=== PATIENT | female | born 1940 | race Two or more races ===

== ENCOUNTER 2017-03-26 14:13 | Observation (INO) | payer MEDICARE, OTHER ==
[2017-03-26] MEDS ORDERED: NITROGLYCERIN OINT 1 INCH/GM PACKET TOPICAL STA (14:25)
--- NOTE | 2017-03-26 14:28 | ED ---
General Adult HPI - General Chief complaint: Allergic Reaction Stated complaint: Allergic Reaction Time Seen by Provider: 03/26/17 14:21 Source: patient, EMS, RN notes reviewed Mode of arrival: EMS Limitations: no limitations - History of Present Illness Initial comments: Patient is a pleasant 76-year-old female presenting to the emergency department complaining of palpitations. Patient did have computed tomography scan with contrast done today. Patient was premedicated for this. This was secondary to some left lower abdominal discomfort patient has been experiencing. Patient states after she got home she experienced palpitations. Patient felt short of breath. Patient did have some mild tightness in her chest. Patient states symptoms have improved with oxygen on are now only mild. No rash. No swelling of the face or throat or neck. Previous contrast ALLERGY patient also had palpitations and shortness of breath however did develop a rash at that time. No rashes today. - Related Data Home Medications Medication Instructions Recorded Confirmed metFORMIN HCL [Glucophage] 1,000 mg PO BID 08/20/14 09/09/16 Clopidogrel [Plavix] 75 mg PO DAILY 02/13/16 09/09/16 Isosorbide Mononitrate ER [Imdur] 60 mg PO DAILY 02/13/16 09/09/16 Losartan [Cozaar] 50 mg PO DAILY 02/13/16 09/09/16 Atorvastatin [Lipitor] 40 mg PO HS 07/25/16 09/09/16 Insulin Glargine,Hum.rec.anlog 26 units SQ BID 07/25/16 09/09/16 [Toujeo Solostar] amLODIPine BESYLATE [Norvasc] 2.5 mg PO DAILY 07/25/16 09/09/16 Allergies Allergy/AdvReac Type Severity Reaction Status Date / Time aspirin Allergy Rash/Hives Verified 09/09/16 11:42 codeine Allergy Rash/Hives Verified 09/09/16 11:42 Influenza Virus Vaccines Allergy Rash/Hives Verified 09/09/16 11:42 Iodinated Contrast Media - Allergy Rash/Hives/Increased Verified 09/09/16 11:42 Oral and HR [Iodinated Contrast Media - IV Dye] iodine Allergy Rash/Hives Verified 09/09/16 11:42 NSAIDS (Non-Steroidal Allergy Anaphylaxis Verified 09/09/16 11:42 Anti-Inflamma Review of Systems ROS Statement: Those systems with pertinent positive or pertinent negative responses have been documented in the HPI. ROS Other: All systems not noted in ROS Statement are negative. Constitutional: Denies: fever Eyes: Denies: eye pain ENT: Denies: ear pain Respiratory: Reports: dyspnea. Denies: cough Cardiovascular: Reports: chest pain Endocrine: Denies: fatigue Gastrointestinal: Denies: abdominal pain Genitourinary: Denies: dysuria Musculoskeletal: Denies: back pain Skin: Denies: rash Neurological: Denies: weakness Past Medical History Past Medical History: Chest Pain / Angina, Diabetes Mellitus, Hyperlipidemia, Hypertension History of Any Multi-Drug Resistant Organisms: None Reported Past Surgical History: Cholecystectomy, Hernia Repair, Hysterectomy, Orthopedic Surgery Additional Past Surgical History / Comment(s): R shoulder surgery. R broken wrist. Past Anesthesia/Blood Transfusion Reactions: No Reported Reaction Past Psychological History: Depression Smoking Status: Never smoker Past Alcohol Use History: None Reported Past Drug Use History: None Reported - Past Family History Father Family Medical History: Congestive Heart Failure (CHF) General Exam Limitations: no limitations General appearance: alert, in no apparent distress Head exam: Present: atraumatic Eye exam: Present: normal appearance, PERRL ENT exam: Present: normal oropharynx, other (No angioedema) Neck exam: Present: normal inspection Respiratory exam: Present: normal lung sounds bilaterally. Absent: chest wall tenderness Cardiovascular Exam: Present: regular rate, normal rhythm Expanded Peripheral pulses: 2+: Radial (R), Radial (L), Dorsalis Pedis (R), Dorsalis Pedis (L) GI/Abdominal exam: Present: soft. Absent: distended, tenderness Extremities exam: Present: normal inspection. Absent: pedal edema, calf tenderness Neurological exam: Present: alert Psychiatric exam: Present: normal affect, normal mood Skin exam: Present: normal color Course Vital Signs 03/26/17 03/26/17 14:14 15:43 Temperature 97.9 F Pulse Rate 96 92 Respiratory 18 18 Rate Blood Pressure 175/73 142/64 O2 Sat by Pulse 100 98 Oximetry EKG Findings - EKG Comments: EKG Findings:: Normal sinus rhythm 92. W[place] 190. QRS 80. QT 368. QTC 455. Normal axis. Septal Q waves. No acute ST change. Medical Decision Making - Medical Decision Making Patient reevaluated and resting comfortably in bed. No discomfort at this time. Patient and family updated on results and plan. Dr. Johnson has been paged for admission for Dr. Wang. Admission orders written. Cardiology has been placed on consult. Patient has been started on insulin drip secondary to hyperglycemia. Acetone is negative. - Lab Data Result diagrams: 03/26/17 14:32 03/26/17 14:32 Lab Results 03/26/17 03/26/17 03/26/17 Range/Units 14:32 14:32 14:32 WBC 6.2 (3.8-10.6) k/uL RBC 4.20 (3.80-5.40) m/uL Hgb 12.3 (11.4-16.0) gm/dL Hct 38.5 (34.0-46.0) % MCV 91.8 (80.0-100.0) fL MCH 29.4 (25.0-35.0) pg MCHC 32.0 (31.0-37.0) g/dL RDW 12.5 (11.5-15.5) % Plt Count 157 (150-450) k/uL Neutrophils % 89 % Lymphocytes % 9 % Monocytes % 2 % Eosinophils % 0 % Basophils % 0 % Neutrophils # 5.5 (1.3-7.7) k/uL Lymphocytes # 0.5 L (1.0-4.8) k/uL Monocytes # 0.1 (0-1.0) k/uL Eosinophils # 0.0 (0-0.7) k/uL Basophils # 0.0 (0-0.2) k/uL PT (9.0-12.0) sec INR (<1.1) APTT (22.0-30.0) sec Sodium 136 L (137-145) mmol/L Potassium 4.4 (3.5-5.1) mmol/L Chloride 102 (98-107) mmol/L Carbon Dioxide 25 (22-30) mmol/L Anion Gap 9 mmol/L BUN 20 H (7-17) mg/dL Creatinine 1.02 (0.52-1.04) mg/dL Est GFR (MDRD) Af Amer >60 (>60 ml/min/1.73 sqM) Est GFR (MDRD) Non-Af 53 (>60 ml/min/1.73 sqM) Glucose 522 H* (74-99) mg/dL POC Glucose (mg/dL) (75-99) mg/dL POC Glu Physician Credentialing Specialist ID Calcium 9.3 (8.4-10.2) mg/dL Magnesium 1.9 (1.6-2.3) mg/dL Total Bilirubin 0.7 (0.2-1.3) mg/dL AST 38 H (14-36) U/L ALT 35 (9-52) U/L Alkaline Phosphatase 111 (38-126) U/L Total Creatine Kinase 207 H (30-135) U/L CK-MB (CK-2) 3.5 H* (0.0-2.4) ng/mL CK-MB (CK-2) Rel Index 1.7 Troponin I <0.012 (0.000-0.034) ng/mL Total Protein 7.9 (6.3-8.2) g/dL Albumin 4.2 (3.5-5.0) g/dL Acetone, Qual (Negative) 03/26/17 03/26/17 03/26/17 Range/Units 14:32 14:32 15:37 WBC (3.8-10.6) k/uL RBC (3.80-5.40) m/uL Hgb (11.4-16.0) gm/dL Hct (34.0-46.0) % MCV (80.0-100.0) fL MCH (25.0-35.0) pg MCHC (31.0-37.0) g/dL RDW (11.5-15.5) % Plt Count (150-450) k/uL Neutrophils % % Lymphocytes % % Monocytes % % Eosinophils % % Basophils % % Neutrophils # (1.3-7.7) k/uL Lymphocytes # (1.0-4.8) k/uL Monocytes # (0-1.0) k/uL Eosinophils # (0-0.7) k/uL Basophils # (0-0.2) k/uL PT 10.4 (9.0-12.0) sec INR 1.0 (<1.1) APTT 23.4 (22.0-30.0) sec Sodium (137-145) mmol/L Potassium (3.5-5.1) mmol/L Chloride (98-107) mmol/L Carbon Dioxide (22-30) mmol/L Anion Gap mmol/L BUN (7-17) mg/dL Creatinine (0.52-1.04) mg/dL Est GFR (MDRD) Af Amer (>60 ml/min/1.73 sqM) Est GFR (MDRD) Non-Af (>60 ml/min/1.73 sqM) Glucose (74-99) mg/dL POC Glucose (mg/dL) 437 H (75-99) mg/dL POC Glu Physician Credentialing Specialist ID Calcium (8.4-10.2) mg/dL Magnesium (1.6-2.3) mg/dL Total Bilirubin (0.2-1.3) mg/dL AST (14-36) U/L ALT (9-52) U/L Alkaline Phosphatase (38-126) U/L Total Creatine Kinase (30-135) U/L CK-MB (CK-2) (0.0-2.4) ng/mL CK-MB (CK-2) Rel Index Troponin I (0.000-0.034) ng/mL Total Protein (6.3-8.2) g/dL Albumin (3.5-5.0) g/dL Acetone, Qual Negative (Negative) - Radiology Data Radiology results: image reviewed (Chest x-ray shows no acute process.) Critical Care Time Critical Care Time: Yes Total Critical Care Time: 35 Disposition Clinical Impression: Unstable angina, Hyperglycemia Disposition: ADMITTED IP TO THIS [facility] Condition: Serious Time of Disposition: 15:50
[2017-03-26 14:53] LABS: Basophils % (A) 0 %; CH 29.9; CHCM 32.7; Eosinophils % (A) 0 %; HCT 38.5 % (34.0-46.0); HGB 12.3 gm/dL (11.4-16.0); Luc # (Auto) 0.01; Luc % (Auto) 0; Lymphocytes # (A) 0.5 k/uL (1.0-4.8); Lymphocytes % (A) 9 %; MCH 29.4 pg (25.0-35.0); MCV 91.8 fL (80.0-100.0); Mean Platelet Volume 7.3; Monocytes # (A) 0.1 k/uL (0-1.0); Monocytes % (A) 2 %; Neutrophils # (A) 5.5 k/uL (1.3-7.7); Neutrophils % (A) 89 %; RDW 12.5 % (11.5-15.5); WBC 6.2 k/uL (3.8-10.6)
--- NOTE | 2017-03-26 14:56 | XR ---
EXAMINATION TYPE: XR chest 2V DATE OF EXAM: 03/26/2017 2:48 PM COMPARISON: Prior chest x-ray 26 July 2016 HISTORY: Chest pain TECHNIQUE: Frontal and lateral views of the chest are obtained. FINDINGS: There is no focal air space opacity, pleural effusion, or pneumothorax seen. The cardiac silhouette size is within normal limits. There are overlying cardiac leads. Contrast material prese nt within the colon. Surgical clips present in the right upper quadrant. The osseous structures are i ntact. IMPRESSION: No acute cardiopulmonary process.
[2017-03-26 15:02] LABS: ALT 35 U/L (9-52); AST 38 U/L (14-36); Alkaline Phosphatase 111 U/L (38-126); Anion Gap 9 mmol/L; Blood Urea Nitrogen 20 mg/dL (7-17); Calcium 9.3 mg/dL (8.4-10.2); Carbon Dioxide 25 mmol/L (22-30); Chloride 102 mmol/L (98-107); Magnesium 1.9 mg/dL (1.6-2.3); Non-African American GFR(MDRD) 53 (>60 ml/min/1.73 sqM); Potassium 4.4 mmol/L (3.5-5.1); Sodium 136 mmol/L (137-145); Total Bilirubin 0.7 mg/dL (0.2-1.3); Total Protein 7.9 g/dL (6.3-8.2)
[2017-03-26 15:08] LABS: Glucose 522 mg/dL (74-99)
[2017-03-26 15:12] LABS: Creatine Kinase 207 U/L (30-135)
[2017-03-26] MEDS ORDERED: INSULIN REGULAR BOLUS (FROM DRIP BAG) IV ONE (15:18)
[2017-03-26 15:25] LABS: Troponin I <0.012 ng/mL (0.000-0.034)
[2017-03-26 15:26] LABS: Creatine Kinase MB 3.5 ng/mL (0.0-2.4)
[2017-03-26 15:29] LABS: Partial Thromboplastin Time 23.4 sec (22.0-30.0); Prothrombin Time 10.4 sec (9.0-12.0)
[2017-03-26] MEDS: SODIUM CHLORIDE 0.9% 1,000 ML IV SCH ×2 (15:37→20:31)
[2017-03-26 15:41] LABS: Glucose,Whole Blood 437 mg/dL (75-99)
[2017-03-26] MEDS ORDERED: HEPARIN SODIUM,PORCINE 5,000 UNIT/ML 1 ML VIAL IV ONE (15:50)
[2017-03-26] MEDS ORDERED: NITROGLYCERIN SL TABS 0.4 MG TAB SUBLINGUAL PRN (15:50)
[2017-03-26] MEDS ORDERED: HEPARIN SODIUM,PORCINE 5,000 UNIT/ML 1 ML VIAL IV PRN (15:50)
[2017-03-26] MEDS ORDERED: HEPARIN SODIUM,PORCINE/D5W PMX 25,000 UNIT in DEXTROSE/WATER 1 500ML.BAG IV SCH (16:00)
[2017-03-26] MEDS ORDERED: INSULIN REGULAR 100 UNIT in SODIUM CHLORIDE 0.9% 100 ML IV SCH (16:00)
[2017-03-26 16:58] LABS: Glucose,Whole Blood 372 mg/dL (75-99)
[2017-03-26 17:53] LABS: Glucose,Whole Blood 386 mg/dL (75-99)
[2017-03-26] MEDS: NITROGLYCERIN OINT 1 INCH/GM PACKET TOPICAL SCH (18:55)
[2017-03-26 19:07] LABS: Glucose,Whole Blood 310 mg/dL (75-99)
[2017-03-26 19:31] LABS: Anion Gap 11 mmol/L; Blood Urea Nitrogen 19 mg/dL (7-17); Carbon Dioxide 21 mmol/L (22-30); Chloride 108 mmol/L (98-107); Glucose 307 mg/dL (74-99); Non-African American GFR(MDRD) >60 (>60 ml/min/1.73 sqM); Phosphorous 2.4 mg/dL (2.5-4.5); Sodium 140 mmol/L (137-145)
[2017-03-26 19:47] LABS: Creatine Kinase 165 U/L (30-135)
[2017-03-26 19:59] LABS: Troponin I <0.012 ng/mL (0.000-0.034)
[2017-03-26 20:02] LABS: Glucose,Whole Blood 261 mg/dL (75-99)
[2017-03-26 20:08] LABS: Creatine Kinase MB 2.6 ng/mL (0.0-2.4)
[2017-03-26] MEDS ORDERED: ATORVASTATIN 40 MG TAB PO SCH (21:00)
[2017-03-26] MEDS ORDERED: TEMAZEPAM 15 MG CAP PO PRN (21:14)
[2017-03-26] MEDS ORDERED: ALPRAZolam 0.25 MG TAB PO PRN (21:14)
[2017-03-26 21:17] LABS: Glucose,Whole Blood 209 mg/dL (75-99)
[2017-03-26 21:57] LABS: Glucose,Whole Blood 165 mg/dL (75-99)
[2017-03-26 22:57] LABS: Glucose,Whole Blood 95 mg/dL (75-99)
[2017-03-26 23:08] LABS: Anion Gap 9 mmol/L; Blood Urea Nitrogen 18 mg/dL (7-17); Carbon Dioxide 19 mmol/L (22-30); Chloride 115 mmol/L (98-107); Glucose 123 mg/dL (74-99); Non-African American GFR(MDRD) >60 (>60 ml/min/1.73 sqM); Phosphorous 2.4 mg/dL (2.5-4.5); Potassium 3.9 mmol/L (3.5-5.1); Sodium 143 mmol/L (137-145)
[2017-03-26] MEDS: metFORMIN 500 MG TAB PO SCH (23:15)
--- NOTE | 2017-03-26 23:47 | HP ---
DATE OF ADMISSION: 03/26/2017 CHIEF COMPLAINT: Uncontrolled blood sugar as well as chest pain. HISTORY OF PRESENT ILLNESS: This 76-year-old woman with a past medical history of multiple medical problems, including chest pain, history of diabetes mellitus, hypertension, hyperlipidemia, history of cardiac catheterization, history of depression, being followed by Dr. Wang in the outpatient setting, apparently was having left-sided abdominal pain. The patient was evaluated by Dr. Wang and subsequently recommended a consultation with Dr. Luque, who ordered a CT scan of the abdomen. Apparently the patient is ALLERGIC TO DYE. Patient was prepared with IV Solu-Medrol and Benadryl. The CT scan showed mild sigmoid diverticulosis; no evidence of diverticulitis; and hysterectomy as well as non-obstructive left-sided nephrolithiasis and a small hiatal hernia. The patient went home. The patient was feeling better, but subsequently patient checked her blood sugars which were found to be 556, and the patient also had some palpitations. The patient was feeling some shortness of breath and chest pain. Patient called Dr. Wang's office and was directed to [facility] emergency room and was admitted for further evaluation and treatment. In the ER her blood sugars were definitely elevated to 437. Initial level was 522 and subsequently insulin drip was initiated. There was no evidence of any diabetic ketoacidosis. The patient was monitored closely. There is no history of any fever, rigor, or chills. No history of any headache, loss of consciousness, seizures. PAST MEDICAL HISTORY: 1. History of diabetes mellitus. 2. History of hyperlipidemia. 3. Hypertension. 4. History of cardiac catheterization. 5. History of depression. HOME MEDICATIONS: 1. Glucophage 1000 mg p.o. b.i.d. 2. Glipizide 2.5 mg p.o. daily. 3. Toujeo 54 mg subcutaneously each morning. 4. Lipitor 40 mg at bedtime. 5. Prednisone 50 mg p.r.n. 6. Norvasc 2.5 mg daily. 7. Cozaar 50 mg p.o. daily. 8. Imdur 60 mg p.o. daily. 9. Plavix 75 mg p.o. daily. ALLERGIES: 1. ASPIRIN. 2. CODEINE. 3. INFLUENZA VACCINE. 4. IODINATED CONTRAST DYE. 5. NSAIDS. FAMILY HISTORY: History of CHF in the family and pneumonia. SOCIAL HISTORY: No history of smoking. No history of alcohol intake. REVIEW OF SYSTEMS: ENT: Diminishing hearing. Diminished vision. CARDIOVASCULAR: As mentioned earlier. RESPIRATORY SYSTEM: As mentioned earlier. GI: No nausea, vomiting. : No dysuria. NERVOUS SYSTEM: No numbness or weakness. ALLERGY/IMMUNOLOGY: No asthma, hayfever. MUSCULOSKELETAL: As mentioned earlier. HEMATOLOGY/ONCOLOGY: As mentioned earlier. ENDOCRINE: As mentioned earlier. CONSTITUTIONAL: As mentioned earlier. DERMATOLOGY: Negative. RHEUMATOLOGY: Negative. PSYCHIATRY: As mentioned earlier. PHYSICAL EXAMINATION: Patient alert and oriented x3. Pulse 60, blood pressure 114/50, respiratory rate 16, temperature 98 degrees, pulse ox 98% on room air. HEENT: Conjunctivae normal. Oral mucosa moist. NECK: No jugular venous distention. No carotid bruit. No lymph node enlargement. CARDIOVASCULAR SYSTEM: S1, S2 normal. Ejection systolic murmur present. No S3. No S4. RESPIRATORY: Breath sounds diminished at the bases. No rhonchi. No crackles. No bronchial breath sounds. ABDOMEN: Soft, nontender. No mass palpable. No hepatosplenomegaly. LEGS: No edema. No swelling. NERVOUS SYSTEM: Higher functions as mentioned earlier. Cranial nerves II through XII grossly intact. Moves all 4 limbs. No focal motor or sensory deficit. LYMPHATICS: No lymph node palpable in neck, axillae or groin. SKIN: No ulcer, rash, bleeding. JOINTS: No active deforming arthropathy. LABS: CBC within normal limits. Sodium 136. Glucose noted. CK is 207. Troponins are negative. EKG noted. Acetone is negative. ASSESSMENT: 1. Chest pain for evaluation. Rule out coronary artery disease. 2. Diabetes mellitus, type 2, uncontrolled, without any evidence of ketoacidosis. 3. Hyponatremia. 4. Increased creatine kinase with normal troponins. 5. History of hypertension, essential. 6. History of hyperlipidemia. 7. History of cardiac catheterization. 8. History of depression not otherwise specified. 9. History of recent stress test. 10. FULL CODE. RECOMMENDATIONS AND DISCUSSION: In this 76-year-old woman who presented with multiple complex medical issues, we will monitor the patient closely, continue the current medications. Patient was started on insulin drip. The patient did not have any evidence of diabetic ketoacidosis. Sugars are decreasing; currently 247. Recommend continuing insulin drip until tomorrow morning, and the home dose of insulin may be restarted. As far as the cardiac issues are concerned, we will continue with checking the troponins and cardiology consultation. Old charts from the office may be obtained for further analysis. Otherwise, resume the rest of the medications. Symptomatic treatment will be provided. A copy of this dictation is being forwarded to Dr. Wang, who is the primary physician.
[2017-03-27] MEDS: NITROGLYCERIN OINT 1 INCH/GM PACKET TOPICAL SCH ×2 (00:17→06:52)
[2017-03-27 00:40] LABS: Glucose,Whole Blood 100 mg/dL (75-99)
[2017-03-27 02:19] LABS: Creatine Kinase 132 U/L (30-135)
[2017-03-27 02:31] LABS: Troponin I <0.012 ng/mL (0.000-0.034)
[2017-03-27 02:33] LABS: Creatine Kinase MB 2.5 ng/mL (0.0-2.4)
[2017-03-27 04:29] LABS: Glucose,Whole Blood 135 mg/dL (75-99)
[2017-03-27 07:13] LABS: Basophils % (A) 0 %; CH 29.7; CHCM 32.9; Eosinophils # (A) 0.1 k/uL (0-0.7); Eosinophils % (A) 1 %; HCT 30.5 % (34.0-46.0); HDW 2.52; HGB 10.1 gm/dL (11.4-16.0); Luc # (Auto) 0.14; Luc % (Auto) 2; Lymphocytes # (A) 2.2 k/uL (1.0-4.8); Lymphocytes % (A) 28 %; MCH 30.2 pg (25.0-35.0); MCHC 33.3 g/dL (31.0-37.0); MCV 90.7 fL (80.0-100.0); Mean Platelet Volume 6.9; Monocytes # (A) 0.4 k/uL (0-1.0); Monocytes % (A) 5 %; Neutrophils # (A) 5.1 k/uL (1.3-7.7); Neutrophils % (A) 64 %; RBC 3.36 m/uL (3.80-5.40); RDW 12.7 % (11.5-15.5); WBC 7.9 k/uL (3.8-10.6)
[2017-03-27] MEDS ORDERED: PANTOPRAZOLE 40 MG TABLET PO SCH (07:30)
[2017-03-27 07:34] LABS: Anion Gap 7 mmol/L; Blood Urea Nitrogen 17 mg/dL (7-17); Calcium 8.8 mg/dL (8.4-10.2); Carbon Dioxide 23 mmol/L (22-30); Chloride 114 mmol/L (98-107); Cholesterol 168 mg/dL (<200); Glucose 134 mg/dL (74-99); HDL Cholesterol 60 mg/dL (40-60); Non-African American GFR(MDRD) >60 (>60 ml/min/1.73 sqM); Potassium 4.2 mmol/L (3.5-5.1); Sodium 144 mmol/L (137-145); Triglycerides 77 mg/dL (<150)
[2017-03-27 07:35] LABS: Glucose,Whole Blood 124 mg/dL (75-99)
[2017-03-27 07:59] LABS: Hemoglobin A1C 9.7 % (4.2-6.1)
[2017-03-27] MEDS ORDERED: INSULIN GLARGINE 100 UNIT/ML 10 ML VIAL SQ SCH (09:00)
[2017-03-27] MEDS ORDERED: CLOPIDOGREL 75 MG TAB PO SCH (09:00)
[2017-03-27] MEDS ORDERED: amLODIPine 2.5 MG TAB PO SCH (09:00)
[2017-03-27] MEDS ORDERED: LOSARTAN 50 MG TAB PO SCH (09:00)
[2017-03-27] MEDS ORDERED: ISOSORBIDE MONONITRATE ER 60 MG TAB.ER.24H PO SCH (09:00)
--- NOTE | 2017-03-27 09:08 | P.CRDCN ---
History of Present Illness Consult date: 03/27/17 Chief complaint: Chest discomfort History of present illness: This is a pleasant 76-year-old female patient who sees Dr. Reyes as an outpatient with known history of intermediate coronary artery disease involving the proximal LAD based on heart catheterization was performed a year ago, in January 2016, presented to the hospital because she was not feeling well. The patient just was seen by a general surgeon for abdominal discomfort. He recommended obtaining computed tomography scan of the abdomen with contrast. The patient has some ALLERGY to contrast and after the computed tomography scan was performed she started experiencing heart racing and fluttering associated was mild chest discomfort and shortness of breath. Now she is feeling better and the symptoms are completely resolved. The patient EKG showed sinus rhythm without any significant changes. The cardiac enzymes came in to be unremarkable. The patient has a today because her [id number]-isa just and she would like to leave. From the cardiovascular standpoint of view, the patient can be discharged home. Past Medical History Past Medical History: Chest Pain / Angina, Diabetes Mellitus, Hyperlipidemia, Hypertension Additional Past Medical History / Comment(s): UTI-ECOLI History of Any Multi-Drug Resistant Organisms: None Reported Past Surgical History: Cholecystectomy, Heart Catheterization, Hernia Repair, Hysterectomy, Orthopedic Surgery Additional Past Surgical History / Comment(s): R shoulder surgery. R broken wrist.trigger release rt middle finger. pt not sure if they took appendix when they did hysterectomy Past Anesthesia/Blood Transfusion Reactions: No Reported Reaction Additional Past Anesthesia/Blood Transfusion Reaction / Comment(s): blood transfusion-no reaction Past Psychological History: Depression Additional Psychological History / Comment(s): pt is independant, lives with spouse, pt's sister and a grand daughter- has 1 step to house, has 3 pet dogs. recieves meals on wheels, has shower chair and bsc. Smoking Status: Never smoker Past Alcohol Use History: None Reported Past Drug Use History: None Reported - Past Family History Father Family Medical History: Congestive Heart Failure (CHF) Mother Family Medical History: Pneumonia Additional Family Medical History / Comment(s): fom pne Medications and Allergies Home Medications Medication Instructions Recorded Confirmed Type metFORMIN HCL [Glucophage] 1,000 mg PO BID 08/20/14 03/26/17 History Clopidogrel [Plavix] 75 mg PO DAILY 02/13/16 03/26/17 History Isosorbide Mononitrate ER [Imdur] 60 mg PO DAILY 02/13/16 03/26/17 History Losartan [Cozaar] 50 mg PO DAILY 02/13/16 03/26/17 History Atorvastatin [Lipitor] 40 mg PO HS 07/25/16 03/26/17 History Insulin Glargine,Hum.rec.anlog 54 units SQ QAM 07/25/16 03/26/17 History [Toujeo Solostar] amLODIPine BESYLATE [Norvasc] 2.5 mg PO DAILY 07/25/16 03/26/17 History glipiZIDE [Glipizide] 2.5 mg PO DAILY 03/26/17 03/26/17 History predniSONE [predniSONE] 50 mg PO DIRECTED 03/26/17 03/26/17 History Allergies Allergy/AdvReac Type Severity Reaction Status Date / Time aspirin Allergy Rash/Hives Verified 09/09/16 11:42 codeine Allergy Rash/Hives Verified 09/09/16 11:42 Influenza Virus Vaccines Allergy Rash/Hives Verified 09/09/16 11:42 Iodinated Contrast Media - Allergy Rash/Hives/Increased Verified 09/09/16 11:42 Oral and HR [Iodinated Contrast Media - IV Dye] iodine Allergy Rash/Hives Verified 09/09/16 11:42 NSAIDS (Non-Steroidal Allergy Anaphylaxis Verified 09/09/16 11:42 Anti-Inflamma Physical Exam Vitals: Vital Signs Temp Pulse Pulse Resp BP BP Pulse Ox 03/27/17 04:00 60 16 03/27/17 00:00 60 16 03/26/17 20:00 16 03/26/17 19:48 98.0 F 60 16 114/50 98 03/26/17 17:59 98.2 F 86 18 129/59 100 Intake and Output 03/26/17 03/27/17 03/27/17 22:59 06:59 14:59 Intake Total 272.283 31.667 Balance 272.283 31.667 Intake: Intake, IV Titration 32.283 31.667 Amount Insulin Regular 100 unit 32.283 31.667 In Sodium Chloride 0.9% 100 ml @ 0.1 UNITS/KG/HR 6 mls/hr IV .[id number] [facility] Rx#:[id number] Oral 240 Other: Weight 59.421 kg - Constitutional General appearance: no acute distress - Respiratory Respiratory: bilateral: CTA - Cardiovascular Rhythm: regular Heart sounds: normal: S1, S2 Results 03/27/17 06:37 03/27/17 06:37 Cardiac Enzymes 03/26/17 03/27/17 Range/Units 19:09 01:37 CK-MB (CK-2) 2.6 H* 2.5 H* (0.0-2.4) ng/mL Troponin I <0.012 <0.012 (0.000-0.034) ng/mL Coagulation 03/27/17 Range/Units 01:37 APTT 41.3 H (22.0-30.0) sec Lipids 03/27/17 Range/Units 06:37 Triglycerides 77 (<150) mg/dL Cholesterol 168 (<200) mg/dL HDL Cholesterol 60 (40-60) mg/dL CBC 03/27/17 Range/Units 06:37 WBC 7.9 (3.8-10.6) k/uL RBC 3.36 L (3.80-5.40) m/uL Hgb 10.1 L (11.4-16.0) gm/dL Hct 30.5 L (34.0-46.0) % Plt Count 140 L (150-450) k/uL Comprehensive Metabolic Panel 03/26/17 03/26/17 03/27/17 Range/Units 19:09 22:15 06:37 Sodium 140 143 144 (137-145) mmol/L Potassium 4.0 3.9 4.2 (3.5-5.1) mmol/L Chloride 108 H 115 H 114 H (98-107) mmol/L Carbon Dioxide 21 L 19 L 23 (22-30) mmol/L BUN 19 H 18 H 17 (7-17) mg/dL Creatinine 0.90 0.80 0.89 (0.52-1.04) mg/dL Glucose 307 H 123 H 134 H (74-99) mg/dL Calcium 8.8 (8.4-10.2) mg/dL Current Medications Generic Name Dose Route Start Last Admin Trade Name Freq PRN Reason Stop Dose Admin Alprazolam 0.25 mg 03/26/17 21:14 Xanax PO TID PRN Anxiety Amlodipine Besylate 2.5 mg 03/27/17 09:00 Norvasc PO DAILY [facility] Atorvastatin Calcium 40 mg 03/26/17 21:00 03/26/17 23:19 Lipitor PO 40 mg HS YESI Administration Clopidogrel Bisulfate 75 mg 03/27/17 09:00 Plavix PO DAILY [facility] Glipizide 2.5 mg 03/27/17 09:00 Glucotrol PO DAILY [facility] Heparin Sodium (Porcine) 0 unit 03/26/17 15:50 Heparin IV Q6HR PRN Low PTT Protocol Insulin Human Regular 100 unit 101 mls @ 6 mls/hr 03/26/17 16:00 03/26/17 23: 13 / Sodium Chloride IV 0 units/kg/hr .[id number] YESI 0 mls/hr Protocol Titration 0.1 UNITS/KG/HR Sodium Chloride 1,000 mls @ 200 mls/hr 03/26/17 15:30 03/26/17 20:31 Saline 0.9% IV 200 mls/hr .Q5H YESI Administration Heparin Sodium/Dextrose 25,000 500 mls @ 14.26 mls/hr 03/26/17 16:00 16:51 unit/ IV Solution IV 12 units/kg/hr .Q24H YESI 14.26 mls/hr Protocol Administration 12 UNITS/KG/HR Insulin Glargine 54 unit 03/27/17 09:00 Lantus SQ QAM [facility] Isosorbide Mononitrate 60 mg 03/27/17 09:00 Imdur PO DAILY [facility] Losartan Potassium 50 mg 03/27/17 09:00 Cozaar PO DAILY [facility] Metformin HCl 1,000 mg 03/26/17 21:00 03/26/17 23:15 Glucophage PO Not Given BID [facility] Nitroglycerin 1 inch 03/26/17 18:00 03/27/17 06:52 Nitro-Bid Oint TOPICAL Not Given Q6HR [facility] Nitroglycerin 0.4 mg 03/26/17 15:50 Nitrostat SUBLINGUAL Q5M PRN Chest Pain Pantoprazole Sodium 40 mg 03/27/17 07:30 Protonix PO AC-[id number] [facility] Temazepam 15 mg 03/26/17 21:14 Restoril PO HS PRN Insomnia Intake and Output 03/26/17 03/27/17 03/27/17 22:59 06:59 14:59 Intake Total 272.283 31.667 Balance 272.283 31.667 Intake: Intake, IV Titration 32.283 31.667 Amount Insulin Regular 100 unit 32.283 31.667 In Sodium Chloride 0.9% 100 ml @ 0.1 UNITS/KG/HR 6 mls/hr IV .[id number] [facility] Rx#:[id number] Oral 240 Other: Weight 59.421 kg 03/27/17 06:37 03/27/17 06:37 Assessment and Plan Plan: Assessment #1 atypical chest discomfort #2 known intermediate CAD Plan #1 from the cardiovascular standpoint of view, the patient can be discharged home #2 she was follow-up with Dr. Reyes as an outpatient
[2017-03-27] MEDS: metFORMIN 500 MG TAB PO SCH (09:35)
[2017-03-27 09:38] VITALS: BP 133/52; PULSE 56; RESP 18; TEMP 98.6
--- NOTE | 2017-03-28 09:45 | DS ---
DATE OF ADMISSION: 03/26/2017 DATE OF DISCHARGE: 03/27/2017 FINAL DIAGNOSES: 1. Chest pain, myocardial infarction ruled out for further evaluation. 2. Diabetes mellitus type 2, uncontrolled without any evidence of ketoacidosis possibly secondary to IV steroids. 3. Hyponatremia. 4. Increased creatine kinase with normal troponins. 5. History of hypertension essential. 6. Hyperlipidemia. 7. History of cardiac catheterization. 8. History of depression, not otherwise specified. 9. History of recent stress test. 10. FULL CODE. DISCHARGE DISPOSITION: The patient will be discharged in a stable condition with guarded prognosis. Patient is extremely keen on going home. HISTORY OF PRESENT ILLNESS: This 76-year-old woman with past medical history of multiple medical problems admitted with uncontrolled blood sugars and chest pain. Myocardial infarction ruled out. The patient had recent CAT scan as recommended by Dr. Luque for evaluation of abdominal pain and received steroids as a preparation because of allergies. The steroids probably increased the blood sugars up to 554. There was no evidence of ketosis. The patient was IV insulin drip. The patient improved significantly. On exam, vitals are stable. CARDIOVASCULAR SYSTEM: S1 and S2 muffled. ABDOMEN: Soft. NERVOUS SYSTEM: No focal deficits. The patient will be discharged. Patient is extremely keen on going home. Cardiology saw the patient and recommended outpatient followup so the patient was discharged in a stable condition with guarded prognosis with the following advice. 1. Diet is cardiac, 1800 calorie ADA. 2. Activity limited until followup. 3. Follow up with Dr. Dolores Wang in 2 to 3 days. 4. Accu-Cheks a.c. and at bedtime. 5. Follow up with Dr. Reyes as advised. Medications will be: 1. Xanax 0.25 t.i.d. p.r.n. 2. Lipitor 40 mg q.h.s. 3. Plavix 75 mg p.o. daily. 4. Insulin 54 units subcu q.a.m. 5. Imdur ER 60 mg p.o. daily. 6. Cozaar 50 mg daily. 7. Norvasc 2.5 mg daily. 8. Glipizide 2.5 mg daily. 9. Glucophage 1000 mg p.o. b.i.d. Once again, the patient will be discharged in a stable condition with guarded prognosis. MTDD
== END 2017-03-27 10:18 | disposition home or self-care (01) ==
LOC: EC 14:13 → 3OBS 15:51
PROVIDERS: ADMIT Hospitalist; ATTEND Hospitalist
DX: R07.89 Other chest pain (principal); I25.10 Atherosclerotic heart disease of native coronary artery without angina pectoris; E11.65 Type 2 diabetes mellitus with hyperglycemia; E87.1 Hypo-osmolality and hyponatremia; R74.8 Abnormal levels of other serum enzymes; I10 Essential (primary) hypertension; E78.5 Hyperlipidemia, unspecified; F32.9 Major depressive disorder, single episode, unspecified; R00.0 Tachycardia, unspecified; R00.2 Palpitations; R06.02 Shortness of breath; R10.32 Left lower quadrant pain; Z79.84 Long term (current) use of oral hypoglycemic drugs; Z79.02 Long term (current) use of antithrombotics/antiplatelets; Z79.899 Other long term (current) drug therapy; Z79.4 Long term (current) use of insulin; Z88.5 Allergy status to narcotic agent; Z88.7 Allergy status to serum and vaccine; Z88.8 Allergy status to other drugs, medicaments and biological substances; Z88.6 Allergy status to analgesic agent; Z88.3 Allergy status to other anti-infective agents; Z91.041 Radiographic dye allergy status; Z82.49 Family history of ischemic heart disease and other diseases of the circulatory system
CPT/HCPCS: 96366 ×2; 96368; 96376; 96361; 96365; 99291; 36415; 93005; 80051; 80061; 80053; 80048; 83036; 82565; 82550 ×2; 82553 ×2; 82009; 83735; 84100; 82947; 84520; 84484 ×2; 85025 ×2; 85610; 85730 ×2; 71020; G0378 ×2; J1644 ×2

== ENCOUNTER → 2017-03-26 | Outpatient (CLI) | payer MEDICARE, OTHER ==
[2017-03-26 08:07] LABS: Blood Urea Nitrogen 21 mg/dL (7-17); Non-African American GFR(MDRD) >60 (>60 ml/min/1.73 sqM)
--- NOTE | 2017-03-26 10:17 | CT ---
EXAMINATION TYPE: CT abdomen pelvis w con DATE OF EXAM: 03/26/2017 9:01 AM COMPARISON: 12/06/2011 HISTORY: 76-year-old female with left lower quadrant pain TECHNIQUE: Contiguous axial scanning of the abdomen and pelvis following administration of 100 ml Omn ipaque 300 IV contrast. Delayed images through the kidneys and coronal/sagittal reconstructions perf ormed. CT DLP: 1248 mGycm Automated exposure control for dose reduction was used. FINDINGS: Heart is normal size without pericardial effusion. Coronary vessel calcifications are present and are remarkable for coronary artery disease. Some reticular densities at the lung bases greater reflect some interstitial scarring. A 4 mm right b asilar pulmonary nodule is stable from 2011 compatible with a benign etiology. No pleural effusion. Small hiatal hernia. No focal liver lesion or biliary ductal dilatation. Portal venous system is patent. Cholecystectomy clips. Adrenal glands, right kidney, spleen, and pancreas show no gross abnormality. Symmetric uptake and ex cretion of contrast from both kidneys. There are a couple nonobstructive 5 mm calculi in the upper pole left kidney. No dilated small bowel, free fluid, or free air. Tiny fatty umbilical hernia. Normal appendix. Oral contrast has progressed to the lower descending colon. There is acxe-zg-[id number] e scattered stool and mild sigmoid diverticulosis. No pericolonic inflammatory change. Bladder is urine distended. Uterus surgically absent. Neither ovary is seen and could also be surgica lly absent. There is pelvic floor laxity and with a suggestion of a small cystocele, axial image 85 [address] nd sagittal image 35 Bones: Degenerative changes at the hips. No osseous destructive process. IMPRESSION: 1. MILD SIGMOID DIVERTICULOSIS. NO FINDINGS OF ACUTE DIVERTICULITIS. 2. STATUS POST HYSTERECTOMY. THERE IS PELVIC FLOOR RELAXATION AND POSSIBLE SMALL CYSTOCELE. 3. NONOBSTRUCTIVE LEFT-SIDED NEPHROLITHIASIS WITH A COUPLE 5 MM CALCULI. 4. SMALL HIATAL HERNIA AND A TINY FATTY UMBILICAL HERNIA.
== END | disposition home or self-care (01) ==
LOC: RADCTMAIN 07:27
PROVIDERS: ATTEND Surgery
DX: K57.30 Diverticulosis of large intestine without perforation or abscess without bleeding (principal); N20.0 Calculus of kidney; K44.9 Diaphragmatic hernia without obstruction or gangrene; K42.9 Umbilical hernia without obstruction or gangrene; Z90.710 Acquired absence of both cervix and uterus
CPT/HCPCS: 82565; 84520; 74177; 36415; Q9967

== ENCOUNTER → 2018-07-15 | Outpatient (CLI) | payer MEDICARE, OTHER ==
--- NOTE | 2018-07-15 17:16 | XR ---
Left ankle and left foot HISTORY: Pain, great toe injury 3 views of the left ankle and 3 views of the left foot submitted Correlation to left foot dated 07/26/2016 Bone mineralization is slightly reduced. There is a plantar calcaneus spur. Atherosclerotic vascular calcifications are present. Degenerative changes present at the first metata rsophalangeal joint. IMPRESSION: No fracture or dislocation. Follow-up as indicated.
== END | disposition home or self-care (01) ==
LOC: RADXRYALE 15:09
PROVIDERS: ATTEND Internal Medicine
DX: M79.672 Pain in left foot (principal)

== ENCOUNTER → 2018-11-03 | Outpatient (CLI) | payer MEDICARE, OTHER ==
--- NOTE | 2018-11-03 13:41 | XR ---
EXAMINATION TYPE: XR foot complete RT DATE OF EXAM: 11/03/2018 COMPARISON: NONE HISTORY: Pain TECHNIQUE: Three views are submitted. FINDINGS: The osseous structures are intact. There is no acute fracture or dislocation. Arthropathy of the f irst MTP. Diffuse osteopenia. Arthropathy of the PIP and DIP joints. Vascular calcifications noted. C alcaneal spurs noted. IMPRESSION: 1. No acute fracture or dislocation. If symptoms persist, follow-up exam in 7 to 10 days could be ob tained.
--- NOTE | 2018-11-03 13:42 | XR ---
EXAMINATION TYPE: XR knee complete RT DATE OF EXAM: 11/03/2018 COMPARISON: NONE HISTORY: Pain TECHNIQUE: Four views are submitted. FINDINGS: Joint spaces are preserved. Osseous structures are intact. No acute fracture seen. Vascular calcif ications noted and there is diffuse osteopenia. Arthropathy of the knee joint. Small suprapatellar anahi int effusion. IMPRESSION: 1. No acute fracture or dislocation. 2. Diffuse osteopenia and arthropathy of the knee joint.
== END | disposition home or self-care (01) ==
LOC: RADXRYALE 12:56
PROVIDERS: ATTEND Internal Medicine
DX: M85.861 Other specified disorders of bone density and structure, right lower leg (principal); M12.861 Other specific arthropathies, not elsewhere classified, right knee; M25.571 Pain in right ankle and joints of right foot

== ENCOUNTER 2019-02-13 16:27 | Inpatient (IN) | payer MEDICARE, OTHER ==
[2019-02-13] MEDS ORDERED: ACETAMINOPHEN TAB 500 MG TAB PO STA (16:39)
[2019-02-13] MEDS ORDERED: SODIUM CHLORIDE 0.9% 1,000 ML IV ONE (16:45)
--- NOTE | 2019-02-13 16:47 | ED ---
General Adult HPI - General Stated complaint: Flu like sx Time Seen by Provider: 02/13/19 16:29 Source: patient, EMS, RN notes reviewed Mode of arrival: EMS Limitations: no limitations - History of Present Illness Initial comments: This a 78-year-old female presents emergency Department from home via EMS chief complaint fever cough congestion. Patient states she's been sick last few days. Patient states that multiple people are household have been in emergency department same symptoms. Patient states her cough is productive at time. Patient states that she hurts all over and it hurts to cough. Patient denies any current chest pain at rest. Patient denies any neck pain, neck stiffness, headache or dizziness. She has no nausea vomiting diarrhea constipation. - Related Data Home Medications Medication Instructions Recorded Confirmed metFORMIN HCL [Glucophage] 1,000 mg PO BID 08/20/14 02/13/19 Clopidogrel [Plavix] 75 mg PO DAILY 02/13/16 02/13/19 Isosorbide Mononitrate ER [Imdur] 60 mg PO DAILY 02/13/16 02/13/19 Losartan [Cozaar] 50 mg PO DAILY 02/13/16 02/13/19 amLODIPine BESYLATE [Norvasc] 2.5 mg PO DAILY 07/25/16 02/13/19 ALPRAZolam [Xanax] 0.25 mg PO BID 02/13/19 02/13/19 Atorvastatin [Lipitor] 80 mg PO DAILY 02/13/19 02/13/19 Insulin Glargine,Hum.rec.anlog 10 unit SQ DAILY 02/13/19 02/13/19 [Tougenny Solostbob] Pioglitazone HCl [Actos] 15 mg PO DAILY 02/13/19 02/13/19 Allergies Allergy/AdvReac Type Severity Reaction Status Date / Time aspirin Allergy Rash/Hives Verified 02/13/19 16:44 codeine Allergy Rash/Hives Verified 02/13/19 16:44 Influenza Virus Vaccines Allergy Rash/Hives Verified 02/13/19 16:44 Iodinated Contrast- Oral and Allergy Rash/Hives/Increased Verified 02/13/19 16:44 IV Dye HR [Iodinated Contrast Media - IV Dye] iodine Allergy Rash/Hives Verified 02/13/19 16:44 NSAIDS (Non-Steroidal Allergy Anaphylaxis Verified 02/13/19 16:44 Anti-Inflamma Review of Systems ROS Statement: Those systems with pertinent positive or pertinent negative responses have been documented in the HPI. ROS Other: All systems not noted in ROS Statement are negative. Past Medical History Past Medical History: Chest Pain / Angina, Diabetes Mellitus, Hyperlipidemia, Hypertension Additional Past Medical History / Comment(s): UTI-ECOLI History of Any Multi-Drug Resistant Organisms: None Reported Past Surgical History: Cholecystectomy, Heart Catheterization, Hernia Repair, Hysterectomy, Orthopedic Surgery Additional Past Surgical History / Comment(s): R shoulder surgery. R broken wrist.trigger release rt middle finger. pt not sure if they took appendix when they did hysterectomy Past Anesthesia/Blood Transfusion Reactions: No Reported Reaction Additional Past Anesthesia/Blood Transfusion Reaction / Comment(s): blood transfusion-no reaction Past Psychological History: Depression Smoking Status: Never smoker Past Alcohol Use History: None Reported Past Drug Use History: None Reported - Past Family History Father Family Medical History: Congestive Heart Failure (CHF) Mother Family Medical History: Pneumonia Additional Family Medical History / Comment(s): fom pne General Exam General appearance: alert, in no apparent distress Head exam: Present: atraumatic, normocephalic, normal inspection Eye exam: Present: normal appearance, PERRL, EOMI. Absent: scleral icterus, conjunctival injection, periorbital swelling ENT exam: Present: normal exam, normal oropharynx, mucous membranes moist, TM's normal bilaterally, normal external ear exam Neck exam: Present: normal inspection, full ROM. Absent: tenderness, meningismus, lymphadenopathy Respiratory exam: Present: normal lung sounds bilaterally. Absent: respiratory distress, wheezes, rales, rhonchi, stridor Cardiovascular Exam: Present: normal rhythm, tachycardia, normal heart sounds. Absent: systolic murmur, diastolic murmur, rubs, gallop, clicks GI/Abdominal exam: Present: soft, normal bowel sounds. Absent: distended, tenderness, guarding, rebound, rigid Neurological exam: Present: alert, oriented X3, CN II-XII intact Skin exam: Present: warm, dry, intact, normal color. Absent: rash Course Vital Signs 02/13/19 16:44 Temperature 104.1 F H Pulse Rate 112 H Respiratory 22 Rate Blood Pressure 155/63 O2 Sat by Pulse 94 L Oximetry Medical Decision Making - Medical Decision Making 78 show female presented for fever cough congestion. Patient's influenza A positive. Patient was started on Tamiflu. Patient also has evidence of pneumonia. Patient will be admitted on IV antibiotics and antivirals. - Lab Data Lab Results 02/13/19 Range/Units 16:40 Influenza Type A RNA Detected H (Not Detectd) Influenza Type B (PCR) Not Detected (Not Detectd) Disposition Clinical Impression: Influenza, Pneumonia Disposition: ADMITTED IP TO THIS HOSP Condition: Fair Referrals: Dolores Wang MD [Primary Care Provider] - 1-2 days
--- NOTE | 2019-02-13 17:10 | XR ---
EXAMINATION TYPE: XR chest 2V DATE OF EXAM: 02/13/2019 COMPARISON: HISTORY: Cough and fever TECHNIQUE: Frontal and lateral views of the chest are obtained. FINDINGS: Increasing density in the right infrahilar airspace and middle lobe is seen in comparison to the prior although somewhat exaggerated by decreased inspiratory effort. There is also mild peribr onchial cuffing seen throughout. Remainder the lungs are clear. Osseous demineralization is present. Cardia mediastinal silhouette is within normal limits. IMPRESSION: Right middle lobe airspace disease that may represent atelectasis or pneumonia. Peribron chial cuffing is also seen suggesting a component of reactive or infectious airway disease.
[2019-02-13] MEDS ORDERED: AZITHROMYCIN 500 MG in SODIUM CHLORIDE 0.9% 250 ML IVPB STA (17:27)
[2019-02-13] MEDS ORDERED: IPRATROPIUM-ALBUTEROL 3 ML NEB INHALATION PRN (17:27)
[2019-02-13] MEDS ORDERED: PNEUMONIA PROTOCOL UTILIZED 1 EACH MISC PO PRN (17:27)
[2019-02-13] MEDS ORDERED: OSELTAMIVIR 75 MG CAP PO STA (17:31)
[2019-02-13] MEDS ORDERED: TEMAZEPAM 15 MG CAP PO PRN (18:56)
[2019-02-13 19:01] LABS: Basophils % (A) 0 %; Eosinophils # (A) 0.1 k/uL (0-0.7); Eosinophils % (A) 1 %; HCT 27.7 % (34.0-46.0); HGB 9.2 gm/dL (11.4-16.0); Lymphocytes # (A) 0.4 k/uL (1.0-4.8); Lymphocytes % (A) 5 %; MCH 29.7 pg (25.0-35.0); MCHC 33.2 g/dL (31.0-37.0); MCV 89.5 fL (80.0-100.0); Mean Platelet Volume 6.9; Monocytes # (A) 0.3 k/uL (0-1.0); Monocytes % (A) 5 %; Neutrophils # (A) 6.1 k/uL (1.3-7.7); Neutrophils % (A) 88 %; Platelet Count 126 k/uL (150-450); RBC 3.09 m/uL (3.80-5.40); RDW 13.1 % (11.5-15.5); WBC 6.9 k/uL (3.8-10.6)
[2019-02-13 19:21] LABS: Albumin 3.1 g/dL (3.5-5.0); Calcium 8.4 mg/dL (8.4-10.2); Potassium 4.8 mmol/L (3.5-5.1); Total Bilirubin 0.5 mg/dL (0.2-1.3); Total Protein 6.1 g/dL (6.3-8.2)
--- NOTE | 2019-02-13 20:12 | HP ---
HISTORY AND PHYSICAL CHIEF COMPLAINTS: Cough and sputum and shortness of breath. HISTORY OF PRESENT ILLNESS: This 78-year-old woman with a past medical history of multiple medical problems including diabetes, hypertension, hyperlipidemia, history of urinary tract infection with E coli, cholecystitis, cardiac catheterization, DJD, depression being followed by Dr. Wang in the outpatient setting not feeling well for the past several days. The patient had cough and sputum and subsequently, patient had shortness of breath. The patient came to [facility] and was admitted for further evaluation and treatment. Flu was positive. The patient apparently did not take any flu shot because patient had an allergy to flu vaccine and the patient's two granddaughters they also have the flu but they did not take the flu vaccine this time according to her. There is no history of headache, loss of consciousness, seizures. No history of chest pain, palpitations, hematochezia or melena at this time. PAST MEDICAL HISTORY: History of diabetes, hypertension, UTI, E. coli, History of depression. MEDICATIONS: Prior to admission include: 1. Metformin 1000 mg p.o. b.i.d. 2. Norvasc 2.5 mg daily. 3. Actos 15 mg daily. 4. Cozaar 50 mg p.o. daily. 5. Imdur 60 mg p.o. daily. 6. Toujeo 10 units subcu daily. 7. Plavix 75 mg p.o. daily. 8. Lipitor 80 mg p.o. daily. 9. Xanax 0.5 b.i.d. ALLERGIES: ASPIRIN AND CODEINE, INFLUENZA VACCINE, IODINATED CONTRAST, . FAMILY HISTORY: History of congestive heart failure and pneumonia. SOCIAL HISTORY: No history of smoking. No history of alcohol intake. REVIEW OF SYSTEMS: ENT: No diminished vision. No diminished hearing. Cardio system: No angina or palpations. RESPIRATORY: As mentioned earlier. GI no nausea or vomiting. : No dysuria. Central nervous system: No numbness or weakness. ALLERGY/IMMUNOLOGY: No asthma, hayfever. MUSCULOSKELETAL: As mentioned earlier. HEMATOLOGY/ONCOLOGY: No history of anemia. ENDOCRINE: Diabetes. CONSTITUTIONAL: As mentioned earlier. Dermatology: Negative. Rheumatology: Negative. Psychiatry: As mentioned earlier. PHYSICAL EXAMINATION: Alert and oriented x3. Pulse 93, blood pressure 117/53, respiration 30, temperature 103.4, pulse ox 94% on room air. HEENT: Conjunctivae normal. Oral mucosa moist. NECK is no jugular venous distention. No carotid bruit. No lymph node enlargement. CARDIOVASCULAR: S1-S2 muffled. RESPIRATORY: Breath sounds diminished in the bases. Bilateral scattered rhonchi and crackles. Otherwise, expiratory wheezing also present. Breathing efforts are markedly increased. ABDOMEN: Soft, nontender. No mass palpable. LEGS: No edema. No swelling. CENTRAL NERVOUS SYSTEM: Higher functions as mentioned earlier. Moves all 4 limbs. No focal motor or sensory deficits. Lymphatics: No lymph nodes palpable in the neck, axillae or groin. SKIN: No ulcer, rash or bleeding. JOINTS: No active deforming arthropathy. LABS: At this time shows labs are influenza A is positive. ASSESSMENT: 1. Acute influenza A with possible bibasilar pneumonia right middle lobe more than the left with sepsis present on admission. 2. Diabetes mellitus type 2. 3. Hypertension. 4. Hyperlipidemia. 5. History of urinary tract infection. 6. Cholecystectomy. 7. History of hernia repair. 8. History of degenerative joint disease. 9. History of depression. 10.History of chest pain, angina. RECOMMENDATIONS AND DISCUSSION: In this 78-year-old woman who presented with multiple complex medical conditions, we will monitor the patient closely, continue the current medications, continue symptomatic treatment. Initiate the patient on broad-spectrum IV antibiotics, bronchodilators, Tamiflu. I would also consult Dr. Persaud and otherwise repeat labs. I would also check lactic acid. Prognosis extremely guarded because of multiple complex medical issues. Further recommendations to follow. A copy of dictation being forwarded to Dr. Wang, who is the primary physician. See orders for details. We will keep flu isolation and home medications to be reviewed and reordered. MMODL / IJN: [id number] / [facility]
[2019-02-13 20:32] LABS: Albumin 2.9 g/dL (3.5-5.0); Calcium 8.2 mg/dL (8.4-10.2); Potassium 4.8 mmol/L (3.5-5.1); Total Bilirubin 0.3 mg/dL (0.2-1.3); Total Protein 5.7 g/dL (6.3-8.2)
[2019-02-13 20:38] LABS: Appearance,Urine Clear (Clear); Bacteria,Urine Rare /hpf; Bilirubin,Urine Negative (Negative); Blood,Urine Small (Negative); Color,Urine Yellow; Glucose,Urine (UA) Negative (Negative); Ketones,Urine Negative (Negative); Leukocyte Esterase,Urine Negative (Negative); Mucus,Urine Rare /hpf; Nitrite,Urine Negative (Negative); Protein,Urine 2+ (Negative); RBC,Urine 9 /hpf (0-5); Specific Gravity,Urine 1.017 (1.001-1.035); Squamous Epithelial Cell,Urine <1 /hpf (0-4); Urobilinogen,Urine <2.0 mg/dL (<2.0)
[2019-02-13] MEDS: FORMOTEROL FUMARATE 20 MCG/2 ML NEBU INHALATION SCH (21:00)
[2019-02-13] MEDS: BUDESONIDE 1 MG/2 ML NEBU INHALATION SCH (21:00)
[2019-02-13] MEDS: IPRATROPIUM-ALBUTEROL 3 ML NEB INHALATION SCH (21:01)
[2019-02-13] MEDS: ALPRAZolam 0.25 MG TAB PO SCH (21:38)
[2019-02-13] MEDS: INSULIN ASPART (NovoLOG) 100 UNIT/ML VIAL SQ SCH (21:38)
[2019-02-13] MEDS: HEPARIN SODIUM,PORCINE 5,000 UNIT/ML 1 ML VIAL SQ SCH (21:38)
[2019-02-13] MEDS: metFORMIN 500 MG TAB PO SCH (21:38)
[2019-02-13 21:43] LABS: Glucose,Whole Blood 220 mg/dL (75-99)
[2019-02-13 22:03] VITALS: BMI 26.0
[2019-02-14] MEDS: ACETAMINOPHEN TAB 500 MG TAB PO PRN (05:42)
[2019-02-14 07:09] LABS: Glucose,Whole Blood 150 mg/dL (75-99)
[2019-02-14] MEDS: INSULIN DETEMIR (LEVEMIR) 100 UNIT/ML SYR SQ SCH (08:09)
[2019-02-14] MEDS: INSULIN ASPART (NovoLOG) 100 UNIT/ML VIAL SQ SCH ×4 (08:09→20:43)
[2019-02-14] MEDS: PANTOPRAZOLE 40 MG TABLET PO SCH (08:10)
[2019-02-14] MEDS: HEPARIN SODIUM,PORCINE 5,000 UNIT/ML 1 ML VIAL SQ SCH ×2 (08:10→20:43)
[2019-02-14] MEDS: metFORMIN 500 MG TAB PO SCH ×2 (08:10→20:43)
[2019-02-14] MEDS: OSELTAMIVIR 60 MG/10 ML ORAL SYRINGE PO SCH ×2 (08:10→20:43)
[2019-02-14] MEDS: ATORVASTATIN 80 MG TAB PO SCH (08:10)
[2019-02-14] MEDS: PIOGLITAZONE 15 MG TAB PO SCH (08:10)
[2019-02-14] MEDS: ISOSORBIDE MONONITRATE ER 30 MG TAB.ER.24H PO SCH (08:10)
[2019-02-14] MEDS: ALPRAZolam 0.25 MG TAB PO SCH ×2 (08:10→20:43)
[2019-02-14] MEDS: LOSARTAN 50 MG TAB PO SCH (08:10)
[2019-02-14] MEDS: BUDESONIDE 1 MG/2 ML NEBU INHALATION SCH ×2 (08:11→18:57)
[2019-02-14] MEDS: CLOPIDOGREL 75 MG TAB PO SCH (08:11)
[2019-02-14] MEDS: amLODIPine 2.5 MG TAB PO SCH (08:11)
[2019-02-14] MEDS: FORMOTEROL FUMARATE 20 MCG/2 ML NEBU INHALATION SCH (08:11)
[2019-02-14] MEDS: IPRATROPIUM-ALBUTEROL 3 ML NEB INHALATION SCH ×4 (08:11→18:58)
[2019-02-14] MEDS: MULTIVITAMINS, THERA 1 EACH TAB PO SCH (08:18)
--- NOTE | 2019-02-14 09:01 | XR ---
EXAMINATION TYPE: XR chest 2V DATE OF EXAM: 02/14/2019 COMPARISON: 02/13/2019 INDICATION: Pneumonia TECHNIQUE: Frontal and lateral views of the chest are obtained. FINDINGS: The heart size is normal. The pulmonary vasculature is normal. There is a consolidation with air bronchograms in the periphery of the lingula. This is developing fr om comparison.. IMPRESSION: 1. Developing lingular consolidation. Correlate for pneumonia. Follow-up is recommended.
[2019-02-14 11:44] LABS: Glucose,Whole Blood 212 mg/dL (75-99)
[2019-02-14 12:24] LABS: Basophils % (A) 0 %; Eosinophils % (A) 0 %; HCT 28.4 % (34.0-46.0); HGB 8.8 gm/dL (11.4-16.0); Lymphocytes # (A) 1.3 k/uL (1.0-4.8); Lymphocytes % (A) 13 %; MCH 28.5 pg (25.0-35.0); MCV 91.9 fL (80.0-100.0); Mean Platelet Volume 6.9; Monocytes # (A) 0.4 k/uL (0-1.0); Monocytes % (A) 4 %; Neutrophils # (A) 7.9 k/uL (1.3-7.7); Neutrophils % (A) 81 %; Platelet Count 127 k/uL (150-450); RBC 3.09 m/uL (3.80-5.40); RDW 13.2 % (11.5-15.5); WBC 9.8 k/uL (3.8-10.6)
--- NOTE | 2019-02-14 13:12 | P.CNPUL ---
History of Present Illness Consult date: 02/14/19 Requesting physician: Spike Johnson Reason for consult: dyspnea, abnormal CXR/CT Chief complaint: Sore throat, shortness of breath, cough, congestion History of present illness: This is a very pleasant 78-year-old female patient who follows with Dr. Wang as her primary care physician. She has a history of coronary artery disease, diabetes mellitus, hypertension, hyperlipidemia. She is a lifelong nonsmoker. She presented to the emergency room yesterday with complaints of fever, cough congestion and feeling poorly the past several days. She states there were multiple people in the house who have been sick as well. Chest x-ray shows developing lingular consolidation. Influenza screen is positive for influenza A. She presented with a T-max of 104. She was tachycardic. Tachypneic. Able to maintain O2 saturations in the 90s on room air. She was admitted to the regular medical floor. She is seen today in consultation. She is awake and alert. She is complaining of a sore throat. She has a loose productive cough. She did have a temp of 101.1 earlier this morning. Currently afebrile. Receiving Tylenol. She's been initiated on DuoNeb inhalations, Pulmicort and Perforomist inhalations, antibiotics in the form of ceftriaxone and azithromycin. On Tamiflu. Sputum culture is pending. White count 9.8. Hemoglobin 8.8. Platelet count 127,000. Creatinine 1.04. Review of Systems REVIEW OF SYSTEMS: CONSTITUTIONAL: Denies any recent significant weight loss or weight gain. EYES: Denies change in vision. EARS, NOSE, MOUTH, THROAT: Positive for headache and sore throat. CARDIOVASCULAR: Denies chest pain, palpitations or syncopal episodes. RESPIRATORY: Positive for shortness of breath, cough, congestion no hemoptysis. GASTROINTESTINAL: Denies change in appetite, denies abdominal pain GENITOURINARY: Denies hematuria, denies infections. MUSKULOSKELETAL: Denies pain, denies swelling. INTEGUMENTARY: Denies rash, denies eczema. NEUROLOGICAL: Denies recent memory loss, no recent seizure activity. PSYCHIATRIC: Denies anxiety, denies depression. HEMATOLOGIC/LYMPHATIC: Denies anemia, denies enlarged lymph nodes. Past Medical History Past Medical History: Chest Pain / Angina, Diabetes Mellitus, Hyperlipidemia, Hypertension Additional Past Medical History / Comment(s): UTI-ECOLI History of Any Multi-Drug Resistant Organisms: None Reported Past Surgical History: Cholecystectomy, Heart Catheterization, Hernia Repair, Hysterectomy, Orthopedic Surgery Additional Past Surgical History / Comment(s): R shoulder surgery. R broken wrist.trigger release rt middle finger. pt not sure if they took appendix when they did hysterectomy Past Anesthesia/Blood Transfusion Reactions: No Reported Reaction Additional Past Anesthesia/Blood Transfusion Reaction / Comment(s): blood transfusion-no reaction Past Psychological History: Depression Additional Psychological History / Comment(s): pt is independant, lives with spouse, pt's sister and a grand daughter- has 1 step to house, has 3 pet dogs. recieves meals on wheels, has shower chair and bsc. Smoking Status: Never smoker Past Alcohol Use History: None Reported Past Drug Use History: None Reported - Past Family History Father Family Medical History: Congestive Heart Failure (CHF) Mother Family Medical History: Pneumonia Additional Family Medical History / Comment(s): fom pne Medications and Allergies Home Medications Medication Instructions Recorded Confirmed Type metFORMIN HCL [Glucophage] 1,000 mg PO BID 08/20/14 02/13/19 History Clopidogrel [Plavix] 75 mg PO DAILY 02/13/16 02/13/19 History Isosorbide Mononitrate ER [Imdur] 60 mg PO DAILY 02/13/16 02/13/19 History Losartan [Cozaar] 50 mg PO DAILY 02/13/16 02/13/19 History amLODIPine BESYLATE [Norvasc] 2.5 mg PO DAILY 07/25/16 02/13/19 History ALPRAZolam [Xanax] 0.25 mg PO BID 02/13/19 02/13/19 History Atorvastatin [Lipitor] 80 mg PO DAILY 02/13/19 02/13/19 History Insulin Glargine,Hum.rec.anlog 10 unit SQ DAILY 02/13/19 02/13/19 History [Tougenny Solostar] Pioglitazone HCl [Actos] 15 mg PO DAILY 02/13/19 02/13/19 History Allergies Allergy/AdvReac Type Severity Reaction Status Date / Time aspirin Allergy Rash/Hives Verified 02/13/19 16:44 codeine Allergy Rash/Hives Verified 02/13/19 16:44 Influenza Virus Vaccines Allergy Rash/Hives Verified 02/13/19 16:44 Iodinated Contrast- Oral and Allergy Rash/Hives/Increased Verified 02/13/19 16:44 IV Dye HR [Iodinated Contrast Media - IV Dye] iodine Allergy Rash/Hives Verified 02/13/19 16:44 NSAIDS (Non-Steroidal Allergy Anaphylaxis Verified 02/13/19 16:44 Anti-Inflamma Physical Exam Vitals: Vital Signs Temp Pulse Pulse Resp BP BP Pulse Ox 02/14/19 11:29 84 02/14/19 11:20 82 02/14/19 08:36 86 02/14/19 08:25 84 02/14/19 08:24 84 02/14/19 08:11 82 02/14/19 06:58 98.9 F 02/14/19 05:37 101.1 F H 89 18 91/50 96 02/13/19 22:00 99.8 F H 85 16 118/58 96 02/13/19 21:09 100.2 F H 02/13/19 21:00 85 16 108/44 02/13/19 20:50 86 25 H 108/44 02/13/19 20:40 93 26 H 105/46 96 02/13/19 20:30 94 23 107/44 93 L 02/13/19 20:20 91 24 107/44 94 L 02/13/19 20:10 91 24 100/54 93 L 02/13/19 20:00 93 19 102/52 82 L 02/13/19 19:50 92 28 H 102/52 94 L 02/13/19 19:40 96 20 102/50 93 L 02/13/19 19:30 96 32 H 106/57 95 02/13/19 19:20 102 H 29 H 106/57 95 02/13/19 19:10 103 H 22 115/62 94 L 02/13/19 19:00 104 H 29 H 125/62 93 L 02/13/19 18:50 109 H 31 H 125/62 02/13/19 18:40 100/61 02/13/19 18:30 105 H 30 H 116/59 02/13/19 18:20 101 H 18 116/59 02/13/19 18:17 103.4 F H 02/13/19 18:10 93 31 H 117/53 94 L 02/13/19 18:00 96 31 H 146/70 94 L 02/13/19 17:50 96 25 H 146/70 95 02/13/19 17:40 98 32 H 158/83 95 02/13/19 17:30 101 H 31 H 163/71 93 L 02/13/19 17:20 102 H 30 H 163/71 94 L 02/13/19 17:10 108 H 36 H 155/63 94 L 02/13/19 17:00 155/63 02/13/19 16:50 111 H 32 H 155/63 02/13/19 16:44 104.1 F H 112 H 22 155/63 94 L 02/13/19 16:40 112 H 26 H 96/39 02/13/19 16:34 94 L Intake and Output 02/13/19 02/14/19 02/14/19 22:59 06:59 14:59 Other: # Voids 2 Weight 68 kg GENERAL EXAM: Alert, fairly comfortable in no apparent distress. On room air. HEAD: Normocephalic. EYES: Normal reaction of pupils, equal size. NOSE: Clear with pink turbinates. THROAT: Noted erythema. NECK: No masses, no JVD. CHEST: No chest wall deformity. LUNGS: Equal air entry with bilateral scattered rhonchi more so on the left lung. CVS: S1 and S2 normal with no audible murmur, regular rhythm. ABDOMEN: No hepatosplenomegaly, normal bowel sounds, no guarding or rigidity. SPINE: No scoliosis or deformity SKIN: No rashes CENTRAL NERVOUS SYSTEM: No focal deficits, tone is normal in all 4 extremities. EXTREMITIES: There is no peripheral edema. No clubbing, no cyanosis. Peripheral pulses are intact. Results - Laboratory Findings CBC and BMP: 02/14/19 11:42 02/13/19 19:27 Abnormal lab findings: Abnormal Labs 02/13/19 02/13/19 02/13/19 16:40 18:03 18:03 RBC 3.09 L Hgb 9.2 L Hct 27.7 L Plt Count 126 L Neutrophils # Lymphocytes # 0.4 L Sodium 135 L Chloride 108 H Carbon Dioxide 21 L BUN 18 H Glucose 153 H POC Glucose (mg/dL) Calcium AST 87 H Total Protein 6.1 L Albumin 3.1 L Urine Protein Urine Blood Urine RBC Urine WBC Urine Bacteria Urine Mucus Influenza Type A RNA Detected H 02/13/19 02/13/19 02/13/19 19:08 19:27 21:31 RBC Hgb Hct Plt Count Neutrophils # Lymphocytes # Sodium 135 L Chloride Carbon Dioxide 18 L BUN Glucose 273 H POC Glucose (mg/dL) 220 H Calcium 8.2 L AST 85 H Total Protein 5.7 L Albumin 2.9 L Urine Protein 2+ H Urine Blood Small H Urine RBC 9 H Urine WBC 9 H Urine Bacteria Rare H Urine Mucus Rare H Influenza Type A RNA 02/14/19 02/14/19 02/14/19 07:06 11:31 11:42 RBC 3.09 L Hgb 8.8 L Hct 28.4 L Plt Count 127 L Neutrophils # 7.9 H Lymphocytes # Sodium Chloride Carbon Dioxide BUN Glucose POC Glucose (mg/dL) 150 H 212 H Calcium AST Total Protein Albumin Urine Protein Urine Blood Urine RBC Urine WBC Urine Bacteria Urine Mucus Influenza Type A RNA - Diagnostic Findings Chest x-ray: image reviewed (Lingular infiltrate) Assessment and Plan Assessment: Impression: #1 Acute community-acquired left lingular pneumonia complicated by influenza A. #2 Febrile illness secondary to above. #3 Coronary artery disease. #4 Diabetes mellitus. #5 Hypertension. #6 Hyperlipidemia. Plan: The patient was seen and evaluated by Dr. Persaud. Chest x-ray and labs were reviewed. We'll continue with her current treatment plan including bronchodilators, antibiotics in the form of ceftriaxone and azithromycin, Tamiflu. Tylenol for fevers. Currently on room air. We'll continue to follow and make further recommendations based on her clinical status. I, the cosigning physician, performed a history & physical examination of the patient. Lungs sounds with bilateral scattered rhonchi left greater than right. Maintaining good O2 saturations in the 90s on room air. I discussed the assessment and plan of care with my nurse practitioner, Alma Paul. I attest to the above consultation as dictated by her. Time with Patient: Greater than 30
[2019-02-14] MEDS: methylPREDNISolone SOD SUCCI 40 MG/ML 1 ML VIAL IV SCH ×2 (15:50→23:43)
[2019-02-14] MEDS: AZITHROMYCIN 500 MG TAB PO SCH (17:13)
[2019-02-14 17:15] LABS: Glucose,Whole Blood 107 mg/dL (75-99)
[2019-02-14 20:49] LABS: Glucose,Whole Blood 260 mg/dL (75-99)
--- NOTE | 2019-02-14 22:10 | PN ---
PROGRESS NOTE DATE OF SERVICE: 02/14/2019 HISTORY: This 74-year-old woman was admitted with acute influenza with possible bibasilar pneumonia, right more than the left. The patient also had significant shortness of breath. The patient is being closely monitored. The pulse ox was also found to be low 80s, 82 one time and low 90s. Otherwise patient was found to have shortness of breath and using accessory muscle respiration. Patient has features of acute hypoxic respiratory failure. Patient is also tachycardic and fever is up to 104.1. PAST MEDICAL HISTORY: Reviewed. REVIEW OF SYSTEMS: CARDIOVASCULAR SYSTEM: No chest pain. RESPIRATORY: As mentioned. GI: As mentioned. : No dysuria or hematuria. NERVOUS SYSTEM: No numbness or weakness. CURRENT MEDICATIONS: 1. Tylenol 500 every 8 hours p.r.n. 2. DuoNeb q.i.d. and p.r.n. 3. Xanax 0.5 b.i.d. 4. Norvasc 2.5 mg daily. 5. Lipitor 80 mg daily. 6. Zithromax 500 mg b.i.d. 7. Pulmicort 1 mg b.i.d. 8. Plavix 75 mg. 9. [place]. 10.Levemir 20 units subcu. 11.Imdur. 12.Cozaar 50 mg daily. 13.Glucophage. 14.Solu-Medrol 40 IV every 8 hours. 15.Multivitamins. 16.Diovan 30 mg b.i.d. 17.Protonix 40 mg. 18.Actos 15 mg daily. 19.Restoril 50 mg p.o. at bedtime. PHYSICAL EXAM: The patient is alert, oriented x3. Pulse is 94, blood pressure 108/59, respirations 18, temperature 98.2, pulse ox 98% on room air. HEENT: Conjunctivae normal. Oral mucosa moist. NECK: No jugular venous distention. No lymph node enlargement. CARDIOVASCULAR: S1 and S2 muffled. LUNGS: Breath sounds diminished in the bases. Bilateral scattered rhonchi and expiratory wheezing and crackles. A ABDOMEN: Soft, nontender. EXTREMITIES: Legs no edema. LABS: WBC 9.8, hemoglobin is 8.2, platelets are 127,000. Glucose noted. Sodium is 135. ASSESSMENT: 1. Acute influenza A with possible bibasilar pneumonia, right middle lobe more than the left, with sepsis with acute hypoxic respiratory failure present on admission. 2. Diabetes type 2. 3. Hypertension. 4. Hyperlipidemia. 5. History of urinary tract infection. 6. Cholecystectomy. 7. History of hernia repair. 8. History of DJD. 9. History of depression. 10.Chest pain angina. 11.Hyponatremia. 12.Anemia, normocytic anemia of chronic disease. 13.Hypoalbuminemia. RECOMMENDATIONS: This 78-year-old woman who presented with multiple complex medical problems, we will monitor the patient closely, continue the current management and symptomatic treatment. The patient is on broad-spectrum IV antibiotics. I would recommend to continue the antibiotics. Continue with bronchodilators. The patient is also on IV steroids, which I would recommend to taper. Otherwise follow closely with Dr. Persaud. Follow the cultures which are negative so far. Overall prognosis is guarded because of multiple complex medical issues. Further recommendations to follow. MMODL / IJN: [id number] /
[2019-02-15 07:15] LABS: Glucose,Whole Blood 256 mg/dL (75-99)
[2019-02-15] MEDS: INSULIN DETEMIR (LEVEMIR) 100 UNIT/ML SYR SQ SCH (07:48)
[2019-02-15] MEDS: HEPARIN SODIUM,PORCINE 5,000 UNIT/ML 1 ML VIAL SQ SCH ×2 (07:48→20:59)
[2019-02-15] MEDS: INSULIN ASPART (NovoLOG) 100 UNIT/ML VIAL SQ SCH ×4 (07:49→20:59)
[2019-02-15] MEDS: ALPRAZolam 0.25 MG TAB PO SCH ×2 (07:49→20:59)
[2019-02-15] MEDS: ATORVASTATIN 80 MG TAB PO SCH (07:49)
[2019-02-15] MEDS: metFORMIN 500 MG TAB PO SCH ×2 (07:49→20:59)
[2019-02-15] MEDS: ISOSORBIDE MONONITRATE ER 30 MG TAB.ER.24H PO SCH (07:49)
[2019-02-15] MEDS: PANTOPRAZOLE 40 MG TABLET PO SCH (07:49)
[2019-02-15] MEDS: CLOPIDOGREL 75 MG TAB PO SCH (07:49)
[2019-02-15] MEDS: methylPREDNISolone SOD SUCCI 40 MG/ML 1 ML VIAL IV SCH ×3 (07:49→23:30)
[2019-02-15] MEDS: MULTIVITAMINS, THERA 1 EACH TAB PO SCH (07:50)
[2019-02-15] MEDS: LOSARTAN 50 MG TAB PO SCH (07:50)
[2019-02-15] MEDS: amLODIPine 2.5 MG TAB PO SCH (07:50)
[2019-02-15] MEDS: OSELTAMIVIR 60 MG/10 ML ORAL SYRINGE PO SCH ×2 (07:50→20:59)
[2019-02-15] MEDS: IPRATROPIUM-ALBUTEROL 3 ML NEB INHALATION SCH ×4 (07:57→19:20)
[2019-02-15] MEDS: BUDESONIDE 1 MG/2 ML NEBU INHALATION SCH ×2 (07:57→19:20)
[2019-02-15] MEDS: PIOGLITAZONE 15 MG TAB PO SCH (08:13)
[2019-02-15 11:48] LABS: Glucose,Whole Blood 254 mg/dL (75-99)
[2019-02-15] MEDS: ACETAMINOPHEN TAB 500 MG TAB PO PRN (12:52)
--- NOTE | 2019-02-15 14:00 | P.PN ---
Subjective Progress Note Date: 02/15/19 Principal diagnosis: Acute community acquired left lingular pneumonia complicated by influenza A This is a very pleasant 78-year-old female patient who follows with Dr. Wang as her primary care physician. She has a history of coronary artery disease, diabetes mellitus, hypertension, hyperlipidemia. She is a lifelong nonsmoker. She presented to the emergency room yesterday with complaints of fever, cough congestion and feeling poorly the past several days. She states there were multiple people in the house who have been sick as well. Chest x-ray shows developing lingular consolidation. Influenza screen is positive for influenza A. She presented with a T-max of 104. She was tachycardic. Tachypneic. Able to maintain O2 saturations in the 90s on room air. She was admitted to the regular medical floor. She is seen today in consultation. She is awake and alert. She is complaining of a sore throat. She has a loose productive cough. She did have a temp of 101.1 earlier this morning. Currently afebrile. Receiving Tylenol. She's been initiated on DuoNeb inhalations, Pulmicort and Perforomist inhalations, antibiotics in the form of ceftriaxone and azit hromycin. On Tamiflu. Sputum culture is pending. White count 9.8. Hemoglobin 8.8. Platelet count 127,000. Creatinine 1.04. On 02/15/2019 patient seen in follow-up on medical surgical floor. She is resting in bed, she states she is feeling better today. No fever in the last 24 hours. Room air pulse ox is 95%, hemodynamically stable, lung sounds are positive for some diffuse wheezes. Blood and sputum culture results are pending. Yesterday's chest x-ray showed developing lingular consolidation, related to pneumonia, no new chest x-rays today. Antibiotic coverage is in the form of Rocephin and Zithromax and Tamiflu, patient continues on IV steroids, nebulized bronchodilators Objective - Vital Signs Vital signs: Vital Signs Temp 97.5 F L 02/15/19 05:29 Pulse 76 02/15/19 11:46 Resp 17 02/15/19 07:46 BP 91/47 02/15/19 05:29 Pulse Ox 95 02/15/19 05:29 Intake & Output 02/14/19 02/15/19 02/15/19 18:59 06:59 18:59 Intake Total 50 100 240 Balance 50 100 240 Intake: IV 50 cefTRIAXone 1 gm In 50 Sodium Chloride 0.9% 50 ml @ 100 mls/hr IVPB Q24H [facility] Rx#:[id number] Oral 100 240 Other: # Voids 1 - Exam GENERAL EXAM: Alert, pleasant, 78-year-old female, comfortable in no apparent distress. HEAD: Normocephalic/atraumatic. EYES: Normal reaction of pupils, equal size. Conjunctiva pink, sclera white. NOSE: Clear with pink turbinates. THROAT: No erythema or exudates. NECK: No masses, no JVD, no thyroid enlargement, no adenopathy. CHEST: No chest wall deformity. Symmetrical expansion. LUNGS: Equal air entry with diffuse wheezes CVS: Regular rate and rhythm, normal S1 and S2, no gallops, no murmurs, no rubs ABDOMEN: Soft, nontender. No hepatosplenomegaly, normal bowel sounds, no guarding or rigidity. EXTREMITIES: No clubbing, no edema, no cyanosis, 2+ pulses and upper and lower extremities. MUSCULOSKELETAL: Muscle strength and tone normal. SPINE: No scoliosis or deformity SKIN: No rashes CENTRAL NERVOUS SYSTEM: Alert and oriented -3. No focal deficits, tone is normal in all 4 extremities. PSYCHIATRIC: Alert and oriented -3. Appropriate affect. Intact judgment and insight. - Labs CBC & Chem 7: 02/14/19 11:42 02/13/19 19:27 Labs: Abnormal Lab Results - Last 24 Hours (Table) 02/14/19 02/14/19 02/15/19 Range/Units 17:07 20:38 07:09 POC Glucose (mg/dL) 107 H 260 H 256 H (75-99) mg/dL 02/15/19 Range/Units 11:46 POC Glucose (mg/dL) 254 H (75-99) mg/dL Microbiology - Last 24 Hours (Table) 02/13/19 18:03 Blood Culture - Preliminary Blood No Growth after 24 hours 02/13/19 18:10 Gram Stain - Preliminary Sputum Sputum Culture - Preliminary Assessment and Plan Plan: #1 Acute community-acquired left lingular pneumonia complicated by influenza A. #2 Febrile illness secondary to above. #3 Coronary artery disease. #4 Diabetes mellitus. #5 Hypertension. #6 Hyperlipidemia. Plan: We'll continue with current plan of treatment, continue current antibiotic coverage and form of ceftriaxone and azithromycin, Tamiflu. Continue same dose of IV steroids and nebulized bronchodilators. No febrile episodes in the last 24 hours, patient is feeling and breathing better, but still bronchospastic and dyspneic. We'll continue to follow I performed a history & physical examination of the patient and discussed their management with my nurse practitioner, Samara Castañeda. I reviewed the nurse practitioner's note and agree with the documented findings and plan of care. Lung sounds are positive for diffuse wheezes throughout the lung li. The findings and the impression was discussed with the patient. I attest to the documentation by the nurse practitioner. Time with Patient: Less than 30
[2019-02-15] MEDS: AZITHROMYCIN 500 MG TAB PO SCH (16:58)
[2019-02-15 17:22] LABS: Glucose,Whole Blood 250 mg/dL (75-99)
[2019-02-15 23:10] LABS: Glucose,Whole Blood 259 mg/dL (75-99)
[2019-02-16 07:07] LABS: Glucose,Whole Blood 293 mg/dL (75-99)
[2019-02-16] MEDS: IPRATROPIUM-ALBUTEROL 3 ML NEB INHALATION SCH ×4 (07:23→19:47)
[2019-02-16] MEDS: BUDESONIDE 1 MG/2 ML NEBU INHALATION SCH ×2 (07:23→19:47)
[2019-02-16] MEDS: PIOGLITAZONE 15 MG TAB PO SCH (08:06)
[2019-02-16] MEDS: ISOSORBIDE MONONITRATE ER 30 MG TAB.ER.24H PO SCH (08:06)
[2019-02-16] MEDS: OSELTAMIVIR 60 MG/10 ML ORAL SYRINGE PO SCH ×2 (08:07→20:26)
[2019-02-16] MEDS: INSULIN ASPART (NovoLOG) 100 UNIT/ML VIAL SQ SCH ×4 (08:07→21:26)
[2019-02-16] MEDS: PANTOPRAZOLE 40 MG TABLET PO SCH (08:08)
[2019-02-16] MEDS: LOSARTAN 50 MG TAB PO SCH (08:08)
[2019-02-16] MEDS: ATORVASTATIN 80 MG TAB PO SCH (08:08)
[2019-02-16] MEDS: metFORMIN 500 MG TAB PO SCH ×2 (08:08→20:27)
[2019-02-16] MEDS: amLODIPine 2.5 MG TAB PO SCH (08:08)
[2019-02-16] MEDS: HEPARIN SODIUM,PORCINE 5,000 UNIT/ML 1 ML VIAL SQ SCH ×2 (08:08→20:28)
[2019-02-16] MEDS: MULTIVITAMINS, THERA 1 EACH TAB PO SCH (08:08)
[2019-02-16] MEDS: CLOPIDOGREL 75 MG TAB PO SCH (08:08)
[2019-02-16] MEDS: ALPRAZolam 0.25 MG TAB PO SCH ×2 (08:08→20:27)
[2019-02-16] MEDS: methylPREDNISolone SOD SUCCI 40 MG/ML 1 ML VIAL IV SCH ×3 (08:09→23:33)
[2019-02-16] MEDS: INSULIN DETEMIR (LEVEMIR) 100 UNIT/ML SYR SQ SCH (08:53)
[2019-02-16 12:30] LABS: Glucose,Whole Blood 256 mg/dL (75-99)
[2019-02-16] MEDS: ACETAMINOPHEN TAB 500 MG TAB PO PRN (12:39)
--- NOTE | 2019-02-16 14:12 | P.PN ---
Subjective Progress Note Date: 02/16/19 Principal diagnosis: Acute community acquired left lingular pneumonia, K by influenza A. This is a very pleasant 78-year-old female patient who follows with Dr. Wang as her primary care physician. She has a history of coronary artery disease, diabetes mellitus, hypertension, hyperlipidemia. She is a lifelong nonsmoker. She presented to the emergency room yesterday with complaints of fever, cough congestion and feeling poorly the past several days. She states there were multiple people in the house who have been sick as well. Chest x-ray shows developing lingular consolidation. Influenza screen is positive for influenza A. She presented with a T-max of 104. She was tachycardic. Tachypneic. Able to maintain O2 saturations in the 90s on room air. She was admitted to the regular medical floor. She is seen today in consultation. She is awake and alert. She is complaining of a sore throat. She has a loose productive cough. She did have a temp of 101.1 earlier this morning. Currently afebrile. Receiving Tylenol. She's been initiated on DuoNeb inhalations, Pulmicort and Perforomist inhalations, antibiotics in the form of ceftriaxone and azithromycin . On Tamiflu. Sputum culture is pending. White count 9.8. Hemoglobin 8.8. Platelet count 127,000. Creatinine 1.04. On 02/15/2019 patient seen in follow-up on medical surgical floor. She is res ting in bed, she states she is feeling better today. No fever in the last 24 hours. Room air pulse ox is 95%, hemodynamically stable, lung sounds are positive for some diffuse wheezes. Blood and sputum culture results are pending. Yesterday's chest x-ray showed developing lingular consolidation, related to pneumonia, no new chest x-rays today. Antibiotic coverage is in the form of Rocephin and Zithromax and Tamiflu, patient continues on IV steroids, nebulized bronchodilators. The patient is seen today 02/16/2018 in follow-up on the regular medical floor. She is currently sitting up at the bedside. Awake and alert in no acute distress. Having lunch. She is breathing better today as compared to yesterday. Not quite back to her baseline. Maintaining good O2 saturations in the mid 90s on room air. She's afebrile. Hemodynamically stable. Blood culture reveals no growth. Sputum culture reveals no growth. She is continued on DuoNeb inhalations, Pulmicort inhalations, IV Solu-Medrol, Tamiflu and antibiotics in the form of ceftriaxone and a azithromycin. Objective - Vital Signs Vital signs: Vital Signs Temp 97.5 F L 02/16/19 05:15 Pulse 93 02/16/19 11:57 Resp 20 02/16/19 08:00 BP 121/53 02/16/19 05:15 Pulse Ox 96 02/16/19 05:15 Intake & Output 02/15/19 02/16/19 02/16/19 18:59 06:59 18:59 Intake Total 480 100 Balance 480 100 Intake: Oral 480 100 Other: Voiding Method Toilet # Voids 1 1 1 # Bowel Movements 0 - Exam GENERAL EXAM: Alert, active, comfortable in no apparent distress. On room air. HEAD: Normocephalic. EYES: Normal reaction of pupils, equal size. NOSE: Clear with pink turbinates. THROAT: No erythema or exudates. NECK: No masses, no JVD. CHEST: No chest wall deformity. LUNGS: Equal air entry with bilateral scattered rhonchi, more so on the left. CVS: S1 and S2 normal with no audible murmur, regular rhythm. ABDOMEN: No hepatosplenomegaly, normal bowel sounds, no guarding or rigidity. SPINE: No scoliosis or deformity SKIN: No rashes CENTRAL NERVOUS SYSTEM: No focal deficits, tone is normal in all 4 extremities. EXTREMITIES: There is no peripheral edema. No clubbing, no cyanosis. Peripheral pulses are intact. - Labs CBC & Chem 7: 02/14/19 11:42 02/13/19 19:27 Labs: Abnormal Lab Results - Last 24 Hours (Table) 02/15/19 02/15/19 02/16/19 Range/Units 17:18 20:47 06:48 POC Glucose (mg/dL) 250 H 259 H 293 H (75-99) mg/dL 02/16/19 Range/Units 12:28 POC Glucose (mg/dL) 256 H (75-99) mg/dL Microbiology - Last 24 Hours (Table) 02/13/19 18:10 Gram Stain - Final Sputum Sputum Culture - Final 02/13/19 18:03 Blood Culture - Preliminary Blood No Growth after 48 hours Assessment and Plan Assessment: Impression: #1 Acute community-acquired left lingular pneumonia complicated by influenza A. #2 Febrile illness secondary to above. #3 Coronary artery disease. #4 Diabetes mellitus. #5 Hypertension. #6 Hyperlipidemia. Plan: The patient was seen and evaluated by Dr. Pastrana. We'll continue with her current treatment plan including bronchodilators, antibiotics in the form of ceftriaxone and azithromycin, Tamiflu. Currently on room air. We'll continue to follow and make further recommendations based on her clinical status. I, the cosigning physician, performed a history & physical examination of the patient. Lungs sounds with bilateral scattered rhonchi left greater than right. Maintaining good O2 saturations in the 90s on room air. I discussed the assessment and plan of care with my nurse practitioner, Alma Paul. I attest to the above consultation as dictated by her.
[2019-02-16] MEDS: AZITHROMYCIN 500 MG TAB PO SCH (16:13)
[2019-02-16 17:08] LABS: Glucose,Whole Blood 246 mg/dL (75-99)
--- NOTE | 2019-02-16 19:33 | PN ---
PROGRESS NOTE DATE OF SERVICE: 02/16/2019 This 78-year-old woman who was admitted with acute influenza A with possible bibasilar pneumonia, right more than that left, also had acute hypoxic respiratory failure. Patient is complaining of tiredness and weakness, slightly better compared to yesterday. No chest pain. No palpitations. No fever. On exam, alert and oriented x3. Pulse 95, blood pressure 116/53, respiration 18, temperature 97.6, pulse ox 94% on room air. HEENT: Conjunctivae normal. NECK: No jugular venous distention. CARDIOVASCULAR SYSTEM: S1, S2 muffled. RESPIRATORY SYSTEM: Breath sounds diminished at the bases. Bilateral scattered rhonchi and crackles. ABDOMEN: Soft, non-tender. NERVOUS SYSTEM: No focal deficit. LABS: Accu-Cheks 256, 246. ASSESSMENT: 1. Acute influenza A with possible bibasilar pneumonia, right middle lobe more than the left, with sepsis and acute hypoxic respiratory failure, present on admission. 2. Diabetes mellitus, type 2. 3. Hypertension. 4. Hyperlipidemia. 5. History of urinary tract infection. 6. History of cholecystectomy. 7. History of hernia repair. 8. History of degenerative joint disease. 9. History of depression. 10.History of chest pain, angina. 11.Hyponatremia. 12.Anemia, normocytic; anemia of chronic disease. 13.Hypoalbuminemia. RECOMMENDATIONS AND DISCUSSION: I recommend to continue current medications, continue with the monitoring, symptomatic treatment. Otherwise at this time I would recommend continuing with the bronchodilators. Continue with the rest of the medications. I would recommend monitoring blood sugars closely. The steroids have been tapered. I would continue with the monitoring. Further recommendations to follow. Hemoglobin A1c is not available. We will obtain hemoglobin A1c and continue to monitor. Guarded prognosis. MMODL / IJN: [id number] /
[2019-02-16 21:07] LABS: Glucose,Whole Blood 209 mg/dL (75-99)
[2019-02-17 07:05] LABS: Glucose,Whole Blood 260 mg/dL (75-99)
[2019-02-17] MEDS: OSELTAMIVIR 60 MG/10 ML ORAL SYRINGE PO SCH ×2 (08:15→22:45)
[2019-02-17] MEDS: INSULIN ASPART (NovoLOG) 100 UNIT/ML VIAL SQ SCH ×4 (08:15→22:45)
[2019-02-17] MEDS: metFORMIN 500 MG TAB PO SCH ×2 (08:16→22:45)
[2019-02-17] MEDS: HEPARIN SODIUM,PORCINE 5,000 UNIT/ML 1 ML VIAL SQ SCH ×2 (08:16→22:45)
[2019-02-17] MEDS: PIOGLITAZONE 15 MG TAB PO SCH (08:17)
[2019-02-17] MEDS: PANTOPRAZOLE 40 MG TABLET PO SCH (08:17)
[2019-02-17] MEDS: amLODIPine 2.5 MG TAB PO SCH (08:17)
[2019-02-17] MEDS: ATORVASTATIN 80 MG TAB PO SCH (08:17)
[2019-02-17] MEDS: CLOPIDOGREL 75 MG TAB PO SCH (08:17)
[2019-02-17] MEDS: ISOSORBIDE MONONITRATE ER 30 MG TAB.ER.24H PO SCH (08:17)
[2019-02-17] MEDS: MULTIVITAMINS, THERA 1 EACH TAB PO SCH (08:17)
[2019-02-17] MEDS: ALPRAZolam 0.25 MG TAB PO SCH ×2 (08:17→22:45)
[2019-02-17] MEDS: methylPREDNISolone SOD SUCCI 40 MG/ML 1 ML VIAL IV SCH (08:17)
[2019-02-17] MEDS: LOSARTAN 50 MG TAB PO SCH (08:17)
[2019-02-17] MEDS: BUDESONIDE 1 MG/2 ML NEBU INHALATION SCH ×2 (08:56→20:21)
[2019-02-17] MEDS: IPRATROPIUM-ALBUTEROL 3 ML NEB INHALATION SCH ×4 (08:56→20:21)
[2019-02-17] MEDS: INSULIN DETEMIR (LEVEMIR) 100 UNIT/ML SYR SQ SCH (09:11)
[2019-02-17 09:42] LABS: Basophils % (A) 0 %; Eosinophils # (A) 0.1 k/uL (0-0.7); Eosinophils % (A) 0 %; HCT 30.9 % (34.0-46.0); HGB 9.6 gm/dL (11.4-16.0); Lymphocytes # (A) 0.8 k/uL (1.0-4.8); Lymphocytes % (A) 8 %; MCH 28.7 pg (25.0-35.0); MCHC 30.9 g/dL (31.0-37.0); MCV 92.9 fL (80.0-100.0); Mean Platelet Volume 7.2; Monocytes # (A) 0.2 k/uL (0-1.0); Monocytes % (A) 2 %; Neutrophils % (A) 89 %; Platelet Count 186 k/uL (150-450); RBC 3.33 m/uL (3.80-5.40); RDW 13.5 % (11.5-15.5); WBC 10.1 k/uL (3.8-10.6)
[2019-02-17 11:09] LABS: Albumin 3.3 g/dL (3.5-5.0); Calcium 9.6 mg/dL (8.4-10.2); Potassium 4.9 mmol/L (3.5-5.1); Total Bilirubin 0.4 mg/dL (0.2-1.3); Total Protein 6.5 g/dL (6.3-8.2)
[2019-02-17 11:29] LABS: Glucose,Whole Blood 240 mg/dL (75-99)
--- NOTE | 2019-02-17 12:10 | P.PN ---
Subjective Progress Note Date: 02/17/19 Principal diagnosis: Acute community acquired left lingular pneumonia complicated by influenza A This is a very pleasant 78-year-old female patient who follows with Dr. Wang as her primary care physician. She has a history of coronary artery disease, diabetes mellitus, hypertension, hyperlipidemia. She is a lifelong nonsmoker. She presented to the emergency room yesterday with complaints of fever, cough congestion and feeling poorly the past several days. She states there were multiple people in the house who have been sick as well. Chest x-ray shows developing lingular consolidation. Influenza screen is positive for influenza A. She presented with a T-max of 104. She was tachycardic. Tachypneic. Able to maintain O2 saturations in the 90s on room air. She was admitted to the regular medical floor. She is seen today in consultation. She is awake and alert. She is complaining of a sore throat. She has a loose productive cough. She did have a temp of 101.1 earlier this morning. Currently afebrile. Receiving Tylenol. She's been initiated on DuoNeb inhalations, Pulmicort and Perforomist inhalations, antibiotics in the form of ceftriaxone and azit hromycin. On Tamiflu. Sputum culture is pending. White count 9.8. Hemoglobin 8.8. Platelet count 127,000. Creatinine 1.04. On 02/15/2019 patient seen in follow-up on medical surgical floor. She is resting in bed, she states she is feeling better today. No fever in the last 24 hours. Room air pulse ox is 95%, hemodynamically stable, lung sounds are positive for some diffuse wheezes. Blood and sputum culture results are pending. Yesterday's chest x-ray showed developing lingular consolidation, related to pneumonia, no new chest x-rays today. Antibiotic coverage is in the form of Rocephin and Zithromax and Tamiflu, patient continues on IV steroids, nebulized bronchodilators On 02/17/2019 patient seen in follow-up on medical surgical floor. She is resting comfortably in bed, she is on room air, room air pulse ox is 95%, no fever or chills, hemodynamically stable, she is alert and oriented 3, denies any shortness of breath, denies any chest pain cough or congestion. Blood and sputum cultures have been negative thus far, today's labs have been reviewed, white blood cell count is 10.1, hemoglobin is 9.6, sodium is 140 potassium is 4.9, chloride is 111, CO2 is 19, BUN is 37 creatinine is 1.04. No acute events overnight, patient states the plan is for her to be discharged home tomorrow. She feels she will be stronger by tomorrow, we will increase her activity today, encouraged patient to sit up in the chair. Objective - Vital Signs Vital signs: Vital Signs Temp 97.8 F 02/17/19 05:17 Pulse 92 02/17/19 11:59 Resp 17 02/17/19 08:00 BP 116/62 02/17/19 05:17 Pulse Ox 95 02/17/19 05:17 Intake & Output 02/16/19 02/17/19 02/17/19 18:59 06:59 18:59 Other: Voiding Method Toilet Toilet Toilet # Voids 2 2 # Bowel Movements 0 - Exam GENERAL EXAM: Alert, pleasant, 78-year-old female, comfortable in no apparent distress. HEAD: Normocephalic/atraumatic. EYES: Normal reaction of pupils, equal size. Conjunctiva pink, sclera white. NOSE: Clear with pink turbinates. THROAT: No erythema or exudates. NECK: No masses, no JVD, no thyroid enlargement, no adenopathy. CHEST: No chest wall deformity. Symmetrical expansion. LUNGS: Equal air entry with diffuse wheezes CVS: Regular rate and rhythm, normal S1 and S2, no gallops, no murmurs, no rubs ABDOMEN: Soft, nontender. No hepatosplenomegaly, normal bowel sounds, no guarding or rigidity. EXTREMITIES: No clubbing, no edema, no cyanosis, 2+ pulses and upper and lower extremities. MUSCULOSKELETAL: Muscle strength and tone normal. SPINE: No scoliosis or deformity SKIN: No rashes CENTRAL NERVOUS SYSTEM: Alert and oriented -3. No focal deficits, tone is nor mal in all 4 extremities. PSYCHIATRIC: Alert and oriented -3. Appropriate affect. Intact judgment and insight. - Labs CBC & Chem 7: 02/17/19 09:16 02/17/19 09:16 Labs: Abnormal Lab Results - Last 24 Hours (Table) 04/02/19 04/02/19 04/02/19 Range/Units 12:28 17:04 21:05 RBC (3.80-5.40) m/uL Hgb (11.4-16.0) gm/dL Hct (34.0-46.0) % MCHC (31.0-37.0) g/dL Neutrophils # (1.3-7.7) k/uL Lymphocytes # (1.0-4.8) k/uL Chloride (98-107) mmol/L Carbon Dioxide (22-30) mmol/L BUN (7-17) mg/dL Glucose (74-99) mg/dL POC Glucose (mg/dL) 256 H 246 H 209 H (75-99) mg/dL AST (14-36) U/L Albumin (3.5-5.0) g/dL 02/17/19 02/17/19 02/17/19 Range/Units 06:57 09:16 09:16 RBC 3.33 L (3.80-5.40) m/uL Hgb 9.6 L (11.4-16.0) gm/dL Hct 30.9 L (34.0-46.0) % MCHC 30.9 L (31.0-37.0) g/dL Neutrophils # 9.0 H (1.3-7.7) k/uL Lymphocytes # 0.8 L (1.0-4.8) k/uL Chloride 111 H (98-107) mmol/L Carbon Dioxide 19 L (22-30) mmol/L BUN 37 H (7-17) mg/dL Glucose 255 H (74-99) mg/dL POC Glucose (mg/dL) 260 H (75-99) mg/dL AST 42 H (14-36) U/L Albumin 3.3 L (3.5-5.0) g/dL 02/17/19 Range/Units 11:26 RBC (3.80-5.40) m/uL Hgb (11.4-16.0) gm/dL Hct (34.0-46.0) % MCHC (31.0-37.0) g/dL Neutrophils # (1.3-7.7) k/uL Lymphocytes # (1.0-4.8) k/uL Chloride (98-107) mmol/L Carbon Dioxide (22-30) mmol/L BUN (7-17) mg/dL Glucose (74-99) mg/dL POC Glucose (mg/dL) 240 H (75-99) mg/dL AST (14-36) U/L Albumin (3.5-5.0) g/dL Microbiology - Last 24 Hours (Table) 02/13/19 18:03 Blood Culture - Preliminary Blood No Growth after 72 hours 02/13/19 18:10 Gram Stain - Final Sputum Sputum Culture - Final Assessment and Plan Plan: #1 Acute community-acquired left lingular pneumonia complicated by influenza A. #2 Febrile illness secondary to above. #3 Coronary artery disease. #4 Diabetes mellitus. #5 Hypertension. #6 Hyperlipidemia. Plan: Continue with current antibiotic coverage, cultures are negative thus far, no fever or chills, increase activity as tolerated, continue nebulized bronchodilators, IV steroids, patient is complaining her course of Tamiflu. Anticipate discharge home in the next 24 hours I performed a history & physical examination of the patient and discussed their management with my nurse practitioner, Samara Castañeda. I reviewed the nurse practitioner's note and agree with the documented findings and plan of care. Lung sounds are positive for minimal end expiratory wheezes. The findings and the impression was discussed with the patient. I attest to the documentation by the nurse practitioner. Time with Patient: Less than 30
[2019-02-17] MEDS: predniSONE 20 MG TAB PO SCH (16:10)
[2019-02-17 17:15] LABS: Glucose,Whole Blood 231 mg/dL (75-99)
[2019-02-17] MEDS: AZITHROMYCIN 500 MG TAB PO SCH (17:16)
[2019-02-17 20:23] LABS: Glucose,Whole Blood 204 mg/dL (75-99)
[2019-02-17 20:24] LABS: Hemoglobin A1C 7.9 % (4.0-6.0)
[2019-02-17] MEDS: ACETAMINOPHEN TAB 500 MG TAB PO PRN (22:44)
[2019-02-18] MEDS: BUDESONIDE 1 MG/2 ML NEBU INHALATION SCH (07:22)
[2019-02-18] MEDS: IPRATROPIUM-ALBUTEROL 3 ML NEB INHALATION SCH ×2 (07:22→11:36)
[2019-02-18 07:30] LABS: Glucose,Whole Blood 232 mg/dL (75-99)
[2019-02-18 07:35] VITALS: RESP 20
[2019-02-18] MEDS: INSULIN DETEMIR (LEVEMIR) 100 UNIT/ML SYR SQ SCH (08:47)
[2019-02-18] MEDS: ALPRAZolam 0.25 MG TAB PO SCH (08:47)
[2019-02-18] MEDS: INSULIN ASPART (NovoLOG) 100 UNIT/ML VIAL SQ SCH ×2 (08:48→12:38)
[2019-02-18 10:29] LABS: Basophils % (A) 0 %; Eosinophils % (A) 0 %; HCT 31.1 % (34.0-46.0); HGB 9.8 gm/dL (11.4-16.0); Lymphocytes # (A) 0.7 k/uL (1.0-4.8); Lymphocytes % (A) 10 %; MCH 28.8 pg (25.0-35.0); MCHC 31.6 g/dL (31.0-37.0); MCV 91.1 fL (80.0-100.0); Mean Platelet Volume 7.7; Monocytes # (A) 0.3 k/uL (0-1.0); Monocytes % (A) 4 %; Neutrophils # (A) 6.1 k/uL (1.3-7.7); Neutrophils % (A) 84 %; Platelet Count 194 k/uL (150-450); RBC 3.42 m/uL (3.80-5.40); RDW 13.8 % (11.5-15.5); WBC 7.2 k/uL (3.8-10.6)
[2019-02-18] MEDS: amLODIPine 2.5 MG TAB PO SCH (10:37)
[2019-02-18] MEDS: LOSARTAN 50 MG TAB PO SCH (10:37)
[2019-02-18] MEDS: PANTOPRAZOLE 40 MG TABLET PO SCH (10:38)
[2019-02-18] MEDS: ISOSORBIDE MONONITRATE ER 30 MG TAB.ER.24H PO SCH (10:38)
[2019-02-18] MEDS: metFORMIN 500 MG TAB PO SCH (10:39)
[2019-02-18] MEDS: ATORVASTATIN 80 MG TAB PO SCH (10:40)
[2019-02-18] MEDS: CLOPIDOGREL 75 MG TAB PO SCH (10:41)
[2019-02-18] MEDS: predniSONE 20 MG TAB PO SCH (10:41)
[2019-02-18] MEDS: OSELTAMIVIR 60 MG/10 ML ORAL SYRINGE PO SCH (10:43)
[2019-02-18] MEDS: PIOGLITAZONE 15 MG TAB PO SCH (10:43)
[2019-02-18] MEDS: HEPARIN SODIUM,PORCINE 5,000 UNIT/ML 1 ML VIAL SQ SCH (10:45)
[2019-02-18 11:27] LABS: Albumin 3.4 g/dL (3.5-5.0); Calcium 9.6 mg/dL (8.4-10.2); Total Bilirubin 0.4 mg/dL (0.2-1.3); Total Protein 6.5 g/dL (6.3-8.2)
[2019-02-18 12:57] LABS: Glucose,Whole Blood 266 mg/dL (75-99)
[2019-02-18 13:33] VITALS: BP 110/53; PULSE 104; TEMP 98.1
--- NOTE | 2019-02-18 13:33 | P.PN ---
Subjective Progress Note Date: 02/18/19 Principal diagnosis: Acute community acquired left lingular pneumonia complicated by influenza A This is a very pleasant 78-year-old female patient who follows with Dr. Wang as her primary care physician. She has a history of coronary artery disease, diabetes mellitus, hypertension, hyperlipidemia. She is a lifelong nonsmoker. She presented to the emergency room yesterday with complaints of fever, cough congestion and feeling poorly the past several days. She states there were multiple people in the house who have been sick as well. Chest x-ray shows developing lingular consolidation. Influenza screen is positive for influenza A. She presented with a T-max of 104. She was tachycardic. Tachypneic. Able to maintain O2 saturations in the 90s on room air. She was admitted to the regular medical floor. She is seen today in consultation. She is awake and alert. She is complaining of a sore throat. She has a loose productive cough. She did have a temp of 101.1 earlier this morning. Currently afebrile. Receiving Tylenol. She's been initiated on DuoNeb inhalations, Pulmicort and Perforomist inhalations, antibiotics in the form of ceftriaxone and azit hromycin. On Tamiflu. Sputum culture is pending. White count 9.8. Hemoglobin 8.8. Platelet count 127,000. Creatinine 1.04. On 02/15/2019 patient seen in follow-up on medical surgical floor. She is resting in bed, she states she is feeling better today. No fever in the last 24 hours. Room air pulse ox is 95%, hemodynamically stable, lung sounds are positive for some diffuse wheezes. Blood and sputum culture results are pending. Yesterday's chest x-ray showed developing lingular consolidation, related to pneumonia, no new chest x-rays today. Antibiotic coverage is in the form of Rocephin and Zithromax and Tamiflu, patient continues on IV steroids, nebulized bronchodilators On 02/17/2019 patient seen in follow-up on medical surgical floor. She is resting comfortably in bed, she is on room air, room air pulse ox is 95%, no fever or chills, hemodynamically stable, she is alert and oriented 3, denies any shortness of breath, denies any chest pain cough or congestion. Blood and sputum cultures have been negative thus far, today's labs have been reviewed, white blood cell count is 10.1, hemoglobin is 9.6, sodium is 140 potassium is 4.9, chloride is 111, CO2 is 19, BUN is 37 creatinine is 1.04. No acute events overnight, patient states the plan is for her to be discharged home tomorrow. She feels she will be stronger by tomorrow, we will increase her activity today, encouraged patient to sit up in the chair. On 02/18/2019 patient seen in follow-up on medical surgical floor. She is resting in bed, she states she is feeling much better, lung sounds are essentially clear on today's exam, room air pulse ox is 99%, patient is afebrile, hemodynamically patient is stable, no cough or chest congestion, today's labs have been reviewed, and showed white blood cell, 7.2, hemoglobin of 9.8, serum sodium is 140, potassium is 5.0, chloride is 110, CO2 is 19, BUN is 33 creatinine 0.92. Blood and sputum culture showed no growth. Patient completing a course of Tamiflu, Zithromax and Rocephin, she has been transitioned to oral prednisone, she has responded nicely to medical treatment. She stable, no acute events overnight, [facility] Objective - Vital Signs Vital signs: Vital Signs Temp 97.8 F 02/18/19 07:00 Pulse 109 H 02/18/19 09:30 Resp 20 02/18/19 08:00 BP 147/73 02/18/19 09:30 Pulse Ox 99 02/18/19 07:00 Intake & Output 02/17/19 02/18/19 02/18/19 18:59 06:59 18:59 Intake Total 240 Balance 240 Intake: Oral 240 Other: Voiding Method Toilet Toilet Toilet # Voids 1 1 # Bowel Movements 0 - Exam GENERAL EXAM: Alert, pleasant, 78-year-old female, comfortable in no apparent distress. HEAD: Normocephalic/atraumatic. EYES: Normal reaction of pupils, equal size. Conjunctiva pink, sclera white. NOSE: Clear with pink turbinates. THROAT: No erythema or exudates. NECK: No masses, no JVD, no thyroid enlargement, no adenopathy. CHEST: No chest wall deformity. Symmetrical expansion. LUNGS: Equal air entry, no wheezes, or rhonchi CVS: Regular rate and rhythm, normal S1 and S2, no gallops, no murmurs, no rubs ABDOMEN: Soft, nontender. No hepatosplenomegaly, normal bowel sounds, no guarding or rigidity. EXTREMITIES: No clubbing, no edema, no cyanosis, 2+ pulses and upper and lower extremities. MUSCULOSKELETAL: Muscle strength and tone normal. SPINE: No scoliosis or deformity SKIN: No rashes CENTRAL NERVOUS SYSTEM: Alert and oriented -3. No focal deficits, tone is normal in all 4 extremities. PSYCHIATRIC: Alert and oriented -3. Appropriate affect. Intact judgment and insight. - Labs CBC & Chem 7: 02/18/19 09:51 02/18/19 09:51 Labs: Abnormal Lab Results - Last 24 Hours (Table) 02/17/19 02/17/19 02/17/19 Range/Units 09:16 17:12 20:22 RBC (3.80-5.40) m/uL Hgb (11.4-16.0) gm/dL Hct (34.0-46.0) % Lymphocytes # (1.0-4.8) k/uL Chloride (98-107) mmol/L Carbon Dioxide (22-30) mmol/L BUN (7-17) mg/dL Glucose (74-99) mg/dL POC Glucose (mg/dL) 231 H 204 H (75-99) mg/dL Hemoglobin A1c 7.9 H (4.0-6.0) % AST (14-36) U/L Albumin (3.5-5.0) g/dL 02/18/19 02/18/19 02/18/19 Range/Units 07:25 09:51 09:51 RBC 3.42 L (3.80-5.40) m/uL Hgb 9.8 L (11.4-16.0) gm/dL Hct 31.1 L (34.0-46.0) % Lymphocytes # 0.7 L (1.0-4.8) k/uL Chloride 110 H (98-107) mmol/L Carbon Dioxide 19 L (22-30) mmol/L BUN 33 H (7-17) mg/dL Glucose 251 H (74-99) mg/dL POC Glucose (mg/dL) 232 H (75-99) mg/dL Hemoglobin A1c (4.0-6.0) % AST 43 H (14-36) U/L Albumin 3.4 L (3.5-5.0) g/dL 02/18/19 Range/Units 12:31 RBC (3.80-5.40) m/uL Hgb (11.4-16.0) gm/dL Hct (34.0-46.0) % Lymphocytes # (1.0-4.8) k/uL Chloride (98-107) mmol/L Carbon Dioxide (22-30) mmol/L BUN (7-17) mg/dL Glucose (74-99) mg/dL POC Glucose (mg/dL) 266 H (75-99) mg/dL Hemoglobin A1c (4.0-6.0) % AST (14-36) U/L Albumin (3.5-5.0) g/dL Microbiology - Last 24 Hours (Table) 02/13/19 18:03 Blood Culture - Preliminary Blood No Growth after 96 hours Assessment and Plan Plan: #1 Acute community-acquired left lingular pneumonia complicated by influenza A. #2 Febrile illness secondary to above. #3 Coronary artery disease. #4 Diabetes mellitus. #5 Hypertension. #6 Hyperlipidemia. Plan: Patient is stable, almost back to her baseline, no difficulty breathing, no chest pain, no fever or chills, from pulmonary perspective patient is stable for discharge home today she can finish outpatient course of oral antibiotics, finish her course of Tamiflu. She will need to follow-up with Dr. Fields in the office in 7-10 days I performed a history & physical examination of the patient and discussed their management with my nurse practitioner, Samara Castañeda. I reviewed the nurse practitioner's note and agree with the documented findings and plan of care. Lung sounds are positive for clear breath sounds. The findings and the impression was discussed with the patient. I attest to the documentation by the nurse practitioner. Time with Patient: Less than 30
[2019-02-18] MEDS: MULTIVITAMINS, THERA 1 EACH TAB PO SCH (13:44)
--- NOTE | 2019-02-19 08:10 | DS ---
DISCHARGE SUMMARY DATE OF SERVICE: 02/18/2019 FINAL DIAGNOSES: 1. Acute influenza A with possible bibasilar pneumonia right middle lobe pneumonia more than the left with possible sepsis and acute hypoxic respiratory failure, present on admission. 2. Diabetes mellitus type 2. 3. Hypertension. 4. Hyperlipidemia. 5. History of urinary tract infection. 6. History of cholecystectomy. 7. History of hernia repair. 8. History of degenerative joint disease. 9. History of depression. 10.History of chest pain and angina. 11.Hyponatremia. 12.Anemia, normocytic anemia of chronic disease. 13.Hypoalbuminemia. DISCHARGE DISPOSITION: The patient will be discharged in stable condition with guarded prognosis. Discharge cleared by [employer]. HISTORY OF PRESENT ILLNESS: This 78-year-old woman with a past medical history of multiple medical problems was admitted with acute influenza A and multiple other complications. Patient was extremely ill at the beginning, but because intensive treatment patient improved significantly. Seen by pulmonology and the patient improved significantly. Patient will be discharged in stable condition with guarded prognosis. On exam, vitals are stable. CARDIOVASCULAR: S1, S2, muffled. RESPIRATORY: A few scattered rhonchi. ABDOMEN: Soft. NERVOUS SYSTEM: No focal deficits. DISCHARGE ADVICE: 1. Diet is cardiac. 2. Activity limited until followup. 3. Follow up with with Dr. Wang 2 to 3 days. 4. Follow up with pulmonology as recommended. Medications are: 1. Actos 15 mg p.o. daily. 2. Cozaar 50 mg p.o. daily. 3. Glucophage 1000 mg p.o. b.i.d. 4. Imdur 60 mg p.o. daily. 5. Lipitor 80 mg p.o. daily. 6. Norvasc 2.5 mg p.o. daily. 7. Plavix 75 mg p.o. daily. 8. Toujeo 10 units subcu daily. 9. Xanax 0.25 b.i.d. 10.Ceftin 500 mg p.o. b.i.d. for 3 days. 11.Multivitamins one p.o. daily. 12.Prednisone 40 mg daily for 3 days, 30 for 3 days, 20 for 3 days and 10 for 3 days. 13.Albuterol ProAir 2 puffs q.6. 14.Tamiflu 30 mg p.o. b.i.d. for 3 more days. 15.Tylenol p.r.n. 16.Zithromax 500 mg p.o. daily for 5 days. Once again, the patient will be discharged in a stable condition with guarded prognosis. COURTNEY / IJRom: [id number] /
== END 2019-02-18 14:30 | disposition home health service (06) | DRG 871 ==
LOC: EC 16:27 → 4MS4W 17:26 → INTOOBSV 17:26 → 4MS4W 20:33 → OBSVTOIN 02-14 09:21
PROVIDERS: ADMIT Hospitalist; ATTEND Hospitalist
DX: A41.9 Sepsis, unspecified organism (principal); J10.00 Influenza due to other identified influenza virus with unspecified type of pneumonia; J96.01 Acute respiratory failure with hypoxia; E87.1 Hypo-osmolality and hyponatremia; D63.8 Anemia in other chronic diseases classified elsewhere; E11.9 Type 2 diabetes mellitus without complications; E78.5 Hyperlipidemia, unspecified; F32.9 Major depressive disorder, single episode, unspecified; I10 Essential (primary) hypertension; I25.119 Atherosclerotic heart disease of native coronary artery with unspecified angina pectoris; M19.90 Unspecified osteoarthritis, unspecified site; Z79.02 Long term (current) use of antithrombotics/antiplatelets; Z79.4 Long term (current) use of insulin; Z79.899 Other long term (current) drug therapy; Z82.49 Family history of ischemic heart disease and other diseases of the circulatory system; Z87.440 Personal history of urinary (tract) infections; Z90.49 Acquired absence of other specified parts of digestive tract; Z90.710 Acquired absence of both cervix and uterus; Z88.5 Allergy status to narcotic agent; Z88.7 Allergy status to serum and vaccine; Z88.6 Allergy status to analgesic agent; Z91.041 Radiographic dye allergy status
CPT/HCPCS: 71046; 80053; 81001; 83036; 83605; 83735; 85025; 87040; 87070; 87205; 87502; 94640; 96361; 96365; 96366; 96367; 96372; 99285

== ENCOUNTER 2019-02-23 23:23 | Emergency (ER) | payer MEDICARE, OTHER ==
[2019-02-23 23:29] VITALS: TEMP 98.4
[2019-02-23 23:35] LABS: Glucose,Whole Blood 481 mg/dL (75-99)
[2019-02-24] MEDS ORDERED: SODIUM CHLORIDE 0.9% 1,000 ML IV STA (00:04)
[2019-02-24] MEDS ORDERED: SODIUM CHLORIDE 0.9% 500 ML IV STA (00:05)
--- NOTE | 2019-02-24 00:07 | ED ---
General Adult HPI - General Chief complaint: Recheck/Abnormal Lab/Rx Stated complaint: High Sugar Time Seen by Provider: 02/23/19 23:48 Source: patient Mode of arrival: ambulatory Limitations: no limitations - History of Present Illness Initial comments: Dictation was produced using [employer] dictation software. please excuse any grammatical, word or spelling errors. Chief Complaint: 78-year-old female with past medical history of diabetes, this edema, hypertension presents with elevated blood sugar. History of Present Illness: Patricia is a 78-year-old female she is insulin-dependent diabetic. Patient states she checked her sugar today and was found to be high. She states that her glucometer read critical high. She came to the emergency department for evaluation. Patient takes insulin. She is currently on steroids for pulmonary infection. She was told to come to the emergency department if she had elevated blood sugar. She has no other complaints at this time. The ROS documented in this emergency department record has been reviewed and confirmed by me. Those systems with pertinent positive or negative responses have been documented in the HPI. All other systems are other negative and/or noncontributory. PHYSICAL EXAM: General Impression: Alert and oriented x3, not in acute distress HEENT: Normocephalic atraumatic, extra-ocular movements intact, pupils equal and reactive to light bilaterally, mucous membranes moist. Cardiovascular: Heart regular rate and rhythm, S1&S2 audible, no murmurs, rubs or gallops Chest: Lungs clear to auscultation bilaterally, no rhonchi, no wheeze, no rales Abdomen: Bowel sounds present, abdomen soft, non-tender, non-distended, no organomegaly Musculoskeletal: Pulses present and equal in all extremities, no peripheral edema Motor: no focal deficits noted Neurological: CN II-XII grossly intact, no focal motor or sensory deficits noted Skin: Intact with no visualized rashes Psych: Normal affect and mood ED course: 78 year old insulin-dependent diabetic presents with elevated blood sugar. Patient on steroids for pulmonary infection. Vital signs upon arrival are within acceptable limits. Lavatory evaluation obtained. Sodium is 133. Glucose 498 no acidosis. Patient given 500 mL bolus of fluids and 10 units of regular insulin. Patient repeat blood sugars are improved. Patient told to follow-up with her primary care doctor or diabetes doctor tomorrow for outpatient management of elevated blood sugar. Patient warned of signs of hypoglycemia status post insulin. Still to check her sugar if she has any concerning symptoms. Patient understandable agreeable to plan. Patient clear for discharge. - Related Data Home Medications Medication Instructions Recorded Confirmed metFORMIN HCL [Glucophage] 1,000 mg PO BID 08/20/14 02/13/19 Clopidogrel [Plavix] 75 mg PO DAILY 02/13/16 02/13/19 Isosorbide Mononitrate ER [Imdur] 60 mg PO DAILY 02/13/16 02/13/19 Losartan [Cozaar] 50 mg PO DAILY 02/13/16 02/13/19 amLODIPine BESYLATE [Norvasc] 2.5 mg PO DAILY 07/25/16 02/13/19 ALPRAZolam [Xanax] 0.25 mg PO BID 02/13/19 02/13/19 Atorvastatin [Lipitor] 80 mg PO DAILY 02/13/19 02/13/19 Insulin Glargine,Hum.rec.anlog 10 unit SQ DAILY 02/13/19 02/13/19 [Tocarmen Sullivan] Pioglitazone HCl [Actos] 15 mg PO DAILY 02/13/19 02/13/19 Previous Rx's Medication Instructions Recorded Acetaminophen Tab [Tylenol] 500 mg PO Q6HR PRN tab 02/18/19 Albuterol Sulfate [Proair Hfa] 2 puff INHALATION Q6HR #1 inhaler 02/18/19 Azithromycin [Zithromax] 500 mg PO Q24H #5 tab 02/18/19 Cefuroxime Axetil [Ceftin] 500 mg PO BID 3 Days #6 tab 02/18/19 Multivitamins, Thera [Multivitamin 1 each PO DAILY@1200 #30 tab 02/18/19 (formulary)] Oseltamivir 6Mg/ml Oral Susp 30 mg PO Q12HR #6 oral.syrg 02/18/19 [Tamiflu] predniSONE 10 mg PO DIRECTED #30 tab 02/18/19 Allergies Allergy/AdvReac Type Severity Reaction Status Date / Time aspirin Allergy Rash/Hives Verified 02/23/19 23:29 codeine Allergy Rash/Hives Verified 02/23/19 23:29 Influenza Virus Vaccines Allergy Rash/Hives Verified 02/23/19 23:29 Iodinated Contrast- Oral and Allergy Rash/Hives/Increased Verified 02/23/19 23:29 IV Dye HR [Iodinated Contrast Media - IV Dye] iodine Allergy Rash/Hives Verified 02/23/19 23:29 NSAIDS (Non-Steroidal Allergy Anaphylaxis Verified 02/23/19 23:29 Anti-Inflamma Review of Systems ROS Statement: Those systems with pertinent positive or pertinent negative responses have been documented in the HPI. ROS Other: All systems not noted in ROS Statement are negative. Past Medical History Past Medical History: Chest Pain / Angina, Diabetes Mellitus, Hyperlipidemia, Hypertension Additional Past Medical History / Comment(s): UTI-ECOLI History of Any Multi-Drug Resistant Organisms: None Reported Past Surgical History: Cholecystectomy, Heart Catheterization, Hernia Repair, Hysterectomy, Orthopedic Surgery Additional Past Surgical History / Comment(s): R shoulder surgery. R broken wrist.trigger release rt middle finger. pt not sure if they took appendix when they did hysterectomy Past Anesthesia/Blood Transfusion Reactions: No Reported Reaction Additional Past Anesthesia/Blood Transfusion Reaction / Comment(s): blood tra nsfusion-no reaction Past Psychological History: Depression Smoking Status: Never smoker Past Alcohol Use History: None Reported Past Drug Use History: None Reported - Past Family History Father Family Medical History: Congestive Heart Failure (CHF) Mother Family Medical History: Pneumonia Additional Family Medical History / Comment(s): fom pne General Exam Limitations: no limitations Course Vital Signs 02/23/19 23:25 Temperature 98.4 F Pulse Rate 81 Respiratory 18 Rate Blood Pressure 175/75 O2 Sat by Pulse 99 Oximetry Medical Decision Making - Lab Data Result diagrams: 02/24/19 00:00 Lab Results 02/23/19 02/24/19 Range/Units 23:32 00:00 Sodium 133 L (137-145) mmol/L Potassium 4.9 (3.5-5.1) mmol/L Chloride 101 (98-107) mmol/L Carbon Dioxide 22 (22-30) mmol/L Anion Gap 10 mmol/L BUN 27 H (7-17) mg/dL Creatinine 0.88 (0.52-1.04) mg/dL Est GFR (CKD-EPI)AfAm 74 (>60 ml/min/1.73 sqM) Est GFR (CKD-EPI)NonAf 64 (>60 ml/min/1.73 sqM) Glucose 498 H (74-99) mg/dL POC Glucose (mg/dL) 481 H (75-99) mg/dL POC Glu Tube Winder ID [place] Calcium 9.8 (8.4-10.2) mg/dL Disposition Clinical Impression: Hyperglycemia Disposition: HOME SELF-CARE Condition: Good Instructions (If sedation given, give patient instructions): Diabetic Hyperglycemia (ED) Is patient prescribed a controlled substance at d/c from ED?: No Referrals: Dolores Wang MD [Primary Care Provider] - 1-2 days Time of Disposition: 01:05
[2019-02-24 00:24] LABS: Calcium 9.8 mg/dL (8.4-10.2); Potassium 4.9 mmol/L (3.5-5.1)
[2019-02-24] MEDS ORDERED: INSULIN REGULAR 100 UNIT/ML VIAL IV ONE ×2 (00:57→01:49)
[2019-02-24 01:46] LABS: Glucose,Whole Blood 318 mg/dL (75-99)
[2019-02-24 02:29] LABS: Glucose,Whole Blood 229 mg/dL (75-99)
[2019-02-24 03:05] VITALS: BP 126/81; PULSE 64; RESP 20
== END 2019-02-24 02:32 | disposition home or self-care (01) ==
LOC: EC 23:23
DX: E11.65 Type 2 diabetes mellitus with hyperglycemia (principal); E78.5 Hyperlipidemia, unspecified; I10 Essential (primary) hypertension; Z95.818 Presence of other cardiac implants and grafts; Z79.02 Long term (current) use of antithrombotics/antiplatelets; Z79.4 Long term (current) use of insulin; Z79.899 Other long term (current) drug therapy; Z88.6 Allergy status to analgesic agent; Z88.5 Allergy status to narcotic agent; Z88.7 Allergy status to serum and vaccine; Z91.041 Radiographic dye allergy status; Z53.8 Procedure and treatment not carried out for other reasons
CPT/HCPCS: 36415; 80048; 99283

== ENCOUNTER → 2019-03-22 | Outpatient (CLI) | payer MEDICARE, OTHER ==
--- NOTE | 2019-03-23 14:22 | MM ---
Reason for exam: screening (asymptomatic). Last mammogram was performed 3 years and 2 months ago. History: Patient is postmenopausal. Physical Findings: A clinical breast exam by your physician is recommended on an annual basis and results should be correlated with mammographic findings. MG 3D Screening Mammo W/Cad Bilateral CC and MLO view(s) were taken. Prior study comparison: February 02, 2016, bilateral MG screening mammo w CAD. November 02, 2014, bilateral MG screening mammo w CAD. There are scattered fibroglandular densities. No significant changes when compared with prior studies. ASSESSMENT: Benign, BI-RAD 2 RECOMMENDATION: Routine screening mammogram of both breasts in 1 year.
== END | disposition home or self-care (01) ==
LOC: RADMAMWWP 10:52
PROVIDERS: ATTEND Internal Medicine
DX: Z12.31 Encounter for screening mammogram for malignant neoplasm of breast (principal)
CPT/HCPCS: 77063; 77067

== ENCOUNTER → 2019-04-27 | Outpatient (CLI) | payer MEDICARE, OTHER ==
--- NOTE | 2019-04-27 18:03 | US ---
EXAMINATION TYPE: US venous doppler duplex LE LT DATE OF EXAM: 04/27/2019 5:18 PM COMPARISON: NONE CLINICAL HISTORY: M79.89 Other specified soft tissue disorders. Left leg pain and swelling. SIDE PERFORMED: Left TECHNIQUE: The lower extremity deep venous system is examined utilizing real time linear array sonog rosales with graded compression, doppler sonography and color-flow sonography. VESSELS IMAGED: External Iliac Vein (EIV) Common Femoral Vein Deep Femoral Vein Greater Saphenous Vein * Femoral Vein Popliteal Vein Small Saphenous Vein * Proximal Calf Veins (* superficial vessels) FINDINGS: Grayscale, color doppler, spectral doppler imaging performed of the deep veins of the lowe r extremities. There is normal flow, compressibility, vascular waveforms. IMPRESSION: Negative for DVT, left lower extremity.
== END | disposition home or self-care (01) ==
LOC: RADUSWWP 16:19
PROVIDERS: ATTEND Internal Medicine
DX: M79.89 Other specified soft tissue disorders (principal)

== ENCOUNTER 2019-06-07 04:12 | Emergency (ER) | payer MEDICARE, OTHER ==
--- NOTE | 2019-06-07 05:39 | ED ---
Extremity Problem HPI - General Chief complaint: Extremity Problem,Nontraumatic Stated complaint: foot pain Time Seen by Provider: 06/07/19 05:39 Source: patient, family Mode of arrival: wheelchair Limitations: no limitations - History of Present Illness Initial comments: Anali is a pleasant 78 yo female who presents to the ER today for evaluation of foot pain. Patient has been suffering with this for a number of months, she has been seen by her primary care physician, she has had ultrasounds and x-ray imaging. Patient reports that she has pain in the bottom of her foot and is noted that her foot seems to be swollen. She's tried ice and elevation. Patient reports that the pain was keeping her up during the night which prompted her to come to the ER for evaluation. Patient states that she's been taking Motrin at home for the pain which helps sometimes. She denies any specific injuries which prompted the pain. - Related Data Home Medications Medication Instructions Recorded Confirmed metFORMIN HCL [Glucophage] 1,000 mg PO BID 08/20/14 02/13/19 Clopidogrel [Plavix] 75 mg PO DAILY 02/13/16 02/13/19 Isosorbide Mononitrate ER [Imdur] 60 mg PO DAILY 02/13/16 02/13/19 Losartan [Cozaar] 50 mg PO DAILY 02/13/16 02/13/19 amLODIPine BESYLATE [Norvasc] 2.5 mg PO DAILY 07/25/16 02/13/19 ALPRAZolam [Xanax] 0.25 mg PO BID 02/13/19 02/13/19 Atorvastatin [Lipitor] 80 mg PO DAILY 02/13/19 02/13/19 Insulin Glargine,Hum.rec.anlog 10 unit SQ DAILY 02/13/19 02/13/19 [Toujedank Solostar] Pioglitazone HCl [Actos] 15 mg PO DAILY 02/13/19 02/13/19 Previous Rx's Medication Instructions Recorded Acetaminophen Tab [Tylenol] 500 mg PO Q6HR PRN tab 02/18/19 Albuterol Sulfate [Proair Hfa] 2 puff INHALATION Q6HR #1 inhaler 02/18/19 Azithromycin [Zithromax] 500 mg PO Q24H #5 tab 02/18/19 Cefuroxime Axetil [Ceftin] 500 mg PO BID 3 Days #6 tab 02/18/19 Multivitamins, Thera [Multivitamin 1 each PO DAILY@1200 #30 tab 02/18/19 (formulary)] Oseltamivir 6Mg/ml Oral Susp 30 mg PO Q12HR #6 oral.syrg 02/18/19 [Tamiflu] predniSONE 10 mg PO DIRECTED #30 tab 02/18/19 Allergies Allergy/AdvReac Type Severity Reaction Status Date / Time aspirin Allergy Rash/Hives Verified 02/23/19 23:29 codeine Allergy Rash/Hives Verified 02/23/19 23:29 Influenza Virus Vaccines Allergy Rash/Hives Verified 02/23/19 23:29 Iodinated Contrast- Oral and Allergy Rash/Hives/Increased Verified 02/23/19 23:29 IV Dye HR [Iodinated Contrast Media - IV Dye] iodine Allergy Rash/Hives Verified 02/23/19 23:29 NSAIDS (Non-Steroidal Allergy Anaphylaxis Verified 02/23/19 23:29 Anti-Inflamma Review of Systems ROS Statement: Those systems with pertinent positive or pertinent negative responses have been documented in the HPI. ROS Other: All systems not noted in ROS Statement are negative. Past Medical History Past Medical History: Chest Pain / Angina, Diabetes Mellitus, Hyperlipidemia, Hypertension Additional Past Medical History / Comment(s): UTI-ECOLI History of Any Multi-Drug Resistant Organisms: None Reported Past Surgical History: Cholecystectomy, Heart Catheterization, Hernia Repair, Hysterectomy, Orthopedic Surgery Additional Past Surgical History / Comment(s): R shoulder surgery. R broken wrist.trigger release rt middle finger. pt not sure if they took appendix when they did hysterectomy Past Anesthesia/Blood Transfusion Reactions: No Reported Reaction Additional Past Anesthesia/Blood Transfusion Reaction / Comment(s): blood transfusion-no reaction Past Psychological History: Depression Smoking Status: Never smoker Past Alcohol Use History: None Reported Past Drug Use History: None Reported - Past Family History Father Family Medical History: Congestive Heart Failure (CHF) Mother Family Medical History: Pneumonia Additional Family Medical History / Comment(s): fom pne General Exam - General Exam Comments Initial Comments: Physical Exam GENERAL: Patient is well-developed and well-nourished. Patient is nontoxic and well- hydrated and is in no distress. HENT: Normocephalic, Atraumatic. EYES: PERRL, EOMI PULMONARY: Unlabored respirations. No audible rales rhonchi or wheezing was noted. CARDIOVASCULAR: There is a regular rate and rhythm without any murmurs gallops or rubs. ABDOMEN: Soft and nontender with normal bowel sounds. SKIN: Skin is clear with no lesions or rashes and otherwise unremarkable. No skin color changes on the foot no signs of cellulitis infection or injury : Deferred NEUROLOGIC: Patient is alert and oriented x3. Moving all extremities spontaneously MUSCULOSKELETAL: Normal extremities with adequate strength and full range of motion. No lower extremity swelling or edema. No calf tenderness. There is tenderness to palpation at the heel, and at the plantar fascia No obvious deformities The foot is warm and well perfused no signs of or concern for vascular issues PSYCHIATRIC: Normal psychiatric evaluation Pleasantly forgetful Limitations: no limitations Course Vital Signs 06/07/19 06/07/19 04:46 06:10 Temperature 97.7 F 98 F Pulse Rate 55 L 53 L Respiratory 16 18 Rate Blood Pressure 160/81 176/61 O2 Sat by Pulse 99 98 Oximetry Medical Decision Making - Medical Decision Making The patient was seen and evaluated, history is obtained from the patient and at bedside Patient's been dealing with 3 months of for pain, kept her up throughout the night tonight Physical exam is unremarkable, history reveals nothing acute At this time I will provide the patient with a stirrup splint, discussed plantar fasciitis with her, advised follow-up with an orthopedic or sheet manufacturing supervisor for further evaluation Disposition Clinical Impression: Ankle pain Disposition: HOME SELF-CARE Condition: Stable Instructions (If sedation given, give patient instructions): Ankle Sprain (DC) Is patient prescribed a controlled substance at d/c from ED?: No Referrals: Dolores Wang MD [Primary Care Provider] - 1-2 days Angelita Abrams DPM [STAFF PHYSICIAN] - 1-2 days Margarito Casas DPM [STAFF PHYSICIAN] - 1-2 days [facility] [Provider Group] - 1-2 days
[2019-06-07 06:11] VITALS: BP 176/61; PULSE 53; RESP 18; TEMP 98
== END 2019-06-07 06:10 | disposition home or self-care (01) ==
LOC: EC 04:12
DX: M25.572 Pain in left ankle and joints of left foot (principal); M79.89 Other specified soft tissue disorders; E11.9 Type 2 diabetes mellitus without complications; E78.5 Hyperlipidemia, unspecified; I10 Essential (primary) hypertension; F32.9 Major depressive disorder, single episode, unspecified; Z79.4 Long term (current) use of insulin; Z79.01 Long term (current) use of anticoagulants; Z79.899 Other long term (current) drug therapy; Z88.6 Allergy status to analgesic agent; Z88.5 Allergy status to narcotic agent; Z88.7 Allergy status to serum and vaccine; Z88.8 Allergy status to other drugs, medicaments and biological substances; Z91.041 Radiographic dye allergy status; Z95.818 Presence of other cardiac implants and grafts
CPT/HCPCS: 99283; 29515; L4350

== ENCOUNTER → 2019-09-15 | Outpatient (CLI) | payer MEDICARE ==
--- NOTE | 2019-09-15 14:02 | XR ---
EXAMINATION TYPE: XR hand complete LT DATE OF EXAM: 09/15/2019 COMPARISON: NONE HISTORY: Pain TECHNIQUE: Three views are submitted. FINDINGS: The osseous structures are intact. There is diffuse osteopenia and vascular calcifications are noted. Mild narrowing of the DIP, PIP and MCP joint of all digits. Mild narrowing of the radiocarpal joint. IMPRESSION: 1. Diffuse osteopenia with no acute process.
== END | disposition home or self-care (01) ==
LOC: RADXRYALE 13:38
PROVIDERS: ATTEND Internal Medicine
DX: M85.80 Other specified disorders of bone density and structure, unspecified site (principal)

== ENCOUNTER 2020-05-11 10:01 | Emergency (ER) | payer MEDICARE, OTHER ==
[2020-05-11 10:08] VITALS: TEMP 97.9
[2020-05-11] MEDS ORDERED: SODIUM CHLORIDE 0.9% 1,000 ML IV STA (10:27)
[2020-05-11] MEDS ORDERED: MECLIZINE 12.5 MG TAB PO STA (10:27)
--- NOTE | 2020-05-11 10:35 | ED ---
Dizziness HPI - General Chief Complaint: Dizziness Stated Complaint: Fall,dizzy Time Seen by Provider: 05/11/20 10:11 Source: patient, RN notes reviewed Mode of arrival: wheelchair Limitations: no limitations - History of Present Illness Initial Comments: 79-year-old female presents emergency department to complaint of dizziness, weakness. Patient states she has not felt well last few days progressive dizziness worse sometimes exacerbated by movement. Patient also states he just feels lightheaded felt she did not pass out earlier trying to go to the bathroom. She never loss conscious. Denies any injuries. Denies any complaint of chest pain or shortness of breath. Patient does admit that she has a history of diabetes, hypertension, hyperlipidemia. Patient complains of dysuria hematuria blood sugars have been well. - Related Data Home Medications Medication Instructions Recorded Confirmed metFORMIN HCL [Glucophage] 1,000 mg PO BID 08/20/14 02/13/19 Clopidogrel [Plavix] 75 mg PO DAILY 02/13/16 02/13/19 Isosorbide Mononitrate ER [Imdur] 60 mg PO DAILY 02/13/16 02/13/19 Losartan [Cozaar] 50 mg PO DAILY 02/13/16 02/13/19 amLODIPine BESYLATE [Norvasc] 2.5 mg PO DAILY 07/25/16 02/13/19 ALPRAZolam [Xanax] 0.25 mg PO BID 02/13/19 02/13/19 Atorvastatin [Lipitor] 80 mg PO DAILY 02/13/19 02/13/19 Insulin Glargine,Hum.rec.anlog 10 unit SQ DAILY 02/13/19 02/13/19 [Dayron Sullivan] Pioglitazone HCl [Actos] 15 mg PO DAILY 02/13/19 02/13/19 Previous Rx's Medication Instructions Recorded Acetaminophen Tab [Tylenol] 500 mg PO Q6HR PRN tab 02/18/19 Albuterol Sulfate [Proair Hfa] 2 puff INHALATION Q6HR #1 inhaler 02/18/19 Azithromycin [Zithromax] 500 mg PO Q24H #5 tab 02/18/19 Cefuroxime Axetil [Ceftin] 500 mg PO BID 3 Days #6 tab 02/18/19 Multivitamins, Thera [Multivitamin 1 each PO DAILY@1200 #30 tab 02/18/19 (formulary)] Oseltamivir 6Mg/ml Oral Susp 30 mg PO Q12HR #6 oral.syrg 02/18/19 [Tamiflu] predniSONE 10 mg PO DIRECTED #30 tab 02/18/19 Meclizine [Antivert] 25 mg PO TID PRN #15 tab 05/11/20 Allergies Allergy/AdvReac Type Severity Reaction Status Date / Time aspirin Allergy Rash/Hives Verified 05/11/20 10:09 codeine Allergy Rash/Hives Verified 05/11/20 10:09 Influenza Virus Vaccines Allergy Rash/Hives Verified 05/11/20 10:09 Iodinated Contrast Media Allergy Rash/Hives/Increased Verified 05/11/20 10:09 [Iodinated Contrast Media - HR IV Dye] iodine Allergy Rash/Hives Verified 05/11/20 10:09 NSAIDS (Non-Steroidal Allergy Anaphylaxis Verified 05/11/20 10:09 Anti-Inflamma Review of Systems ROS Statement: Those systems with pertinent positive or pertinent negative responses have been documented in the HPI. ROS Other: All systems not noted in ROS Statement are negative. Past Medical History Past Medical History: Chest Pain / Angina, Diabetes Mellitus, Hyperlipidemia, Hypertension Additional Past Medical History / Comment(s): UTI-ECOLI History of Any Multi-Drug Resistant Organisms: None Reported Past Surgical History: Cholecystectomy, Heart Catheterization, Hernia Repair, Hysterectomy, Orthopedic Surgery Additional Past Surgical History / Comment(s): R shoulder surgery. R broken wrist.trigger release rt middle finger. pt not sure if they took appendix when they did hysterectomy Past Anesthesia/Blood Transfusion Reactions: No Reported Reaction Additional Past Anesthesia/Blood Transfusion Reaction / Comment(s): blood transfusion-no reaction Past Psychological History: Depression Smoking Status: Never smoker Past Alcohol Use History: None Reported Past Drug Use History: None Reported - Past Family History Father Family Medical History: Congestive Heart Failure (CHF) Mother Family Medical History: Pneumonia Additional Family Medical History / Comment(s): fom pne General Exam Limitations: no limitations General appearance: alert, in no apparent distress Head exam: Present: atraumatic, normocephalic, normal inspection Eye exam: Present: normal appearance, PERRL, EOMI. Absent: scleral icterus, conjunctival injection, periorbital swelling ENT exam: Present: normal exam, normal oropharynx, mucous membranes moist, TM's normal bilaterally, normal external ear exam Neck exam: Present: normal inspection, full ROM. Absent: tenderness, meningismus, lymphadenopathy Respiratory exam: Present: normal lung sounds bilaterally. Absent: respiratory distress, wheezes, rales, rhonchi, stridor Cardiovascular Exam: Present: regular rate, normal rhythm, normal heart sounds. Absent: systolic murmur, diastolic murmur, rubs, gallop, clicks GI/Abdominal exam: Present: soft, normal bowel sounds. Absent: distended, tenderness, guarding, rebound, rigid Neurological exam: Present: alert, oriented X3, CN II-XII intact, reflexes normal. Absent: motor sensory deficit Skin exam: Present: warm, dry, intact, normal color. Absent: rash Course Vital Signs 05/11/20 05/11/20 05/11/20 10:04 10:39 12:03 Temperature 97.9 F Pulse Rate 74 70 Pulse Rate [ 76 Standing Pulse Oximetery] Pulse Rate [ 67 Supine Pulse Oximetery] Respiratory 18 16 16 Rate Blood Pressure 162/64 169/62 Blood Pressure 127/55 [Right Arm Standing] Blood Pressure 157/69 [Right Arm Supine] O2 Sat by Pulse 100 98 Oximetry - Reevaluation(s) Reevaluation #1: 05/11/20 12:13 Patient reevaluated and updated and results. Patient was found. Patient states she does feel improved at this time. Results were completed inpatient and have mild drop in blood pressure which is improved. Medical Decision Making - Medical Decision Making 79-year-old female presented for dizziness worse with movement at this time. Patient had full workup including CT which is unremarkable labs unremarkable, EKG. Patient given IV fluid hydration, Antivert which has improved her symptoms. She has no ataxia. Patient symptoms more consistent with benign positional vertigo. Patient requests close follow-up and discharged. Return parameters were discussed. - Lab Data Result diagrams: 05/11/20 10:21 05/11/20 10:21 Lab Results 05/11/20 05/11/20 05/11/20 Range/Units 10:13 10:21 10:21 WBC 4.4 (3.8-10.6) k/uL RBC 3.55 L (3.80-5.40) m/uL Hgb 11.1 L (11.4-16.0) gm/dL Hct 34.6 (34.0-46.0) % MCV 97.5 (80.0-100.0) fL MCH 31.2 (25.0-35.0) pg MCHC 32.0 (31.0-37.0) g/dL RDW 13.4 (11.5-15.5) % Plt Count 158 (150-450) k/uL Neutrophils % 53 % Lymphocytes % 33 % Monocytes % 5 % Eosinophils % 7 % Basophils % 0 % Neutrophils # 2.3 (1.3-7.7) k/uL Lymphocytes # 1.5 (1.0-4.8) k/uL Monocytes # 0.2 (0-1.0) k/uL Eosinophils # 0.3 (0-0.7) k/uL Basophils # 0.0 (0-0.2) k/uL Sodium 140 (137-145) mmol/L Potassium 4.3 (3.5-5.1) mmol/L Chloride 106 (98-107) mmol/L Carbon Dioxide 26 (22-30) mmol/L Anion Gap 8 mmol/L BUN 14 (7-17) mg/dL Creatinine 0.81 (0.52-1.04) mg/dL Est GFR (CKD-EPI)AfAm 82 (>60 ml/min/1.73 sqM) Est GFR (CKD-EPI)NonAf 71 (>60 ml/min/1.73 sqM) Glucose 114 H (74-99) mg/dL Calcium 9.9 (8.4-10.2) mg/dL Total Bilirubin 0.4 (0.2-1.3) mg/dL AST 42 H (14-36) U/L ALT 21 (4-34) U/L Alkaline Phosphatase 102 (38-126) U/L Troponin I (0.000-0.034) ng/mL Total Protein 7.8 (6.3-8.2) g/dL Albumin 4.4 (3.5-5.0) g/dL Urine Color Light Yellow Urine Appearance Clear (Clear) Urine pH 6.5 (5.0-8.0) Ur Specific [place] 1.004 (1.001-1.035) Urine Protein Trace H (Negative) Urine Glucose (UA) Negative (Negative) Urine Ketones Negative (Negative) Urine Blood Negative (Negative) Urine Nitrite Negative (Negative) Urine Bilirubin Negative (Negative) Urine Urobilinogen <2.0 (<2.0) mg/dL Ur Leukocyte Esterase Small H (Negative) Urine RBC <1 (0-5) /hpf Urine WBC 4 (0-5) /hpf 05/11/ Range/Units 10:21 WBC (3.8-10.6) k/uL RBC (3.80-5.40) m/uL Hgb (11.4-16.0) gm/dL Hct (34.0-46.0) % MCV (80.0-100.0) fL MCH (25.0-35.0) pg MCHC (31.0-37.0) g/dL RDW (11.5-15.5) % Plt Count (150-450) k/uL Neutrophils % % Lymphocytes % % Monocytes % % Eosinophils % % Basophils % % Neutrophils # (1.3-7.7) k/uL Lymphocytes # (1.0-4.8) k/uL Monocytes # (0-1.0) k/uL Eosinophils # (0-0.7) k/uL Basophils # (0-0.2) k/uL Sodium (137-145) mmol/L Potassium (3.5-5.1) mmol/L Chloride (98-107) mmol/L Carbon Dioxide (22-30) mmol/L Anion Gap mmol/L BUN (7-17) mg/dL Creatinine (0.52-1.04) mg/dL Est GFR (CKD-EPI)AfAm (>60 ml/min/1.73 sqM) Est GFR (CKD-EPI)NonAf (>60 ml/min/1.73 sqM) Glucose (74-99) mg/dL Calcium (8.4-10.2) mg/dL Total Bilirubin (0.2-1.3) mg/dL AST (14-36) U/L ALT (4-34) U/L Alkaline Phosphatase (38-126) U/L Troponin I <0.012 (0.000-0.034) ng/mL Total Protein (6.3-8.2) g/dL Albumin (3.5-5.0) g/dL Urine Color Urine Appearance (Clear) Urine pH (5.0-8.0) Ur Specific [place] (1.001-1.035) Urine Protein (Negative) Urine Glucose (UA) (Negative) Urine Ketones (Negative) Urine Blood (Negative) Urine Nitrite (Negative) Urine Bilirubin (Negative) Urine Urobilinogen (<2.0) mg/dL Ur Leukocyte Esterase (Negative) Urine RBC (0-5) /hpf Urine WBC (0-5) /hpf Disposition Clinical Impression: Dizziness, Vertigo Disposition: HOME SELF-CARE Condition: Stable Instructions (If sedation given, give patient instructions): Dizziness (ED) Additional Instructions: Please return to the Emergency Department if symptoms worsen or any other concerns. Prescriptions: Meclizine [Antivert] 25 mg PO TID PRN #15 tab PRN Reason: Vertigo Is patient prescribed a controlled substance at d/c from ED?: No Referrals: Dolores Wang MD [Primary Care Provider] - 1-2 days Time of Disposition: 12:15
[2020-05-11 10:41] VITALS: RESP 16
[2020-05-11 10:53] LABS: Basophils % (A) 0 %; Eosinophils # (A) 0.3 k/uL (0-0.7); Eosinophils % (A) 7 %; HCT 34.6 % (34.0-46.0); HGB 11.1 gm/dL (11.4-16.0); Lymphocytes # (A) 1.5 k/uL (1.0-4.8); Lymphocytes % (A) 33 %; MCH 31.2 pg (25.0-35.0); MCV 97.5 fL (80.0-100.0); Mean Platelet Volume 7.5; Monocytes # (A) 0.2 k/uL (0-1.0); Monocytes % (A) 5 %; Neutrophils # (A) 2.3 k/uL (1.3-7.7); Neutrophils % (A) 53 %; Platelet Count 158 k/uL (150-450); RBC 3.55 m/uL (3.80-5.40); RDW 13.4 % (11.5-15.5); WBC 4.4 k/uL (3.8-10.6)
[2020-05-11 11:01] LABS: Albumin 4.4 g/dL (3.5-5.0); Calcium 9.9 mg/dL (8.4-10.2); Potassium 4.3 mmol/L (3.5-5.1); Total Bilirubin 0.4 mg/dL (0.2-1.3); Total Protein 7.8 g/dL (6.3-8.2)
--- NOTE | 2020-05-11 11:13 | CT ---
EXAMINATION TYPE: CT brain wo con DATE OF EXAM: 05/11/2020 COMPARISON: 08/04/2012 INDICATION: Dizziness DLP: 1099.4 mGycm, Automated exposure control for dose reduction was used. CONTRAST: None CT of the brain is performed utilizing 3 mm thick sections through the posterior fossa and 3 mm thick sections through the remaining calvarium. Study is performed within 24 hours of arrival to the hosp ital. No abnormal hyperdensity is present to suggest an acute intracranial hemorrhage. No mass lesion is evident. No acute infarcts are evident. Mild periventricular white matter hypodensity is present, white matter ischemic change Ventricles and sulci are appropriate for the patient age. Paranasal sinuses and mastoid air cells within the [id number] are clear. IMPRESSIONS: 1. Mild periventricular chronic appearing white matter ischemic type changes.
--- NOTE | 2020-05-11 11:15 | XR ---
EXAMINATION TYPE: XR chest 2V DATE OF EXAM: 05/11/2020 COMPARISON: 02/14/2019 INDICATION: Dizziness TECHNIQUE: Frontal and lateral views of the chest are obtained. FINDINGS: The heart size is normal. The pulmonary vasculature is normal. The lungs are clear. IMPRESSION: 1. No acute pulmonary process.
[2020-05-11 11:36] LABS: Appearance,Urine Clear (Clear); Bilirubin,Urine Negative (Negative); Blood,Urine Negative (Negative); Color,Urine Light Yellow; Glucose,Urine (UA) Negative (Negative); Ketones,Urine Negative (Negative); Leukocyte Esterase,Urine Small (Negative); Nitrite,Urine Negative (Negative); PH, Urine 6.5 (5.0-8.0); Protein,Urine Trace (Negative); RBC,Urine <1 /hpf (0-5); Specific Gravity,Urine 1.004 (1.001-1.035); Urobilinogen,Urine <2.0 mg/dL (<2.0); WBC,Urine 4 /hpf (0-5)
[2020-05-11 12:21] VITALS: BP 169/62; PULSE 70
== END 2020-05-11 12:25 | disposition home or self-care (01) ==
LOC: EC 10:01
DX: R42 Dizziness and giddiness (principal); R53.1 Weakness; E11.9 Type 2 diabetes mellitus without complications; E78.5 Hyperlipidemia, unspecified; I10 Essential (primary) hypertension; F32.9 Major depressive disorder, single episode, unspecified; I20.9 Angina pectoris, unspecified; Z79.02 Long term (current) use of antithrombotics/antiplatelets; Z79.4 Long term (current) use of insulin; Z79.899 Other long term (current) drug therapy; Z88.5 Allergy status to narcotic agent; Z88.6 Allergy status to analgesic agent; Z88.7 Allergy status to serum and vaccine; Z91.041 Radiographic dye allergy status; Z95.5 Presence of coronary angioplasty implant and graft
CPT/HCPCS: 36415; 70450; 71046; 80053; 81001; 84484; 85025; 93005; 96360; 99284

== ENCOUNTER 2020-07-16 09:40 | Observation (INO) | payer MEDICARE ==
[2020-07-16] MEDS ORDERED: SODIUM CHLORIDE 0.9% 1,000 ML IV STA (09:44)
[2020-07-16] MEDS ORDERED: ONDANSETRON 4 MG/2 ML VIAL IVP STA (09:44)
[2020-07-16] MEDS ORDERED: MECLIZINE 12.5 MG TAB PO STA (09:44)
--- NOTE | 2020-07-16 09:49 | ED ---
Dizziness HPI - General Stated Complaint: Dizziness,Weak Time Seen by Provider: 07/16/20 09:40 Source: patient, EMS, RN notes reviewed, old records reviewed Mode of arrival: EMS - History of Present Illness Initial Comments: This is a 80-year-old female history of prior episodes of vertigo who states she had the onset yesterday of dizziness with nausea and occasional vomiting. It persisted into this morning. She states she is dizzy with any type of head movement she looks up or down and she looks left to right. She's had decreased oral intake because of this. This year blood pressure was in the 190 systolic she was given 750 mL of IV fluid and route this brought the pressure is down to the 170s. This year glucose is 199. She still feeling nauseated. No focal deficits to her upper or lower extremities. No recent fevers chills sweats. No recent illnesses. MD Complaint: dizziness, lightheadedness - Related Data Home Medications Medication Instructions Recorded Confirmed metFORMIN HCL [Glucophage] 1,000 mg PO BID 08/20/14 02/13/19 Clopidogrel [Plavix] 75 mg PO DAILY 02/13/16 02/13/19 Isosorbide Mononitrate ER [Imdur] 60 mg PO DAILY 02/13/16 02/13/19 Losartan [Cozaar] 50 mg PO DAILY 02/13/16 02/13/19 amLODIPine BESYLATE [Norvasc] 2.5 mg PO DAILY 07/25/16 02/13/19 ALPRAZolam [Xanax] 0.25 mg PO BID 02/13/19 02/13/19 Atorvastatin [Lipitor] 80 mg PO DAILY 02/13/19 02/13/19 Insulin Glargine,Hum.rec.anlog 10 unit SQ DAILY 02/13/19 02/13/19 [Dayron Sullivan] Pioglitazone HCl [Actos] 15 mg PO DAILY 02/13/19 02/13/19 Previous Rx's Medication Instructions Recorded Acetaminophen Tab [Tylenol] 500 mg PO Q6HR PRN tab 02/18/19 Albuterol Sulfate [Proair Hfa] 2 puff INHALATION Q6HR #1 inhaler 02/18/19 Azithromycin [Zithromax] 500 mg PO Q24H #5 tab 02/18/19 Cefuroxime Axetil [Ceftin] 500 mg PO BID 3 Days #6 tab 02/18/19 Multivitamins, Thera [Multivitamin 1 each PO DAILY@1200 #30 tab 02/18/19 (formulary)] Oseltamivir 6Mg/ml Oral Susp 30 mg PO Q12HR #6 oral.syrg 02/18/19 [Tamiflu] predniSONE 10 mg PO DIRECTED #30 tab 02/18/19 Meclizine [Antivert] 25 mg PO TID PRN #15 tab 05/11/20 Allergies Allergy/AdvReac Type Severity Reaction Status Date / Time aspirin Allergy Rash/Hives Verified 07/16/20 09:46 codeine Allergy Rash/Hives Verified 07/16/20 09:46 Influenza Virus Vaccines Allergy Rash/Hives Verified 07/16/20 09:46 Iodinated Contrast Media Allergy Rash/Hives/Increased Verified 07/16/20 09:46 [Iodinated Contrast Media - HR IV Dye] iodine Allergy Rash/Hives Verified 07/16/20 09:46 NSAIDS (Non-Steroidal Allergy Anaphylaxis Verified 07/16/20 09:46 Anti-Inflamma Review of Systems ROS Statement: Those systems with pertinent positive or pertinent negative responses have been documented in the HPI. ROS Other: All systems not noted in ROS Statement are negative. Past Medical History Past Medical History: Chest Pain / Angina, Diabetes Mellitus, Hyperlipidemia, H ypertension Additional Past Medical History / Comment(s): UTI-ECOLI History of Any Multi-Drug Resistant Organisms: None Reported Past Surgical History: Cholecystectomy, Heart Catheterization, Hernia Repair, Hysterectomy, Orthopedic Surgery Additional Past Surgical History / Comment(s): R shoulder surgery. R broken wrist.trigger release rt middle finger. pt not sure if they took appendix when they did hysterectomy Past Anesthesia/Blood Transfusion Reactions: No Reported Reaction Additional Past Anesthesia/Blood Transfusion Reaction / Comment(s): blood transfusion-no reaction Past Psychological History: Depression Past Alcohol Use History: None Reported Past Drug Use History: None Reported - Past Family History Father Family Medical History: Congestive Heart Failure (CHF) Mother Family Medical History: Pneumonia Additional Family Medical History / Comment(s): fom pne General Exam - General Exam Comments Initial Comments: This is a well-developed well-nourished awake alert oriented 3 female General appearance: alert, in no apparent distress Head exam: Present: atraumatic, normocephalic, normal inspection Eye exam: Present: normal appearance, PERRL, EOMI. Absent: scleral icterus, conjunctival injection, periorbital swelling ENT exam: Present: mucous membranes dry Neck exam: Present: normal inspection, full ROM, other (No stridor JVD or bruits). Absent: tenderness, meningismus, lymphadenopathy Respiratory exam: Present: normal lung sounds bilaterally. Absent: respiratory distress, wheezes, rales, rhonchi, stridor Cardiovascular Exam: Present: regular rate, normal rhythm, normal heart sounds. Absent: systolic murmur, diastolic murmur, rubs, gallop, clicks GI/Abdominal exam: Present: soft, normal bowel sounds. Absent: distended, tenderness, guarding, rebound, rigid, bruit, pulsatile mass Extremities exam: Present: normal inspection, full ROM, normal capillary refill. Absent: tenderness, pedal edema, joint swelling, calf tenderness Back exam: Present: normal inspection Neurological exam: Present: alert, oriented X3, CN II-XII intact Psychiatric exam: Present: normal affect, normal mood Skin exam: Present: warm, dry, intact, normal color. Absent: rash Course Vital Signs 07/16/20 07/16/20 07/16/20 09:46 10:02 10:52 Temperature 98.5 F Pulse Rate 85 79 70 Respiratory 18 18 18 Rate Blood Pressure 194/76 173/64 156/66 O2 Sat by Pulse 97 97 96 Oximetry - Reevaluation(s) Reevaluation #1: 07/16/20 13:37 Patient initially did seem to have some improvement with her dizziness however when she tried to ambulate or move it persisted. She denies any headache. Denied any other changes. EKG Findings - EKG Results: EKG: interpreted by ERMD, sinus rhythm (Sinus rhythm of 83 para 150 QRS duration 80 QT since QTC 398/467 evidence of LVH nonspecific septal configuration) Medical Decision Making - Medical Decision Making The patient continues to have intractable dizziness. Computed tomography scan was negative. Patient will be admitted for inpatient evaluation and treatment case was discussed with Dr. Johnson who did come the emergency department to see the patient. - Lab Data Result diagrams: 07/16/20 09:52 07/16/20 09:52 Lab Results 07/16/20 07/16/20 07/16/20 Range/Units 09:52 09:52 09:52 WBC 5.6 (3.8-10.6) k/uL RBC 3.90 (3.80-5.40) m/uL Hgb 11.2 L (11.4-16.0) gm/dL Hct 35.8 (34.0-46.0) % MCV 91.8 D (80.0-100.0) fL MCH 28.6 (25.0-35.0) pg MCHC 31.2 (31.0-37.0) g/dL RDW 12.8 (11.5-15.5) % Plt Count 156 (150-450) k/uL Neutrophils % 68 % Lymphocytes % 18 % Monocytes % 5 % Eosinophils % 7 % Basophils % 0 % Neutrophils # 3.8 (1.3-7.7) k/uL Lymphocytes # 1.0 (1.0-4.8) k/uL Monocytes # 0.3 (0-1.0) k/uL Eosinophils # 0.4 (0-0.7) k/uL Basophils # 0.0 (0-0.2) k/uL Sodium 138 (137-145) mmol/L Potassium 4.2 (3.5-5.1) mmol/L Chloride 108 H (98-107) mmol/L Carbon Dioxide 24 (22-30) mmol/L Anion Gap 6 mmol/L BUN 15 (7-17) mg/dL Creatinine 0.72 (0.52-1.04) mg/dL Est GFR (CKD-EPI)AfAm >90 (>60 ml/min/1.73 sqM) Est GFR (CKD-EPI)NonAf 81 (>60 ml/min/1.73 sqM) Glucose 162 H (74-99) mg/dL Calcium 9.0 (8.4-10.2) mg/dL Magnesium 1.7 (1.6-2.3) mg/dL Total Bilirubin 0.7 (0.2-1.3) mg/dL AST 48 H (14-36) U/L ALT 22 (4-34) U/L Alkaline Phosphatase 113 (38-126) U/L Creatine Kinase 87 (30-135) U/L Troponin I <0.012 (0.000-0.034) ng/mL Total Protein 7.0 (6.3-8.2) g/dL Albumin 3.9 (3.5-5.0) g/dL Urine Color Urine Appearance (Clear) Urine pH (5.0-8.0) Ur Specific [place] (1.001-1.035) Urine Protein (Negative) Urine Glucose (UA) (Negative) Urine Ketones (Negative) Urine Blood (Negative) Urine Nitrite (Negative) Urine Bilirubin (Negative) Urine Urobilinogen (<2.0) mg/dL Ur Leukocyte Esterase (Negative) Urine RBC (0-5) /hpf Urine WBC (0-5) /hpf Ur Squamous Epith Cells (0-4) /hpf 07/16/20 Range/Units 12:31 WBC (3.8-10.6) k/uL RBC (3.80-5.40) m/uL Hgb (11.4-16.0) gm/dL Hct (34.0-46.0) % MCV (80.0-100.0) fL MCH (25.0-35.0) pg MCHC (31.0-37.0) g/dL RDW (11.5-15.5) % Plt Count (150-450) k/uL Neutrophils % % Lymphocytes % % Monocytes % % Eosinophils % % Basophils % % Neutrophils # (1.3-7.7) k/uL Lymphocytes # (1.0-4.8) k/uL Monocytes # (0-1.0) k/uL Eosinophils # (0-0.7) k/uL Basophils # (0-0.2) k/uL Sodium (137-145) mmol/L Potassium (3.5-5.1) mmol/L Chloride (98-107) mmol/L Carbon Dioxide (22-30) mmol/L Anion Gap mmol/L BUN (7-17) mg/dL Creatinine (0.52-1.04) mg/dL Est GFR (CKD-EPI)AfAm (>60 ml/min/1.73 sqM) Est GFR (CKD-EPI)NonAf (>60 ml/min/1.73 sqM) Glucose (74-99) mg/dL Calcium (8.4-10.2) mg/dL Magnesium (1.6-2.3) mg/dL Total Bilirubin (0.2-1.3) mg/dL AST (14-36) U/L ALT (4-34) U/L Alkaline Phosphatase (38-126) U/L Creatine Kinase (30-135) U/L Troponin I (0.000-0.034) ng/mL Total Protein (6.3-8.2) g/dL Albumin (3.5-5.0) g/dL Urine Color Colorless Urine Appearance Clear (Clear) Urine pH 6.0 (5.0-8.0) Ur Specific [place] 1.006 (1.001-1.035) Urine Protein 1+ H (Negative) Urine Glucose (UA) Negative (Negative) Urine Ketones Negative (Negative) Urine Blood Negative (Negative) Urine Nitrite Negative (Negative) Urine Bilirubin Negative (Negative) Urine Urobilinogen <2.0 (<2.0) mg/dL Ur Leukocyte Esterase Small H (Negative) Urine RBC <1 (0-5) /hpf Urine WBC 10 H (0-5) /hpf Ur Squamous Epith Cells <1 (0-4) /hpf - Radiology Data Radiology results: report reviewed (I did review the imaging and reports no evidence of acute findings.), image reviewed Disposition Clinical Impression: Vertigo, Dizzy Disposition: ADMITTED IP TO THIS [facility] Condition: Fair Referrals: Dolores Wang MD [Primary Care Provider] - 1-2 days
[2020-07-16 10:14] LABS: Basophils % (A) 0 %; Eosinophils # (A) 0.4 k/uL (0-0.7); Eosinophils % (A) 7 %; HCT 35.8 % (34.0-46.0); HGB 11.2 gm/dL (11.4-16.0); Lymphocytes % (A) 18 %; MCH 28.6 pg (25.0-35.0); MCHC 31.2 g/dL (31.0-37.0); Mean Platelet Volume 7.3; Monocytes # (A) 0.3 k/uL (0-1.0); Monocytes % (A) 5 %; Neutrophils # (A) 3.8 k/uL (1.3-7.7); Neutrophils % (A) 68 %; Platelet Count 156 k/uL (150-450); RDW 12.8 % (11.5-15.5); WBC 5.6 k/uL (3.8-10.6)
[2020-07-16 10:18] LABS: ALT 22 U/L (4-34); AST 48 U/L (14-36); African American GFR (CKD) >90 (>60 ml/min/1.73 sqM); Albumin 3.9 g/dL (3.5-5.0); Alkaline Phosphatase 113 U/L (38-126); Anion Gap 6 mmol/L; Blood Urea Nitrogen 15 mg/dL (7-17); Carbon Dioxide 24 mmol/L (22-30); Chloride 108 mmol/L (98-107); Creatine Kinase 87 U/L (30-135); Glucose 162 mg/dL (74-99); Magnesium 1.7 mg/dL (1.6-2.3); Non-African American GFR(CKD) 81 (>60 ml/min/1.73 sqM); Potassium 4.2 mmol/L (3.5-5.1); Sodium 138 mmol/L (137-145); Total Bilirubin 0.7 mg/dL (0.2-1.3)
[2020-07-16 10:19] LABS: MCV 91.8 fL (80.0-100.0)
[2020-07-16 12:53] LABS: Appearance,Urine Clear (Clear); Bilirubin,Urine Negative (Negative); Blood,Urine Negative (Negative); Color,Urine Colorless; Glucose,Urine (UA) Negative (Negative); Ketones,Urine Negative (Negative); Leukocyte Esterase,Urine Small (Negative); Nitrite,Urine Negative (Negative); Protein,Urine 1+ (Negative); RBC,Urine <1 /hpf (0-5); Specific Gravity,Urine 1.006 (1.001-1.035); Squamous Epithelial Cell,Urine <1 /hpf (0-4); Urobilinogen,Urine <2.0 mg/dL (<2.0); WBC,Urine 10 /hpf (0-5)
[2020-07-16] MEDS ORDERED: ACETAMINOPHEN TAB 325 MG TAB PO PRN (13:39)
[2020-07-16] MEDS ORDERED: NALOXONE 0.4 MG/ML 1 ML VIAL IV PRN (13:39)
--- NOTE | 2020-07-16 13:41 | CT ---
EXAMINATION TYPE: CT brain wo con DATE OF EXAM: 07/16/2020 COMPARISON: 05/11/2020 INDICATION: dizziness DLP: 1099.4 mGycm, Automated exposure control for dose reduction was used. CONTRAST: None CT of the brain is performed utilizing 3 mm thick sections through the posterior fossa and 3 mm thick sections through the remaining calvarium. Study is performed within 24 hours of arrival to the hosp ital. No abnormal hyperdensity is present to suggest an acute intracranial hemorrhage. No mass lesion is evident. No acute infarcts are evident. Subtle periventricular white matter hypodensity may be present, most l ikely on the basis of chronic white matter ischemic changes. Ventricles and sulci are appropriate for the patient age. Paranasal sinuses and mastoid air cells within the [id number] are clear. IMPRESSIONS: 1. No acute intracranial process.
[2020-07-16] MEDS ORDERED: MECLIZINE 25 MG TAB PO PRN (13:43)
[2020-07-16] MEDS ORDERED: predniSONE 10 MG TAB PO SCH (13:45)
[2020-07-16] MEDS ORDERED: ALPRAZolam 0.25 MG TAB PO PRN (15:24)
[2020-07-16 15:46] LABS: Glucose,Whole Blood 120 mg/dL (75-99)
[2020-07-16] MEDS: MECLIZINE 25 MG TAB PO SCH ×2 (15:52→21:29)
[2020-07-16] MEDS: SODIUM CHLORIDE 0.9% 1,000 ML IV SCH (16:04)
--- NOTE | 2020-07-16 16:49 | US ---
EXAMINATION TYPE: US carotid duplex BILAT DATE OF EXAM: 07/16/2020 COMPARISON: NONE CLINICAL HISTORY: 80-year-old female stroke. Dizziness. Vomiting. TECHNIQUE: Carotid duplex ultrasound examination. Indirect Doppler criteria was utilized. FINDINGS: EXAM MEASUREMENTS: RIGHT: Peak Systolic Velocity (PSV) cm/sec ----- Right CCA: 68.2 ----- Right ICA: 83.4 ----- Right ECA: 87.9 ICA/CCA ratio: 1.2 RIGHT: End Diastole cm/sec ----- Right CCA: 10.0 ----- Right ICA: 13.1 ----- Right ECA: 6.3 LEFT: Peak Systolic Velocity (PSV) cm/sec ----- Left CCA: 75.2 ----- Left ICA: 167.0 ----- Left ECA: 91.9 ICA/CCA ratio: 2.2 LEFT: End Diastole cm/sec ----- Left CCA: 11.8 ----- Left ICA: 23.0 ----- Left ECA: 0.0 VERTEBRALS (direction of flow): Right Vertebral: Antegrade Left Vertebral: Antegrade Rhythm: Slight Arrhythmia Plaque seen in bilateral bulbs. Elevated left ICA velocities with left significant stenosis. IMPRESSION: 1. Atherosclerotic change with elevated velocities within the left internal carotid artery suggesting a moderate (50-69%) stenosis. 2. Note that the marine equipment design engineer indicates a slight arrhythmia. Clinically correlate. Criteria for Assigning % of Stenosis / Diameter reduction (Estimation based on the indirect measurements of the internal carotid artery velocities (ICA PSV). 1. Normal (no stenosis)=ICA PSV < 125 cm/s: ratio < 2.0: ICA EDV<40 cm/s. 2. Less than 50% stenosis=ICA PSV < 125 cm/s: ratio < 2.0: ICA EDV<40 cm/s. 3. 50 to 69% stenosis=ICA PSV of 125 to 230 cm/s: ration 2.0 ? 4.0: ICA EDV 40-100 cm/s. 4. Greater than 70% stenosis to near occlusion= ICA PSV > 230 cm/s: ratio > 4.0: ICA EDV > 100 cm/s. 5. Near occlusion= ICA PSV velocities may be low or undetectable: variable ratio and ICA EDV. 6. Total occlusion=unable to detect flow.
--- NOTE | 2020-07-16 16:59 | HP ---
HISTORY AND PHYSICAL DATE OF SERVICE: 07/16/2020 CHIEF COMPLAINT: Dizziness. HISTORY OF PRESENT ILLNESS: This 80-year-old woman with a past medical history of multiple medical problems including history of diabetes, hypertension, history of E coli UTI, history of cardiac catheterization, history of cholecystomy, depression, being followed by Dr. Wang in the outpatient setting, not feeling well for the past several days. Patient had dizziness. Occasional vomiting. The patient had spinning sensation. Patient came to [facility] and was admitted for further evaluation and treatment. Patient also had skin rash with itching for which the patient was on outpatient treatment. The patient had suspected Covid-19, but the patient was never diagnosed to have Covid-19 at that time. The blood pressure elevated in the 170s. The patient came to [facility] and was admitted for further evaluation. Initially CT scan did not show any acute abnormality. The patient also complains of difficulty walking, some unsteadiness, also. PAST MEDICAL HISTORY: History diabetes, hypertension, hyperlipidemia, UTI, cholecystectomy, depression. MEDICATIONS: Home medications are: 1. Prednisone. 2. Metformin. 3. Actos. 4. Multivitamins. 5. Antivert. 6. Cozaar. 7. Imdur. 8. Toujeo. 9. Plavix. 10.Ceftin. 11.Zithromax. 12.Lipitor. 13.Norvasc. 14.Tamiflu. 15.ProAir. 16.Tylenol. 17.Xanax. ALLERGIES: ASPIRIN, CODEINE, INFLUENZA and NSAIDS. FAMILY HISTORY: History of congestive heart failure. SOCIAL HISTORY: No history of smoking. No history of alcohol intake. REVIEW OF SYSTEMS: ENT: No diminished vision. No diminished hearing. CARDIOVASCULAR: No angina or palpitations. RESPIRATIONS: As mentioned earlier. GI as mentioned earlier. no dysuria. NERVOUS SYSTEMS: No numbness or weakness. ALLERGY/IMMUNOLOGY: No asthma or hayfever. MUSCULOSKELETAL: As mentioned earlier. HEMATOLOGY/ONCOLOGY: No history of anemia. ENDOCRINE: Diabetes. CONSTITUTIONAL: As mentioned earlier. DERMATOLOGY: Negative. RHEUMATOLOGY negative. PSYCHIATRY as mentioned earlier. PHYSICAL EXAMINATION: Alert and oriented times three. Pulse 70. Blood pressure 140/60, respiration 18, temperature 98.5, pulse ox 98% on room air. HEENT: Conjunctivae normal. NECK: No JVD. CARDIOVASCULAR: S1, S2 muffled. RESPIRATION : Breath sounds diminished in the bases. A few scattered rhonchi and crackles. ABDOMEN: Soft, nontender. No mass palpable. LEGS: No edema. No swelling. NERVOUS SYSTEM: Higher functions as mentioned earlier. Cranial nerves 2 thru 12 grossly intact. No nystagmus. No diplopia. No signs of cerebellar dysfunction. Gait not tested. LYMPHATICS: No lymph nodes palpable in the neck, axillae or groin. SKIN: No ulcer, no rash. No bleeding. JOINTS: No active deforming arthropathy. LAB STUDIES: WBC 5.2, hemoglobin 7.2, sodium 130, potassium 4.2, AST is 48. Urine showed WBC 10. ASSESSMENT: 1. Dizziness and vertigo for evaluation possible benign positional vertigo, rule out transient ischemic attack. 2. Anemia, normocytic anemia of chronic disease. 3. Possible acute urinary tract infection, present on admission. 4. History of diabetes type 2. 5. Hypertension. 6. Hyperlipidemia. 7. History of previous E coli urinary tract infection. 8. History of hysterectomy. 9. History of hernia repair. 10.History of cholecystectomy. 11.History of depression. 12.FULL CODE. RECOMMENDATIONS AND DISCUSSION: In this 80-year-old woman who presented with multiple complex medical issues, we will monitor the patient closely, continue the current medications, symptomatic treatment. We will recommend full neurovascular workup including MRI of the brain. Otherwise empiric antibiotics for UTI. Resume the home medications. Symptomatic treatment. Guarded prognosis because of multiple complex medications. Antiplatelet agents. A copy of this dictation being forwarded to Dr. Wang who is the primary care physician. MMANABELLL / YESENIAN: [id number] /
[2020-07-16] MEDS: metFORMIN 500 MG TAB PO SCH (17:26)
[2020-07-16 20:45] LABS: Glucose,Whole Blood 277 mg/dL (75-99)
[2020-07-16] MEDS: HEPARIN SODIUM,PORCINE 5,000 UNIT/ML 1 ML VIAL SQ SCH (21:29)
[2020-07-17] MEDS: SODIUM CHLORIDE 0.9% 1,000 ML IV SCH ×2 (02:20→16:20)
[2020-07-17 06:00] LABS: Basophils % (A) 0 %; Eosinophils # (A) 0.3 k/uL (0-0.7); Eosinophils % (A) 7 %; HCT 32.1 % (34.0-46.0); HGB 10.1 gm/dL (11.4-16.0); Lymphocytes # (A) 1.5 k/uL (1.0-4.8); Lymphocytes % (A) 33 %; MCH 28.9 pg (25.0-35.0); MCHC 31.3 g/dL (31.0-37.0); MCV 92.3 fL (80.0-100.0); Mean Platelet Volume 7.3; Monocytes # (A) 0.3 k/uL (0-1.0); Monocytes % (A) 6 %; Neutrophils # (A) 2.5 k/uL (1.3-7.7); Neutrophils % (A) 53 %; Platelet Count 154 k/uL (150-450); RBC 3.48 m/uL (3.80-5.40); RDW 12.8 % (11.5-15.5); WBC 4.7 k/uL (3.8-10.6)
[2020-07-17 06:11] LABS: Calcium 8.7 mg/dL (8.4-10.2); Potassium 4.4 mmol/L (3.5-5.1)
[2020-07-17 06:23] LABS: Glucose,Whole Blood 128 mg/dL (75-99)
[2020-07-17] MEDS: INSULIN DETEMIR (LEVEMIR) 100 UNIT/ML SYR SQ SCH ×2 (07:54→08:57)
[2020-07-17] MEDS: HEPARIN SODIUM,PORCINE 5,000 UNIT/ML 1 ML VIAL SQ SCH ×2 (08:56→20:49)
[2020-07-17] MEDS: CLOPIDOGREL 75 MG TAB PO SCH (08:56)
[2020-07-17] MEDS: ATORVASTATIN 80 MG TAB PO SCH (08:56)
[2020-07-17] MEDS: LOSARTAN 50 MG TAB PO SCH (08:56)
[2020-07-17] MEDS: MULTIVITAMINS, THERA 1 EACH TAB PO SCH (08:56)
[2020-07-17] MEDS: MECLIZINE 25 MG TAB PO SCH ×3 (08:57→20:49)
[2020-07-17] MEDS: metFORMIN 500 MG TAB PO SCH ×2 (08:57→17:17)
[2020-07-17 11:32] LABS: Glucose,Whole Blood 164 mg/dL (75-99)
--- NOTE | 2020-07-17 11:43 | ECHOF ---
Referral Reason:Stroke MEASUREMENTS -------- HEIGHT: 152.4 cm WEIGHT: 61.2 kg BP: 135/61 IVSd: 1.2 cm (0.6 - 1.1) LVIDd: 3.9 cm (3.9 - 5.3) LVPWd: 1.0 cm (0.6 - 1.1) EDV(Teich): 67 ml IVSs: 1.6 cm LVIDs: 2.4 cm LVPWs: 1.6 cm %IVS Thck: 33 % ESV(Teich): 20 ml EF(Teich): 70 % %FS: 39 % SV(Teich): 47 ml LA Diam: 4.9 cm (2.7 - 3.8) LALs A4C: 4.6 cm LAAs A4C: 16.7 cm LAESV A-L A4C: 51 ml LAESV MOD A4C: 46 ml LALs A2C: 5.0 cm LAAs A2C: 19.5 cm LAESV A-L A2C: 65 ml LAESV MOD A2C: 62 ml LAESV(A-L): 60 ml LAESV Index (A-L): 37.96 ml/m Ao Diam: 2.8 cm (2.0 - 3.7) EPSS: 0.4 cm MV E Diomedes: 0.64 m/s MV DecT: 278 ms MV Dec Henderson: 2.3 m/s MV A Diomedes: 1.04 m/s MV E/A Ratio: 0.61 MV PHT: 81 ms LVOT Vmax: 1.02 m/s LVOT maxP.15 mmHg LVOT Vmax: 1.02 m/s LVOT Vmean: 0.64 m/s LVOT maxP.19 mmHg LVOT meanP.89 mmHg LVOT Env.Ti: 355 ms LVOT VTI: 22.6 cm AV Vmax: 2.17 m/s AV maxP.89 mmHg AV Vmax: 2.22 m/s AV Vmean: 1.42 m/s AV maxP.72 mmHg AV meanP.66 mmHg AV Env.Ti: 323 ms AV VTI: 45.5 cm TR Vmax: 1.55 m/s TR maxP.63 mmHg RAP: 5.00 mmHg RVSP: 14.63 mmHg MV EF SLOPE: 70.28 mm/s (70 - 150) MV EXCURSION: 20.82 mm (> 18.000) FINDINGS -------- Sinus rhythm. This was a technically good study. The left ventricular size is normal. There is mild concentric left ventricular hypertrophy. Overa ll left ventricular systolic function is low-normal with, an EF between 50 - 55 %. The right ventricle is normal in size. The left atrium is moderately dilated. LA is moderately dilated 34-39 ml/m2 The right atrial size is normal. There is mild aortic stenosis present. Peak/mean gradient across the Aortic Valve is 19.72mmHg / 9. 66mmHg. Mild mitral regurgitation is present. Mild tricuspid regurgitation present. Right ventricular systolic pressure is normal at < 35 mmHg. There is no pulmonic regurgitation present. The aortic root size is normal. There is no pericardial effusion. CONCLUSIONS -------- 1. The left ventricular size is normal. 2. There is mild concentric left ventricular hypertrophy. 3. Overall left ventricular systolic function is low-normal with, an EF between 50 - 55 %. 4. The right ventricle is normal in size. 5. The left atrium is moderately dilated. 6. LA is moderately dilated 34-39 ml/m2 7. The right atrial size is normal. 8. There is mild aortic stenosis present. 9. Peak/mean gradient across the Aortic Valve is 19.72mmHg / 9.66mmHg. 10. Mild mitral regurgitation is present. 11. Mild tricuspid regurgitation present. SISTER SUPERIOR: Arline Wood RDCS
[2020-07-17] MEDS: ISOSORBIDE MONONITRATE ER 60 MG TAB.ER.24H PO SCH (12:36)
[2020-07-17] MEDS: PIOGLITAZONE 15 MG TAB PO SCH (12:36)
--- NOTE | 2020-07-17 13:47 | MR ---
EXAMINATION TYPE: MR brain wo/w con DATE OF EXAM: 07/17/2020 COMPARISON: CT brain 07/16/2020 HISTORY: Dizziness CONTRAST: Performed utilizing 5.5 mL intravenous Gadavist gadolinium contrast. TECHNIQUE: Multiplanar, multiecho imaging on a 3.0 Yoly magnet is performed through the brain. Stud y is performed within 24 hours of arrival to the hospital. The craniovertebral junction is normal. The pituitary is normal. Diffusion-weighted imaging is performed. No abnormal hyperintensity is present to suggest an acute i ntracranial infarct or acute ischemic change. There are scattered punctate areas of hyperintensity on T2 and Inversion Recovery weighted sequences which are non-specific but can be related to microvascular ischemic changes. Findings appear to be pr edominantly within the centrum semiovale frontal lobes and in the periventricular white matter Ventricles and sulci are appropriate for the patient age. IMPRESSIONS: 1. Scattered deep white matter, periventricular and subcortical white matter changes suggestive for m icrovascular ischemic change. 2. No acute intracranial process.
--- NOTE | 2020-07-17 15:19 | PN ---
PROGRESS NOTE DATE OF SERVICE: 07/17/2020 This 80-year-old woman who was admitted with dizziness and vertigo is being closely monitored. Neurology evaluation is in progress. MRI has been ordered. No chest pain. No palpitations. No fever. A 2D echo with Doppler was reviewed by Cardiology, which showed ejection fraction about 50% to 55% and mild aortic stenosis. No chest pain. No palpitations. No fever. PHYSICAL EXAMINATION: Alert and oriented x3. Pulse 74, blood pressure 141/61, respiration 12, temperature 98.7, pulse ox 97% on room air. HEENT: Conjunctivae normal. NECK: No jugular venous distention. CARDIOVASCULAR SYSTEM: S1, S2 muffled. RESPIRATORY SYSTEM: Breath sounds diminished at the bases. No rhonchi. No crackles. ABDOMEN: Soft, non-tender. LEGS: No edema. No swelling. NERVOUS SYSTEM: No focal deficit. Minimal gait dysfunction present. LABS: WBC 4.7, hemoglobin 10.1. Sodium 139, triglyceride 153. ASSESSMENT: 1. Dizziness and vertigo, probably benign positional vertigo; rule out transient ischemic attack. 2. Anemia, normocytic anemia of chronic disease. 3. Acute urinary tract infection, present on admission. 4. History of diabetes mellitus, type 2. 5. Hypertension. 6. Hyperlipidemia. 7. History of previous Escherichia coli urinary tract infection. 8. History of hysterectomy. 9. History of hernia repair. 10.History of cholecystectomy. 11.History of depression. 12.Mild aortic stenosis. 13.FULL CODE. RECOMMENDATIONS AND DISCUSSION: I recommend to continue current medications, continue with the monitoring, symptomatic treatment. Otherwise, continue with antiplatelet agents. Two-D echo has been noted. Left internal carotid artery shows moderate stenosis of 50% to 60%. MMODL / IJN: [id number] /
[2020-07-17 17:32] LABS: Glucose,Whole Blood 168 mg/dL (75-99)
[2020-07-17] MEDS: diphenhydrAMINE 50 MG/ML 1 ML VIAL IVP PRN (20:49)
[2020-07-17 21:54] LABS: Glucose,Whole Blood 188 mg/dL (75-99)
[2020-07-18 02:19] VITALS: RESP 15
[2020-07-18] MEDS: SODIUM CHLORIDE 0.9% 1,000 ML IV SCH (05:34)
[2020-07-18] MEDS: diphenhydrAMINE 50 MG/ML 1 ML VIAL IVP PRN (05:34)
[2020-07-18 05:57] LABS: Basophils % (A) 0 %; Eosinophils # (A) 0.3 k/uL (0-0.7); Eosinophils % (A) 7 %; HGB 9.9 gm/dL (11.4-16.0); Lymphocytes # (A) 1.5 k/uL (1.0-4.8); Lymphocytes % (A) 37 %; MCH 28.9 pg (25.0-35.0); MCHC 31.1 g/dL (31.0-37.0); MCV 92.8 fL (80.0-100.0); Mean Platelet Volume 7.6; Monocytes # (A) 0.2 k/uL (0-1.0); Monocytes % (A) 5 %; Neutrophils % (A) 49 %; Platelet Count 143 k/uL (150-450); RBC 3.44 m/uL (3.80-5.40); RDW 12.9 % (11.5-15.5); WBC 4.1 k/uL (3.8-10.6)
[2020-07-18 06:07] LABS: Calcium 8.7 mg/dL (8.4-10.2); Potassium 4.3 mmol/L (3.5-5.1)
[2020-07-18 06:24] LABS: Glucose,Whole Blood 120 mg/dL (75-99)
[2020-07-18 07:47] VITALS: BP 168/74; PULSE 77; TEMP 98.4
[2020-07-18] MEDS: MECLIZINE 25 MG TAB PO SCH (07:48)
[2020-07-18] MEDS: metFORMIN 500 MG TAB PO SCH (07:48)
[2020-07-18] MEDS: INSULIN DETEMIR (LEVEMIR) 100 UNIT/ML SYR SQ SCH (07:48)
[2020-07-18] MEDS: LOSARTAN 50 MG TAB PO SCH (07:48)
[2020-07-18] MEDS: MULTIVITAMINS, THERA 1 EACH TAB PO SCH (07:48)
[2020-07-18] MEDS: ATORVASTATIN 80 MG TAB PO SCH (07:48)
[2020-07-18] MEDS: CLOPIDOGREL 75 MG TAB PO SCH (07:48)
[2020-07-18] MEDS: ISOSORBIDE MONONITRATE ER 60 MG TAB.ER.24H PO SCH (07:48)
[2020-07-18] MEDS: PIOGLITAZONE 15 MG TAB PO SCH (07:48)
[2020-07-18] MEDS: HEPARIN SODIUM,PORCINE 5,000 UNIT/ML 1 ML VIAL SQ SCH (07:48)
[2020-07-18] MEDS ORDERED: PANTOPRAZOLE 40 MG TABLET PO SCH (09:00)
[2020-07-18 11:57] LABS: Glucose,Whole Blood 140 mg/dL (75-99)
--- NOTE | 2020-07-18 12:44 | P.GSCN ---
History of Present Illness Consult date: 07/18/20 Reason for Consult: Dizziness, carotid stenosis History of present illness: This is a pleasant 80-year-old female with a history of prior episodes of vertigo which she states started approximately at the beginning of the pandemic. She has had 2 phone appointments with her primary care physician, who has treated her with some antibiotics. She states that yesterday she became more dizzy along with having the feeling of the room spinning. She states that it occurs more commonly when she changes positions. She denies any upper or lower extremity weakness, denies visual disturbances, however does state that she feels like she has been getting forgetful lately and often forgetting what she wanted to say. However she does deny any difficulty with speech or swallowing. She denies any shortness of breath, chest pain, abdominal pain, fevers, or chills. Her past medical history includes diabetes mellitus, hyperlipidemia, hypertension, and angina. He has had a cardiac catheterization in the past and is currently on Plavix and Lipitor. The patient has an ALLERGY to aspirin. He underwent a carotid ultrasound showed arthrosclerotic changes with elevated velocities within the left internal carotid artery suggesting a moderate 50-60% stenosis. The yarn washer also indicated a slight arrhythmia noted. Review of Systems A 14 point review of systems was completed all pertinent positives and negatives as stated in the HPI. Past Medical History Past Medical History: Chest Pain / Angina, Diabetes Mellitus, Hyperlipidemia, Hypertension Additional Past Medical History / Comment(s): UTI-ECOLI History of Any Multi-Drug Resistant Organisms: None Reported Past Surgical History: Cholecystectomy, Heart Catheterization, Hernia Repair, Hysterectomy, Orthopedic Surgery Additional Past Surgical History / Comment(s): R shoulder surgery. R broken wrist.trigger release rt middle finger. pt not sure if they took appendix when they did hysterectomy Past Anesthesia/Blood Transfusion Reactions: No Reported Reaction Additional Past Anesthesia/Blood Transfusion Reaction / Comm: blood transfusion- no reaction Past Psychological History: Depression Additional Psychological History / Comment(s): pt is independant, lives with spouse, pt's sister and a grand daughter- has 1 step to house, has 3 pet dogs. recieves meals on wheels, has shower chair and bsc. Smoking Status: Never smoker Past Alcohol Use History: None Reported Past Drug Use History: None Reported - Past Family History Father Family Medical History: Congestive Heart Failure (CHF) Mother Family Medical History: Pneumonia Additional Family Medical History / Comment(s): fom pne Medications and Allergies Home Medications Medication Instructions Recorded Confirmed Type Clopidogrel [Plavix] 75 mg PO QAM 02/13/16 07/17/20 History Losartan [Cozaar] 50 mg PO HS 02/13/16 07/17/20 History Insulin Glargine,Hum.rec.anlog 5 unit SQ BID 02/13/19 07/17/20 History [Toucherylo Solostar] Multivitamins, Thera [Multivitamin 1 each PO DAILY@1200 #30 tab 02/18/1906/19 Rx (formulary)] Alendronate Sodium [Fosamax] 70 mg PO WE 07/16/20 07/17/20 History Omeprazole 20 mg PO DAILY 07/16/20 07/17/20 History metFORMIN HCL ER [Glucophage Xr] 1,000 mg PO BID 07/16/20 07/17/20 History Atorvastatin [Lipitor] 80 mg PO DAILY 30 Days #30 tab 07/18/20 Rx Cefuroxime Axetil [Ceftin] 500 mg PO BID 3 Days #6 tab 07/18/20 Rx Isosorbide Mononitrate ER [Imdur] 60 mg PO DAILY 30 Days #30 07/18/20 Rx tab.er.24h Meclizine [Antivert] 12.5 mg PO TID #20 tablet 07/18/20 Rx Pioglitazone [Actos] 15 mg PO DAILY@1200 #0 07/18/20 07/17/20 Rx Allergies Allergy/AdvReac Type Severity Reaction Status Date / Time aspirin Allergy Rash/Hives Verified 07/17/20 14:08 codeine Allergy Rash/Hives Verified 07/17/20 14:08 Influenza Virus Vaccines Allergy Rash/Hives Verified 07/17/20 14:08 Iodinated Contrast Media Allergy Rash/Hives/Increased Verified 07/17/20 14:08 [Iodinated Contrast Media - HR IV Dye] iodine Allergy Rash/Hives Verified 07/17/20 14:08 NSAIDS (Non-Steroidal Allergy Anaphylaxis Verified 07/17/20 14:08 Anti-Inflamma Surgical - Exam Vital Signs Temp Pulse Resp BP Pulse Ox 98.5 F 85 18 194/76 97 07/16/20 09:46 07/16/20 09:46 07/16/20 09:46 07/16/20 09:46 07/16/20 09:46 General appearance: The patient is alert, oriented, in no acute distress. HET: Head is normocephalic and atraumatic. Pupils are equal and reactive. Neck: Supple without lymphadenopathy. Trachea midline. No carotid bruit bilaterally. Heart: S1 S2. Regular rate and rhythm. Lungs: No crackles or wheezes are heard. Abdomen: Soft, nontender, nondistended with bowel sounds. No guarding or rigidity. Extremities: Normal skin color and turgor. No cyanosis, rash, ulceration, clubbing, or edema. Radial and pedal pulses are 2/4 bilaterally. Neurological: No focal deficits. Strength and sensation are grossly intact. Nail nerves II through XII intact. Tongue protrudes midline, speech is fluent, patient is alert and oriented 3. Results Bilateral carotid ultrasound reviewed within the impression stating arthrosclerotic changes with elevated velocities within the left internal carotid artery suggesting a moderate 50-69% stenosis the yarn washer indicated a slight arrhythmia. MRI of brain reviewed impression showing scattered deep white matter,. Ventricular and subcortical white matter changes suggestive for microvascular ischemic change. No acute intracranial process. CT of brain reviewed with an impression of no acute intracranial process Echocardiogram shows mild concentric left ventricular hypertrophy. EF between 50-55%, left atrium is moderately dilated, the LA is moderately dilated, there is mild aortic stenosis present, mild mitral regurgitation and mild tricuspid regurgitation present. - Labs 07/18/20 05:37 07/18/20 05:37 Abnormal Lab Results - Last 24 Hours (Table) 07/17/20 07/17/20 07/18/20 Range/Units 17:30 21:52 05:37 RBC 3.44 L (3.80-5.40) m/uL Hgb 9.9 L (11.4-16.0) gm/dL Hct 32.0 L (34.0-46.0) % Plt Count 143 L (150-450) k/uL Chloride (98-107) mmol/L Glucose (74-99) mg/dL POC Glucose (mg/dL) 168 H 188 H (75-99) mg/dL 07/18/20 07/18/20 07/18/20 Range/Units 05:37 06:24 11:56 RBC (3.80-5.40) m/uL Hgb (11.4-16.0) gm/dL Hct (34.0-46.0) % Plt Count (150-450) k/uL Chloride 111 H (98-107) mmol/L Glucose 129 H (74-99) mg/dL POC Glucose (mg/dL) 120 H 140 H (75-99) mg/dL Diabetes panel 07/18/20 Range/Units 05:37 Sodium 140 (137-145) mmol/L Potassium 4.3 (3.5-5.1) mmol/L Chloride 111 H (98-107) mmol/L Carbon Dioxide 25 (22-30) mmol/L BUN 16 (7-17) mg/dL Creatinine 0.82 (0.52-1.04) mg/dL Glucose 129 H (74-99) mg/dL Calcium 8.7 (8.4-10.2) mg/dL Calcium panel 07/18/20 Range/Units 05:37 Calcium 8.7 (8.4-10.2) mg/dL Pituitary panel 07/18/20 Range/Units 05:37 Sodium 140 (137-145) mmol/L Potassium 4.3 (3.5-5.1) mmol/L Chloride 111 H (98-107) mmol/L Carbon Dioxide 25 (22-30) mmol/L BUN 16 (7-17) mg/dL Creatinine 0.82 (0.52-1.04) mg/dL Glucose 129 H (74-99) mg/dL Calcium 8.7 (8.4-10.2) mg/dL Adrenal panel 07/18/20 Range/Units 05:37 Sodium 140 (137-145) mmol/L Potassium 4.3 (3.5-5.1) mmol/L Chloride 111 H (98-107) mmol/L Carbon Dioxide 25 (22-30) mmol/L BUN 16 (7-17) mg/dL Creatinine 0.82 (0.52-1.04) mg/dL Glucose 129 H (74-99) mg/dL Calcium 8.7 (8.4-10.2) mg/dL Assessment and Plan Assessment: 1. Dizziness 2. Left internal carotid stenosis estimated 50-69%, asymptomatic. 3. Hypertension 4. Hyperlipidemia 5. Angina status post cardiac cath, patient on Plavix and statin. Plan: The patient was discussed with Dr. Cabrera. Imaging was reviewed. Patient is asymptomatic for left internal carotid stenosis. Continue with Plavix and Vytorin. There is no indication for any acute vascular surgical intervention at this time. She may be discharged home vascular surgical standpoint when medically stable. Patient may follow-up in the office with Dr. Cabrera in 2-4 weeks. Thank you for this consultation allowing us take part in the plan of care of your patient during her hospital stay. The above dictated assessment and findings were discussed with Dr. Cabrera. The impression and plan of care have been directed as dictated.
--- NOTE | 2020-07-18 22:47 | DS ---
DISCHARGE SUMMARY DATE OF SERVICE: 07/18/2020 FINAL DIAGNOSES: 1. Dizziness and vertigo, possible benign positional vertigo, possible transient ischemic attack. 2. Anemia, normocytic anemia of chronic disease. 3. Acute urinary tract infection, present on admission, improved. 4. Left internal carotid artery stenosis, symptomatic, 50% to 60%. 5. History of diabetes mellitus, type 2. 6. Hypertension. 7. Hyperlipidemia. 8. History of previous Escherichia coli urinary tract infection. 9. History of hysterectomy. 10.History of hernia repair. 11.History of cholecystectomy. 12.Depression. 13.History of mild aortic stenosis. 14.FULL CODE. DISCHARGE DISPOSITION: The patient will be discharged in stable condition with guarded prognosis. HISTORY OF PRESENT ILLNESS: This 80-year-old woman with a past medical history of multiple medical problems was admitted with significant dizziness. The patient was treated symptomatically and improved significantly. MRI showed only microvascular ischemia. Carotid Doppler showed some internal carotid stenosis. She was seen by Dr. Mcdowell of Vascular Surgery, who recommended outpatient followup. Otherwise, 2D echo was noted. On exam, vitals are stable. CARDIOVASCULAR SYSTEM: S1, S2 muffled. ABDOMEN: Soft. NERVOUS SYSTEM: No focal deficit. DISCHARGE ADVICE AND RECOMMENDATIONS: 1. Diet is cardiac. 2. Activity limited until followup. 3. Follow up with Dr. Wang in 2-3 days. 4. Follow up with Dr. Mcdowell as recommended. 5. Losartan 50 mg at bedtime. 6. Fosamax 70 mg Friday. 7. Glucophage 1000 mg b.i.d. 8. Omeprazole 20 mg daily. 9. Plavix 75 mg each morning. 10.Lantus 5 units subcutaneously b.i.d. 11.Actos 15 mg p.o. daily. 12.Antivert 12.5 mg t.i.d. for 5 days and then p.r.n. 13.Ceftin 500 mg p.o. b.i.d. for 3 days. 14.Imdur ER 60 mg p.o. daily. 15.Lipitor 80 mg p.o. daily. 16.Multivitamins 1 p.o. daily. Once again, the patient will be discharged in stable condition with guarded prognosis. MMODL / IJN: [id number] /
== END 2020-07-18 15:14 | disposition home or self-care (01) ==
LOC: EC 09:40 → 1SOBS 14:51
PROVIDERS: ADMIT Hospitalist; ATTEND Hospitalist
DX: R42 Dizziness and giddiness (principal); D63.8 Anemia in other chronic diseases classified elsewhere; N39.0 Urinary tract infection, site not specified; I65.22 Occlusion and stenosis of left carotid artery; E11.9 Type 2 diabetes mellitus without complications; I10 Essential (primary) hypertension; E78.5 Hyperlipidemia, unspecified; Z79.4 Long term (current) use of insulin; Z79.02 Long term (current) use of antithrombotics/antiplatelets; Z79.899 Other long term (current) drug therapy; Z79.83 Long term (current) use of bisphosphonates; Z88.6 Allergy status to analgesic agent; Z90.49 Acquired absence of other specified parts of digestive tract; Z90.710 Acquired absence of both cervix and uterus; F32.9 Major depressive disorder, single episode, unspecified
CPT/HCPCS: 96361 ×4; 96365; 96366; 96372 ×3; 96375 ×2; 96376; 99285; 36415; 93005; 93306; 80061; 80053; 80048 ×2; 82550; 83735; 84484; 85025 ×3; 81001; 93880; 70450; 70553; G0378 ×3; J1200 ×2; J1644 ×3; J2405; J0696 ×2; A9585

== ENCOUNTER → 2021-10-04 | Outpatient (CLI) | payer MEDICARE ==
[2021-10-04 10:18] LABS: HCT 34.8 % (34.0-46.0); HGB 11.3 gm/dL (11.4-16.0); MCHC 32.4 g/dL (31.0-37.0); MCV 95.5 fL (80.0-100.0); Mean Platelet Volume 7.3; Platelet Count 175 k/uL (150-450); RBC 3.64 m/uL (3.80-5.40); WBC 5.4 k/uL (3.8-10.6)
[2021-10-04 10:28] LABS: Potassium 4.4 mmol/L (3.5-5.1)
== END | disposition home or self-care (01) ==
LOC: LABPAT 08:56
PROVIDERS: ATTEND Internal Medicine Interventional Cardiology
DX: I25.10 Atherosclerotic heart disease of native coronary artery without angina pectoris (principal)
CPT/HCPCS: 36415; 80051; 82565; 84520; 85027

== ENCOUNTER → 2021-12-06 | Outpatient (CLI) | payer MEDICARE ==
[2021-12-06 10:14] LABS: HCT 35.2 % (34.0-46.0); HGB 11.1 gm/dL (11.4-16.0); MCH 30.2 pg (25.0-35.0); MCHC 31.4 g/dL (31.0-37.0); MCV 96.1 fL (80.0-100.0); Mean Platelet Volume 7.4; Platelet Count 133 k/uL (150-450); RBC 3.66 m/uL (3.80-5.40); RDW 13.1 % (11.5-15.5)
[2021-12-06 15:08] LABS: African American GFR (CKD) 52.4 (60.0-200.0); Anion Gap 10.3 mmol/L (10.00-18.00); Blood Urea Nitrogen 19.7 mg/dL (9.0-27.0); Carbon Dioxide 24.7 mmol/L (20.0-27.5); Non-African American GFR(CKD) 45.2 (60.0-200.0); Potassium 4.7 mmol/L (3.5-5.5)
== END | disposition home or self-care (01) ==
LOC: LABPAT 09:27
PROVIDERS: ATTEND Internal Medicine Interventional Cardiology
DX: Z01.812 Encounter for preprocedural laboratory examination (principal); R07.9 Chest pain, unspecified
CPT/HCPCS: 36415; 80051; 82565; 84520; 85027

== ENCOUNTER 2021-12-07 05:56 | Day surgery (SDC) | payer MEDICARE ==
[2021-12-07] MEDS ORDERED: SODIUM CHLORIDE 0.9% 1,000 ML in EMPTY BAG 1 BAG IV SCH (06:01)
[2021-12-07] MEDS ORDERED: ALPRAZolam 0.25 MG TAB PO PRN ×2 (06:01→08:19)
[2021-12-07] MEDS ORDERED: NITROGLYCERIN SL TABS 0.4 MG TAB SUBLINGUAL PRN (06:01)
[2021-12-07] MEDS ORDERED: ALPRAZolam 0.5 MG TAB PO PRN (06:01)
[2021-12-07 06:30] LABS: Glucose,Whole Blood 186 mg/dL (75-99)
[2021-12-07 06:54] VITALS: TEMP 98.3
[2021-12-07] MEDS ORDERED: ISOSORBIDE MONONITRATE ER 60 MG TAB.ER.24H PO STA (06:55)
[2021-12-07] MEDS ORDERED: LIDOCAINE 1% INJ 10MG/ML (20 ML MDV) ONE (07:16)
[2021-12-07] MEDS ORDERED: VERAPAMIL 2.5 MG/ML 2 ML AMP ONE (07:16)
[2021-12-07] MEDS ORDERED: fentaNYL (PF) 50 MCG/ML 2 ML AMP ONE (07:37)
[2021-12-07] MEDS ORDERED: HEPARIN SODIUM 1,000 UN/ML (10ML VL) ONE (07:38)
[2021-12-07] MEDS ORDERED: fentaNYL (PF) 50 MCG/ML 2 ML AMP IV ONE (07:48)
[2021-12-07] MEDS ORDERED: LIDOCAINE 1% INJ 10MG/ML (20 ML MDV) SQ ONE ×3 (07:50→07:54)
[2021-12-07] MEDS ORDERED: VERAPAMIL SYRINGE (5 MG/10 ML) INTRAARTER ONE (07:56)
[2021-12-07] MEDS ORDERED: HEPARIN SODIUM 1,000 UN/ML (10ML VL) IV ONE (07:59)
[2021-12-07] MEDS ORDERED: IOPAMIDOL-370 125ML BTL INJ ONE (08:09)
[2021-12-07] MEDS ORDERED: RX INFO: IV CONTRAST WAS GIVEN 1 EACH MISC MISCELLANE PRN (08:18)
[2021-12-07] MEDS ORDERED: MECLIZINE 12.5 MG TAB PO PRN (08:19)
[2021-12-07] MEDS ORDERED: SODIUM CHLORIDE 0.9% 1,000 ML IV SCH (08:30)
--- NOTE | 2021-12-07 08:31 | P.CARDCATH ---
Date of Procedure: 12/07/21 Description of Procedure: Cardiac Catheterization: [The patient is a 81-year-old female, with a history of hypertension, hyperlipidemia and diabetes mellitus who has been complaining of exertional tightness in the throat with dyspnea. She has a known history of coronary artery disease. She has progression of her symptoms. Recommendations were made regarding cardiac catheterization, the risks and the complications were discussed with the patient who is in full understanding and agreement.] Procedure Description: Patient was brought to label fuser tender in fasting semi-sedated state after receiving Fentanyl and Benadryl achieiving moderate conscious sedated state. Using Xylocaine Anesthesia and Seldinger technique, a 6-Greek sheath was introduced in the [right] radial artery . Subsequently, selective [coronary] angiography performed using a [5-Greek]-Greek 3.5bend [right and] left Claudia] catheter. Multiple views of the coronary artery including hemiaxial views were obtained. The [right Claudia] catheter was used to cross the aortic valve and [LVEDP] was calculated. Following that, catheter and sheath were removed. Hemostasis was obtained with deployment of TR band . There was no immediate complication. Patient was returned to room in stable condition. Of note, the patient received a total of [3000] units of intravenous heparin as well as intra-arterial verapamil. There was no immediate complications. Findings: [Fluoroscopy showed severe calcifications predominantly LAD and proximal left circumflex. Left main: This is a large size vessel, bifurcating into LAD and left circumflex, left main has no evidence of high-grade stenosis. LAD: This is a heavily calcified vessel, large in caliber, reaching to the apex, giving rise to a [id number] size diagonal branch in the mid segment. The proximal LAD and mid LAD has another plaque of 60%. Left circumflex: This vessel gives rise to a proximal first obtuse marginal branch of large caliber that has a 50-60% plaque proximally, the left circumflex is totally occluded beyond that with retrograde filling.] RCA: This is a dominant vessel large in caliber, bifurcating distally into PDA and PLV, the mid RCA has a 40% plaque and the distal RCA has a 90% eccentric lesion. [] Ventriculogram: Was not performed Hemodynamics: There was no gradient across the aortic valve, LVEDP 10-12 mmHg Conclusion: [1. Severe coronary artery calcification. 2. Chronically occluded proximal left circumflex 3. Severe disease in the RCA and the LAD] Recommendations: [In view of the anatomy, progression of disease and the history of diabetes I would recommend to proceed with evaluation for possible CABG. The findings and recommendations were discussed with the patient and her family and they're in full understanding and agreement.] Duration of sedation is [16] minutes.
[2021-12-07] MEDS ORDERED: amLODIPine 5 MG TAB PO SCH ×2 (09:00)
[2021-12-07] MEDS ORDERED: PIOGLITAZONE 30 MG TAB PO SCH (09:00)
[2021-12-07] MEDS ORDERED: NON FORMULARY DRUG (Omeprazole [Omeprazole] 20 MG Capsule.Dr) PO SCH (09:00)
[2021-12-07] MEDS ORDERED: NON FORMULARY DRUG (Dapagliflozin Propanediol [Farxiga] 10 MG Tablet) PO SCH (09:00)
[2021-12-07] MEDS ORDERED: ATORVASTATIN 80 MG TAB PO SCH (09:00)
[2021-12-07 10:05] VITALS: RESP 16
[2021-12-07] MEDS ORDERED: ACETAMINOPHEN TAB 325 MG TAB ONE (12:43)
[2021-12-07 12:59] VITALS: BP 116/58; PULSE 67
[2021-12-07] MEDS ORDERED: LOSARTAN 50 MG TAB PO SCH (21:00)
[2021-12-07] MEDS ORDERED: NON FORMULARY DRUG (Insulin Glargine,Hum.Rec.Anlog [Toujeo Solostar] 300 UNIT/ML Insuln.Pe SQ SCH (21:00)
[2021-12-08] MEDS ORDERED: ISOSORBIDE MONONITRATE ER 60 MG TAB.ER.24H PO SCH (09:00)
[2021-12-08] MEDS ORDERED: CLOPIDOGREL 75 MG TAB PO SCH (09:00)
[2021-12-12] MEDS ORDERED: NON FORMULARY DRUG (Alendronate Sodium [Fosamax] 70 MG Tablet) PO SCH (08:19)
== END 2021-12-07 12:52 | disposition home or self-care (01) ==
LOC: CATHCVL 05:56
PROVIDERS: ATTEND Internal Medicine Interventional Cardiology
DX: I25.10 Atherosclerotic heart disease of native coronary artery without angina pectoris (principal); I25.84 Coronary atherosclerosis due to calcified coronary lesion; I25.82 Chronic total occlusion of coronary artery; I10 Essential (primary) hypertension; E78.00 Pure hypercholesterolemia, unspecified; E11.9 Type 2 diabetes mellitus without complications; E78.2 Mixed hyperlipidemia; Z20.822 Contact with and (suspected) exposure to COVID-19; Z90.49 Acquired absence of other specified parts of digestive tract; Z90.710 Acquired absence of both cervix and uterus; Z98.890 Other specified postprocedural states; Z87.891 Personal history of nicotine dependence; Z79.84 Long term (current) use of oral hypoglycemic drugs; Z79.83 Long term (current) use of bisphosphonates; Z79.4 Long term (current) use of insulin; Z79.02 Long term (current) use of antithrombotics/antiplatelets; Z79.82 Long term (current) use of aspirin; Z79.899 Other long term (current) drug therapy; Z88.6 Allergy status to analgesic agent; Z88.5 Allergy status to narcotic agent; Z91.048 Other nonmedicinal substance allergy status
CPT/HCPCS: 93458; 87635; C1894; C1769; J2001; J3010; J1644; Q9967

== ENCOUNTER → 2021-12-27 | Outpatient (CLI) | payer MEDICARE, OTHER ==
--- NOTE | 2021-12-27 13:53 | XR ---
EXAMINATION TYPE: XR chest 2V DATE OF EXAM: 12/27/2021 COMPARISON: Chest x-ray 05/11/2020 HISTORY: Preop cardiac surgery TECHNIQUE: Frontal and lateral views of the chest are obtained. FINDINGS: There is no focal air space opacity, pleural effusion, or pneumothorax seen. The cardiac silhouette size is within normal limits. The osseous structures are intact. Surgical clips are pres ent in the right upper quadrant. Some minimal strand-like densities are scattered within the lungs. T here is thoracic spondylosis. Coronary artery calcification is present. IMPRESSION: No acute cardiopulmonary process.
== END | disposition home or self-care (01) ==
LOC: RADXRMAIN 11:28
PROVIDERS: ATTEND Thoracic Surgery (Cardiothoracic Vascular Surgery)
DX: I25.10 Atherosclerotic heart disease of native coronary artery without angina pectoris (principal)
CPT/HCPCS: 71046

== ENCOUNTER → 2021-12-27 | Outpatient (CLI) | payer MEDICARE ==
[2021-12-27 10:11] LABS: Partial Thromboplastin Time 25.1 sec (22.0-30.0); Prothrombin Time 10.5 sec (9.0-12.0)
--- NOTE | 2021-12-27 10:17 | P.PN ---
Progress Note - Text Progress Note Date: 12/27/21 5 meter walk test completed without difficulty: #1 4.5 sec #2 4.38 sec #3 4.52 sec
[2021-12-27 10:24] LABS: Appearance,Urine Clear (Clear); Bilirubin,Urine Negative (Negative); Blood,Urine Trace (Negative); Color,Urine Light Yellow; Glucose,Urine (UA) 2+ (Negative); Ketones,Urine Negative (Negative); Leukocyte Esterase,Urine Trace (Negative); Mucus,Urine Rare /hpf; Nitrite,Urine Negative (Negative); Protein,Urine 1+ (Negative); RBC,Urine 1 /hpf (0-5); Squamous Epithelial Cell,Urine <1 /hpf (0-4); Urobilinogen,Urine <2.0 mg/dL (<2.0); WBC,Urine 2 /hpf (0-5)
[2021-12-27 14:54] LABS: HCT 32.4 % (37.2-46.3); MCHC 30.9 g/dL (32.0-37.0); MCV 93.9 fL (80.0-97.0); Mean Platelet Volume 9.8 fL (9.5-12.2); NRBC Per 100 WBC 0 /100 WBCS (0.0-0.0); Platelet Count 166 X 10*3/uL (140-440); RBC 3.45 X 10*6/uL (4.10-5.20); RDW 14.3 % (11.5-14.5); WBC 3.85 X 10*3/uL (4.50-10.00)
[2021-12-27 16:35] LABS: Hepatitis A Antibody IgM Nonreactive (Nonreactive); Hepatitis B Core IgM Nonreactive (Nonreactive); Hepatitis B Surface Antigen Nonreactive (Nonreactive); Hepatitis C IgG Antibody Nonreactive (Nonreactive)
[2021-12-27 20:42] LABS: Magnesium 2.1 mg/dL (1.5-2.4)
[2021-12-27 21:55] LABS: ALT 21 U/L (8-44); AST 35 U/L (13-35); African American GFR (CKD) 45.2 (60.0-200.0); Albumin 4.2 g/dL (3.8-4.9); Albumin/Globulin Ratio 1.45 (1.60-3.17); Alkaline Phosphatase 102 U/L (41-126); BUN/Creat Ratio 16.85 Ratio (12.00-20.00); Blood Urea Nitrogen 21.9 mg/dL (9.0-27.0); Calcium 9.5 mg/dL (8.7-10.3); Carbon Dioxide 21.4 mmol/L (20.0-27.5); Chloride 108 mmol/L (96-109); Chol/HDL Ratio 2.92 Ratio; Globulin 2.9 g/dL (1.6-3.3); Glucose 97 mg/dL (70-110); LDL Cholesterol,Calculated 133.2 mg/dL (0.0-131.0); Potassium 4.4 mmol/L (3.5-5.5); Sodium 143 mmol/L (135-145); Total Protein 7.1 g/dL (6.2-8.2)
== END | disposition home or self-care (01) ==
LOC: LABWHC1 09:13
PROVIDERS: ATTEND Thoracic Surgery (Cardiothoracic Vascular Surgery)
DX: I25.10 Atherosclerotic heart disease of native coronary artery without angina pectoris (principal)
CPT/HCPCS: 36415; 80053; 80061; 80074; 81001; 83036; 83735; 84439; 84443; 85027; 85610; 85730; 87070; 87086; 93922; 93970

== ENCOUNTER → 2022-01-01 | Outpatient (CLI) | payer MEDICARE ==
--- NOTE | 2022-01-16 11:26 | P.ARTDOP ---
Arterial Doppler bilateral radial artery imaging: Date of study: 01/01/2022 Reason for study: Preop CABG Findings: Right radial measures 2.5 x 2.5 mm proximally, 2.2 x 1.6 mm mid, 2.0 x 1.7 mm distally. The left radial measures 2.4 x 2.1 mm proximally: 2.2 x 2.1 mm mid, and 2.1 x 2.0 mm distally. Impression: Right radial artery is just below size criteria. Left radial artery does meet size criteria for use.
== END | disposition home or self-care (01) ==
LOC: RADUSWWP 12:49
PROVIDERS: ATTEND Thoracic Surgery (Cardiothoracic Vascular Surgery)
DX: I25.10 Atherosclerotic heart disease of native coronary artery without angina pectoris (principal)
CPT/HCPCS: 93930

== ENCOUNTER 2022-01-02 09:00 | Inpatient (IN) | payer MEDICARE ==
[2022-01-03] MEDS ORDERED: LACTATED RINGERS 1,000 ML IV SCH (19:30)
[2022-01-04] MEDS ORDERED: CARDIOPLEGIC SOLN (K+ 16 MEQ/L 1,000 ML with SODIUM BICARB (1 MEQ/ML) 20 ML, LIDOCAINE ... PERFUSION ONE ×3 (05:00)
[2022-01-04] MEDS ORDERED: HEPARIN SODIUM 1,000 UN/ML (10ML VL) IV ONE (05:00)
[2022-01-04] MEDS ORDERED: SODIUM CHLORIDE 0.9% 1,000 ML IV ONE (05:00)
[2022-01-04] MEDS ORDERED: INSULIN REGULAR 100 UNIT in SODIUM CHLORIDE 0.9% 100 ML IV ONE (05:00)
[2022-01-04] MEDS ORDERED: DILTIAZEM 125 MG in SODIUM CHLORIDE 0.9% 100 ML IV ONE (05:00)
[2022-01-04] MEDS ORDERED: PHENYLEPHRINE 40 MG in SODIUM CHLORIDE 0.9% 250 ML IV ONE (05:00)
[2022-01-04] MEDS ORDERED: propofoL 1,000 MG/100 ML VIAL IV ONE (05:00)
[2022-01-04] MEDS ORDERED: CHLORHEXIDINE GLUCONATE 15 ML CUP MUCOUS MEM ONE (05:00)
[2022-01-04] MEDS ORDERED: PAPAVERINE 360 MG in SODIUM CHLORIDE 0.9% 90 ML IV ONE ×2 (05:00→10:03)
[2022-01-04] MEDS ORDERED: MANNITOL 25% 12.5 GM/50 ML VIAL IV ONE (05:00)
[2022-01-04] MEDS ORDERED: ceFAZolin 1,000 MG in SODIUM CHLORIDE 0.9% IRRIGATIO 1,000 ML IRRIGATION ONE (05:00)
[2022-01-04] MEDS ORDERED: ATORVASTATIN 10 MG TAB PO ONE (05:00)
[2022-01-04] MEDS ORDERED: ALBUMIN HUMAN 25% 50 ML IV ONE (05:00)
[2022-01-04] MEDS ORDERED: METOPROLOL TARTRATE 12.5 MG TAB PO ONE (05:00)
[2022-01-04] MEDS ORDERED: PROTAMINE SULFATE 250 MG in EMPTY BAG 1 BAG IV ONE (05:00)
[2022-01-04] MEDS ORDERED: CALCIUM CHLORIDE 100 MG/ML 10 ML SYRINGE IV ONE (05:00)
[2022-01-04] MEDS ORDERED: LACTATED RINGERS 1,000 ML IV ONE (05:00)
[2022-01-04] MEDS ORDERED: NITROGLYCERIN SL TABS 0.4 MG TAB SUBLINGUAL ONE (05:00)
[2022-01-04] MEDS ORDERED: HEPARIN SODIUM,PORCINE 5,000 UNIT in SODIUM CHLORIDE 0.9% 500 ML 500 ML IV ONE (05:00)
[2022-01-04] MEDS ORDERED: NOREPINEPHRINE 4 MG in SODIUM CHLORIDE 0.9% 250 ML IV ONE (05:00)
[2022-01-04] MEDS ORDERED: CLEVIDIPINE BUTYRATE 25 MG in EMPTY BAG 1 BAG IV ONE (05:00)
[2022-01-04] MEDS ORDERED: ALBUMIN HUMAN 5% 500 ML IVPB ONE (05:00)
[2022-01-04] MEDS ORDERED: NITROGLYCERIN-D5W PMX 25 MG/250 ML BTL IV ONE (05:00)
[2022-01-04] MEDS ORDERED: NITROGLYCERIN-D5W PMX 50 MG in DEXTROSE/WATER 1 250ML.BAG IV ONE (05:00)
[2022-01-04] MEDS ORDERED: PHENYLEPHRINE 10 MG/ML VIAL IV ONE (05:00)
[2022-01-04] MEDS ORDERED: PROTAMINE SULFATE 10 MG/ML 25 ML VIAL IV ONE (05:00)
[2022-01-04] MEDS ORDERED: SODIUM BICARB 8.4% 50 ML SYR (1 MEQ/ML) IV ONE (05:00)
[2022-01-04] MEDS ORDERED: MAGNESIUM SULFATE 16.24 MEQ in EMPTY SYRINGE 1 SYR IV ONE (05:00)
[2022-01-04 06:27] LABS: Glucose,Whole Blood 101 mg/dL (75-99)
[2022-01-04] MEDS ORDERED: PROTAMINE SULFATE 10 MG/ML 5 ML VIAL IV ONE (07:38)
[2022-01-04] MEDS ORDERED: ALBUMIN HUMAN 5% (12.5gm) 250 ML BOTTLE IVPB ONE (07:38)
[2022-01-04] MEDS ORDERED: fentaNYL (PF) 50 MCG/ML 50 ML VIAL ONE (07:38)
[2022-01-04] MEDS ORDERED: SODIUM CHLORIDE 0.9% IRRIG 1,000 ML BTL IRRIGATION ONE (07:38)
[2022-01-04] MEDS ORDERED: PROPOFOL 10 MG/ML 20 ML VIAL IV ONE (07:38)
[2022-01-04] MEDS ORDERED: MIDAZOLAM 2 MG/2 ML VIAL ONE (07:38)
[2022-01-04] MEDS ORDERED: ROCURONIUM 10 MG/ML (5 ML VIAL) IV ONE (07:38)
[2022-01-04] MEDS ORDERED: HEPARIN SODIUM,PORCINE 10,000 UNIT/ML 1 ML VIAL ONE (07:38)
[2022-01-04] MEDS ORDERED: GLYCOPYRROLATE 0.2 MG/ML 2 ML VIAL ONE (07:38)
[2022-01-04 08:43] LABS: ABG Base Excess -1.4 mmol/L; ABG Glucose Whole Blood 103 mg/dL (75-99); ABG HCO3 24 mmol/L (21-25); ABG Hematocrit 26 % (34.0-46.0); ABG Ionized Calcium 4.9 mg/dL (4.5-5.3); ABG Lactic Acid Whole Blood 1.4 mmol/L (0.5-1.6); ABG Oxygen Saturation 99.9 % (94-97); ABG PCO2 42 mmHg (35-45); ABG PH 7.36 (7.35-7.45); ABG Potassium Whole Blood 4.1 mmol/L (3.4-4.5); ABG Sodium Whole Blood 143 mmol/L (135-146); ABG TCO2 25 mmol/L (19-24)
[2022-01-04] MEDS ORDERED: SODIUM CHLORIDE 0.9% 500 ML 500 ML with HEPARIN SODIUM,PORCINE 5,000 UNIT IV ONE ×2 (10:03)
[2022-01-04] MEDS ORDERED: ceFAZolin 1,000 MG in SODIUM CHLORIDE 0.9% 1,000 ML IRRIGATION ONE (10:03)
[2022-01-04 10:28] LABS: ABG Base Excess -0.4 mmol/L; ABG Glucose Whole Blood 119 mg/dL (75-99); ABG HCO3 24 mmol/L (21-25); ABG Hematocrit 26 % (34.0-46.0); ABG Ionized Calcium 4.9 mg/dL (4.5-5.3); ABG Lactic Acid Whole Blood 1.1 mmol/L (0.5-1.6); ABG PCO2 37 mmHg (35-45); ABG PH 7.42 (7.35-7.45); ABG PO2 125 mmHg (83-108); ABG Potassium Whole Blood 4.1 mmol/L (3.4-4.5); ABG Sodium Whole Blood 142 mmol/L (135-146); ABG TCO2 25 mmol/L (19-24)
[2022-01-04 11:11] LABS: ABG Base Excess -1.4 mmol/L; ABG Glucose Whole Blood 128 mg/dL (75-99); ABG HCO3 24 mmol/L (21-25); ABG Hematocrit 25 % (34.0-46.0); ABG Ionized Calcium 4.8 mg/dL (4.5-5.3); ABG Lactic Acid Whole Blood 1.1 mmol/L (0.5-1.6); ABG Oxygen Saturation 99.2 % (94-97); ABG PCO2 40 mmHg (35-45); ABG PH 7.38 (7.35-7.45); ABG PO2 163 mmHg (83-108); ABG Potassium Whole Blood 4.1 mmol/L (3.4-4.5); ABG Sodium Whole Blood 142 mmol/L (135-146); ABG TCO2 25 mmol/L (19-24)
[2022-01-04 12:13] LABS: ABG Base Excess -2.8 mmol/L; ABG Glucose Whole Blood 128 mg/dL (75-99); ABG HCO3 22 mmol/L (21-25); ABG Ionized Calcium 5.4 mg/dL (4.5-5.3); ABG Lactic Acid Whole Blood 0.9 mmol/L (0.5-1.6); ABG Oxygen Saturation 98.4 % (94-97); ABG PCO2 39 mmHg (35-45); ABG PH 7.36 (7.35-7.45); ABG PO2 116 mmHg (83-108); ABG Potassium Whole Blood 3.8 mmol/L (3.4-4.5); ABG Sodium Whole Blood 142 mmol/L (135-146); ABG TCO2 24 mmol/L (19-24)
[2022-01-04 12:27] LABS: ABG PO2 >420 mmHg (83-108)
[2022-01-04 12:29] LABS: ABG Hematocrit 22 % (34.0-46.0)
[2022-01-04] MEDS ORDERED: ALBUMIN HUMAN 5% 250 ML IVPB ONE (12:52)
[2022-01-04 12:55] LABS: Glucose,Whole Blood 135 mg/dL (75-99)
[2022-01-04] MEDS ORDERED: BENZOCAINE/MENTHOL LOZENG 1 EACH LOZENGE MUCOUS MEM PRN (12:55)
[2022-01-04] MEDS ORDERED: Magnesium Replacement Protocol 1 EACH MISC MISCELLANE PRN ×3 (12:55→18:50)
[2022-01-04] MEDS ORDERED: ONDANSETRON 4 MG/2 ML VIAL IVP PRN (12:55)
[2022-01-04] MEDS ORDERED: DEXTROSE 5% IN WATER 100 ML with AMIODARONE 150 MG IV PRN (12:55)
[2022-01-04] MEDS ORDERED: hydrALAZINE HCL 20 MG/ML 1 ML VIAL IVP PRN (12:55)
[2022-01-04] MEDS ORDERED: AMIODARONE 450 MG in DEXTROSE 5% IN WATER 250 ML IV PRN ×2 (12:55)
[2022-01-04] MEDS ORDERED: AMIODARONE 360 MG in DEXTROSE 5% IN WATER 200 ML IV PRN ×2 (12:55)
[2022-01-04] MEDS ORDERED: CLEVIDIPINE BUTYRATE 25 MG in EMPTY BAG 1 BAG IV SCH (12:55)
[2022-01-04] MEDS ORDERED: Potassium Replacement Protocol 1 EACH MISC MISCELLANE PRN (12:55)
[2022-01-04] MEDS ORDERED: Phosphorus Replacement Protoco 1 EACH MISC MISCELLANE PRN (12:55)
[2022-01-04] MEDS ORDERED: METOCLOPRAMIDE 5 MG/ML 2 ML VIAL IVP PRN (12:55)
[2022-01-04] MEDS ORDERED: IPRATROPIUM-ALBUTEROL 3 ML NEB INHALATION PRN (12:55)
[2022-01-04] MEDS ORDERED: NITROGLYCERIN-D5W PMX 50 MG in DEXTROSE/WATER 1 250ML.BAG IV SCH (12:55)
[2022-01-04 13:10] LABS: Ionized Calcium 5.4 mg/dL (4.5-5.3)
[2022-01-04 13:11] LABS: Basophils % (A) 0 %; Eosinophils # (A) 0.2 k/uL (0-0.7); Eosinophils % (A) 4 %; HCT 22.8 % (34.0-46.0); Lymphocytes # (A) 0.6 k/uL (1.0-4.8); Lymphocytes % (A) 14 %; MCH 30.1 pg (25.0-35.0); MCHC 31.6 g/dL (31.0-37.0); MCV 95.2 fL (80.0-100.0); Mean Platelet Volume 8.6; Monocytes % (A) 1 %; Neutrophils # (A) 3.3 k/uL (1.3-7.7); Neutrophils % (A) 80 %; Platelet Count 110 k/uL (150-450); RDW 13.7 % (11.5-15.5); WBC 4.2 k/uL (3.8-10.6)
[2022-01-04 13:13] LABS: HGB 7.2 gm/dL (11.4-16.0)
[2022-01-04] MEDS ORDERED: DEXMEDETOMIDINE/0.9% NACL(PMX) 400 MCG in EMPTY BAG 1 BAG IV SCH (13:15)
--- NOTE | 2022-01-04 13:18 | XR ---
EXAMINATION TYPE: XR chest 1V portable DATE OF EXAM: 01/04/2022 COMPARISON: 12/27/2021 HISTORY: Postop TECHNIQUE: Single frontal view of the chest is obtained. FINDINGS: ET and NG tube appear in good position. Mediastinal drain and chest tube noted with the le ft-sided consolidation. Small left effusion. Diffuse osteopenia. Underlying COPD noted. Surgical clip s in the upper quadrant of the abdomen. IMPRESSION: 1. Right perihilar and left lower lobe infiltrate with small left effusion. 2. Postoperative change with no sizable pneumothorax.
[2022-01-04 13:20] LABS: ABG HCO3 22 mmol/L (21-25); ABG Oxygen Saturation 99.1 % (94-97); ABG PCO2 39 mmHg (35-45); ABG PH 7.36 (7.35-7.45); ABG PO2 261 mmHg (83-108); ABG TCO2 23 mmol/L (19-24); Allen Test Performed? Yes
[2022-01-04 13:20] LABS: Albumin 3.1 g/dL (3.5-5.0); Calcium 9.1 mg/dL (8.4-10.2); Magnesium 1.6 mg/dL (1.6-2.3); Potassium 4.7 mmol/L (3.5-5.1); Total Bilirubin 0.4 mg/dL (0.2-1.3); Total Protein 5.5 g/dL (6.3-8.2)
[2022-01-04] MEDS: LACTATED RINGERS 1,000 ML IV SCH (13:20)
[2022-01-04] MEDS: DILTIAZEM 125 MG in SODIUM CHLORIDE 0.9% 100 ML IV SCH (13:21)
[2022-01-04 13:27] LABS: INR 1.2 (<1.2); Partial Thromboplastin Time 25.9 sec (22.0-30.0); Prothrombin Time 12.4 sec (9.0-12.0)
[2022-01-04] MEDS ORDERED: INSULIN REGULAR 100 UNIT in SODIUM CHLORIDE 0.9% 100 ML IV SCH (13:30)
[2022-01-04] MEDS ORDERED: DOPamine DRIP 800 MG in DEXTROSE/WATER 1 250ML.BAG IV SCH (13:30)
--- NOTE | 2022-01-04 13:31 | P.OP ---
Date of Procedure: 01/04/22 Preoperative Diagnosis: Coronary artery disease Postoperative Diagnosis: Same Procedure(s) Performed: Off-pump CABG 3 with ALEGRE to LAD, T graft left radial artery to obtuse marginal, saphenous vein graft to posterior descending coronary artery with patch angioplasty of posterior descending coronary artery, occlusion of left atrial appendage with 35 mm AtriCure clip, endovascular vein harvest of the greater saphenous vein from the left thigh, endovascular left radial artery harvest. Implants: 35mm AtriCure clamp Anesthesia: GETA Surgeon: Leobardo Villalpando Angular Developer #1: Jc Guzman Angular Developer #2: Chucho Kramer Estimated Blood Loss (ml): 300 IV fluids (ml): 1,800 Urine output (ml): 500 Pathology: none sent Condition: stable Disposition: ICU Indications for Procedure: 81-year-old female with anginal symptomatology and severe three-vessel coronary artery disease. Operative Findings: Good conduits, good ventricle, diffuse coronary artery disease. Reasonable sites for distal targets identified and used. Description of Procedure: Patient was brought to the operating room, placed supine on the operating table, anesthetized and intubated. [place] catheter and right arterial line had been placed in preop holding. General anesthesia was induced the patient was intubated and TAYLER probe was placed. The anterior torso bilateral lower extremities and left upper extremity were sterilely prepped and draped. Left radial artery was harvested using endovascular vein harvest technique by Mr. Kramer. The left greater saphenous vein was harvested from the left thigh by Ms Crabtree. Simultaneous sternotomy was performed and the left hemisternum retracted upwards. Left internal mammary artery was harvested on a vascularized pedicle left intact on its origin from the subclavian. It was a good conduit with good flow. A 32-[place] chest tube was placed in the left pleural space by separate stab incision and secured with 0 silk suture . Standard sternal retractor was placed. Pericardium was opened in the midline and the heart exposed with pericardial sutures. Patient was systemically heparinized. A CTs were maintained greater than 250 during grafting. We began by placing 35mm AtriCure clip at the base of the left atrial appendage. We then tunneled the ALEGRE into the pericardial space and stabilized the mid LAD. The LAD was a diffusely diseased vessel. The best target spot was in the mid LAD and a small epicardial vein running over it. This was ligated bilaterally with 6-0 silk s utures and divided. The LAD was opened here. Was a 1.5-1.75 mm vessel. Blood flow was controlled with a 1.5 mm flow through. End to side anastomosis between the ALEGRE and the LAD was performed with running 8-0 Prolene suture. On completion of the anastomosis the flow through was removed effectively probing the proximal distal portion anastomosis. Suture was tied with good result and hemostasis. Inflow was open. The LISANDRA pedicle was tacked to the surrounding epicardium with 6-0 silk suture. The inferior wall the heart was exposed. PDA was stabilized proximally. There were multiple lesions in the PDA. The proximal to mid PDA had a large plaque across it. PDA was opened proximally and the arteriotomy extended to the mid PDA across this lesion. Blood flow was controlled 1.5 mm flow through. It was 1.5 mm vessel. Saphenous vein was anastomosed in end-to-side fashion with a long patch angioplasty over this area of the PDA. Running suture line with 7-0 Prolene suture was performed. On completion anastomosis the flow through was removed 50 probe the proximal distal portion anastomosis. Suture was tied with good result and hemostasis. Good backbleeding was noted and the vein graft controlled with a bulldog clamp. Heart was lowered in anatomic position and the vein cut to appropriately to reach the ascending aorta. Pursestring device was deployed in the mid ascending aorta and the proximal anastomosis of the vein graft to the PDA was taken off the ascending aorta with a running 5-0 Prolene suture. On completion of the anastomosis the heartstring device was removed. Suture was tied with good result and hemostasis. Vein was de-aired with needle holes and then the inflow open. Good hemostasis was noted at the distal anastomosis. Next the lateral wall the heart was exposed. The major marginal branch was a 1.5 mm vessel. It had diffuse distal disease but was soft proximally. Was stabilized and opened here. Blood flow was controlled with a 1.5 mm flow through. It was a 1.5-1.75 mm vessel. Anastomosis of the radial artery to the OM was performed in end-to-side fashion with running 7-0 Prolene suture. On completion anastomosis the flow through was removed 50 probe the proximal distal portion anastomosis. Good backbleeding was noted in the radial artery controlled with a bulldog clamp. The heart was lowered in anatomic position. The radial artery was long enough to reach the ascending aorta but was relatively small. It was felt better to jumped off the ALEGRE. ALEGRE flow was controlled proximally and distally with bulldog clamps and it was opened in the longitudinal linear fashion as it entered the pericardial space. Side to end anastomosis between the ALEGRE and the left radial artery was performed with running 8-0 Prolene suture. On completion anastomosis it was de-aired by backbleeding and the inflow open. Suture was tied with good result and hemostasis. All grafts lay well and there was good hemostasis throughout. Heparin was reversed with protamine. Chest was irrigated with antibiotic solution. Mediastinum was drained with a 36-[place] chest tube. After assuring good hemostasis throughout the sternum was closed with 6 Mersilene band's. Fascia was closed with 0 Ethibond subcutaneous and subcuticular layers were closed with layers of Vicryl suture. Pressure dressings were applied the patient was transferred to the ICU in stable condition.
[2022-01-04 14:07] LABS: Glucose,Whole Blood 111 mg/dL (75-99)
[2022-01-04 15:00] LABS: Glucose,Whole Blood 137 mg/dL (75-99)
[2022-01-04] MEDS: IPRATROPIUM-ALBUTEROL 3 ML NEB INHALATION SCH ×2 (15:14→20:43)
[2022-01-04] MEDS: HEPARIN SODIUM,PORCINE/PF 5,000 UNIT/0.5 ML SYRINGE SQ SCH ×2 (15:46→23:11)
[2022-01-04 15:53] LABS: ABG Base Excess -9.2 mmol/L; ABG HCO3 18 mmol/L (21-25); ABG PCO2 41 mmHg (35-45); ABG PH 7.25 (7.35-7.45); ABG PO2 102 mmHg (83-108); ABG TCO2 19 mmol/L (19-24); Allen Test Performed? Yes
[2022-01-04 15:57] LABS: Basophils % (A) 0 %; Eosinophils # (A) 0.4 k/uL (0-0.7); Eosinophils % (A) 3 %; HCT 25.4 % (34.0-46.0); HGB 8.1 gm/dL (11.4-16.0); Hypochromasia Slight; Lymphocytes # (A) 3.3 k/uL (1.0-4.8); Lymphocytes % (A) 29 %; MCH 30.7 pg (25.0-35.0); Mean Platelet Volume 7.5; Monocytes # (A) 0.4 k/uL (0-1.0); Monocytes % (A) 3 %; Neutrophils # (A) 7.3 k/uL (1.3-7.7); Neutrophils % (A) 64 %; Platelet Count 161 k/uL (150-450); RBC 2.64 m/uL (3.80-5.40); RDW 14.1 % (11.5-15.5); WBC 11.5 k/uL (3.8-10.6)
[2022-01-04] MEDS ORDERED: SODIUM BICARB 8.4% 50 ML SYR (1 MEQ/ML) IV STA ×2 (16:14)
[2022-01-04 16:15] LABS: Glucose,Whole Blood 165 mg/dL (75-99)
--- NOTE | 2022-01-04 16:19 | P.CNPUL ---
History of Present Illness Consult date: 01/04/22 Requesting physician: Leobardo Villalpando Reason for consult: other (Critical care management) Chief complaint: angina/chest pain History of present illness: This is a 81-year-old female patient who follows with Dr. Wang as her primary care provider. She has a history of hypertension, hyperlipidemia, diabetes mellitus. She is a nonsmoker. She was having symptomatic anginaand had undergone cardiac catheterization which showed severe triple-vessel coronary artery disease including the distal left main stenosis. She was brought in today electively forurinary artery revascularization. She had undergone an off- pump CABG 3 with a ALEGRE to the LAD, radial artery graft to the obtuse marginal, saphenous vein graft to the posterior descending coronary artery. Clipping of the left atrial appendage. She is seen today in the immediate postoperative period. She is intubated on the mechanical ventilator. Current settings are assist-control mode at a rate of 12, tidal 5 375, FiO2 40% and a PEEP of 5. Arterial blood gases revealed a pO2 of 261, pCO2 39, pH 7.36. She is currently receiving lactated Ringer's at 50 MLS per hour. Sedated with propofol at 20 mcg/kg/m. Nitroglycerin drip at 5 mg/m. Cardizem drip at 5 mg per hour. club approximate 4 mg per hour. Insulin at 0.5 units per hour. white count 11.5. Hemoglobin 8.1. Platelets 161,000. sodium 138. Potassium 4.7. BUN 19. Cre atinine 0.91. Glucose 137. AST 24. ALT 11. Albumin 3.1. chest x-ray reveals a right perihilar and left lower lobe infiltrate with a small left effusion. Endotracheal tube and nasogastric tubes are in good position. Mediastinal chest tube in place. 270 ML's return thus far. Pulmonary artery pressure 40/15 with a mean of 23. CVP 9. Cardiac output 6. Cardiac index 4.1. On subcutaneous heparin for DVT prophylaxis. Review of Systems ROS unobtainable: due to endotracheal tube Past Medical History Past Medical History: Chest Pain / Angina, Diabetes Mellitus, Hyperlipidemia, Hypertension Additional Past Medical History / Comment(s): UTI-ECOLI History of Any Multi-Drug Resistant Organisms: None Reported Past Surgical History: Cholecystectomy, Heart Catheterization, Hernia Repair, Hysterectomy, Orthopedic Surgery Additional Past Surgical History / Comment(s): R shoulder surgery. R broken wrist.trigger release rt middle finger. pt not sure if they took appendix when they did hysterectomy Past Anesthesia/Blood Transfusion Reactions: No Reported Reaction Additional Past Anesthesia/Blood Transfusion Reaction / Comment(s): blood transfusion-no reaction Additional Psychological History / Comment(s): pt is independant, lives with sp ouse, pt's sister and a grand daughter- has 1 step to house, has 3 pet dogs. recieves meals on wheels, has shower chair and bsc. - Past Family History Father Family Medical History: Congestive Heart Failure (CHF) Mother Family Medical History: Pneumonia Additional Family Medical History / Comment(s): fom pne Medications and Allergies Home Medications Medication Instructions Recorded Confirmed Type Clopidogrel [Plavix] 75 mg PO QAM 02/13/16 12/27/21 History Losartan [Cozaar] 50 mg PO HS 02/13/16 01/04/22 History Insulin Glargine,Hum.rec.anlog 10 unit SQ HS 02/13/19 01/04/22 History [Toujeo Solostar] Alendronate Sodium [Fosamax] 70 mg PO WE 07/16/20 01/04/22 History Omeprazole 20 mg PO DAILY PRN 07/16/20 01/04/22 History Isosorbide Mononitrate ER [Imdur] 60 mg PO DAILY 30 Days #30 07/18/20 01/04/22 Rx tab.er.24h Meclizine [Antivert] 25 mg PO TID PRN 10/09/21 01/04/22 History Nitroglycerin Sl Tabs [Nitrostat] 0.4 mg SUBLINGUAL Q5M PRN 10/09/21 01/04/22 History Pioglitazone [Actos] 30 mg PO DAILY 10/09/21 01/04/22 History amLODIPine [Norvasc] 5 mg PO DAILY 10/09/21 01/04/22 History ALPRAZolam [Xanax] 0.25 mg PO BID PRN 12/07/21 01/04/22 History Dapagliflozin Propanediol [Farxiga] 10 mg PO DAILY 12/07/21 01/04/22 History metFORMIN HCL [Glucophage] 1,000 mg PO DAILY 12/07/21 01/04/22 History Atorvastatin [Lipitor] 80 mg PO HS 12/27/21 01/04/22 History Ciprofloxacin HCl [Cipro] 500 mg PO Q12HR 12/27/21 01/04/22 History Ergocalciferol [Vitamin D2 (1250 50,000 unit PO WE 12/27/21 01/04/22 History Mcg = 16448 Iu)] Multivitamins, Thera [Multivitamin 1 tab PO DAILY 12/27/21 01/04/22 History (formulary)] Mupirocin [Mupirocin 2%] 1 applic NASAL BID #1 tub 12/27/21 12/27/21 Rx Allergies Allergy/AdvReac Type Severity Reaction Status Date / Time aspirin Allergy Rash/Hives Verified 01/04/22 05:53 codeine Allergy Rash/Hives Verified 01/04/22 05:53 Influenza Virus Vaccines Allergy Rash/Hives Verified 01/04/22 05:53 Iodinated Contrast Media Allergy Rash/Hives/Increased Verified 01/04/22 05:53 [Iodinated Contrast Media - HR IV Dye] iodine Allergy Rash/Hives Verified 01/04/22 05:53 NSAIDS (Non-Steroidal Allergy Anaphylaxis Verified 01/04/22 05:53 Anti-Inflamma Physical Exam Vitals: Vital Signs Temp Pulse Pulse Resp BP BP BP 01/04/22 15:19 90 01/04/22 14:30 34.7 F L 81 21 01/04/22 14:15 15 109/51 01/04/22 14:00 64 76 16 01/04/22 13:45 62 14 01/04/22 13:30 59 L 12 01/04/22 13:20 56 L 12 01/04/22 13:10 55 L 12 01/04/22 13:00 34.1 F L 14 01/04/22 06:02 97.6 F 76 16 174/68 174/77 Pulse Ox 01/04/22 15:19 01/04/22 14:30 100 01/04/22 14:15 99 01/04/22 14:00 99 01/04/22 13:45 99 01/04/22 13:30 100 01/04/22 13:20 99 01/04/22 13:10 100 01/04/22 13:00 99 01/04/22 06:02 98 Intake and Output 01/04/22 01/04/2201/04/22 06:59 14:59 22:59 Intake Total 200 144.937 0 Output Total 1300 Balance 200 -1155.063 0 Intake: IV 200 136.0 Diltiazem 125 mg In 10 Sodium Chloride 0.9% 100 ml @ 5 MG/HR 5 mls/hr IV .Q24H YESI Rx#:[id number] Lactated Ringers 1,000 ml 100 @ 50 mls/hr IV .Q20H YESI Rx#:[id number] Nitroglycerin-D5w Pmx 50 3.0 mg In Dextrose/Water 1 250ml.bag @ 5 MCG/MIN 1.5 mls/hr IV .Q24H YESI Rx#: [id number] Pressure Bag Sodium 18 Chloride 0.9% Intake, IV Titration 8.937 0 Amount Clevidipine Butyrate 25 0.733 mg In Empty Bag 1 bag @ 1 MG/HR 2 mls/hr IV .Q24H YESI Rx#:[id number] Insulin Regular 100 unit 0.698 0 In Sodium Chloride 0.9% 100 ml @ Per Protocol IV .Q0M YESI Rx#:[id number] propofoL 1,000 mg In 7.506 Empty Bag 1 bag @ Titrate IV .Q0M YESI Rx#: [id number] Output: Chest Tube Drainage 150 Chest Tube Left Pleural/ 150 Mediastinal Urine 850 Estimated Blood Loss 300 Other: Voiding Method Indwelling Catheter Weight 55.6 kg ABP, PAP, CO, CI - Last 8 Hours Arterial Blood Pressure 147/45 Arterial Blood Pressure 115/40 Arterial Blood Pressure 143/49 Arterial Blood Pressure 147/51 Arterial Blood Pressure 125/44 Arterial Blood Pressure 113/42 Arterial Blood Pressure 117/43 Arterial Blood Pressure 110/43 Pulmonary Artery Pressure 42/15 Pulmonary Artery Pressure 37/14 Pulmonary Artery Pressure 38/16 Pulmonary Artery Pressure 37/15 Pulmonary Artery Pressure 33/12 Pulmonary Artery Pressure 30/14 Pulmonary Artery Pressure 31/14 Pulmonary Artery Pressure 31/16 Cardiac Output 6 Cardiac Output 3.2 Cardiac Output 2.5 Cardiac Index 4.1 Cardiac Index 2.2 Cardiac Index 1 Cardiac Index 1.7 GENERAL EXAM: Intubated, sedated 81-year-old female patient, comfortable in no apparent distress. HEAD: Normocephalic. EYES: Sluggish reaction of pupils, equal size. NOSE: Clear with pink turbinates. THROAT: No erythema or exudates. NECK: [place] catheter in place. No masses, no JVD. CHEST: Sternal dressing dry and intact. Heart Hugger in place. Mediastinal chest tube in place. LUNGS: Equal air entry with no crackles, wheeze, rhonchi or dullness. CVS: S1 and S2 normal with no audible murmur, regular rhythm. ABDOMEN: No hepatosplenomegaly, normal bowel sounds, no guarding or rigidity. SPINE: No scoliosis or deformity SKIN: No rashes CENTRAL NERVOUS SYSTEM: No focal deficits, tone is normal in all 4 extremities. EXTREMITIES: Right arterial line in place. Dressing to the left radial harvest site. There is no peripheral edema. No clubbing, no cyanosis. Peripheral pulses are intact. Results - Laboratory Findings CBC and BMP: 01/04/22 13:01 01/04/22 13:01 ABG ABG pH 7.36 (7.35-7.45) 01/04/22 13:18 ABG pCO2 39 mmHg (35-45) 01/04/22 13:18 ABG pO2 261 mmHg (83-108) H 01/04/22 13:18 ABG O2 Saturation 99.1 % (94-97) H 01/04/22 13:18 PT/INR, D-dimer PT 12.4 sec (9.0-12.0) H 01/04/22 13:01 INR 1.2 (<1.2) H 01/04/22 13:01 Abnormal lab findings: Abnormal Labs 12/27/21 01/04/22 01/04/22 09:19 06:16 08:43 RBC Hgb Hct Plt Count Lymphocytes # PT INR ABG pO2 >420 H ABG Total CO2 25 H ABG O2 Saturation 99.9 H ABG Hematocrit 26 L ABG Ionized Calcium ABG Glucose 103 H Hemoglobin 8.4 L Chloride Carbon Dioxide BUN Glucose POC Glucose (mg/dL) 101 H Ionized Calcium Domitila Total Protein Albumin Arterial Blood Glucose 103 H Crossmatch See Detail 01/04/22 01/04/22 01/04/22 10:28 11:11 12:13 RBC Hgb Hct Plt Count Lymphocytes # PT INR ABG pO2 125 H 163 H 116 H ABG Total CO2 25 H 25 H ABG O2 Saturation 99.0 H 99.2 H 98.4 H ABG Hematocrit 26 L 25 L 22 L ABG Ionized Calcium 5.4 H ABG Glucose 119 H 128 H 128 H Hemoglobin 8.6 L 8.2 L 7.0 L* Chloride Carbon Dioxide BUN Glucose POC Glucose (mg/dL) Ionized Calcium Domitila Total Protein Albumin Arterial Blood Glucose 119 H 128 H 128 H Crossmatch 01/04/22 01/04/22 01/04/22 12:53 13:01 13:01 RBC 2.40 L Hgb 7.2 L D Hct 22.8 L Plt Count 110 L Lymphocytes # 0.6 L PT 12.4 H INR 1.2 H ABG pO2 ABG Total CO2 ABG O2 Saturation ABG Hematocrit ABG Ionized Calcium ABG Glucose Hemoglobin Chloride Carbon Dioxide BUN Glucose POC Glucose (mg/dL) 135 H Ionized Calcium Domitila Total Protein Albumin Arterial Blood Glucose Crossmatch 01/04/22 01/04/22 01/04/22 13:01 13:18 14:05 RBC Hgb Hct Plt Count Lymphocytes # PT INR ABG pO2 261 H ABG Total CO2 ABG O2 Saturation 99.1 H ABG Hematocrit ABG Ionized Calcium ABG Glucose Hemoglobin Chloride 114 H Carbon Dioxide 20 L BUN 19 H Glucose 120 H POC Glucose (mg/dL) 111 H Ionized Calcium Domitila 5.4 H Total Protein 5.5 L Albumin 3.1 L Arterial Blood Glucose Crossmatch 01/04/22 14:58 RBC Hgb Hct Plt Count Lymphocytes # PT INR ABG pO2 ABG Total CO2 ABG O2 Saturation ABG Hematocrit ABG Ionized Calcium ABG Glucose Hemoglobin Chloride Carbon Dioxide BUN Glucose POC Glucose (mg/dL) 137 H Ionized Calcium Domitila Total Protein Albumin Arterial Blood Glucose Crossmatch - Diagnostic Findings Chest x-ray: image reviewed Assessment and Plan Assessment: 1 Symptomatic coronary artery disease status post coronary artery bypass grafting, off pump, CABG 3 with a ALEGRE to the LAD, left radial artery to the obtuse marginal, saphenous vein graft to the posterior descending artery. Left atrial appendage clipped. 2 History of hypertension 3 Hyperlipidemia 4 Diabetes mellitus Plan: The patient was seen and evaluated Chest x-ray, ABGs and labs reviewed Plan is for early extubation protocol as tolerated We will continue to follow and make further recommendations based on her clinical status I, the cosigning physician, performed a history & physical examination of the patient. Lungs sounds are clear. Maintaining good O2 saturations in the 90s on 40% FiO2 and PEEP of 5 via the mechanical ventilatorr. I discussed the assessment and plan of care with my nurse practitioner, Alma Paul. I attest to the above consult dictation as dictated by her. I have personally seen and examined the patient, performed the documentation and the assessment and plan as written. Number of minutes spent on the visit: 20.
[2022-01-04] MEDS: ACETAMINOPHEN IV (For NPO) 1,000 MG in EMPTY BAG 1 BAG IVPB SCH (17:07)
[2022-01-04 17:28] LABS: Glucose,Whole Blood 179 mg/dL (75-99)
[2022-01-04 18:17] LABS: Glucose,Whole Blood 146 mg/dL (75-99)
[2022-01-04 19:07] LABS: Glucose,Whole Blood 106 mg/dL (75-99)
[2022-01-04 19:16] LABS: Basophils % (A) 0 %; Eosinophils % (A) 0 %; HCT 21.5 % (34.0-46.0); Lymphocytes # (A) 0.3 k/uL (1.0-4.8); Lymphocytes % (A) 4 %; MCH 30.3 pg (25.0-35.0); MCHC 32.4 g/dL (31.0-37.0); MCV 93.6 fL (80.0-100.0); Mean Platelet Volume 7.7; Monocytes # (A) 0.2 k/uL (0-1.0); Monocytes % (A) 3 %; Neutrophils # (A) 5.9 k/uL (1.3-7.7); Neutrophils % (A) 92 %; Platelet Count 126 k/uL (150-450); RBC 2.29 m/uL (3.80-5.40); RDW 14.3 % (11.5-15.5); WBC 6.4 k/uL (3.8-10.6)
[2022-01-04] MEDS: MAGNESIUM SULFATE-D5W PMX 1 GM in DEXTROSE/WATER 1 100ML.BAG IVPB SCH ×2 (20:26→22:38)
[2022-01-04] MEDS: ATORVASTATIN 80 MG TAB PO SCH (20:26)
[2022-01-04] MEDS: ALBUMIN HUMAN 5% 250 ML in EMPTY BAG 1 BAG IVPB PRN ×2 (20:36→23:09)
[2022-01-04 21:06] LABS: Glucose,Whole Blood 100 mg/dL (75-99)
[2022-01-04 22:04] LABS: Glucose,Whole Blood 115 mg/dL (75-99)
[2022-01-05 00:16] LABS: Glucose,Whole Blood 168 mg/dL (75-99)
[2022-01-05] MEDS ORDERED: HYDROcodone/APAP 5-325MG 1 EACH TAB PO PRN (00:17)
[2022-01-05] MEDS: ACETAMINOPHEN IV (For NPO) 1,000 MG in EMPTY BAG 1 BAG IVPB SCH (00:21)
[2022-01-05 01:15] LABS: Glucose,Whole Blood 166 mg/dL (75-99)
[2022-01-05 02:03] LABS: Glucose,Whole Blood 169 mg/dL (75-99)
[2022-01-05 04:23] LABS: Glucose,Whole Blood 173 mg/dL (75-99)
[2022-01-05 04:44] LABS: Basophils % (A) 0 %; Eosinophils % (A) 0 %; HCT 21.4 % (34.0-46.0); Lymphocytes # (A) 0.8 k/uL (1.0-4.8); Lymphocytes % (A) 12 %; MCH 30.6 pg (25.0-35.0); MCV 95.4 fL (80.0-100.0); Mean Platelet Volume 7.7; Monocytes # (A) 0.3 k/uL (0-1.0); Monocytes % (A) 4 %; Neutrophils # (A) 5.7 k/uL (1.3-7.7); Neutrophils % (A) 84 %; Platelet Count 105 k/uL (150-450); RBC 2.25 m/uL (3.80-5.40); WBC 6.9 k/uL (3.8-10.6)
[2022-01-05 04:58] LABS: HGB 6.9 gm/dL (11.4-16.0)
[2022-01-05 05:14] LABS: Albumin 3.3 g/dL (3.5-5.0); Calcium 8.4 mg/dL (8.4-10.2); Magnesium 2.3 mg/dL (1.6-2.3); Potassium 4.3 mmol/L (3.5-5.1); Total Bilirubin 0.5 mg/dL (0.2-1.3); Total Protein 5.2 g/dL (6.3-8.2)
[2022-01-05 06:21] LABS: Glucose,Whole Blood 143 mg/dL (75-99)
[2022-01-05] MEDS: IPRATROPIUM-ALBUTEROL 3 ML NEB INHALATION SCH ×4 (07:02→20:51)
[2022-01-05 07:20] LABS: Glucose,Whole Blood 125 mg/dL (75-99)
[2022-01-05] MEDS: HEPARIN SODIUM,PORCINE/PF 5,000 UNIT/0.5 ML SYRINGE SQ SCH ×2 (08:18→16:37)
[2022-01-05] MEDS: CLOPIDOGREL 75 MG TAB PO SCH (08:18)
[2022-01-05] MEDS: MULTIVITAMINS, THERA 1 EACH TAB PO SCH (08:18)
[2022-01-05 08:28] LABS: Glucose,Whole Blood 142 mg/dL (75-99)
--- NOTE | 2022-01-05 08:31 | P.PN ---
Subjective Progress Note Date: 01/05/22 Principal diagnosis: Coronary artery disease. Previous medical history of hypertension, hyperlipidemia, diabetes, chronic renal insufficiency, previous tobacco dependence, left internal carotid artery stenosis. Patient is vaccinated and boosted against covid POD #1 off-pump coronary artery bypass graft 3 with left internal mammary artery to the left anterior descending artery, T graft left radial artery to the obtuse marginal artery, reverse saphenous vein graft to the posterior descending coronary artery with patch angioplasty of posterior descending coronary artery, occlusion of the left atrial appendage with a 35 mm AtriCure clip, endovascular vein harvest of the greater saphenous vein from the left thigh, endovascular left radial artery harvest, intraoperative transesophageal echocardiogram performed by anesthesia. Postoperative acute blood loss anemia and thrombocytopenia, expected given hemodilution and preoperative anemia The patient was seen and examined this morning sitting up in a recliner in the intensive care unit in no acute distress. She was successfully extubated yesterday at 4:25 PM. She states postoperative pain is controlled on current medication regimen, denies shortness of breath. Remains hemodynamically stable on IV Cardizem and nitro for vessel spasm prophylaxis. She had a relatively uneventful night and is in good spirits this morning. Right internal jugular [place]/Cordis, right radial arterial line, mediastinal/left pleural chest tubes all remaining present. No other new concerns. Objective - Vital Signs Vital signs: Vital Signs Temp 100.2 F H 01/04/22 19:00 Pulse 73 01/05/22 07:20 Resp 13 01/05/22 07:00 BP 99/44 01/05/22 07:00 Pulse Ox 95 01/05/22 07:00 Intake & Output 01/04/22 01/05/22 01/05/22 18:59 06:59 18:59 Intake Total 495.404 8225.859 107.957 Output Total 1977 633 35 Balance -7048.657 1104.859 72.957 Weight 59.5 kg Intake: IV 501.5 1806.0 95.5 ACETAMINOPHEN IV (For NPO 100 ) 1,000 mg In Empty Bag 1 bag @ 400 mls/hr IVPB Q6HR YESI Rx#:[id number] Albumin Human 5% 250 ml 500 In Empty Bag 1 bag @ 250 mls/hr IVPB Q1HR PRN Rx#: [id number] CARDIAC OUTPUT (0.9 100 220 30 Sodium Chloride) Diltiazem 125 mg In 30 60 5 Sodium Chloride 0.9% 100 ml @ 5 MG/HR 5 mls/hr IV .Q24H YESI Rx#:[id number] Lactated Ringers 1,000 ml 300 600 50 @ 20 mls/hr IV .Q24H YESI Rx#:[id number] Magnesium Sulfate-D5w Pmx 200 1 gm In Dextrose/Water 1 100ml.bag @ 100 mls/hr IVPB Q1H YESI Rx#: [id number] Nitroglycerin-D5w Pmx 50 12.5 18.0 1.5 mg In Dextrose/Water 1 250ml.bag @ 5 MCG/MIN 1.5 mls/hr IV .Q24H YESI Rx#: [id number] Pressure Bag Sodium 54 108 9 Chloride 0.9% Intake, IV Titration 54.023 0.859 12.457 Amount Clevidipine Butyrate 25 25.366 mg In Empty Bag 1 bag @ 1 MG/HR 2 mls/hr IV .Q24H YESI Rx#:[id number] Insulin Regular 100 unit 7.473 0.859 12.457 In Sodium Chloride 0.9% 100 ml @ Per Protocol IV .Q0M YESI Rx#:[id number] propofoL 1,000 mg In 21.184 Empty Bag 1 bag @ Titrate IV .Q0M YESI Rx#: [id number] Oral 100 Other 60 Output: Chest Tube Drainage 480 320 20 Chest Tube Left Pleural/ 480 320 20 Mediastinal Urine 1197 313 15 Estimated Blood Loss 300 Other: Voiding Method Indwelling Catheter ABP, PAP, CO, CI - Last Documented Arterial Blood Pressure 99/30 Pulmonary Artery Pressure 19/9 Cardiac Output 3.9 Cardiac Index 2.6 - Exam CONSTITUTIONAL: Appears comfortable, cooperative, no acute distress RESPIRATORY: Lungs sounds diminished bilaterally. Respirations even, nonlabored. Currently on 2 L nasal cannula with oxygen saturation 96%. Able to achieve 750 mL on incentive spirometry. Strong cough. CARDIOVASCULAR: S1, S2 present. Regular rate and rhythm, sinus rhythm on telemetry. Sternum stable. Palpable peripheral pulses bilaterally. Trace bilateral lower extremity edema present. No calf pain or tenderness noted. Heart hugger in place with patient demonstrating appropriate use. Antiembolism stockings, SCDs present. GASTROINTESTINAL: Abdomen soft, nontender, nondistended. Hypoactive bowel sounds present 4 quadrants. Tolerating clear liquids. Negative flatus GENITOURINARY: Cabrera present draining clear, yellow urine. Output overnight 20-30 mL per hour INTEGUMENTARY: Skin is warm and dry with evidence of good perfusion. Anterior chest incision well approximated and covered with dry intact dressing. Left lower extremity EVH site well approximated without redness or drainage. Left radial artery harvest site well approximated without redness or drainage NEUROLOGIC: Cranial nerves II through XII intact MUSKULOSKELETAL: Able to move all extremities, strength equal bilaterally PSYCHIATRIC: Alert and oriented to person place and time, appropriate affect, intact judgment and insight INVASIVE LINES AND TUBES: Mediastinal/left pleural chest tubes present and connected to wall suction, no air leaks present, 240 mL serosanguineous drainage overnight, 750 mL since surgery. Right internal jugular [place]/Cordis, right radial arterial line present. Last CO/CI 3.9/2.6, PA 27/, CVP 11. - Allied health notes Allied health notes reviewed: nursing - Labs CBC & Chem 7: 01/05/22 04:20 01/05/22 04:20 Labs: Abnormal Lab Results - Last 24 Hours (Table) 12/27/21 01/04/22 01/04/22 Range/Units 09:19 08:43 10:28 WBC (3.8-10.6) k/uL RBC (3.80-5.40) m/uL Hgb (11.4-16.0) gm/dL Hct (34.0-46.0) % Plt Count (150-450) k/uL Lymphocytes # (1.0-4.8) k/uL PT (9.0-12.0) sec INR (<1.2) ABG pH (7.35-7.45) ABG pO2 >420 H 125 H (83-108) mmHg ABG HCO3 (21-25) mmol/L ABG Total CO2 25 H 25 H (19-24) mmol/L ABG O2 Saturation 99.9 H 99.0 H (94-97) % ABG Hematocrit 26 L 26 L (34.0-46.0) % ABG Ionized Calcium (4.5-5.3) mg/dL ABG Glucose 103 H 119 H (75-99) mg/dL Hemoglobin 8.4 L 8.6 L (11.4-16.0) gm/dL Chloride (98-107) mmol/L Carbon Dioxide (22-30) mmol/L BUN (7-17) mg/dL Creatinine (0.52-1.04) mg/dL Glucose (74-99) mg/dL POC Glucose (mg/dL) (75-99) mg/dL Ionized Calcium Domitila (4.5-5.3) mg/dL Total Protein (6.3-8.2) g/dL Albumin (3.5-5.0) g/dL Arterial Blood Glucose 103 H 119 H (75-99) mg/dL Crossmatch See Detail 01/04/22 01/04/22 01/04/22 Range/Units 11:11 12:13 12:53 WBC (3.8-10.6) k/uL RBC (3.80-5.40) m/uL Hgb (11.4-16.0) gm/dL Hct (34.0-46.0) % Plt Count (150-450) k/uL Lymphocytes # (1.0-4.8) k/uL PT (9.0-12.0) sec INR (<1.2) ABG pH (7.35-7.45) ABG pO2 163 H 116 H (83-108) mmHg ABG HCO3 (21-25) mmol/L ABG Total CO2 25 H (19-24) mmol/L ABG O2 Saturation 99.2 H 98.4 H (94-97) % ABG Hematocrit 25 L 22 L (34.0-46.0) % ABG Ionized Calcium 5.4 H (4.5-5.3) mg/dL ABG Glucose 128 H 128 H (75-99) mg/dL Hemoglobin 8.2 L 7.0 L* (11.4-16.0) gm/dL Chloride (98-107) mmol/L Carbon Dioxide (22-30) mmol/L BUN (7-17) mg/dL Creatinine (0.52-1.04) mg/dL Glucose (74-99) mg/dL POC Glucose (mg/dL) 135 H (75-99) mg/dL Ionized Calcium Domitila (4.5-5.3) mg/dL Total Protein (6.3-8.2) g/dL Albumin (3.5-5.0) g/dL Arterial Blood Glucose 128 H 128 H (75-99) mg/dL Crossmatch 01/04/22 01/04/22 01/04/22 Range/Units 13:01 13:01 13:01 WBC (3.8-10.6) k/uL RBC 2.40 L (3.80-5.40) m/uL Hgb 7.2 L D (11.4-16.0) gm/dL Hct 22.8 L (34.0-46.0) % Plt Count 110 L (150-450) k/uL Lymphocytes # 0.6 L (1.0-4.8) k/uL PT 12.4 H (9.0-12.0) sec INR 1.2 H (<1.2) ABG pH (7.35-7.45) ABG pO2 (83-108) mmHg ABG HCO3 (21-25) mmol/L ABG Total CO2 (19-24) mmol/L ABG O2 Saturation (94-97) % ABG Hematocrit (34.0-46.0) % ABG Ionized Calcium (4.5-5.3) mg/dL ABG Glucose (75-99) mg/dL Hemoglobin (11.4-16.0) gm/dL Chloride 114 H (98-107) mmol/L Carbon Dioxide 20 L (22-30) mmol/L BUN 19 H (7-17) mg/dL Creatinine (0.52-1.04) mg/dL Glucose 120 H (74-99) mg/dL POC Glucose (mg/dL) (75-99) mg/dL Ionized Calcium Domitila 5.4 H (4.5-5.3) mg/dL Total Protein 5.5 L (6.3-8.2) g/dL Albumin 3.1 L (3.5-5.0) g/dL Arterial Blood Glucose (75-99) mg/dL Crossmatch 01/04/22 01/04/22 01/04/22 Range/Units 13:18 14:05 14:58 WBC (3.8-10.6) k/uL RBC (3.80-5.40) m/uL Hgb (11.4-16.0) gm/dL Hct (34.0-46.0) % Plt Count (150-450) k/uL Lymphocytes # (1.0-4.8) k/uL PT (9.0-12.0) sec INR (<1.2) ABG pH (7.35-7.45) ABG pO2 261 H (83-108) mmHg ABG HCO3 (21-25) mmol/L ABG Total CO2 (19-24) mmol/L ABG O2 Saturation 99.1 H (94-97) % ABG Hematocrit (34.0-46.0) % ABG Ionized Calcium (4.5-5.3) mg/dL ABG Glucose (75-99) mg/dL Hemoglobin (11.4-16.0) gm/dL Chloride (98-107) mmol/L Carbon Dioxide (22-30) mmol/L BUN (7-17) mg/dL Creatinine (0.52-1.04) mg/dL Glucose (74-99) mg/dL POC Glucose (mg/dL) 111 H 137 H (75-99) mg/dL Ionized Calcium Domitila (4.5-5.3) mg/dL Total Protein (6.3-8.2) g/dL Albumin (3.5-5.0) g/dL Arterial Blood Glucose (75-99) mg/dL Crossmatch 01/04/22 01/04/22 01/04/22 Range/Units 15:34 15:50 16:14 WBC 11.5 H (3.8-10.6) k/uL RBC 2.64 L (3.80-5.40) m/uL Hgb 8.1 L (11.4-16.0) gm/dL Hct 25.4 L (34.0-46.0) % Plt Count (150-450) k/uL Lymphocytes # (1.0-4.8) k/uL PT (9.0-12.0) sec INR (<1.2) ABG pH 7.25 L (7.35-7.45) ABG pO2 (83-108) mmHg ABG HCO3 18 L (21-25) mmol/L ABG Total CO2 (19-24) mmol/L ABG O2 Saturation (94-97) % ABG Hematocrit (34.0-46.0) % ABG Ionized Calcium (4.5-5.3) mg/dL ABG Glucose (75-99) mg/dL Hemoglobin (11.4-16.0) gm/dL Chloride (98-107) mmol/L Carbon Dioxide (22-30) mmol/L BUN (7-17) mg/dL Creatinine (0.52-1.04) mg/dL Glucose (74-99) mg/dL POC Glucose (mg/dL) 165 H (75-99) mg/dL Ionized Calcium Domitila (4.5-5.3) mg/dL Total Protein (6.3-8.2) g/dL Albumin (3.5-5.0) g/dL Arterial Blood Glucose (75-99) mg/dL Crossmatch 01/04/22 01/04/22 01/04/22 Range/Units 17:27 18:15 19:06 WBC (3.8-10.6) k/uL RBC (3.80-5.40) m/uL Hgb (11.4-16.0) gm/dL Hct (34.0-46.0) % Plt Count (150-450) k/uL Lymphocytes # (1.0-4.8) k/uL PT (9.0-12.0) sec INR (<1.2) ABG pH (7.35-7.45) ABG pO2 (83-108) mmHg ABG HCO3 (21-25) mmol/L ABG Total CO2 (19-24) mmol/L ABG O2 Saturation (94-97) % ABG Hematocrit (34.0-46.0) % ABG Ionized Calcium (4.5-5.3) mg/dL ABG Glucose (75-99) mg/dL Hemoglobin (11.4-16.0) gm/dL Chloride (98-107) mmol/L Carbon Dioxide (22-30) mmol/L BUN (7-17) mg/dL Creatinine (0.52-1.04) mg/dL Glucose (74-99) mg/dL POC Glucose (mg/dL) 179 H 146 H 106 H (75-99) mg/dL Ionized Calcium Domitila (4.5-5.3) mg/dL Total Protein (6.3-8.2) g/dL Albumin (3.5-5.0) g/dL Arterial Blood Glucose (75-99) mg/dL Crossmatch 01/04/22 01/04/22 01/04/22 Range/Units 19:09 21:04 22:03 WBC (3.8-10.6) k/uL RBC 2.29 L (3.80-5.40) m/uL Hgb 7.0 L (11.4-16.0) gm/dL Hct 21.5 L (34.0-46.0) % Plt Count 126 L (150-450) k/uL Lymphocytes # 0.3 L (1.0-4.8) k/uL PT (9.0-12.0) sec INR (<1.2) ABG pH (7.35-7.45) ABG pO2 (83-108) mmHg ABG HCO3 (21-25) mmol/L ABG Total CO2 (19-24) mmol/L ABG O2 Saturation (94-97) % ABG Hematocrit (34.0-46.0) % ABG Ionized Calcium (4.5-5.3) mg/dL ABG Glucose (75-99) mg/dL Hemoglobin (11.4-16.0) gm/dL Chloride (98-107) mmol/L Carbon Dioxide (22-30) mmol/L BUN (7-17) mg/dL Creatinine (0.52-1.04) mg/dL Glucose (74-99) mg/dL POC Glucose (mg/dL) 100 H 115 H (75-99) mg/dL Ionized Calcium Domitila (4.5-5.3) mg/dL Total Protein (6.3-8.2) g/dL Albumin (3.5-5.0) g/dL Arterial Blood Glucose (75-99) mg/dL Crossmatch 01/05/22 01/05/22 01/05/22 Range/Units 00:14 01:13 02:02 WBC (3.8-10.6) k/uL RBC (3.80-5.40) m/uL Hgb (11.4-16.0) gm/dL Hct (34.0-46.0) % Plt Count (150-450) k/uL Lymphocytes # (1.0-4.8) k/uL PT (9.0-12.0) sec INR (<1.2) ABG pH (7.35-7.45) ABG pO2 (83-108) mmHg ABG HCO3 (21-25) mmol/L ABG Total CO2 (19-24) mmol/L ABG O2 Saturation (94-97) % ABG Hematocrit (34.0-46.0) % ABG Ionized Calcium (4.5-5.3) mg/dL ABG Glucose (75-99) mg/dL Hemoglobin (11.4-16.0) gm/dL Chloride (98-107) mmol/L Carbon Dioxide (22-30) mmol/L BUN (7-17) mg/dL Creatinine (0.52-1.04) mg/dL Glucose (74-99) mg/dL POC Glucose (mg/dL) 168 H 166 H 169 H (75-99) mg/dL Ionized Calcium Domitila (4.5-5.3) mg/dL Total Protein (6.3-8.2) g/dL Albumin (3.5-5.0) g/dL Arterial Blood Glucose (75-99) mg/dL Crossmatch 01/05/22 01/05/22 01/05/22 Range/Units 04:20 04:20 04:22 WBC (3.8-10.6) k/uL RBC 2.25 L (3.80-5.40) m/uL Hgb 6.9 L* (11.4-16.0) gm/dL Hct 21.4 L (34.0-46.0) % Plt Count 105 L (150-450) k/uL Lymphocytes # 0.8 L (1.0-4.8) k/uL PT (9.0-12.0) sec INR (<1.2) ABG pH (7.35-7.45) ABG pO2 (83-108) mmHg ABG HCO3 (21-25) mmol/L ABG Total CO2 (19-24) mmol/L ABG O2 Saturation (94-97) % ABG Hematocrit (34.0-46.0) % ABG Ionized Calcium (4.5-5.3) mg/dL ABG Glucose (75-99) mg/dL Hemoglobin (11.4-16.0) gm/dL Chloride (98-107) mmol/L Carbon Dioxide (22-30) mmol/L BUN 23 H (7-17) mg/dL Creatinine 1.12 H (0.52-1.04) mg/dL Glucose 161 H (74-99) mg/dL POC Glucose (mg/dL) 173 H (75-99) mg/dL Ionized Calcium Domitila (4.5-5.3) mg/dL Total Protein 5.2 L (6.3-8.2) g/dL Albumin 3.3 L (3.5-5.0) g/dL Arterial Blood Glucose (75-99) mg/dL Crossmatch 01/05/22 01/05/22 Range/Units 06:19 07:19 WBC (3.8-10.6) k/uL RBC (3.80-5.40) m/uL Hgb (11.4-16.0) gm/dL Hct (34.0-46.0) % Plt Count (150-450) k/uL Lymphocytes # (1.0-4.8) k/uL PT (9.0-12.0) sec INR (<1.2) ABG pH (7.35-7.45) ABG pO2 (83-108) mmHg ABG HCO3 (21-25) mmol/L ABG Total CO2 (19-24) mmol/L ABG O2 Saturation (94-97) % ABG Hematocrit (34.0-46.0) % ABG Ionized Calcium (4.5-5.3) mg/dL ABG Glucose (75-99) mg/dL Hemoglobin (11.4-16.0) gm/dL Chloride (98-107) mmol/L Carbon Dioxide (22-30) mmol/L BUN (7-17) mg/dL Creatinine (0.52-1.04) mg/dL Glucose (74-99) mg/dL POC Glucose (mg/dL) 143 H 125 H (75-99) mg/dL Ionized Calcium Domitila (4.5-5.3) mg/dL Total Protein (6.3-8.2) g/dL Albumin (3.5-5.0) g/dL Arterial Blood Glucose (75-99) mg/dL Crossmatch - Imaging and Cardiology Chest x-ray: image reviewed Assessment and Plan Assessment: 1. Coronary artery disease, status post three-vessel off-pump CABG 2. History of hypertension 3. Hyperlipidemia, untreated, cholesterol 242, LDL 133 4. Diabetes, preoperative hemoglobin A1c 7.9% 5. Chronic renal insufficiency 6. Previous tobacco dependence, preoperative FEV1 120% of predicted 7. Left internal carotid artery stenosis 50-79% 8. Vaccinated and boosted against covid 9. Postoperative acute blood loss anemia and thrombocytopenia Plan: 1. Continue Plavix, statin, beta farnaz therapy. Will increase beta farnaz as tolerated. Aspirin is CONTRAINDICATED due to ALLERGY. Discontinue IV nitro 2. Continue calcium channel farnaz for radial artery spasm prophylaxis. Will transition to oral Cardizem, may discontinue IV Cardizem after first oral dose given 3. Wean O2 as tolerated. Encourage incentive spirometry use 10 times every hour while awake. Bronchodilators per pulmonology 4. We will continue to monitor daily labs and chest x-rays. Electrolyte replacement per protocol. No Lasix today. Avoid nephrotoxins. Will transfuse 1 unit packed red blood cells today 5. GI/DVT prophylaxis 6. Pain control with current medication regimen 7. Insulin management per primary care service. Patient's diabetes is uncontrolled with hyperglycemia, will need tight blood sugar control to promote sternal union and prevent infection 8. Discontinue [place]. Connect Cordis to continuous CVP monitoring 9. Continue chest tubes for another 24 hours 10. Continue Cabrera catheter for another 24 hours for strict accurate intake and output. Daily weights 11. Increase activity, ambulate as tolerated. PT/OT/cardiac rehab following 12. More recommendations to follow Time with Patient: Greater than 30
[2022-01-05] MEDS ORDERED: PANTOPRAZOLE 40 MG/10 ML VIAL IVP SCH (09:00)
[2022-01-05] MEDS ORDERED: bisacodyL 10 MG SUPP RECTAL PRN (09:00)
[2022-01-05] MEDS: DILTIAZEM ORAL 30 MG TAB PO SCH ×2 (09:04→16:37)
[2022-01-05 09:26] LABS: Glucose,Whole Blood 210 mg/dL (75-99)
--- NOTE | 2022-01-05 09:52 | XR ---
EXAMINATION TYPE: XR chest 1V portable DATE OF EXAM: 01/05/2022 COMPARISON: 01/04/2022 HISTORY: 81 years Female. STUDY INDICATION GIVEN: Post Operative Cardiac Surgery . TECHNIQUE: AP chest radiograph IMPRESSION: Endotracheal tube has been removed. Mediastinal drain and right IJ [place] catheter are again seen . The [place] catheter projects towards the right pulmonary artery, this could be related to diffe rence in technique, clinical correlation recommended. Left chest tube stable in position. There is a tiny left apical pneumothorax that has not significantly changed measuring 5 mm along the left apex. No significant effusion appreciated. Increasing opacities in the left lower lobe and right lower lobe are likely reflective of atelectasis . Mild interstitial edema is not significantly changed. The heart size is prominent. Surgical changes in the mediastinum are similar to prior study. Please note that the study is significantly limited by presence of multiple external lines and tubes. There is removed from [id number] on follow-up radiographs.
[2022-01-05] MEDS: METOPROLOL TARTRATE 12.5 MG TAB PO SCH ×2 (10:39→20:58)
[2022-01-05 10:58] LABS: Glucose,Whole Blood 195 mg/dL (75-99)
--- NOTE | 2022-01-05 11:42 | P.PN ---
Subjective Progress Note Date: 01/05/22 This is a 81-year-old female patient who follows with Dr. Wang as her primary care provider. She has a history of hypertension, hyperlipidemia, diabetes mellitus. She is a nonsmoker. She was having symptomatic anginaand had undergone cardiac catheterization which showed severe triple-vessel coronary a rtery disease including the distal left main stenosis. She was brought in today electively forurinary artery revascularization. She had undergone an off-pump CABG 3 with a ALEGRE to the LAD, radial artery graft to the obtuse marginal, saphenous vein graft to the posterior descending coronary artery. Clipping of the left atrial appendage. She is seen today in the immediate postoperative period. She is intubated on the mechanical ventilator. Current settings are assist-control mode at a rate of 12, tidal 5 375, FiO2 40% and a PEEP of 5. Arterial blood gases revealed a pO2 of 261, pCO2 39, pH 7.36. She is currently receiving lactated Ringer's at 50 MLS per hour. Sedated with propofol at 20 mcg/kg/m. Nitroglycerin drip at 5 mg/m. Cardizem drip at 5 mg per hour. club approximate 4 mg per hour. Insulin at 0.5 units per hour. white count 11.5. Hemoglobin 8.1. Platelets 161,000. sodium 138. Potassium 4.7. BUN 19. Creatinine 0.91. Glucose 137. AST 24. ALT 11. Albumin 3.1. chest x-ray reveals a right perihilar and left lower lobe infiltrate with a small left effusion. Endotracheal tube and nasogastric tubes are in good position. Mediastinal chest tube in place. 270 ML's return thus far. Pulmonary artery pressure 40/15 with a mean of 23. CVP 9. Cardiac output 6. Cardiac index 4.1. On subcutaneous heparin for DVT prophylaxis. The patient is seen today 01/05/2022 in follow-up in the intensive care unit. This is postoperative day #1 of her off-pump coronary artery bypass surgery 3. She is currently sitting up in the recliner. Awake and alert in no acute distre ss. She is now maintaining good O2 saturation in the 90s on 2 L/m per nasal cannula. She has lactated Ringer's running at 20 ML's per hour. Insulin drip at 3.5 units per hour. Chest x-ray reveals a tiny left apical pneumothorax measuring 5 mm meters along the left apex. No significant effusions. Opacity of the left lower lobe and right lower lobe reflective of atelectasis. Mild interstitial edema. Mediastinal/left pleural chest tubes remain present and connected to wall suction. No leaks noted. Total of 750 ML since surgery output. She is pulling approximately 750 MLS on the incentive spirometer. [place] catheter removed today the cordis remains in place. Prior to the [place] being removed the cardiac output was 3.9 with a cardiac index 2.6. PA pressures 27/12 with a CVP of 11. WBC 6.9. Hemoglobin 6.9. Platelets 105,000. Sodium 138. Potassium 4.3. Creatinine 1.12. Glucose 161. AST 33. ALT 8. Albumin 3.3. Her blood pressure remains marginal. She is receiving 1 unit of packed blood cells today. She is continued on DuoNeb inhalations. Oral antiarrhythmics. Heparin for DVT prophylaxis. Objective - Vital Signs Vital signs: Vital Signs Temp 98.1 F 01/05/22 10:00 Pulse 86 01/05/22 11:23 Resp 15 01/05/22 11:00 BP 115/47 01/05/22 11:00 Pulse Ox 93 L 01/05/22 11:00 Intake & Output 01/04/22 01/05/22 01/05/22 18:59 06:59 18:59 Intake Total 646.624 2635.859 475.719 Output Total 1977 633 155 Balance -9770.705 8592.859 320.719 Weight 59.5 kg Intake: IV 501.5 1806.0 207.5 ACETAMINOPHEN IV (For NPO 100 ) 1,000 mg In Empty Bag 1 bag @ 400 mls/hr IVPB Q6HR YESI Rx#:[id number] Albumin Human 5% 250 ml 500 In Empty Bag 1 bag @ 250 mls/hr IVPB Q1HR PRN Rx#: [id number] CARDIAC OUTPUT (0.9 100 220 30 Sodium Chloride) Diltiazem 125 mg In 30 60 10 Sodium Chloride 0.9% 100 ml @ 5 MG/HR 5 mls/hr IV .Q24H YESI Rx#:[id number] Lactated Ringers 1,000 ml 300 600 130 @ 20 mls/hr IV .Q24H YESI Rx#:[id number] Magnesium Sulfate-D5w Pmx 200 1 gm In Dextrose/Water 1 100ml.bag @ 100 mls/hr IVPB Q1H YESI Rx#: [id number] Nitroglycerin-D5w Pmx 50 12.5 18.0 1.5 mg In Dextrose/Water 1 250ml.bag @ 5 MCG/MIN 1.5 mls/hr IV .Q24H YESI Rx#: [id number] Pressure Bag Sodium 54 108 36 Chloride 0.9% Intake, IV Titration 54.023 0.859 168.219 Amount Clevidipine Butyrate 25 25.366 mg In Empty Bag 1 bag @ 1 MG/HR 2 mls/hr IV .Q24H YESI Rx#:[id number] Diltiazem 125 mg In 98.583 Sodium Chloride 0.9% 100 ml @ 5 MG/HR 5 mls/hr IV .Q24H YESI Rx#:[id number] Insulin Regular 100 unit 7.473 0.859 19.636 In Sodium Chloride 0.9% 100 ml @ Per Protocol IV .Q0M YESI Rx#:[id number] ceFAZolin 2 gm In Sodium 50 Chloride 0.9% 50 ml @ 100 mls/hr IVPB Q8H YESI Rx#: [id number] propofoL 1,000 mg In 21.184 Empty Bag 1 bag @ Titrate IV .Q0M YESI Rx#: [id number] Oral 100 100 Blood Product 0 Rc As-1 Unit 0 [id number] Other 60 Output: Chest Tube Drainage 480 320 70 Chest Tube Left Pleural/ 480 320 70 Mediastinal Urine 1197 313 85 Estimated Blood Loss 300 Other: Voiding Method Indwelling Catheter ABP, PAP, CO, CI - Last Documented Arterial Blood Pressure 118/39 Pulmonary Artery Pressure 19/9 Cardiac Output 3.9 Cardiac Index 2.6 - Exam GENERAL EXAM: Alert, very pleasant 81-year-old female patient, on 2 L nasal cannula, up in a recliner, fairly comfortable in no apparent distress. HEAD: Normocephalic. EYES: Normal reaction of pupils, equal size. NOSE: Clear with pink turbinates. THROAT: No erythema or exudates. NECK: Right IJ cordis remains in place. No masses, no JVD. CHEST: Sternal dressing dry and intact. Heart other in place. Mediastinal/left pleural chest tubes in place. LUNGS: Equal air entry with faint crackles in the posterior bases. CVS: S1 and S2 normal with no audible murmur, regular rhythm. ABDOMEN: No hepatosplenomegaly, normal bowel sounds, no guarding or rigidity. SPINE: No scoliosis or deformity SKIN: No rashes CENTRAL NERVOUS SYSTEM: No focal deficits, tone is normal in all 4 extremities. EXTREMITIES: Right radial arterial line in place. There is trace peripheral edema. No clubbing, no cyanosis. Peripheral pulses are intact. - Labs CBC & Chem 7: 01/05/22 04:20 01/05/22 04:20 Labs: Abnormal Lab Results - Last 24 Hours (Table) 12/27/21 01/04/22 01/04/22 Range/Units 09:19 08:43 10:28 WBC (3.8-10.6) k/uL RBC (3.80-5.40) m/uL Hgb (11.4-16.0) gm/dL Hct (34.0-46.0) % Plt Count (150-450) k/uL Lymphocytes # (1.0-4.8) k/uL PT (9.0-12.0) sec INR (<1.2) ABG pH (7.35-7.45) ABG pO2 >420 H 125 H (83-108) mmHg ABG HCO3 (21-25) mmol/L ABG Total CO2 25 H 25 H (19-24) mmol/L ABG O2 Saturation 99.9 H 99.0 H (94-97) % ABG Hematocrit 26 L 26 L (34.0-46.0) % ABG Ionized Calcium (4.5-5.3) mg/dL ABG Glucose 103 H 119 H (75-99) mg/dL Hemoglobin 8.4 L 8.6 L (11.4-16.0) gm/dL Chloride (98-107) mmol/L Carbon Dioxide (22-30) mmol/L BUN (7-17) mg/dL Creatinine (0.52-1.04) mg/dL Glucose (74-99) mg/dL POC Glucose (mg/dL) (75-99) mg/dL Ionized Calcium Domitila (4.5-5.3) mg/dL Total Protein (6.3-8.2) g/dL Albumin (3.5-5.0) g/dL Arterial Blood Glucose 103 H 119 H (75-99) mg/dL Crossmatch See Detail 01/04/22 01/04/22 01/04/22 Range/Units 11:11 12:13 12:53 WBC (3.8-10.6) k/uL RBC (3.80-5.40) m/uL Hgb (11.4-16.0) gm/dL Hct (34.0-46.0) % Plt Count (150-450) k/uL Lymphocytes # (1.0-4.8) k/uL PT (9.0-12.0) sec INR (<1.2) ABG pH (7.35-7.45) ABG pO2 163 H 116 H (83-108) mmHg ABG HCO3 (21-25) mmol/L ABG Total CO2 25 H (19-24) mmol/L ABG O2 Saturation 99.2 H 98.4 H (94-97) % ABG Hematocrit 25 L 22 L (34.0-46.0) % ABG Ionized Calcium 5.4 H (4.5-5.3) mg/dL ABG Glucose 128 H 128 H (75-99) mg/dL Hemoglobin 8.2 L 7.0 L* (11.4-16.0) gm/dL Chloride (98-107) mmol/L Carbon Dioxide (22-30) mmol/L BUN (7-17) mg/dL Creatinine (0.52-1.04) mg/dL Glucose (74-99) mg/dL POC Glucose (mg/dL) 135 H (75-99) mg/dL Ionized Calcium Domitila (4.5-5.3) mg/dL Total Protein (6.3-8.2) g/dL Albumin (3.5-5.0) g/dL Arterial Blood Glucose 128 H 128 H (75-99) mg/dL Crossmatch 01/04/22 01/04/22 01/04/22 Range/Units 13:01 13:01 13:01 WBC (3.8-10.6) k/uL RBC 2.40 L (3.80-5.40) m/uL Hgb 7.2 L D (11.4-16.0) gm/dL Hct 22.8 L (34.0-46.0) % Plt Count 110 L (150-450) k/uL Lymphocytes # 0.6 L (1.0-4.8) k/uL PT 12.4 H (9.0-12.0) sec INR 1.2 H (<1.2) ABG pH (7.35-7.45) ABG pO2 (83-108) mmHg ABG HCO3 (21-25) mmol/L ABG Total CO2 (19-24) mmol/L ABG O2 Saturation (94-97) % ABG Hematocrit (34.0-46.0) % ABG Ionized Calcium (4.5-5.3) mg/dL ABG Glucose (75-99) mg/dL Hemoglobin (11.4-16.0) gm/dL Chloride 114 H (98-107) mmol/L Carbon Dioxide 20 L (22-30) mmol/L BUN 19 H (7-17) mg/dL Creatinine (0.52-1.04) mg/dL Glucose 120 H (74-99) mg/dL POC Glucose (mg/dL) (75-99) mg/dL Ionized Calcium Domitila 5.4 H (4.5-5.3) mg/dL Total Protein 5.5 L (6.3-8.2) g/dL Albumin 3.1 L (3.5-5.0) g/dL Arterial Blood Glucose (75-99) mg/dL Crossmatch 01/04/22 01/04/22 01/04/22 Range/Units 13:18 14:05 14:58 WBC (3.8-10.6) k/uL RBC (3.80-5.40) m/uL Hgb (11.4-16.0) gm/dL Hct (34.0-46.0) % Plt Count (150-450) k/uL Lymphocytes # (1.0-4.8) k/uL PT (9.0-12.0) sec INR (<1.2) ABG pH (7.35-7.45) ABG pO2 261 H (83-108) mmHg ABG HCO3 (21-25) mmol/L ABG Total CO2 (19-24) mmol/L ABG O2 Saturation 99.1 H (94-97) % ABG Hematocrit (34.0-46.0) % ABG Ionized Calcium (4.5-5.3) mg/dL ABG Glucose (75-99) mg/dL Hemoglobin (11.4-16.0) gm/dL Chloride (98-107) mmol/L Carbon Dioxide (22-30) mmol/L BUN (7-17) mg/dL Creatinine (0.52-1.04) mg/dL Glucose (74-99) mg/dL POC Glucose (mg/dL) 111 H 137 H (75-99) mg/dL Ionized Calcium Domitila (4.5-5.3) mg/dL Total Protein (6.3-8.2) g/dL Albumin (3.5-5.0) g/dL Arterial Blood Glucose (75-99) mg/dL Crossmatch 01/04/22 01/04/22 01/04/22 Range/Units 15:34 15:50 16:14 WBC 11.5 H (3.8-10.6) k/uL RBC 2.64 L (3.80-5.40) m/uL Hgb 8.1 L (11.4-16.0) gm/dL Hct 25.4 L (34.0-46.0) % Plt Count (150-450) k/uL Lymphocytes # (1.0-4.8) k/uL PT (9.0-12.0) sec INR (<1.2) ABG pH 7.25 L (7.35-7.45) ABG pO2 (83-108) mmHg ABG HCO3 18 L (21-25) mmol/L ABG Total CO2 (19-24) mmol/L ABG O2 Saturation (94-97) % ABG Hematocrit (34.0-46.0) % ABG Ionized Calcium (4.5-5.3) mg/dL ABG Glucose (75-99) mg/dL Hemoglobin (11.4-16.0) gm/dL Chloride (98-107) mmol/L Carbon Dioxide (22-30) mmol/L BUN (7-17) mg/dL Creatinine (0.52-1.04) mg/dL Glucose (74-99) mg/dL POC Glucose (mg/dL) 165 H (75-99) mg/dL Ionized Calcium Domitila (4.5-5.3) mg/dL Total Protein (6.3-8.2) g/dL Albumin (3.5-5.0) g/dL Arterial Blood Glucose (75-99) mg/dL Crossmatch 01/04/22 01/04/22 01/04/22 Range/Units 17:27 18:15 19:06 WBC (3.8-10.6) k/uL RBC (3.80-5.40) m/uL Hgb (11.4-16.0) gm/dL Hct (34.0-46.0) % Plt Count (150-450) k/uL Lymphocytes # (1.0-4.8) k/uL PT (9.0-12.0) sec INR (<1.2) ABG pH (7.35-7.45) ABG pO2 (83-108) mmHg ABG HCO3 (21-25) mmol/L ABG Total CO2 (19-24) mmol/L ABG O2 Saturation (94-97) % ABG Hematocrit (34.0-46.0) % ABG Ionized Calcium (4.5-5.3) mg/dL ABG Glucose (75-99) mg/dL Hemoglobin (11.4-16.0) gm/dL Chloride (98-107) mmol/L Carbon Dioxide (22-30) mmol/L BUN (7-17) mg/dL Creatinine (0.52-1.04) mg/dL Glucose (74-99) mg/dL POC Glucose (mg/dL) 179 H 146 H 106 H (75-99) mg/dL Ionized Calcium Domitila (4.5-5.3) mg/dL Total Protein (6.3-8.2) g/dL Albumin (3.5-5.0) g/dL Arterial Blood Glucose (75-99) mg/dL Crossmatch 01/04/22 01/04/22 01/04/22 Range/Units 19:09 21:04 22:03 WBC (3.8-10.6) k/uL RBC 2.29 L (3.80-5.40) m/uL Hgb 7.0 L (11.4-16.0) gm/dL Hct 21.5 L (34.0-46.0) % Plt Count 126 L (150-450) k/uL Lymphocytes # 0.3 L (1.0-4.8) k/uL PT (9.0-12.0) sec INR (<1.2) ABG pH (7.35-7.45) ABG pO2 (83-108) mmHg ABG HCO3 (21-25) mmol/L ABG Total CO2 (19-24) mmol/L ABG O2 Saturation (94-97) % ABG Hematocrit (34.0-46.0) % ABG Ionized Calcium (4.5-5.3) mg/dL ABG Glucose (75-99) mg/dL Hemoglobin (11.4-16.0) gm/dL Chloride (98-107) mmol/L Carbon Dioxide (22-30) mmol/L BUN (7-17) mg/dL Creatinine (0.52-1.04) mg/dL Glucose (74-99) mg/dL POC Glucose (mg/dL) 100 H 115 H (75-99) mg/dL Ionized Calcium Domitila (4.5-5.3) mg/dL Total Protein (6.3-8.2) g/dL Albumin (3.5-5.0) g/dL Arterial Blood Glucose (75-99) mg/dL Crossmatch 01/05/22 01/05/22 01/05/22 Range/Units 00:14 01:13 02:02 WBC (3.8-10.6) k/uL RBC (3.80-5.40) m/uL Hgb (11.4-16.0) gm/dL Hct (34.0-46.0) % Plt Count (150-450) k/uL Lymphocytes # (1.0-4.8) k/uL PT (9.0-12.0) sec INR (<1.2) ABG pH (7.35-7.45) ABG pO2 (83-108) mmHg ABG HCO3 (21-25) mmol/L ABG Total CO2 (19-24) mmol/L ABG O2 Saturation (94-97) % ABG Hematocrit (34.0-46.0) % ABG Ionized Calcium (4.5-5.3) mg/dL ABG Glucose (75-99) mg/dL Hemoglobin (11.4-16.0) gm/dL Chloride (98-107) mmol/L Carbon Dioxide (22-30) mmol/L BUN (7-17) mg/dL Creatinine (0.52-1.04) mg/dL Glucose (74-99) mg/dL POC Glucose (mg/dL) 168 H 166 H 169 H (75-99) mg/dL Ionized Calcium Domitila (4.5-5.3) mg/dL Total Protein (6.3-8.2) g/dL Albumin (3.5-5.0) g/dL Arterial Blood Glucose (75-99) mg/dL Crossmatch 01/05/22 01/05/22 01/05/22 Range/Units 04:20 04:20 04:22 WBC (3.8-10.6) k/uL RBC 2.25 L (3.80-5.40) m/uL Hgb 6.9 L* (11.4-16.0) gm/dL Hct 21.4 L (34.0-46.0) % Plt Count 105 L (150-450) k/uL Lymphocytes # 0.8 L (1.0-4.8) k/uL PT (9.0-12.0) sec INR (<1.2) ABG pH (7.35-7.45) ABG pO2 (83-108) mmHg ABG HCO3 (21-25) mmol/L ABG Total CO2 (19-24) mmol/L ABG O2 Saturation (94-97) % ABG Hematocrit (34.0-46.0) % ABG Ionized Calcium (4.5-5.3) mg/dL ABG Glucose (75-99) mg/dL Hemoglobin (11.4-16.0) gm/dL Chloride (98-107) mmol/L Carbon Dioxide (22-30) mmol/L BUN 23 H (7-17) mg/dL Creatinine 1.12 H (0.52-1.04) mg/dL Glucose 161 H (74-99) mg/dL POC Glucose (mg/dL) 173 H (75-99) mg/dL Ionized Calcium Domitila (4.5-5.3) mg/dL Total Protein 5.2 L (6.3-8.2) g/dL Albumin 3.3 L (3.5-5.0) g/dL Arterial Blood Glucose (75-99) mg/dL Crossmatch 01/05/22 01/05/22 01/05/22 Range/Units 06:19 07:19 08:26 WBC (3.8-10.6) k/uL RBC (3.80-5.40) m/uL Hgb (11.4-16.0) gm/dL Hct (34.0-46.0) % Plt Count (150-450) k/uL Lymphocytes # (1.0-4.8) k/uL PT (9.0-12.0) sec INR (<1.2) ABG pH (7.35-7.45) ABG pO2 (83-108) mmHg ABG HCO3 (21-25) mmol/L ABG Total CO2 (19-24) mmol/L ABG O2 Saturation (94-97) % ABG Hematocrit (34.0-46.0) % ABG Ionized Calcium (4.5-5.3) mg/dL ABG Glucose (75-99) mg/dL Hemoglobin (11.4-16.0) gm/dL Chloride (98-107) mmol/L Carbon Dioxide (22-30) mmol/L BUN (7-17) mg/dL Creatinine (0.52-1.04) mg/dL Glucose (74-99) mg/dL POC Glucose (mg/dL) 143 H 125 H 142 H (75-99) mg/dL Ionized Calcium Domitila (4.5-5.3) mg/dL Total Protein (6.3-8.2) g/dL Albumin (3.5-5.0) g/dL Arterial Blood Glucose (75-99) mg/dL Crossmatch 01/05/22 01/05/22 Range/Units 09:23 10:57 WBC (3.8-10.6) k/uL RBC (3.80-5.40) m/uL Hgb (11.4-16.0) gm/dL Hct (34.0-46.0) % Plt Count (150-450) k/uL Lymphocytes # (1.0-4.8) k/uL PT (9.0-12.0) sec INR (<1.2) ABG pH (7.35-7.45) ABG pO2 (83-108) mmHg ABG HCO3 (21-25) mmol/L ABG Total CO2 (19-24) mmol/L ABG O2 Saturation (94-97) % ABG Hematocrit (34.0-46.0) % ABG Ionized Calcium (4.5-5.3) mg/dL ABG Glucose (75-99) mg/dL Hemoglobin (11.4-16.0) gm/dL Chloride (98-107) mmol/L Carbon Dioxide (22-30) mmol/L BUN (7-17) mg/dL Creatinine (0.52-1.04) mg/dL Glucose (74-99) mg/dL POC Glucose (mg/dL) 210 H 195 H (75-99) mg/dL Ionized Calcium Domitila (4.5-5.3) mg/dL Total Protein (6.3-8.2) g/dL Albumin (3.5-5.0) g/dL Arterial Blood Glucose (75-99) mg/dL Crossmatch Assessment and Plan Assessment: 1 Symptomatic coronary artery disease status post coronary artery bypass grafting, off pump, CABG 3 with a ALEGRE to the LAD, left radial artery to the obtuse marginal, saphenous vein graft to the posterior descending artery. Left atrial appendage clipped. Postoperative day #1 2 Anemia with current hemoglobin 6.9, an expected outcome of surgery, receiving 1 unit of packed red blood cells today 3 Hyperlipidemia 4 Diabetes mellitus 5 Chronic renal insufficiency 6 History of prior tobacco dependence 7 Carotid artery stenosis, left Plan: The patient was seen and evaluated Chest x-ray and labs reviewed On 2 L nasal cannula Encouraged to increase use of the incentive spirometer cough and deep breathing exercises Mild receiving 1 unit of packed red blood cells today Titrate the FiO2 as tolerated Increase her activity as tolerated We will continue to follow I, the cosigning physician, performed a history & physical examination of the patient. Lungs sounds crackles in the posterior bases. Maintaining good O2 saturations in the 90s on liters per minute per nasal cannula. I discussed the assessment and plan of care with my nurse practitioner, Alma Paul. I attest to the above note as dictated by her. I have personally seen and examined the patient, performed the documentation and the assessment and plan as written. Number of minutes spent on the visit: 10.
[2022-01-05 12:04] LABS: Glucose,Whole Blood 207 mg/dL (75-99)
[2022-01-05 13:08] VITALS: BMI 25.6
[2022-01-05 13:21] LABS: Glucose,Whole Blood 177 mg/dL (75-99)
[2022-01-05] MEDS: HYDROcodone/APAP 5-325MG 1 EACH TAB PO PRN ×2 (13:40→20:24)
[2022-01-05] MEDS: DILTIAZEM 125 MG in SODIUM CHLORIDE 0.9% 100 ML IV SCH (13:54)
--- NOTE | 2022-01-05 14:21 | P.HPIM ---
History of Present Illness H&P Date: 01/04/22 Chief Complaint: Triple-vessel coronary artery disease This is a 81-year-old female patient, history of hypertension, hyperlipidemia, diabetes mellitus, had undergone cardiac catheterization which showed severe triple-vessel coronary artery disease including the distal left main stenosis. She was brought in today electively CABG. She had undergone an off-pump CABG 3 with a ALEGRE to the LAD, radial artery graft to the obtuse marginal, saphenous vein graft to the posterior descending coronary artery. Clipping of the left atrial appendage. She is currently intubated on the mechanical ventilator. Sedated with propofol at 20 mcg/kg/m. Nitroglycerin drip at 5 mg/m. Cardizem drip at 5 mg per hour. Insulin at 0.5 units per hour. Lab review reveals white count 11.5. Hemoglobin 8.1. Platelets 161,000. sodium 138. Potassium 4.7. BUN 19. Creatinine 0.91. Glucose 137. AST 24. ALT 11. Albumin 3.1 Chest x-ray reveals a right perihilar and left lower lobe infiltrate with a small left effusion. Endotracheal tube and nasogastric tubes are in good position. Mediastinal chest tube in place. Review of Systems ROS unobtainable: due to endotracheal tube Past Medical History Past Medical History: Chest Pain / Angina, Diabetes Mellitus, Hyperlipidemia, Hypertension Additional Past Medical History / Comment(s): UTI-ECOLI History of Any Multi-Drug Resistant Organisms: None Reported Past Surgical History: Cholecystectomy, Heart Catheterization, Hernia Repair, Hysterectomy, Orthopedic Surgery Additional Past Surgical History / Comment(s): R shoulder surgery. R broken wrist.trigger release rt middle finger. pt not sure if they took appendix when they did hysterectomy Past Anesthesia/Blood Transfusion Reactions: No Reported Reaction Additional Past Anesthesia/Blood Transfusion Reaction / Comment(s): blood transfusion-no reaction Additional Psychological History / Comment(s): pt is independant, lives with spouse, pt's sister and a grand daughter- has 1 step to house, has 3 pet dogs. recieves meals on wheels, has shower chair and bsc. - Past Family History Father Family Medical History: Congestive Heart Failure (CHF) Mother Family Medical History: Pneumonia Additional Family Medical History / Comment(s): fom pne Medications and Allergies Home Medications Medication Instructions Recorded Confirmed Type Clopidogrel [Plavix] 75 mg PO QAM 02/13/16 12/27/21 History Losartan [Cozaar] 50 mg PO HS 02/13/16 01/04/22 History Insulin Glargine,Hum.rec.anlog 10 unit SQ HS 02/13/19 01/04/22 History [Monroedennygenny Solostar] Alendronate Sodium [Fosamax] 70 mg PO WE 07/16/20 01/04/22 History Omeprazole 20 mg PO DAILY PRN 07/16/20 01/04/22 History Isosorbide Mononitrate ER [Imdur] 60 mg PO DAILY 30 Days #30 07/18/20 01/04/22 Rx tab.er.24h Meclizine [Antivert] 25 mg PO TID PRN 10/09/21 01/04/22 History Nitroglycerin Sl Tabs [Nitrostat] 0.4 mg SUBLINGUAL Q5M PRN 10/09/21 01/04/22 History Pioglitazone [Actos] 30 mg PO DAILY 10/09/21 01/04/22 History amLODIPine [Norvasc] 5 mg PO DAILY 10/09/21 01/04/22 History ALPRAZolam [Xanax] 0.25 mg PO BID PRN 12/07/21 01/04/22 History Dapagliflozin Propanediol [Farxiga] 10 mg PO DAILY 12/07/21 01/04/22 History metFORMIN HCL [Glucophage] 1,000 mg PO DAILY 12/07/21 01/04/22 History Atorvastatin [Lipitor] 80 mg PO HS 12/27/21 01/04/22 History Ciprofloxacin HCl [Cipro] 500 mg PO Q12HR 12/27/21 01/04/22 History Ergocalciferol [Vitamin D2 (1250 50,000 unit PO WE 12/27/21 01/04/22 History Mcg = 78437 Iu)] Multivitamins, Thera [Multivitamin 1 tab PO DAILY 12/27/21 01/04/22 History (formulary)] Mupirocin [Mupirocin 2%] 1 applic NASAL BID #1 tub 12/27/21 12/27/21 Rx Allergies Allergy/AdvReac Type Severity Reaction Status Date / Time aspirin Allergy Rash/Hives Verified 01/04/22 05:53 codeine Allergy Rash/Hives Verified 01/04/22 05:53 Influenza Virus Vaccines Allergy Rash/Hives Verified 01/04/22 05:53 Iodinated Contrast Media Allergy Rash/Hives/Increased Verified 01/04/22 05:53 [Iodinated Contrast Media - HR IV Dye] iodine Allergy Rash/Hives Verified 01/04/22 05:53 NSAIDS (Non-Steroidal Allergy Anaphylaxis Verified 01/04/22 05:53 Anti-Inflamma Physical Exam Vitals: Vital Signs Temp Pulse Resp BP BP Pulse Ox 01/04/22 06:02 97.6 F 76 16 174/68 174/77 98 Intake and Output 01/03/22 01/04/22 01/04/22 22:59 06:59 14:59 Intake Total 200 5 Balance 200 5 Intake: IV 200 5 Other: Weight 55.6 kg GENERAL EXAM: Intubated, sedated 81-year-old female patient, comfortable in no apparent distress. HEAD: Normocephalic. NECK: [place] catheter in place. No masses, no JVD. CHEST: Sternal dressing dry and intact. Heart Hugger in place. Mediastinal emmy st tube in place. LUNGS: Equal air entry with no crackles, wheeze, rhonchi or dullness. CVS: S1 and S2 normal with no audible murmur, regular rhythm. ABDOMEN: No hepatosplenomegaly, normal bowel sounds, no guarding or rigidity. SPINE: No scoliosis or deformity SKIN: No rashes CENTRAL NERVOUS SYSTEM: No focal deficits, tone is normal in all 4 extremities. EXTREMITIES: There is no peripheral edema. No clubbing, no cyanosis. Peripheral pulses are intact. Results CBC & Chem 7: 01/05/22 04:20 01/05/22 04:20 Labs: Abnormal Lab Results - Last 24 Hours (Table) 12/27/21 01/04/22 Range/Units 09:19 06:16 POC Glucose (mg/dL) 101 H (75-99) mg/dL Crossmatch See Detail Thrombosis Risk Factor Assmnt - Choose All That Apply Each Risk Factor Represents 2 Points: Central venous access Each Risk Factor Represents 3 Points: Age 75 years or older Each Risk Factor Represents 5 Points: Major surgery lasting over 3 hours Thrombosis Risk Factor Assessment Total Risk Factor Score: 10 Thrombosis Risk Factor Assessment Level: High Risk Assessment and Plan Assessment: 1. Symptomatic triple-vessel CAD; -- status post coronary artery bypass grafting, off pump, CABG 3 with a ALEGRE to the LAD, left radial artery to the obtuse marginal, saphenous vein graft to the posterior descending artery. Left atrial appendage clipped. - Patient remains intubated and mechanically ventilated; intensive care team on board with plans for early extubation as tolerated 2. Hypertension; metoprolol 12.5 mg twice a day; Cardizem 30 mg every 8 hours 3. Hyperlipidemia; Lipitor 80 mg daily at bedtime 4. Diabetes mellitus; patient takes Farxiga, Actos and Toujeo at home; currently plan is for Accu-Cheks every before meals and at bedtime with sliding scale 5. Anxiety; takes Xanax 0.25 mg twice a day, but she remains on hold DVT prophylaxis; SCDs/subcu heparin CODE STATUS; full code
[2022-01-05 14:23] LABS: Glucose,Whole Blood 182 mg/dL (75-99)
--- NOTE | 2022-01-05 15:22 | P.CRDCN ---
History of Present Illness Consult date: 01/05/22 History of present illness: This is a 81-year-old female with history of hypertension, hyperlipidemia and diabetes mellitus was evaluated in November by Dr. Reyes for symptoms of exertional chest tightness. 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 Patient had bypass surgery with the ALEGRE to the LAD, radial artery to the OM branch and vein graft to the posterior descending coronary artery. Patient also had clipping of the atrial appendage. At the time of examination patient is intensive care unit sitting in the chair. Multiple tubes and [place] catheter still present. Patient however feeling good has some chest pain but seemed to be reasonable. No significant arrhythmias are noted. Her cardiac output seemed to be adequate. Hemodynamically otherwise stable. Continue current medical therapy continued to incentive spirometry. We'll continue to follow Review of Systems As per the chart Past Medical History Past Medical History: Chest Pain / Angina, Diabetes Mellitus, Hyperlipidemia, Hypertension Additional Past Medical History / Comment(s): UTI-ECOLI History of Any Multi-Drug Resistant Organisms: None Reported Past Surgical History: Cholecystectomy, Heart Catheterization, Hernia Repair, Hysterectomy, Orthopedic Surgery Additional Past Surgical History / Comment(s): R shoulder surgery. R broken wrist.trigger release rt middle finger. pt not sure if they took appendix when they did hysterectomy Past Anesthesia/Blood Transfusion Reactions: No Reported Reaction Additional Past Anesthesia/Blood Transfusion Reaction / Comment(s): blood transfusion-no reaction Additional Psychological History / Comment(s): pt is independant, lives with spouse, pt's sister and a grand daughter- has 1 step to house, has 3 pet dogs. recieves meals on wheels, has shower chair and bsc. - Past Family History Father Family Medical History: Congestive Heart Failure (CHF) Mother Family Medical History: Pneumonia Additional Family Medical History / Comment(s): fom pne Medications and Allergies Home Medications Medication Instructions Recorded Confirmed Type Clopidogrel [Plavix] 75 mg PO QAM 02/13/16 12/27/21 History Losartan [Cozaar] 50 mg PO HS 02/13/16 01/04/22 History Insulin Glargine,Hum.rec.anlog 10 unit SQ HS 02/13/19 01/04/22 History [Toujeo Solostar] Alendronate Sodium [Fosamax] 70 mg PO WE 07/16/20 01/04/22 History Omeprazole 20 mg PO DAILY PRN 07/16/20 01/04/22 History Isosorbide Mononitrate ER [Imdur] 60 mg PO DAILY 30 Days #30 07/18/20 01/04/22 Rx tab.er.24h Meclizine [Antivert] 25 mg PO TID PRN 10/09/21 01/04/22 History Nitroglycerin Sl Tabs [Nitrostat] 0.4 mg SUBLINGUAL Q5M PRN 10/09/21 01/04/22 History Pioglitazone [Actos] 30 mg PO DAILY 10/09/21 01/04/22 History amLODIPine [Norvasc] 5 mg PO DAILY 10/09/21 01/04/22 History ALPRAZolam [Xanax] 0.25 mg PO BID PRN 12/07/21 01/04/22 History Dapagliflozin Propanediol [Farxiga] 10 mg PO DAILY 12/07/21 01/04/22 History metFORMIN HCL [Glucophage] 1,000 mg PO DAILY 12/07/21 01/04/22 History Atorvastatin [Lipitor] 80 mg PO HS 12/27/21 01/04/22 History Ciprofloxacin HCl [Cipro] 500 mg PO Q12HR 12/27/21 01/04/22 History Ergocalciferol [Vitamin D2 (1250 50,000 unit PO WE 12/27/21 01/04/22 History Mcg = [id number] Iu)] Multivitamins, Thera [Multivitamin 1 tab PO DAILY 12/27/21 01/04/22 History (formulary)] Mupirocin [Mupirocin 2%] 1 applic NASAL BID #1 tub 12/27/21 12/27/21 Rx Allergies Allergy/AdvReac Type Severity Reaction Status Date / Time aspirin Allergy Rash/Hives Verified 01/04/22 05:53 codeine Allergy Rash/Hives Verified 01/04/22 05:53 Influenza Virus Vaccines Allergy Rash/Hives Verified 01/04/22 05:53 Iodinated Contrast Media Allergy Rash/Hives/Increased Verified 01/04/22 05:53 [Iodinated Contrast Media - HR IV Dye] iodine Allergy Rash/Hives Verified 01/04/22 05:53 NSAIDS (Non-Steroidal Allergy Anaphylaxis Verified 01/04/22 05:53 Anti-Inflamma Physical Exam Vitals: Vital Signs Temp Pulse Pulse Pulse Resp BP Pulse Ox 01/05/22 14:00 87 16 100/42 95 01/05/22 13:00 88 14 95/43 93 L 01/05/22 12:00 98.1 F 92 26 H 107/49 95 01/05/22 11:33 87 01/05/22 11:23 86 01/05/22 11:00 84 15 115/47 93 L 01/05/22 10:00 98.1 F 88 16 109/44 96 01/05/22 09:45 98 F 80 18 95 01/05/22 09:25 97.8 F 83 18 96 01/05/22 09:00 97.9 F 80 14 96/46 94 L 01/05/22 08:00 98 F 80 17 100/51 94 L 01/05/22 07:20 73 01/05/22 07:04 73 01/05/22 07:00 73 13 99/44 95 01/05/22 06:00 78 18 102/74 96 01/05/22 05:00 75 16 99/39 100 01/05/22 04:00 76 76 12 93/41 99 01/05/22 03:00 79 14 100/48 98 01/05/22 02:00 84 18 101/44 98 01/05/22 01:00 86 12 97/46 99 01/05/22 00:00 89 76 13 98/48 99 01/04/22 23:00 93 14 91/45 99 01/04/22 22:00 95 12 102/66 100 01/04/22 21:00 95 9 L 109/45 100 01/04/22 20:43 93 01/04/22 20:00 94 76 14 101/49 99 01/04/22 19:30 98 16 101/49 99 01/04/22 19:15 95 21 101/49 99 01/04/22 19:00 100.2 F H 94 14 97/46 100 01/04/22 18:45 98 14 99 01/04/22 18:30 98 15 99 01/04/22 18:15 98 15 99 01/04/22 18:00 100.6 F H 105 H 15 101/38 100 01/04/22 17:45 100 15 01/04/22 17:30 101 H 01/04/22 17:15 100 15 101/38 01/04/22 17:00 104 H 19 94 L 01/04/22 16:45 101 H 15 96 01/04/22 16:30 104 H 16 93 L 01/04/22 16:15 97 10 L 104/36 99 01/04/22 16:00 98.8 F 98 15 98 01/04/22 15:45 99 19 97 01/04/22 15:39 76 16 98 01/04/22 15:30 96 18 97 01/04/22 15:19 90 Intake and Output 01/05/22 01/05/22 01/05/22 06:59 14:59 22:59 Intake Total 994.0 1166.698 Output Total 463 355 Balance 531.0 811.698 Intake: IV 994.0 285.5 ACETAMINOPHEN IV (For NPO 100 ) 1,000 mg In Empty Bag 1 bag @ 400 mls/hr IVPB Q6HR YESI Rx#:[id number] Albumin Human 5% 250 ml 250 In Empty Bag 1 bag @ 250 mls/hr IVPB Q1HR PRN Rx#: [id number] CARDIAC OUTPUT (0.9 120 30 Sodium Chloride) Diltiazem 125 mg In 40 10 Sodium Chloride 0.9% 100 ml @ 5 MG/HR 5 mls/hr IV .Q24H YESI Rx#:[id number] Lactated Ringers 1,000 ml 400 190 @ 20 mls/hr IV .Q24H YESI Rx#:[id number] Nitroglycerin-D5w Pmx 50 12.0 1.5 mg In Dextrose/Water 1 250ml.bag @ 5 MCG/MIN 1.5 mls/hr IV .Q24H [facility] Rx#: [id number] Pressure Bag Sodium 72 54 Chloride 0.9% Intake, IV Titration 0 181.198 Amount Diltiazem 125 mg In 98.583 Sodium Chloride 0.9% 100 ml @ 5 MG/HR 5 mls/hr IV .Q24H [facility] Rx#:[id number] Insulin Regular 100 unit 0 32.615 In Sodium Chloride 0.9% 100 ml @ Per Protocol IV .Q0M YESI Rx#:[id number] ceFAZolin 2 gm In Sodium 50 Chloride 0.9% 50 ml @ 100 mls/hr IVPB Q8H [facility] Rx#: [id number] Oral 340 Blood Product 310 Rc As-1 Unit 310 [id number] Other 50 Rc As-1 Unit 50 [id number] Output: Chest Tube Drainage 240 200 Chest Tube Left Pleural/ 240 200 Mediastinal Urine 223 155 Other: Voiding Method Indwelling Catheter Weight 59.5 kg 59.5 kg ABP, PAP, CO, CI - Last 8 Hours Arterial Blood Pressure 111/35 Arterial Blood Pressure 99/61 Arterial Blood Pressure 102/32 Arterial Blood Pressure 118/39 Arterial Blood Pressure 108/35 Arterial Blood Pressure 112/33 Arterial Blood Pressure 92/40 GENERAL EXAM: Patient is alert and oriented and doesn't appear to be in any acute distress HEENT: Normocephalic. Normal reaction of pupils, equal size, normal range of extraocular motion. No erythema or exudates in the throat. NECK: No masses, no nuchal rigidity. CHEST: Postsurgical LUNGS: Diminished air exchange HEART: S1 and S2 normal with no audible mumurs or gallops. Regular rhythm, femorals equal on both sides.. ABDOMEN: No hepatosplenomegaly, normal bowel sounds, no guarding or rigidity. SKIN: No rashes CENTRAL NERVOUS SYSTEM: No focal deficits. EXTREMITIES: No cyanosis, clubbing or edema. Results 01/05/22 04:20 01/05/22 04:20 Cardiac Enzymes 01/05/22 Range/Units 04:20 AST 33 (14-36) U/L CBC 01/04/22 01/04/22 01/05/22 Range/Units 15:34 19:09 04:20 WBC 11.5 H 6.4 6.9 (3.8-10.6) k/uL RBC 2.64 L 2.29 L 2.25 L (3.80-5.40) m/uL Hgb 8.1 L 7.0 L 6.9 L* (11.4-16.0) gm/dL Hct 25.4 L 21.5 L 21.4 L (34.0-46.0) % Plt Count 161 126 L 105 L (150-450) k/uL Comprehensive Metabolic Panel 01/05/22 Range/Units 04:20 Sodium 138 (137-145) mmol/L Potassium 4.3 (3.5-5.1) mmol/L Chloride 107 (98-107) mmol/L Carbon Dioxide 24 (22-30) mmol/L BUN 23 H (7-17) mg/dL Creatinine 1.12 H (0.52-1.04) mg/dL Glucose 161 H (74-99) mg/dL Calcium 8.4 (8.4-10.2) mg/dL AST 33 (14-36) U/L ALT 8 (4-34) U/L Alkaline Phosphatase 44 (38-126) U/L Total Protein 5.2 L (6.3-8.2) g/dL Albumin 3.3 L (3.5-5.0) g/dL Current Medications Generic Name Dose Route Start Last Admin Trade Name Freq PRN Reason Stop Dose Admin Acetaminophen 650 mg 01/05/22 07:30 Acetaminophen Tab 325 Mg Tab PO Q4HR PRN Fever and/ or Pain Hydrocodone Bitart/Acetaminophen 2 each 01/05/22 00:17 Hydrocodone/Apap 5-325mg 1 Each Tab PO Q4HR PRN Severe Pain Hydrocodone Bitart/Acetaminophen 1 each 01/05/22 00:17 01/05/22 13:40 Hydrocodone/Apap 5-325mg 1 Each Tab PO 1 each Q4HR PRN Administration Moderate Pain Albuterol/Ipratropium 3 ml 01/04/22 12:55 Ipratropium-Albuterol 3 Ml Neb INHALATION RT-Q2H PRN Shortness Of Breath Or Wheezing Albuterol/Ipratropium 3 ml 01/05/22 08:00 01/05/22 11:23 Ipratropium-Albuterol 3 Ml Neb INHALATION 3 ml RT-QID YESI Administration Atorvastatin Calcium 80 mg 01/04/22 21:00 01/04/22 20:26 Atorvastatin 80 Mg Tab PO 80 mg HS YESI Administration Benzocaine/Menthol 1 each 01/04/22 12:55 01/04/22 20:25 Benzocaine/Menthol Lozeng 1 Each Lozenge MUCOUS MEM 1 each Q2H PRN Administration Sore Throat Bisacodyl 10 mg 01/05/22 09:00 Bisacodyl 10 Mg Supp RECTAL DAILY PRN Constipation Clopidogrel Bisulfate 75 mg 01/05/22 09:00 01/05/22 08:18 Clopidogrel 75 Mg Tab PO 75 mg QAM YESI Administration Diltiazem HCl 30 mg 01/05/22 08:30 01/05/22 09:04 Diltiazem Oral 30 Mg Tab PO 30 mg Q8HR YESI Administration Ergocalciferol 1,250 mcg 01/09/22 09:00 Ergocalciferol 1,250 Mcg (50,000 Iu) Capsule PO WE YESI Heparin Sodium (Porcine) 5,000 unit 01/04/22 16:00 01/05/22 08:18 Heparin Sodium,Porcine/Pf 5,000 Unit/0.5 Ml Syringe SQ 5,000 unit Q8HR YESI Administration Amiodarone HCl 150 mg/ 103 mls @ 618 mls/hr 01/04/22 12:55 Dextrose/Water IV .Q10M PRN A.FIB/FLUTTER Protocol Amiodarone HCl 360 mg/ 207.2 mls @ 34.533 mls/hr 01/04/22 12:55 Dextrose/Water IV .Q6H PRN A.FIB/FLUTTER Protocol 1 MG/MIN Amiodarone HCl 450 mg/ 250 mls @ 16.667 mls/hr 01/04/22 12:55 Dextrose/Water IV .Q15H PRN A.FIB/FLUTTER Protocol 0.5 MG/MIN Albumin Human 250 ml/ IV 250 mls @ 250 mls/hr 01/04/22 12:55 01/04/22 23:09 Solution IVPB 01/06/22 12:56 250 mls/hr Q1HR PRN Administration For Volume Protocol Lactated Ringer's 1,000 mls @ 20 mls/hr 01/04/22 12:55 01/04/22 13:20 Lactated Ringers IV 01/06/22 12:56 50 mls/hr .Q24H YESI Administration Insulin Human Regular 100 unit 101 mls @ 0 mls/hr 01/04/22 13:30 01/05/22 14:32 / Sodium Chloride IV 3.5 unit/hr .Q0M YESI 3.535 mls/hr Titration Protocol Per Protocol Magnesium Hydroxide 2,400 mg 01/05/22 09:00 Magnesium Hydroxide 2,400 Mg/10 Ml Cup PO BID PRN Constipation Metoclopramide HCl 10 mg 01/04/22 12:55 Metoclopramide 5 Mg/Ml 2 Ml Vial IVP Q4H PRN Nausea And Vomiting Metoprolol Tartrate 12.5 mg 01/05/22 09:00 01/05/22 10:39 Metoprolol Tartrate 12.5 Mg Tab PO Not Given BID YESI Miscellaneous Information 1 each 01/04/22 12:55 Potassium Replacement Protocol 1 Each Misc MISCELLANE DAILY PRN Per Protocol Protocol Miscellaneous Information 1 each 01/04/22 12:55 Magnesium Replacement Protocol 1 Each [facility] MISCELLANE DAILY PRN Per Protocol Protocol Miscellaneous Information 1 each 01/04/22 12:55 Phosphorus Replacement Protoco 1 Each [facility] MISCELLANE DAILY PRN Per Protocol Protocol Miscellaneous Information 1 each 01/04/22 14:10 Magnesium Replacement Protocol 1 Each [facility] MISCELLANE DAILY PRN Per Protocol Protocol Miscellaneous Information 1 each 01/04/22 18:50 Magnesium Replacement Protocol 1 Each [facility] MISCELLANE DAILY PRN Per Protocol Protocol Multivitamins 1 each 01/05/22 09:00 01/05/22 08:18 Multivitamins, Thera 1 Each Tab PO 1 each DAILY YESI Administration Ondansetron HCl 4 mg 01/04/22 12:55 01/05/22 05:47 Ondansetron 4 Mg/2 Ml Vial IVP 4 mg Q6HR PRN Administration Nausea And Vomiting Pantoprazole Sodium 40 mg 01/06/22 07:30 Pantoprazole 40 Mg Tablet PO AC-BRKFST YESI Senna/Docusate Sodium 2 each 01/05/22 21:00 Sennosides-Docusate Sodium 1 Each Tab PO HS YESI Sodium Chloride 10 ml 01/04/22 21:00 01/05/22 08:18 Sodium Chloride 0.9% Flush 10 Ml Syringe IV 10 ml BID YESI Administration Sodium Chloride 10 ml 01/06/22 06:43 Sodium Chloride 0.9% Flush 10 Ml Syringe IV DIRECTED PRN FLUSH Intake and Output 01/05/22 01/05/22 01/05/22 06:59 14:59 22:59 Intake Total 994.0 1166.698 Output Total 463 355 Balance 531.0 811.698 Intake: IV 994.0 285.5 ACETAMINOPHEN IV (For NPO 100 ) 1,000 mg In Empty Bag 1 bag @ 400 mls/hr IVPB Q6HR [facility] Rx#:[id number] Albumin Human 5% 250 ml 250 In Empty Bag 1 bag @ 250 mls/hr IVPB Q1HR PRN Rx#: [id number] CARDIAC OUTPUT (0.9 120 30 Sodium Chloride) Diltiazem 125 mg In 40 10 Sodium Chloride 0.9% 100 ml @ 5 MG/HR 5 mls/hr IV .Q24H [facility] Rx#:[id number] Lactated Ringers 1,000 ml 400 190 @ 20 mls/hr IV .Q24H [facility] Rx#:[id number] Nitroglycerin-D5w Pmx 50 12.0 1.5 mg In Dextrose/Water 1 250ml.bag @ 5 MCG/MIN 1.5 mls/hr IV .Q24H [facility] Rx#: [id number] Pressure Bag Sodium 72 54 Chloride 0.9% Intake, IV Titration 0 181.198 Amount Diltiazem 125 mg In 98.583 Sodium Chloride 0.9% 100 ml @ 5 MG/HR 5 mls/hr IV .Q24H [facility] Rx#:[id number] Insulin Regular 100 unit 0 32.615 In Sodium Chloride 0.9% 100 ml @ Per Protocol IV .Q0M [facility] Rx#:[id number] ceFAZolin 2 gm In Sodium 50 Chloride 0.9% 50 ml @ 100 mls/hr IVPB Q8H [facility] Rx#: [id number] Oral 340 Blood Product 310 Rc As-1 Unit 310 [id number] Other 50 Rc As-1 Unit 50 [id number] Output: Chest Tube Drainage 240 200 Chest Tube Left Pleural/ 240 200 Mediastinal Urine 223 155 Other: Voiding Method Indwelling Catheter Weight 59.5 kg 59.5 kg Patient Weight 01/06/22 06:59 Weight 59.5 kg 01/05/22 04:20 01/05/22 04:20 Assessment and Plan (1) CAD (coronary artery disease) Current Visit: Yes Status: Acute Code(s): I25.10 - ATHSCL HEART DISEASE OF [place] CORONARY ARTERY W/O ANG PCTRS SNOMED Code(s): 14820055 (2) Status post aorto-coronary artery bypass graft Current Visit: Yes Status: Acute Code(s): Z95.1 - PRESENCE OF AORTOCORONARY BYPASS GRAFT SNOMED Code(s): 370848003 (3) Hypertension Current Visit: Yes Status: Acute Code(s): I10 - ESSENTIAL (PRIMARY) HYPERTENSION SNOMED Code(s): 27804812 (4) Hypercholesterolemia Current Visit: Yes Status: Acute Code(s): E78.00 - PURE HYPERCHOLESTEROLEMIA, UNSPECIFIED SNOMED Code(s): 65115075 Plan: Continue current management. Increase activity as tolerated. Incentive spirometry. We will follow
[2022-01-05 15:39] LABS: Glucose,Whole Blood 141 mg/dL (75-99)
[2022-01-05] MEDS: LACTATED RINGERS 1,000 ML IV SCH (16:37)
[2022-01-05 16:41] LABS: Glucose,Whole Blood 127 mg/dL (75-99)
[2022-01-05 18:06] LABS: Glucose,Whole Blood 171 mg/dL (75-99)
[2022-01-05 19:03] LABS: Glucose,Whole Blood 171 mg/dL (75-99)
--- NOTE | 2022-01-05 19:47 | P.PN ---
Subjective Progress Note Date: 01/05/22 81-year-old female patient, history of hypertension, hyperlipidemia, diabetes mellitus, had undergone cardiac catheterization which showed severe triple- vessel coronary artery disease including the distal left main stenosis. She was brought in today electively CABG. She had undergone an off-pump CABG 3 with a ALEGRE to the LAD, radial artery graft to the obtuse marginal, saphenous vein graft to the posterior descending coronary artery. Clipping of the left atrial appendage. She is currently intubated on the mechanical ventilator. Sedated with propofol at 20 mcg/kg/m. Nitroglycerin drip at 5 mg/m. Cardizem drip at 5 mg per hour. Insulin at 0.5 units per hour. Lab review reveals white count 11.5. Hemoglobin 8.1. Platelets 161,000. sodium 138. Potassium 4.7. BUN 19. Creatinine 0.91. Glucose 137. AST 24. ALT 11. Albumin 3.1 Chest x-ray reveals a right perihilar and left lower lobe infiltrate with a small left effusion. Endotracheal tube and nasogastric tubes are in good position. Mediastinal chest tube in place. 01/05/2022 Patient seen and evaluated in follow-up; postoperative day #1 of coronary artery bypass surgery 3. She is currently sitting up in the recliner. Awake and alert in no acute distress. Blood pressure is marginal Chest x-ray reveals a tiny left apical pneumothorax measuring 5 mm meters along the left apex. No significant effusions. Opacity of the left lower lobe and right lower lobe reflective of atelectasis. Mild interstitial edema. Mediastinal/left pleural chest tubes remain present and connected to wall suction. No leaks noted. Total of 750 ML since surgery output. She is pulling approximately 750 MLS on the incentive spirometer. [place] catheter removed today the cordis remains in place. Prior to the [place] being removed the cardiac output was 3.9 with a cardiac index 2.6. PA pressures 27/12 with a CVP of 11. WBC 6.9. Hemoglobin 6.9. Platelets 105,000. Sodium 138. Potassium 4.3. Creatinine 1.12. Glucose 161. AST 33. ALT 8. Albumin 3.3. She is receiving 1 unit of packed blood cells today. She is continued on DuoNeb inhalations. Oral antiarrhythmics. Objective - Vital Signs Vital signs: Vital Signs Temp 98.1 F 01/05/22 12:00 Pulse 88 01/05/22 13:00 Resp 14 01/05/22 13:00 BP 95/43 01/05/22 13:00 Pulse Ox 93 L 01/05/22 13:00 Intake & Output 01/04/22 01/05/22 01/05/22 18:59 06:59 18:59 Intake Total 095.363 1918.859 1137.719 Output Total 1977 633 285 Balance -9589.233 5519.859 852.719 Weight 59.5 kg 59.5 kg Intake: IV 501.5 1806.0 259.5 ACETAMINOPHEN IV (For NPO 100 ) 1,000 mg In Empty Bag 1 bag @ 400 mls/hr IVPB Q6HR [facility] Rx#:[id number] Albumin Human 5% 250 ml 500 In Empty Bag 1 bag @ 250 mls/hr IVPB Q1HR PRN Rx#: [id number] CARDIAC OUTPUT (0.9 100 220 30 Sodium Chloride) Diltiazem 125 mg In 30 60 10 Sodium Chloride 0.9% 100 ml @ 5 MG/HR 5 mls/hr IV .Q24H [facility] Rx#:[id number] Lactated Ringers 1,000 ml 300 600 170 @ 20 mls/hr IV .Q24H [facility] Rx#:[id number] Magnesium Sulfate-D5w Pmx 200 1 gm In Dextrose/Water 1 100ml.bag @ 100 mls/hr IVPB Q1H [facility] Rx#: [id number] Nitroglycerin-D5w Pmx 50 12.5 18.0 1.5 mg In Dextrose/Water 1 250ml.bag @ 5 MCG/MIN 1.5 mls/hr IV .Q24H [facility] Rx#: [id number] Pressure Bag Sodium 54 108 48 Chloride 0.9% Intake, IV Titration 54.023 0.859 178.219 Amount Clevidipine Butyrate 25 25.366 mg In Empty Bag 1 bag @ 1 MG/HR 2 mls/hr IV .Q24H [facility] Rx#:[id number] Diltiazem 125 mg In 98.583 Sodium Chloride 0.9% 100 ml @ 5 MG/HR 5 mls/hr IV .Q24H [facility] Rx#:[id number] Insulin Regular 100 unit 7.473 0.859 29.636 In Sodium Chloride 0.9% 100 ml @ Per Protocol IV .Q0M [facility] Rx#:[id number] ceFAZolin 2 gm In Sodium 50 Chloride 0.9% 50 ml @ 100 mls/hr IVPB Q8H [facility] Rx#: [id number] propofoL 1,000 mg In 21.184 Empty Bag 1 bag @ Titrate IV .Q0M [facility] Rx#: [id number] Oral 100 340 Blood Product 310 Rc As-1 Unit 310 [id number] Other 60 50 Rc As-1 Unit 50 [id number] Output: Chest Tube Drainage 480 320 160 Chest Tube Left Pleural/ 480 320 160 Mediastinal Urine 1197 313 125 Estimated Blood Loss 300 Other: Voiding Method Indwelling Catheter ABP, PAP, CO, CI - Last Documented Arterial Blood Pressure 99/61 Pulmonary Artery Pressure 19/9 Cardiac Output 3.9 Cardiac Index 2.6 - Exam GENERAL EXAM: Alert, very pleasant 81-year-old female patient, on 2 L nasal cannula, up in a recliner, fairly comfortable in no apparent distress. NECK: Right IJ cordis remains in place. No masses, no JVD. CHEST: Sternal dressing dry and intact. Heart other in place. Mediastinal/left pleural chest tubes in place. LUNGS: Equal air entry with faint crackles in the posterior bases. CVS: S1 and S2 normal with no audible murmur, regular rhythm. ABDOMEN: No hepatosplenomegaly, normal bowel sounds, no guarding or rigidity. SPINE: No scoliosis or deformity CENTRAL NERVOUS SYSTEM: No focal deficits, tone is normal in all 4 extremities. EXTREMITIES: Right radial arterial line in place. There is trace peripheral edema. No clubbing, no cyanosis. Peripheral pulses are intact. - Labs CBC & Chem 7: 01/05/22 04:20 01/05/22 04:20 Labs: Abnormal Lab Results - Last 24 Hours (Table) 12/27/21 01/04/22 01/04/22 Range/Units 09:19 14:58 15:34 WBC 11.5 H (3.8-10.6) k/uL RBC 2.64 L (3.80-5.40) m/uL Hgb 8.1 L (11.4-16.0) gm/dL Hct 25.4 L (34.0-46.0) % Plt Count (150-450) k/uL Lymphocytes # (1.0-4.8) k/uL ABG pH (7.35-7.45) ABG HCO3 (21-25) mmol/L BUN (7-17) mg/dL Creatinine (0.52-1.04) mg/dL Glucose (74-99) mg/dL POC Glucose (mg/dL) 137 H (75-99) mg/dL Total Protein (6.3-8.2) g/dL Albumin (3.5-5.0) g/dL Crossmatch See Detail 01/04/22 01/04/22 01/04/22 Range/Units 15:50 16:14 17:27 WBC (3.8-10.6) k/uL RBC (3.80-5.40) m/uL Hgb (11.4-16.0) gm/dL Hct (34.0-46.0) % Plt Count (150-450) k/uL Lymphocytes # (1.0-4.8) k/uL ABG pH 7.25 L (7.35-7.45) ABG HCO3 18 L (21-25) mmol/L BUN (7-17) mg/dL Creatinine (0.52-1.04) mg/dL Glucose (74-99) mg/dL POC Glucose (mg/dL) 165 H 179 H (75-99) mg/dL Total Protein (6.3-8.2) g/dL Albumin (3.5-5.0) g/dL Crossmatch 01/04/22 01/04/22 01/04/22 Range/Units 18:15 19:06 19:09 WBC (3.8-10.6) k/uL RBC 2.29 L (3.80-5.40) m/uL Hgb 7.0 L (11.4-16.0) gm/dL Hct 21.5 L (34.0-46.0) % Plt Count 126 L (150-450) k/uL Lymphocytes # 0.3 L (1.0-4.8) k/uL ABG pH (7.35-7.45) ABG HCO3 (21-25) mmol/L BUN (7-17) mg/dL Creatinine (0.52-1.04) mg/dL Glucose (74-99) mg/dL POC Glucose (mg/dL) 146 H 106 H (75-99) mg/dL Total Protein (6.3-8.2) g/dL Albumin (3.5-5.0) g/dL Crossmatch 01/04/22 01/04/22 01/05/22 Range/Units 21:04 22:03 00:14 WBC (3.8-10.6) k/uL RBC (3.80-5.40) m/uL Hgb (11.4-16.0) gm/dL Hct (34.0-46.0) % Plt Count (150-450) k/uL Lymphocytes # (1.0-4.8) k/uL ABG pH (7.35-7.45) ABG HCO3 (21-25) mmol/L BUN (7-17) mg/dL Creatinine (0.52-1.04) mg/dL Glucose (74-99) mg/dL POC Glucose (mg/dL) 100 H 115 H 168 H (75-99) mg/dL Total Protein (6.3-8.2) g/dL Albumin (3.5-5.0) g/dL Crossmatch 01/05/22 01/05/22 01/05/22 Range/Units 01:13 02:02 04:20 WBC (3.8-10.6) k/uL RBC 2.25 L (3.80-5.40) m/uL Hgb 6.9 L* (11.4-16.0) gm/dL Hct 21.4 L (34.0-46.0) % Plt Count 105 L (150-450) k/uL Lymphocytes # 0.8 L (1.0-4.8) k/uL ABG pH (7.35-7.45) ABG HCO3 (21-25) mmol/L BUN (7-17) mg/dL Creatinine (0.52-1.04) mg/dL Glucose (74-99) mg/dL POC Glucose (mg/dL) 166 H 169 H (75-99) mg/dL Total Protein (6.3-8.2) g/dL Albumin (3.5-5.0) g/dL Crossmatch 02/01/05/22 01/05/22 Range/Units 04:20 04:22 06:19 WBC (3.8-10.6) k/uL RBC (3.80-5.40) m/uL Hgb (11.4-16.0) gm/dL Hct (34.0-46.0) % Plt Count (150-450) k/uL Lymphocytes # (1.0-4.8) k/uL ABG pH (7.35-7.45) ABG HCO3 (21-25) mmol/L BUN 23 H (7-17) mg/dL Creatinine 1.12 H (0.52-1.04) mg/dL Glucose 161 H (74-99) mg/dL POC Glucose (mg/dL) 173 H 143 H (75-99) mg/dL Total Protein 5.2 L (6.3-8.2) g/dL Albumin 3.3 L (3.5-5.0) g/dL Crossmatch 01/05/22 01/05/22 01/05/22 Range/Units 07:19 08:26 09:23 WBC (3.8-10.6) k/uL RBC (3.80-5.40) m/uL Hgb (11.4-16.0) gm/dL Hct (34.0-46.0) % Plt Count (150-450) k/uL Lymphocytes # (1.0-4.8) k/uL ABG pH (7.35-7.45) ABG HCO3 (21-25) mmol/L BUN (7-17) mg/dL Creatinine (0.52-1.04) mg/dL Glucose (74-99) mg/dL POC Glucose (mg/dL) 125 H 142 H 210 H (75-99) mg/dL Total Protein (6.3-8.2) g/dL Albumin (3.5-5.0) g/dL Crossmatch 01/05/22 01/05/22 01/05/22 Range/Units 10:57 12:03 13:19 WBC (3.8-10.6) k/uL RBC (3.80-5.40) m/uL Hgb (11.4-16.0) gm/dL Hct (34.0-46.0) % Plt Count (150-450) k/uL Lymphocytes # (1.0-4.8) k/uL ABG pH (7.35-7.45) ABG HCO3 (21-25) mmol/L BUN (7-17) mg/dL Creatinine (0.52-1.04) mg/dL Glucose (74-99) mg/dL POC Glucose (mg/dL) 195 H 207 H 177 H (75-99) mg/dL Total Protein (6.3-8.2) g/dL Albumin (3.5-5.0) g/dL Crossmatch 01/05/22 Range/Units 14:21 WBC (3.8-10.6) k/uL RBC (3.80-5.40) m/uL Hgb (11.4-16.0) gm/dL Hct (34.0-46.0) % Plt Count (150-450) k/uL Lymphocytes # (1.0-4.8) k/uL ABG pH (7.35-7.45) ABG HCO3 (21-25) mmol/L BUN (7-17) mg/dL Creatinine (0.52-1.04) mg/dL Glucose (74-99) mg/dL POC Glucose (mg/dL) 182 H (75-99) mg/dL Total Protein (6.3-8.2) g/dL Albumin (3.5-5.0) g/dL Crossmatch Assessment and Plan Assessment: 1. Symptomatic triple-vessel CAD; -- status post coronary artery bypass grafting, off pump, CABG 3 with a ALEGRE to the LAD, left radial artery to the obtuse marginal, saphenous vein graft to the posterior descending artery. Left atrial appendage clipped. - Patient remains intubated and mechanically ventilated; intensive care team on board with plans for early extubation as tolerated 2. Hypertension; metoprolol 12.5 mg twice a day; Cardizem 30 mg every 8 hours 3. Hyperlipidemia; Lipitor 80 mg daily at bedtime 4. Diabetes mellitus; patient takes Farxiga, Actos and Toujeo at home; currently plan is for Accu-Cheks every before meals and at bedtime with sliding scale 5. Anxiety; takes Xanax 0.25 mg twice a day, but she remains on hold DVT prophylaxis; SCDs/subcu heparin CODE STATUS; full code
[2022-01-05] MEDS: ATORVASTATIN 80 MG TAB PO SCH (20:23)
[2022-01-05] MEDS: SENNOSIDES-DOCUSATE SODIUM 1 EACH TAB PO SCH (20:23)
[2022-01-05 21:27] LABS: Glucose,Whole Blood 143 mg/dL (75-99)
[2022-01-05 22:35] LABS: Glucose,Whole Blood 119 mg/dL (75-99)
[2022-01-06 00:11] LABS: Glucose,Whole Blood 129 mg/dL (75-99)
[2022-01-06] MEDS: DILTIAZEM ORAL 30 MG TAB PO SCH ×4 (01:00→23:04)
[2022-01-06] MEDS: HEPARIN SODIUM,PORCINE/PF 5,000 UNIT/0.5 ML SYRINGE SQ SCH ×4 (01:00→23:04)
[2022-01-06 01:19] LABS: Glucose,Whole Blood 134 mg/dL (75-99)
[2022-01-06] MEDS: HYDROcodone/APAP 5-325MG 1 EACH TAB PO PRN ×3 (01:54→23:03)
[2022-01-06 04:30] LABS: Glucose,Whole Blood 123 mg/dL (75-99)
[2022-01-06 05:18] LABS: Anisocytosis Slight; Basophils % (A) 0 %; Eosinophils # (A) 0.1 k/uL (0-0.7); Eosinophils % (A) 1 %; HCT 23.8 % (34.0-46.0); HGB 7.6 gm/dL (11.4-16.0); Lymphocytes # (A) 1.4 k/uL (1.0-4.8); Lymphocytes % (A) 15 %; MCH 29.8 pg (25.0-35.0); MCHC 32.1 g/dL (31.0-37.0); MCV 92.8 fL (80.0-100.0); Mean Platelet Volume 8.2; Monocytes # (A) 0.5 k/uL (0-1.0); Monocytes % (A) 5 %; Neutrophils # (A) 7.1 k/uL (1.3-7.7); Neutrophils % (A) 77 %; RBC 2.56 m/uL (3.80-5.40); RDW 16.5 % (11.5-15.5); WBC 9.3 k/uL (3.8-10.6)
[2022-01-06 05:43] LABS: Platelet Count 97 k/uL (150-450)
[2022-01-06 05:52] LABS: ALT <6 U/L (4-34); AST 54 U/L (14-36); African American GFR (CKD) 31 (>60 ml/min/1.73 sqM); Albumin 2.8 g/dL (3.5-5.0); Alkaline Phosphatase 53 U/L (38-126); Anion Gap 5 mmol/L; Blood Urea Nitrogen 31 mg/dL (7-17); Calcium 8.3 mg/dL (8.4-10.2); Carbon Dioxide 22 mmol/L (22-30); Chloride 104 mmol/L (98-107); Glucose 122 mg/dL (74-99); Non-African American GFR(CKD) 27 (>60 ml/min/1.73 sqM); Potassium 3.8 mmol/L (3.5-5.1); Sodium 131 mmol/L (137-145); Total Protein 5.1 g/dL (6.3-8.2)
[2022-01-06 06:59] LABS: Glucose,Whole Blood 119 mg/dL (75-99)
--- NOTE | 2022-01-06 07:26 | P.PN ---
Subjective Progress Note Date: 01/06/22 Principal diagnosis: Coronary artery disease. Previous medical history of hypertension, hyperlipidemia, diabetes, chronic renal insufficiency, previous tobacco dependence, left internal carotid artery stenosis. Patient is vaccinated and boosted against covid POD #2 off-pump coronary artery bypass graft 3 with left internal mammary artery to the left anterior descending artery, T graft left radial artery to the obtuse marginal artery, reverse saphenous vein graft to the posterior descending coronary artery with patch angioplasty of posterior descending coronary artery, occlusion of the left atrial appendage with a 35 mm AtriCure clip, endovascular vein harvest of the greater saphenous vein from the left thigh, endovascular left radial artery harvest, intraoperative transesophageal echocardiogram performed by anesthesia. Postoperative acute blood loss anemia and thrombocytopenia, expected given hemodilution and preoperative anemia The patient was seen and examined this morning sitting up in a recliner in the intensive care unit in no acute distress. She states postoperative pain is controlled on current medication regimen, denies shortness of breath. She had a relatively uneventful night. Patient did receive 1 unit packed red blood cells yesterday for hemoglobin 6.9 with increased to 7.6 this morning. Blood pressure remains marginal with systolic pressure in the high 90s to low 100s, means in the high 50s to low 60s, CVP 3-7 overnight. Due to her blood pressure patient has not received any doses of beta farnaz yet. Right internal jugular Cordis, right radial arterial line, mediastinal/left pleural chest tubes all remaining present. No other new concerns. Objective - Vital Signs Vital signs: Vital Signs Temp 98.4 F 01/06/22 04:00 Pulse 85 01/06/22 05:00 Resp 13 01/06/22 05:00 BP 111/45 01/06/22 05:00 Pulse Ox 97 01/06/22 05:00 Intake & Output 01/05/22 01/06/22 01/06/22 18:59 06:59 18:59 Intake Total 1518.829 623.362 26 Output Total 615 305 20 Balance 903.829 318.362 6 Weight 59.5 kg Intake: IV 389.5 312 26 CARDIAC OUTPUT (0.9 30 Sodium Chloride) Diltiazem 125 mg In 10 Sodium Chloride 0.9% 100 ml @ 5 MG/HR 5 mls/hr IV .Q24H [facility] Rx#:[id number] Lactated Ringers 1,000 ml 270 240 20 @ 20 mls/hr IV .Q24H [facility] Rx#:[id number] Nitroglycerin-D5w Pmx 50 1.5 mg In Dextrose/Water 1 250ml.bag @ 5 MCG/MIN 1.5 mls/hr IV .Q24H [facility] Rx#: [id number] Pressure Bag Sodium 78 72 6 Chloride 0.9% Intake, IV Titration 189.329 11.362 Amount Diltiazem 125 mg In 98.583 Sodium Chloride 0.9% 100 ml @ 5 MG/HR 5 mls/hr IV .Q24H [facility] Rx#:[id number] Insulin Regular 100 unit 40.746 11.362 In Sodium Chloride 0.9% 100 ml @ Per Protocol IV .Q0M [facility] Rx#:[id number] ceFAZolin 2 gm In Sodium 50 Chloride 0.9% 50 ml @ 100 mls/hr IVPB Q8H [facility] Rx#: [id number] Oral 580 300 Blood Product 310 Rc As-1 Unit 310 [id number] Other 50 Rc As-1 Unit 50 [id number] Output: Chest Tube Drainage 350 0 Chest Tube Left Pleural/ 350 0 Mediastinal Urine 265 305 20 Other: Voiding Method Indwelling Catheter ABP, PAP, CO, CI - Last Documented Arterial Blood Pressure 113/31 Pulmonary Artery Pressure 19/9 Cardiac Output 3.9 Cardiac Index 2.6 - Exam CONSTITUTIONAL: Appears comfortable, cooperative, no acute distress RESPIRATORY: Lungs sounds diminished bilaterally. Respirations even, nonlabored. Currently on 2 L nasal cannula with oxygen saturation 93%. Only able to achieve 500 mL on incentive spirometry. Strong cough. CARDIOVASCULAR: S1, S2 present. Regular rate and rhythm, sinus rhythm on telemetry. Sternum stable. Palpable peripheral pulses bilaterally. Trace generalized edema present. No calf pain or tenderness noted. Heart hugger in place with patient demonstrating appropriate use. Antiembolism stockings, SCDs present. GASTROINTESTINAL: Abdomen soft, nontender, nondistended. Active bowel sounds present 4 quadrants. Tolerating full liquid diet. Positive flatus GENITOURINARY: Cabrera present draining clear, yellow urine. Output overnight 20-30 mL per hour, 570 mL last 24 hours INTEGUMENTARY: Skin is warm and dry with evidence of good perfusion. Anterior chest incision well approximated and covered with dry intact dressing. Left l ower extremity EVH site well approximated without redness or drainage. Left radial artery harvest site well approximated without redness or drainage NEUROLOGIC: Cranial nerves II through XII intact MUSKULOSKELETAL: Able to move all extremities, strength equal bilaterally PSYCHIATRIC: Alert and oriented to person place and time, appropriate affect, intact judgment and insight INVASIVE LINES AND TUBES: Mediastinal/left pleural chest tubes present and connected to wall suction, no air leaks present, 750 mL serosanguineous output in the last 24 hours. Right internal jugular Cordis, right radial arterial line present. - Allied health notes Allied health notes reviewed: nursing - Labs CBC & Chem 7: 01/06/22 04:20 01/06/22 04:20 Labs: Abnormal Lab Results - Last 24 Hours (Table) 12/27/21 01/05/22 01/05/22 Range/Units 09:19 07:19 08:26 RBC (3.80-5.40) m/uL Hgb (11.4-16.0) gm/dL Hct (34.0-46.0) % RDW (11.5-15.5) % Plt Count (150-450) k/uL Sodium (137-145) mmol/L BUN (7-17) mg/dL Creatinine (0.52-1.04) mg/dL Glucose (74-99) mg/dL POC Glucose (mg/dL) 125 H 142 H (75-99) mg/dL Calcium (8.4-10.2) mg/dL AST (14-36) U/L Total Protein (6.3-8.2) g/dL Albumin (3.5-5.0) g/dL Crossmatch See Detail 01/05/22 01/05/22 01/05/22 Range/Units 09:23 10:57 12:03 RBC (3.80-5.40) m/uL Hgb (11.4-16.0) gm/dL Hct (34.0-46.0) % RDW (11.5-15.5) % Plt Count (150-450) k/uL Sodium (137-145) mmol/L BUN (7-17) mg/dL Creatinine (0.52-1.04) mg/dL Glucose (74-99) mg/dL POC Glucose (mg/dL) 210 H 195 H 207 H (75-99) mg/dL Calcium (8.4-10.2) mg/dL AST (14-36) U/L Total Protein (6.3-8.2) g/dL Albumin (3.5-5.0) g/dL Crossmatch 01/05/22 01/05/22 01/05/22 Range/Units 13:19 14:21 15:37 RBC (3.80-5.40) m/uL Hgb (11.4-16.0) gm/dL Hct (34.0-46.0) % RDW (11.5-15.5) % Plt Count (150-450) k/uL Sodium (137-145) mmol/L BUN (7-17) mg/dL Creatinine (0.52-1.04) mg/dL Glucose (74-99) mg/dL POC Glucose (mg/dL) 177 H 182 H 141 H (75-99) mg/dL Calcium (8.4-10.2) mg/dL AST (14-36) U/L Total Protein (6.3-8.2) g/dL Albumin (3.5-5.0) g/dL Crossmatch 01/05/22 01/05/22 01/05/22 Range/Units 16:40 18:04 19:01 RBC (3.80-5.40) m/uL Hgb (11.4-16.0) gm/dL Hct (34.0-46.0) % RDW (11.5-15.5) % Plt Count (150-450) k/uL Sodium (137-145) mmol/L BUN (7-17) mg/dL Creatinine (0.52-1.04) mg/dL Glucose (74-99) mg/dL POC Glucose (mg/dL) 127 H 171 H 171 H (75-99) mg/dL Calcium (8.4-10.2) mg/dL AST (14-36) U/L Total Protein (6.3-8.2) g/dL Albumin (3.5-5.0) g/dL Crossmatch 01/05/22 01/05/22 01/06/22 Range/Units 21:25 22:33 00:09 RBC (3.80-5.40) m/uL Hgb (11.4-16.0) gm/dL Hct (34.0-46.0) % RDW (11.5-15.5) % Plt Count (150-450) k/uL Sodium (137-145) mmol/L BUN (7-17) mg/dL Creatinine (0.52-1.04) mg/dL Glucose (74-99) mg/dL POC Glucose (mg/dL) 143 H 119 H 129 H (75-99) mg/dL Calcium (8.4-10.2) mg/dL AST (14-36) U/L Total Protein (6.3-8.2) g/dL Albumin (3.5-5.0) g/dL Crossmatch 01/06/22 01/06/22 01/06/22 Range/Units 01:18 04:20 04:20 RBC 2.56 L (3.80-5.40) m/uL Hgb 7.6 L (11.4-16.0) gm/dL Hct 23.8 L (34.0-46.0) % RDW 16.5 H (11.5-15.5) % Plt Count 97 L (150-450) k/uL Sodium 131 L (137-145) mmol/L BUN 31 H (7-17) mg/dL Creatinine 1.78 H (0.52-1.04) mg/dL Glucose 122 H (74-99) mg/dL POC Glucose (mg/dL) 134 H (75-99) mg/dL Calcium 8.3 L (8.4-10.2) mg/dL AST 54 H (14-36) U/L Total Protein 5.1 L (6.3-8.2) g/dL Albumin 2.8 L (3.5-5.0) g/dL Crossmatch 01/06/22 01/06/22 Range/Units 04:28 06:57 RBC (3.80-5.40) m/uL Hgb (11.4-16.0) gm/dL Hct (34.0-46.0) % RDW (11.5-15.5) % Plt Count (150-450) k/uL Sodium (137-145) mmol/L BUN (7-17) mg/dL Creatinine (0.52-1.04) mg/dL Glucose (74-99) mg/dL POC Glucose (mg/dL) 123 H 119 H (75-99) mg/dL Calcium (8.4-10.2) mg/dL AST (14-36) U/L Total Protein (6.3-8.2) g/dL Albumin (3.5-5.0) g/dL Crossmatch - Imaging and Cardiology Chest x-ray: image reviewed Assessment and Plan Assessment: 1. Coronary artery disease, status post three-vessel off-pump CABG 2. History of hypertension, currently borderline hypotensive not on pressors 3. Hyperlipidemia, untreated, cholesterol 242, LDL 133 4. Diabetes, preoperative hemoglobin A1c 7.9% 5. Chronic renal insufficiency 6. Previous tobacco dependence, preoperative FEV1 120% of predicted 7. Left internal carotid artery stenosis 50-79% 8. Vaccinated and boosted against covid 9. Postoperative acute blood loss anemia and thrombocytopenia Plan: 1. Continue Plavix, statin, beta farnaz therapy. Will increase beta farnaz as tolerated. Aspirin is CONTRAINDICATED due to ALLERGY. Will add midodrine to increase blood pressure 2. Continue calcium channel farnaz for radial artery spasm prophylaxis. 3. Wean O2 as tolerated. Encourage incentive spirometry use 10 times every hour while awake. Bronchodilators per pulmonology 4. Will continue to monitor daily labs and chest x-rays. Electrolyte replacement per protocol. Avoid nephrotoxins. Will give 1 unit PRBCs then 20 lasix. Iron/vitamin C added 5. GI/DVT prophylaxis 6. Pain control with current medication regimen 7. Insulin management per primary care service. Patient's diabetes is uncontrolled with hyperglycemia, will need tight blood sugar control to promote sternal union and prevent infection 8. Continue Cordis to continuous CVP monitoring 9. Continue chest tubes for another 24 hours 10. Continue Cabrera catheter for another 24 hours for strict accurate intake and output. Daily weights 11. Increase activity, ambulate as tolerated. PT/OT/cardiac rehab following 12. More recommendations to follow Time with Patient: Greater than 30
[2022-01-06] MEDS ORDERED: POTASSIUM CHLORIDE ER 20 MEQ TAB.ER PO SCH (08:00)
[2022-01-06] MEDS: IPRATROPIUM-ALBUTEROL 3 ML NEB INHALATION SCH ×4 (08:20→20:49)
[2022-01-06] MEDS ORDERED: FUROSEMIDE 10 MG/ML 2 ML VIAL IV ONE (08:36)
[2022-01-06] MEDS: MIDODRINE 5 MG TAB PO SCH ×3 (08:39→17:33)
[2022-01-06] MEDS: CLOPIDOGREL 75 MG TAB PO SCH (08:39)
--- NOTE | 2022-01-06 08:39 | XR ---
EXAMINATION TYPE: XR chest 1V portable DATE OF EXAM: 01/06/2022 Comparison: 01/05/2022 Clinical History: 81-year-old female Post Operative Cardiac Surgery Findings: Right IJ [place] catheter removed in the interval. There is a sheath remains in place. Mediastinal drain. Left chest tube. No appreciable pneumothorax. Multiple post CABG clips are noted. Heart is enl arged. Semiupright exam now demonstrating small layering pleural effusions. Continued patchy left bas ilar opacity. Cholecystectomy clips. Impression: 1. Semiupright exam demonstrating small layering pleural effusions. 2. Left chest tube in place. Similar 5 mm left apical pneumothorax. 3. Continued prominent patchy retrocardiac postoperative atelectasis.
[2022-01-06] MEDS: ASCORBIC ACID 500 MG TAB PO SCH ×2 (08:40→17:33)
[2022-01-06] MEDS: PANTOPRAZOLE 40 MG TABLET PO SCH (08:40)
[2022-01-06] MEDS: MULTIVITAMINS, THERA 1 EACH TAB PO SCH (08:40)
[2022-01-06] MEDS: FERROUS SULFATE 325 MG TAB PO SCH ×2 (08:40→17:32)
[2022-01-06] MEDS: METOPROLOL TARTRATE 12.5 MG TAB PO SCH ×2 (09:03→22:37)
[2022-01-06] MEDS: LACTATED RINGERS 1,000 ML IV SCH (10:49)
[2022-01-06 11:47] LABS: Glucose,Whole Blood 210 mg/dL (75-99)
--- NOTE | 2022-01-06 12:03 | P.PN ---
Subjective Progress Note Date: 01/06/22 This 72-year-old female seemed to be relatively stable. She received blood transfusion for low hemoglobin,Yesterday. Her hemoglobin is more than 7 today. Postoperative pain is fairly controlled. Her creatinine went up to 1.7 to PDA and output seemed to be reasonable. Chest x-ray shows some congestive changes and bilateral infiltrate atelectatic changes. Patient is on amiodarone inhalers, aspirin, lisinopril and metoprolol. Patient did not receive beta farnaz because of low blood pressure. Overall patient seemed relatively stable. Continue current medical therapy. Continue to monitor her renal function Objective - Vital Signs Vital signs: Vital Signs Temp 98.2 F 01/06/22 10:00 Pulse 95 01/06/22 11:00 Resp 16 01/06/22 11:00 BP 103/48 01/06/22 11:00 Pulse Ox 96 01/06/22 11:00 Intake & Output 01/05/22 01/06/22 01/06/22 18:59 06:59 18:59 Intake Total 1518.829 623.362 250 Output Total 615 305 810 Balance 903.829 318.362 -560 Weight 59.5 kg 67 kg Intake: IV 389.5 312 130 CARDIAC OUTPUT (0.9 30 Sodium Chloride) Diltiazem 125 mg In 10 Sodium Chloride 0.9% 100 ml @ 5 MG/HR 5 mls/hr IV .Q24H [facility] Rx#:[id number] Lactated Ringers 1,000 ml 270 240 100 @ 20 mls/hr IV .Q24H [facility] Rx#:[id number] Nitroglycerin-D5w Pmx 50 1.5 mg In Dextrose/Water 1 250ml.bag @ 5 MCG/MIN 1.5 mls/hr IV .Q24H [facility] Rx#: [id number] Pressure Bag Sodium 78 72 30 Chloride 0.9% Intake, IV Titration 189.329 11.362 Amount Diltiazem 125 mg In 98.583 Sodium Chloride 0.9% 100 ml @ 5 MG/HR 5 mls/hr IV .Q24H [facility] Rx#:[id number] Insulin Regular 100 unit 40.746 11.362 In Sodium Chloride 0.9% 100 ml @ Per Protocol IV .Q0M [facility] Rx#:[id number] ceFAZolin 2 gm In Sodium 50 Chloride 0.9% 50 ml @ 100 mls/hr IVPB Q8H [facility] Rx#: [id number] Oral 580 300 120 Blood Product 310 0 Rc As-1 Unit 0 [id number] Rc As-1 Unit 310 [id number] Other 50 Rc As-1 Unit 50 [id number] Output: Chest Tube Drainage 350 0 690 Chest Tube Left Pleural/ 350 0 690 Mediastinal Urine 265 305 120 Other: Voiding Method Indwelling Catheter Indwelling Catheter ABP, PAP, CO, CI - Last Documented Arterial Blood Pressure 127/42 Pulmonary Artery Pressure 19/9 Cardiac Output 3.9 Cardiac Index 2.6 - Exam GENERAL EXAM: Patient is alert and oriented and doesn't appear to be in any acute distress HEENT: Normocephalic. Normal reaction of pupils, equal size, normal range of extraocular motion. No erythema or exudates in the throat. NECK: No masses, no nuchal rigidity. CHEST: No chest wall deformity. LUNGS: diminished air exchange HEART: [S1 and S2 normal with no audible mumurs or gallops. Regular rhythm, femorals equal on both sides..] ABDOMEN: No hepatosplenomegaly, normal bowel sounds, no guarding or rigidity. SKIN: No rashesaccept default's CENTRAL NERVOUS SYSTEM: No focal deficits. EXTREMITIES: [No cyanosis, clubbing or edema. - Labs CBC & Chem 7: 01/06/22 04:20 01/06/22 04:20 Labs: Abnormal Lab Results - Last 24 Hours (Table) 12/27/21 01/05/22 01/05/22 Range/Units 09:19 12:03 13:19 RBC (3.80-5.40) m/uL Hgb (11.4-16.0) gm/dL Hct (34.0-46.0) % RDW (11.5-15.5) % Plt Count (150-450) k/uL Sodium (137-145) mmol/L BUN (7-17) mg/dL Creatinine (0.52-1.04) mg/dL Glucose (74-99) mg/dL POC Glucose (mg/dL) 207 H 177 H (75-99) mg/dL Calcium (8.4-10.2) mg/dL AST (14-36) U/L Total Protein (6.3-8.2) g/dL Albumin (3.5-5.0) g/dL Crossmatch See Detail 01/05/22 01/05/22 01/05/22 Range/Units 14:21 15:37 16:40 RBC (3.80-5.40) m/uL Hgb (11.4-16.0) gm/dL Hct (34.0-46.0) % RDW (11.5-15.5) % Plt Count (150-450) k/uL Sodium (137-145) mmol/L BUN (7-17) mg/dL Creatinine (0.52-1.04) mg/dL Glucose (74-99) mg/dL POC Glucose (mg/dL) 182 H 141 H 127 H (75-99) mg/dL Calcium (8.4-10.2) mg/dL AST (14-36) U/L Total Protein (6.3-8.2) g/dL Albumin (3.5-5.0) g/dL Crossmatch 01/05/22 01/05/22 01/05/22 Range/Units 18:04 19:01 21:25 RBC (3.80-5.40) m/uL Hgb (11.4-16.0) gm/dL Hct (34.0-46.0) % RDW (11.5-15.5) % Plt Count (150-450) k/uL Sodium (137-145) mmol/L BUN (7-17) mg/dL Creatinine (0.52-1.04) mg/dL Glucose (74-99) mg/dL POC Glucose (mg/dL) 171 H 171 H 143 H (75-99) mg/dL Calcium (8.4-10.2) mg/dL AST (14-36) U/L Total Protein (6.3-8.2) g/dL Albumin (3.5-5.0) g/dL Crossmatch 01/05/22 01/06/22 01/06/22 Range/Units 22:33 00:09 01:18 RBC (3.80-5.40) m/uL Hgb (11.4-16.0) gm/dL Hct (34.0-46.0) % RDW (11.5-15.5) % Plt Count (150-450) k/uL Sodium (137-145) mmol/L BUN (7-17) mg/dL Creatinine (0.52-1.04) mg/dL Glucose (74-99) mg/dL POC Glucose (mg/dL) 119 H 129 H 134 H (75-99) mg/dL Calcium (8.4-10.2) mg/dL AST (14-36) U/L Total Protein (6.3-8.2) g/dL Albumin (3.5-5.0) g/dL Crossmatch 01/06/22 01/06/22 01/06/22 Range/Units 04:20 04:20 04:28 RBC 2.56 L (3.80-5.40) m/uL Hgb 7.6 L (11.4-16.0) gm/dL Hct 23.8 L (34.0-46.0) % RDW 16.5 H (11.5-15.5) % Plt Count 97 L (150-450) k/uL Sodium 131 L (137-145) mmol/L BUN 31 H (7-17) mg/dL Creatinine 1.78 H (0.52-1.04) mg/dL Glucose 122 H (74-99) mg/dL POC Glucose (mg/dL) 123 H (75-99) mg/dL Calcium 8.3 L (8.4-10.2) mg/dL AST 54 H (14-36) U/L Total Protein 5.1 L (6.3-8.2) g/dL Albumin 2.8 L (3.5-5.0) g/dL Crossmatch 01/06/22 01/06/22 Range/Units 06:57 11:46 RBC (3.80-5.40) m/uL Hgb (11.4-16.0) gm/dL Hct (34.0-46.0) % RDW (11.5-15.5) % Plt Count (150-450) k/uL Sodium (137-145) mmol/L BUN (7-17) mg/dL Creatinine (0.52-1.04) mg/dL Glucose (74-99) mg/dL POC Glucose (mg/dL) 119 H 210 H (75-99) mg/dL Calcium (8.4-10.2) mg/dL AST (14-36) U/L Total Protein (6.3-8.2) g/dL Albumin (3.5-5.0) g/dL Crossmatch Assessment and Plan (1) CAD (coronary artery disease) Current Visit: Yes Status: Acute Code(s): I25.10 - ATHSCL HEART DISEASE OF [place] CORONARY ARTERY W/O ANG PCTRS SNOMED Code(s): 75872513 (2) Status post aorto-coronary artery bypass graft Current Visit: Yes Status: Acute Code(s): Z95.1 - PRESENCE OF AORTOCORONARY BYPASS GRAFT SNOMED Code(s): 108234745 (3) Hypertension Current Visit: Yes Status: Acute Code(s): I10 - ESSENTIAL (PRIMARY) HYPERTENSION SNOMED Code(s): 00079321 (4) Hypercholesterolemia Current Visit: Yes Status: Acute Code(s): E78.00 - PURE HYPERCHOLESTEROLEMIA, UNSPECIFIED SNOMED Code(s): 14629572 Plan: . Patient making slow progress. Required blood transfusion. Her renal functions shows increasing creatinine. We'll continue with current medical therapy and incentive spirometry. Urine output seemed to be fair. We will follow renal function closely
[2022-01-06] MEDS: INSULIN ASPART (NovoLOG) 100 UNIT/ML VIAL SQ SCH ×3 (12:04→21:42)
--- NOTE | 2022-01-06 12:11 | P.PN ---
Subjective Progress Note Date: 01/06/22 Principal diagnosis: Routine postoperative ventilator management. This is a 81-year-old female patient who follows with Dr. Wang as her primary care provider. She has a history of hypertension, hyperlipidemia, diabetes mellitus. She is a nonsmoker. She was having symptomatic anginaand had undergone cardiac catheterization which showed severe triple-vessel coronary artery disease including the distal left main stenosis. She was brought in today electively forurinary artery revascularization. She had undergone an off- pump CABG 3 with a ALEGRE to the LAD, radial artery graft to the obtuse marginal, saphenous vein graft to the posterior descending coronary artery. Clipping of the left atrial appendage. She is seen today in the immediate postoperative period. She is intubated on the mechanical ventilator. Current settings are assist-control mode at a rate of 12, tidal 5 375, FiO2 40% and a PEEP of 5. Arterial blood gases revealed a pO2 of 261, pCO2 39, pH 7.36. She is currently receiving lactated Ringer's at 50 MLS per hour. Sedated with propofol at 20 mcg /kg/m. Nitroglycerin drip at 5 mg/m. Cardizem drip at 5 mg per hour. club approximate 4 mg per hour. Insulin at 0.5 units per hour. white count 11.5. Hemoglobin 8.1. Platelets 161,000. sodium 138. Potassium 4.7. BUN 19. Creatinine 0.91. Glucose 137. AST 24. ALT 11. Albumin 3.1. chest x-ray reveals a right perihilar and left lower lobe infiltrate with a small left effusion. Endotracheal tube and nasogastric tubes are in good position. Mediastinal chest tube in place. 270 ML's return thus far. Pulmonary artery pressure 40/15 with a mean of 23. CVP 9. Cardiac output 6. Cardiac index 4.1. On subcutaneous heparin for DVT prophylaxis. The patient is seen today 01/05/2022 in follow-up in the intensive care unit. This is postoperative day #1 of her off-pump coronary artery bypass surgery 3. She is currently sitting up in the recliner. Awake and alert in no acute distress. She is now maintaining good O2 saturation in the 90s on 2 L/m per nasal cannula. She has lactated Ringer's running at 20 ML's per hour. Insulin drip at 3.5 units per hour. Chest x-ray reveals a tiny left apical pneumothorax measuring 5 mm meters along the left apex. No significant effusions. Opacity of the left lower lobe and right lower lobe reflective of atelectasis. Mild interstitial edema. Mediastinal/left pleural chest tubes remain present and connected to wall suction. No leaks noted. Total of 750 ML since surgery output. She is pulling approximately 750 MLS on the incentive spirometer. [place] catheter removed today the cordis remains in place. Prior to the [place] being removed the cardiac output was 3.9 with a cardiac index 2.6. PA pressures 27/12 with a CVP of 11. WBC 6.9. Hemoglobin 6.9. Platelets 105,000. Sodium 138. Potassium 4.3. Creatinine 1.12. Glucose 161. AST 33. ALT 8. Albumin 3.3. Her blood pressure remains marginal. She is receiving 1 unit of packed blood cells today. She is continued on DuoNeb inhalations. Oral antiarrhythmics. Heparin for DVT prophylaxis. Progress note dated 01/06/2022. 81-year-old female, seen in room 265. The patient is postop day #2, that is postop pump three-vessel bypass grafting. The surgery was done by Dr. Villalpando. Currently, she is on 4 L nasal cannula. She's getting lactated Ringer's at 20 mL an hour. She'll get 1 unit of packed red blood cells for hemoglobin of 7.6. The patient's white count is 9.3, he will 7.6, hematocrit 23.8, and platelet count 97,000. Sodium is 131, potassium 3.8, chlorides 104, CO2 22, anion gap is 5, BUN is 31, and creatinine is 1.78. Albumin is 2.8. Chest x-ray reveals some bibasilar atelectasis and/or infiltrates. Objective - Vital Signs Vital signs: Vital Signs Temp 98.2 F 01/06/22 10:00 Pulse 95 01/06/22 11:00 Resp 16 01/06/22 11:00 BP 103/48 01/06/22 11:00 Pulse Ox 96 01/06/22 11:00 Intake & Output 01/05/22 01/06/22 01/06/22 18:59 06:59 18:59 Intake Total 1518.829 623.362 250 Output Total 615 305 810 Balance 903.829 318.362 -560 Weight 59.5 kg 67 kg Intake: IV 389.5 312 130 CARDIAC OUTPUT (0.9 30 Sodium Chloride) Diltiazem 125 mg In 10 Sodium Chloride 0.9% 100 ml @ 5 MG/HR 5 mls/hr IV .Q24H [facility] Rx#:[id number] Lactated Ringers 1,000 ml 270 240 100 @ 20 mls/hr IV .Q24H [facility] Rx#:[id number] Nitroglycerin-D5w Pmx 50 1.5 mg In Dextrose/Water 1 250ml.bag @ 5 MCG/MIN 1.5 mls/hr IV .Q24H [facility] Rx#: [id number] Pressure Bag Sodium 78 72 30 Chloride 0.9% Intake, IV Titration 189.329 11.362 Amount Diltiazem 125 mg In 98.583 Sodium Chloride 0.9% 100 ml @ 5 MG/HR 5 mls/hr IV .Q24H [facility] Rx#:[id number] Insulin Regular 100 unit 40.746 11.362 In Sodium Chloride 0.9% 100 ml @ Per Protocol IV .Q0M [facility] Rx#:[id number] ceFAZolin 2 gm In Sodium 50 Chloride 0.9% 50 ml @ 100 mls/hr IVPB Q8H [facility] Rx#: [id number] Oral 580 300 120 Blood Product 310 0 Rc As-1 Unit 0 [id number] Rc As-1 Unit 310 [id number] Other 50 Rc As-1 Unit 50 [id number] Output: Chest Tube Drainage 350 0 690 Chest Tube Left Pleural/ 350 0 690 Mediastinal Urine 265 305 120 Other: Voiding Method Indwelling Catheter Indwelling Catheter ABP, PAP, CO, CI - Last Documented Arterial Blood Pressure 127/42 Pulmonary Artery Pressure 19/9 Cardiac Output 3.9 Cardiac Index 2.6 - Exam No acute distress, oriented 3. Currently on 4 L nasal cannula. HEENT examination is grossly unremarkable. Neck supple. Full range of motion. No adenopathy thyromegaly or neck vein distention. Cardiovascular examination reveals regular rhythm rate. S1-S2 normal. No S3 or S4. No discernible murmur noted. Heart rate 95 bpm. Lungs reveal diffuse bilateral rhonchi. Scattered minimal crackles. No wheezes. Breath sounds are equal bilaterally. She does not take deep breaths. 4 L saturation is 96%. Abdomen soft bowel sounds are heard. No masses or tenderness. Extremities are intact. No cyanosis clubbing or edema. Skin is without rash or lesion. Neurologic examination is brief but nonfocal. - Labs CBC & Chem 7: 01/06/22 04:20 01/06/22 04:20 Labs: Abnormal Lab Results - Last 24 Hours (Table) 12/27/21 01/05/22 01/05/22 Range/Units 09:19 13:19 14:21 RBC (3.80-5.40) m/uL Hgb (11.4-16.0) gm/dL Hct (34.0-46.0) % RDW (11.5-15.5) % Plt Count (150-450) k/uL Sodium (137-145) mmol/L BUN (7-17) mg/dL Creatinine (0.52-1.04) mg/dL Glucose (74-99) mg/dL POC Glucose (mg/dL) 177 H 182 H (75-99) mg/dL Calcium (8.4-10.2) mg/dL AST (14-36) U/L Total Protein (6.3-8.2) g/dL Albumin (3.5-5.0) g/dL Crossmatch See Detail 01/05/22 01/05/22 01/05/22 Range/Units 15:37 16:40 18:04 RBC (3.80-5.40) m/uL Hgb (11.4-16.0) gm/dL Hct (34.0-46.0) % RDW (11.5-15.5) % Plt Count (150-450) k/uL Sodium (137-145) mmol/L BUN (7-17) mg/dL Creatinine (0.52-1.04) mg/dL Glucose (74-99) mg/dL POC Glucose (mg/dL) 141 H 127 H 171 H (75-99) mg/dL Calcium (8.4-10.2) mg/dL AST (14-36) U/L Total Protein (6.3-8.2) g/dL Albumin (3.5-5.0) g/dL Crossmatch 01/05/22 01/05/2222 Range/Units 19:01 21:25 22:33 RBC (3.80-5.40) m/uL Hgb (11.4-16.0) gm/dL Hct (34.0-46.0) % RDW (11.5-15.5) % Plt Count (150-450) k/uL Sodium (137-145) mmol/L BUN (7-17) mg/dL Creatinine (0.52-1.04) mg/dL Glucose (74-99) mg/dL POC Glucose (mg/dL) 171 H 143 H 119 H (75-99) mg/dL Calcium (8.4-10.2) mg/dL AST (14-36) U/L Total Protein (6.3-8.2) g/dL Albumin (3.5-5.0) g/dL Crossmatch 01/06/22 01/06/22 01/06/22 Range/Units 00:09 01:18 04:20 RBC 2.56 L (3.80-5.40) m/uL Hgb 7.6 L (11.4-16.0) gm/dL Hct 23.8 L (34.0-46.0) % RDW 16.5 H (11.5-15.5) % Plt Count 97 L (150-450) k/uL Sodium (137-145) mmol/L BUN (7-17) mg/dL Creatinine (0.52-1.04) mg/dL Glucose (74-99) mg/dL POC Glucose (mg/dL) 129 H 134 H (75-99) mg/dL Calcium (8.4-10.2) mg/dL AST (14-36) U/L Total Protein (6.3-8.2) g/dL Albumin (3.5-5.0) g/dL Crossmatch 01/06/22 01/06/22 01/06/22 Range/Units 04:20 04:28 06:57 RBC (3.80-5.40) m/uL Hgb (11.4-16.0) gm/dL Hct (34.0-46.0) % RDW (11.5-15.5) % Plt Count (150-450) k/uL Sodium 131 L (137-145) mmol/L BUN 31 H (7-17) mg/dL Creatinine 1.78 H (0.52-1.04) mg/dL Glucose 122 H (74-99) mg/dL POC Glucose (mg/dL) 123 H 119 H (75-99) mg/dL Calcium 8.3 L (8.4-10.2) mg/dL AST 54 H (14-36) U/L Total Protein 5.1 L (6.3-8.2) g/dL Albumin 2.8 L (3.5-5.0) g/dL Crossmatch 01/06/22 Range/Units 11:46 RBC (3.80-5.40) m/uL Hgb (11.4-16.0) gm/dL Hct (34.0-46.0) % RDW (11.5-15.5) % Plt Count (150-450) k/uL Sodium (137-145) mmol/L BUN (7-17) mg/dL Creatinine (0.52-1.04) mg/dL Glucose (74-99) mg/dL POC Glucose (mg/dL) 210 H (75-99) mg/dL Calcium (8.4-10.2) mg/dL AST (14-36) U/L Total Protein (6.3-8.2) g/dL Albumin (3.5-5.0) g/dL Crossmatch Assessment and Plan Assessment: 1 Symptomatic coronary artery disease status post coronary artery bypass grafting, off pump, CABG 3 with a ALEGRE to the LAD, left radial artery to the obtuse marginal, saphenous vein graft to the posterior descending artery. Left atrial appendage clipped. Postoperative day #2. Routine postoperative ventilator management. 2 Postoperative anemia, status post packed red blood cell transfusion. 3 Hyperlipidemia. 4 Diabetes mellitus. 5 Chronic renal insufficiency. 6 History of prior tobacco dependence. 7 Carotid artery stenosis, left. Plan: Plan dated 01/06/2022. The patient will receive 1 unit of packed red blood cells today for hemoglobin of 7.6. Patient remains on 4 L nasal cannula. She's getting lactated Ringer's at 20 mL an hour. Labs, x-rays, and medications are all reviewed. The patient does not really take deep breaths. She is only getting 500 or so on her incentive spirometer. She's encouraged to use it hourly. We also recommend deep breathing, coughing, and clearing of secretions. Prognosis is guarded. We will continue to follow make recommendations where appropriate. Time with Patient: Less than 30
[2022-01-06] MEDS: INSULIN DETEMIR (LEVEMIR) 100 UNIT/ML SYR SQ SCH (12:46)
--- NOTE | 2022-01-06 15:11 | P.PN ---
Subjective Progress Note Date: 01/06/22 Principal diagnosis: Symptomatic coronary artery disease status post coronary artery bypass grafting Postoperative anemia 81-year-old female patient, history of hypertension, hyperlipidemia, diabetes mellitus, had undergone cardiac catheterization which showed severe triple- vessel coronary artery disease including the distal left main stenosis. She was brought in today electively CABG. She had undergone an off-pump CABG 3 with a ALEGRE to the LAD, radial artery graft to the obtuse marginal, saphenous vein graft to the posterior descending coronary artery. Clipping of the left atrial appendage. She is currently intubated on the mechanical ventilator. Sedated with propofol at 20 mcg/kg/m. Nitroglycerin drip at 5 mg/m. Cardizem drip at 5 mg per hour. Insulin at 0.5 units per hour. Lab review reveals white count 11.5. Hemoglobin 8.1. Platelets 161,000. sodium 138. Potassium 4.7. BUN 19. Creatinine 0.91. Glucose 137. AST 24. ALT 11. Albumin 3.1 Chest x-ray reveals a right perihilar and left lower lobe infiltrate with a small left effusion. Endotracheal tube and nasogastric tubes are in good position. Mediastinal chest tube in place. 01/05/2022 Patient seen and evaluated in follow-up; postoperative day #1 of coronary artery bypass surgery 3. She is currently sitting up in the recliner. Awake and alert in no acute distress. Blood pressure is marginal Chest x-ray reveals a tiny left apical pneumothorax measuring 5 mm meters along the left apex. No significant effusions. Opacity of the left lower lobe and right lower lobe reflective of atelectasis. Mild interstitial edema. Mediasti nal/left pleural chest tubes remain present and connected to wall suction. No leaks noted. Total of 750 ML since surgery output. She is pulling approximately 750 MLS on the incentive spirometer. [place] catheter removed today the cordis remains in place. Prior to the [place] being removed the cardiac output was 3.9 with a cardiac index 2.6. PA pressures 27/12 with a CVP of 11. WBC 6.9. Hemoglobin 6.9. Platelets 105,000. Sodium 138. Potassium 4.3. Creatinine 1.12. Glucose 161. AST 33. ALT 8. Albumin 3.3. She is receiving 1 unit of packed blood cells today. She is continued on DuoNeb inhalations. Oral antiarrhythmics. 01/06/2022 Patient is seen and evaluated sitting up in bed; discussed with nursing staff; he sitting and at that unit of packed RBCs; The patient is postop day #2, that is postop pump three-vessel bypass grafting Vital signs are stable with temperature of 98.2, pulse 85, his physician's 16 and blood pressure 103/48 Lab review reveals sodium 131, potassium 2.8, BUN of 31 with creatinine 1.78; hemoglobin of 7.6 after 1 unit of packed RBCs transfused yesterday; chest x-ray reveals bibasilar atelectasis/infiltrates Objective - Vital Signs Vital signs: Vital Signs Temp 98.4 F 01/06/22 04:00 Pulse 92 01/06/22 07:00 Resp 14 01/06/22 07:00 BP 104/45 01/06/22 07:00 Pulse Ox 94 L 01/06/22 07:00 Intake & Output 01/05/22 01/06/22 01/06/22 18:59 06:59 18:59 Intake Total 1518.829 623.362 26 Output Total 615 305 530 Balance 903.829 318.362 -504 Weight 59.5 kg 67 kg Intake: IV 389.5 312 26 CARDIAC OUTPUT (0.9 30 Sodium Chloride) Diltiazem 125 mg In 10 Sodium Chloride 0.9% 100 ml @ 5 MG/HR 5 mls/hr IV .Q24H [facility] Rx#:[id number] Lactated Ringers 1,000 ml 270 240 20 @ 20 mls/hr IV .Q24H [facility] Rx#:[id number] Nitroglycerin-D5w Pmx 50 1.5 mg In Dextrose/Water 1 250ml.bag @ 5 MCG/MIN 1.5 mls/hr IV .Q24H [facility] Rx#: [id number] Pressure Bag Sodium 78 72 6 Chloride 0.9% Intake, IV Titration 189.329 11.362 Amount Diltiazem 125 mg In 98.583 Sodium Chloride 0.9% 100 ml @ 5 MG/HR 5 mls/hr IV .Q24H [facility] Rx#:[id number] Insulin Regular 100 unit 40.746 11.362 In Sodium Chloride 0.9% 100 ml @ Per Protocol IV .Q0M [facility] Rx#:[id number] ceFAZolin 2 gm In Sodium 50 Chloride 0.9% 50 ml @ 100 mls/hr IVPB Q8H [facility] Rx#: [id number] Oral 580 300 Blood Product 310 Rc As-1 Unit 310 [id number] Other 50 Rc As-1 Unit 50 [id number] Output: Chest Tube Drainage 350 0 510 Chest Tube Left Pleural/ 350 0 510 Mediastinal Urine 265 305 20 Other: Voiding Method Indwelling Catheter ABP, PAP, CO, CI - Last Documented Arterial Blood Pressure 118/36 Pulmonary Artery Pressure 19/9 Cardiac Output 3.9 Cardiac Index 2.6 - Exam GENERAL EXAM: Alert, very pleasant 81-year-old female patient, on 2 L nasal cannula, up in a recliner, fairly comfortable in no apparent distress. NECK: Right IJ cordis remains in place. No masses, no JVD. CHEST: Sternal dressing dry and intact. Heart other in place. Mediastinal/left pleural chest tubes in place. LUNGS: Equal air entry with faint crackles in the posterior bases. CVS: S1 and S2 normal with no audible murmur, regular rhythm. ABDOMEN: No hepatosplenomegaly, normal bowel sounds, no guarding or rigidity. SPINE: No scoliosis or deformity CENTRAL NERVOUS SYSTEM: No focal deficits, tone is normal in all 4 extremities. EXTREMITIES: Right radial arterial line in place. There is trace peripheral edema. No clubbing, no cyanosis. Peripheral pulses are intact. - Labs CBC & Chem 7: 01/06/22 04:20 01/06/22 04:20 Labs: Abnormal Lab Results - Last 24 Hours (Table) 12/27/21 01/05/22 01/05/22 Range/Units 09:19 08:26 09:23 RBC (3.80-5.40) m/uL Hgb (11.4-16.0) gm/dL Hct (34.0-46.0) % RDW (11.5-15.5) % Plt Count (150-450) k/uL Sodium (137-145) mmol/L BUN (7-17) mg/dL Creatinine (0.52-1.04) mg/dL Glucose (74-99) mg/dL POC Glucose (mg/dL) 142 H 210 H (75-99) mg/dL Calcium (8.4-10.2) mg/dL AST (14-36) U/L Total Protein (6.3-8.2) g/dL Albumin (3.5-5.0) g/dL Crossmatch See Detail 01/05/22 01/05/22 01/05/22 Range/Units 10:57 12:03 13:19 RBC (3.80-5.40) m/uL Hgb (11.4-16.0) gm/dL Hct (34.0-46.0) % RDW (11.5-15.5) % Plt Count (150-450) k/uL Sodium (137-145) mmol/L BUN (7-17) mg/dL Creatinine (0.52-1.04) mg/dL Glucose (74-99) mg/dL POC Glucose (mg/dL) 195 H 207 H 177 H (75-99) mg/dL Calcium (8.4-10.2) mg/dL AST (14-36) U/L Total Protein (6.3-8.2) g/dL Albumin (3.5-5.0) g/dL Crossmatch 01/05/22 01/05/22 01/05/22 Range/Units 14:21 15:37 16:40 RBC (3.80-5.40) m/uL Hgb (11.4-16.0) gm/dL Hct (34.0-46.0) % RDW (11.5-15.5) % Plt Count (150-450) k/uL Sodium (137-145) mmol/L BUN (7-17) mg/dL Creatinine (0.52-1.04) mg/dL Glucose (74-99) mg/dL POC Glucose (mg/dL) 182 H 141 H 127 H (75-99) mg/dL Calcium (8.4-10.2) mg/dL AST (14-36) U/L Total Protein (6.3-8.2) g/dL Albumin (3.5-5.0) g/dL Crossmatch 01/05/22 01/05/22 01/05/22 Range/Units 18:04 19:01 21:25 RBC (3.80-5.40) m/uL Hgb (11.4-16.0) gm/dL Hct (34.0-46.0) % RDW (11.5-15.5) % Plt Count (150-450) k/uL Sodium (137-145) mmol/L BUN (7-17) mg/dL Creatinine (0.52-1.04) mg/dL Glucose (74-99) mg/dL POC Glucose (mg/dL) 171 H 171 H 143 H (75-99) mg/dL Calcium (8.4-10.2) mg/dL AST (14-36) U/L Total Protein (6.3-8.2) g/dL Albumin (3.5-5.0) g/dL Crossmatch 01/05/22 01/06/22 01/06/22 Range/Units 22:33 00:09 01:18 RBC (3.80-5.40) m/uL Hgb (11.4-16.0) gm/dL Hct (34.0-46.0) % RDW (11.5-15.5) % Plt Count (150-450) k/uL Sodium (137-145) mmol/L BUN (7-17) mg/dL Creatinine (0.52-1.04) mg/dL Glucose (74-99) mg/dL POC Glucose (mg/dL) 119 H 129 H 134 H (75-99) mg/dL Calcium (8.4-10.2) mg/dL AST (14-36) U/L Total Protein (6.3-8.2) g/dL Albumin (3.5-5.0) g/dL Crossmatch 01/06/22 01/06/22 01/06/22 Range/Units 04:20 04:20 04:28 RBC 2.56 L (3.80-5.40) m/uL Hgb 7.6 L (11.4-16.0) gm/dL Hct 23.8 L (34.0-46.0) % RDW 16.5 H (11.5-15.5) % Plt Count 97 L (150-450) k/uL Sodium 131 L (137-145) mmol/L BUN 31 H (7-17) mg/dL Creatinine 1.78 H (0.52-1.04) mg/dL Glucose 122 H (74-99) mg/dL POC Glucose (mg/dL) 123 H (75-99) mg/dL Calcium 8.3 L (8.4-10.2) mg/dL AST 54 H (14-36) U/L Total Protein 5.1 L (6.3-8.2) g/dL Albumin 2.8 L (3.5-5.0) g/dL Crossmatch 01/06/22 Range/Units 06:57 RBC (3.80-5.40) m/uL Hgb (11.4-16.0) gm/dL Hct (34.0-46.0) % RDW (11.5-15.5) % Plt Count (150-450) k/uL Sodium (137-145) mmol/L BUN (7-17) mg/dL Creatinine (0.52-1.04) mg/dL Glucose (74-99) mg/dL POC Glucose (mg/dL) 119 H (75-99) mg/dL Calcium (8.4-10.2) mg/dL AST (14-36) U/L Total Protein (6.3-8.2) g/dL Albumin (3.5-5.0) g/dL Crossmatch Assessment and Plan Assessment: 1. Symptomatic triple-vessel CAD; -- status post coronary artery bypass grafting, off pump, CABG 3 with a ALEGRE to the LAD, left radial artery to the obtuse marginal, saphenous vein graft to the posterior descending artery. Left atrial appendage clipped. - Patient remains intubated and mechanically ventilated; intensive care team on board with plans for early extubation as tolerated 2. Hypertension; metoprolol 12.5 mg twice a day; Cardizem 30 mg every 8 hours 3. Hyperlipidemia; Lipitor 80 mg daily at bedtime 4. Diabetes mellitus; patient takes Farxiga, Actos and Toujeo at home; currently plan is for Accu-Cheks every before meals and at bedtime with sliding scale 5. Anxiety; takes Xanax 0.25 mg twice a day, but she remains on hold DVT prophylaxis; SCDs/subcu heparin CODE STATUS; full code
[2022-01-06 16:40] LABS: Glucose,Whole Blood 181 mg/dL (75-99)
[2022-01-06] MEDS: ACETAMINOPHEN TAB 325 MG TAB PO PRN (21:28)
[2022-01-06] MEDS: ATORVASTATIN 80 MG TAB PO SCH (21:29)
[2022-01-06] MEDS: SENNOSIDES-DOCUSATE SODIUM 1 EACH TAB PO SCH (21:29)
[2022-01-06 21:38] LABS: Glucose,Whole Blood 170 mg/dL (75-99)
[2022-01-07] MEDS: ACETAMINOPHEN TAB 325 MG TAB PO PRN (05:42)
[2022-01-07 06:31] LABS: Basophils % (A) 0 %; Eosinophils # (A) 0.1 k/uL (0-0.7); Eosinophils % (A) 2 %; HCT 33.5 % (34.0-46.0); Hypochromasia Slight; Lymphocytes # (A) 1.2 k/uL (1.0-4.8); Lymphocytes % (A) 14 %; MCH 30.5 pg (25.0-35.0); MCHC 32.1 g/dL (31.0-37.0); Mean Platelet Volume 8.2; Monocytes # (A) 0.4 k/uL (0-1.0); Monocytes % (A) 5 %; Neutrophils # (A) 6.8 k/uL (1.3-7.7); Neutrophils % (A) 79 %; Platelet Count 106 k/uL (150-450); Poikilocytosis Slight; RBC 3.53 m/uL (3.80-5.40); WBC 8.7 k/uL (3.8-10.6)
[2022-01-07 06:38] LABS: HGB 10.8 gm/dL (11.4-16.0)
[2022-01-07 06:54] LABS: ALT <6 U/L (4-34); AST 42 U/L (14-36); African American GFR (CKD) 34 (>60 ml/min/1.73 sqM); Albumin 2.7 g/dL (3.5-5.0); Alkaline Phosphatase 70 U/L (38-126); Anion Gap 3 mmol/L; Blood Urea Nitrogen 33 mg/dL (7-17); Calcium 8.5 mg/dL (8.4-10.2); Carbon Dioxide 21 mmol/L (22-30); Chloride 107 mmol/L (98-107); Glucose 140 mg/dL (74-99); Magnesium 2.3 mg/dL (1.6-2.3); Non-African American GFR(CKD) 30 (>60 ml/min/1.73 sqM); Potassium 4.5 mmol/L (3.5-5.1); Sodium 131 mmol/L (137-145); Total Bilirubin 1.2 mg/dL (0.2-1.3); Total Protein 5.1 g/dL (6.3-8.2)
[2022-01-07 07:00] LABS: Glucose,Whole Blood 182 mg/dL (75-99)
[2022-01-07] MEDS: MIDODRINE 5 MG TAB PO SCH ×5 (07:12→16:58)
[2022-01-07] MEDS: PANTOPRAZOLE 40 MG TABLET PO SCH (07:12)
[2022-01-07] MEDS: FERROUS SULFATE 325 MG TAB PO SCH ×2 (07:12→16:58)
[2022-01-07] MEDS: INSULIN DETEMIR (LEVEMIR) 100 UNIT/ML SYR SQ SCH (07:13)
[2022-01-07] MEDS: ASCORBIC ACID 500 MG TAB PO SCH ×2 (07:13→16:58)
[2022-01-07] MEDS: INSULIN ASPART (NovoLOG) 100 UNIT/ML VIAL SQ SCH ×4 (07:14→20:19)
[2022-01-07] MEDS: IPRATROPIUM-ALBUTEROL 3 ML NEB INHALATION SCH ×4 (07:43→19:57)
[2022-01-07] MEDS ORDERED: FUROSEMIDE 10 MG/ML 2 ML VIAL IV ONE (08:08)
[2022-01-07] MEDS: MULTIVITAMINS, THERA 1 EACH TAB PO SCH (08:15)
[2022-01-07] MEDS: HEPARIN SODIUM,PORCINE/PF 5,000 UNIT/0.5 ML SYRINGE SQ SCH ×3 (08:15→23:43)
[2022-01-07] MEDS: CLOPIDOGREL 75 MG TAB PO SCH (08:15)
[2022-01-07] MEDS: DILTIAZEM ORAL 30 MG TAB PO SCH (08:16)
--- NOTE | 2022-01-07 08:35 | P.PN ---
Subjective Progress Note Date: 01/07/22 Principal diagnosis: Coronary artery disease. Previous medical history of hypertension, hyperlipidemia, diabetes, chronic renal insufficiency, previous tobacco dependence, left internal carotid artery stenosis. Patient is vaccinated and boosted against covid POD #3 off-pump coronary artery bypass graft 3 with left internal mammary artery to the left anterior descending artery, T graft left radial artery to the obtuse marginal artery, reverse saphenous vein graft to the posterior descending coronary artery with patch angioplasty of posterior descending coronary artery, occlusion of the left atrial appendage with a 35 mm AtriCure clip, endovascular vein harvest of the greater saphenous vein from the left thigh, endovascular left radial artery harvest, intraoperative transesophageal echocardiogram performed by anesthesia. Postoperative acute blood loss anemia and thrombocytopenia, expected given hemodilution and preoperative anemia The patient was seen and examined this morning sitting up in a recliner in the intensive care unit in no acute distress. She states postoperative pain is controlled on current medication regimen, denies shortness of breath. Patient did receive additional unit packed red blood cells yesterday due to hemodynamic instability. Blood pressure improved although patient still has not received any doses of beta farnaz yet. Midodrine started yesterday. Right internal jugular Cordis, mediastinal/left pleural chest tubes all remaining present. Patient does exhibit some weakness/unsteadiness when getting up to ambulate. No other new concerns. Objective - Vital Signs Vital signs: Vital Signs Temp 98.4 F 01/06/22 16:00 Pulse 82 01/07/22 07:00 Resp 14 01/07/22 07:00 BP 119/54 01/07/22 07:00 Pulse Ox 94 L 01/07/22 07:00 Intake & Output 01/06/22 01/07/22 01/07/22 18:59 06:59 18:59 Intake Total 1263 326 23 Output Total 1450 1035 70 Balance -187 -709 -47 Weight 60.1 kg Intake: IV 303 276 23 Lactated Ringers 1,000 ml 240 240 20 @ 20 mls/hr IV .Q24H [facility] Rx#:[id number] Pressure Bag Sodium 63 36 3 Chloride 0.9% Oral 600 50 Blood Product 310 Rc As-1 Unit 310 [id number] Other 50 Rc As-1 Unit 50 [id number] Output: Chest Tube Drainage 900 290 20 Chest Tube Left Pleural/ 900 290 20 Mediastinal Urine 550 745 50 Other: Voiding Method Indwelling Catheter ABP, PAP, CO, CI - Last Documented Arterial Blood Pressure 62/60 Pulmonary Artery Pressure 19/9 Cardiac Output 3.9 Cardiac Index 2.6 - Exam CONSTITUTIONAL: Appears comfortable, cooperative, no acute distress RESPIRATORY: Lungs sounds diminished bilaterally. Respirations even, nonlabored. Currently on 2 L nasal cannula with oxygen saturation 94%. Only able to achieve 500 mL on incentive spirometry. Strong cough. CARDIOVASCULAR: S1, S2 present. Regular rate and rhythm, sinus rhythm on telemetry. Sternum stable. Palpable peripheral pulses bilaterally. Trace generalized edema present. No calf pain or tenderness noted. Heart hugger in place with patient demonstrating appropriate use. Antiembolism stockings, SCDs present. GASTROINTESTINAL: Abdomen soft, nontender, nondistended. Active bowel sounds present 4 quadrants. Tolerating diet. Positive flatus GENITOURINARY: Cabrera present draining clear, yellow urine. Output overnight 60-75 mL per hour, 1295 mL last 24 hours INTEGUMENTARY: Skin is warm and dry with evidence of good perfusion. Anterior chest incision well approximated and covered with dry intact dressing. Left lower extremity EVH site well approximated without redness or drainage. Left radial artery harvest site well approximated without redness or drainage NEUROLOGIC: Cranial nerves II through XII intact MUSKULOSKELETAL: Able to move all extremities, strength equal bilaterally, unsteady with ambulation PSYCHIATRIC: Alert and oriented to person place and time, appropriate affect, intact judgment and insight INVASIVE LINES AND TUBES: Mediastinal/left pleural chest tubes present and connected to wall suction, no air leaks present, 200mL serous drainage overnight, 1190 mL serous output in the last 24 hours. Right internal jugular Cordis present. - Allied health notes Allied health notes reviewed: nursing - Labs CBC & Chem 7: 01/07/22 05:31 01/07/22 05:31 Labs: Abnormal Lab Results - Last 24 Hours (Table) 12/27/21 01/06/22 01/06/22 Range/Units 09:19 11:46 16:38 RBC (3.80-5.40) m/uL Hgb (11.4-16.0) gm/dL Hct (34.0-46.0) % RDW (11.5-15.5) % Plt Count (150-450) k/uL Sodium (137-145) mmol/L Carbon Dioxide (22-30) mmol/L BUN (7-17) mg/dL Creatinine (0.52-1.04) mg/dL Glucose (74-99) mg/dL POC Glucose (mg/dL) 210 H 181 H (75-99) mg/dL AST (14-36) U/L Total Protein (6.3-8.2) g/dL Albumin (3.5-5.0) g/dL Crossmatch See Detail 01/06/22 01/07/22 01/07/22 Range/Units 21:36 05:31 05:31 RBC 3.53 L (3.80-5.40) m/uL Hgb 10.8 L D (11.4-16.0) gm/dL Hct 33.5 L (34.0-46.0) % RDW 16.0 H (11.5-15.5) % Plt Count 106 L (150-450) k/uL Sodium 131 L (137-145) mmol/L Carbon Dioxide 21 L (22-30) mmol/L BUN 33 H (7-17) mg/dL Creatinine 1.63 H (0.52-1.04) mg/dL Glucose 140 H (74-99) mg/dL POC Glucose (mg/dL) 170 H (75-99) mg/dL AST 42 H (14-36) U/L Total Protein 5.1 L (6.3-8.2) g/dL Albumin 2.7 L (3.5-5.0) g/dL Crossmatch 01/07/22 Range/Units 06:58 RBC (3.80-5.40) m/uL Hgb (11.4-16.0) gm/dL Hct (34.0-46.0) % RDW (11.5-15.5) % Plt Count (150-450) k/uL Sodium (137-145) mmol/L Carbon Dioxide (22-30) mmol/L BUN (7-17) mg/dL Creatinine (0.52-1.04) mg/dL Glucose (74-99) mg/dL POC Glucose (mg/dL) 182 H (75-99) mg/dL AST (14-36) U/L Total Protein (6.3-8.2) g/dL Albumin (3.5-5.0) g/dL Crossmatch - Imaging and Cardiology Chest x-ray: image reviewed Assessment and Plan Assessment: 1. Coronary artery disease, status post three-vessel off-pump CABG 2. History of hypertension, currently borderline hypotensive not on pressors 3. Hyperlipidemia, untreated, cholesterol 242, LDL 133 4. Diabetes, preoperative hemoglobin A1c 7.9% 5. Chronic renal insufficiency 6. Previous tobacco dependence, preoperative FEV1 120% of predicted 7. Left internal carotid artery stenosis 50-79% 8. Vaccinated and boosted against covid 9. Postoperative acute blood loss anemia and thrombocytopenia Plan: 1. Continue Plavix, statin, beta fanraz therapy. Will increase beta farnaz as tolerated. Aspirin is CONTRAINDICATED due to ALLERGY. Will increase midodrine 2. Continue calcium channel farnaz for radial artery spasm prophylaxis. Will change to norvasc 3. Wean O2 as tolerated. Encourage incentive spirometry use 10 times every hour while awake. Bronchodilators per pulmonology 4. Will continue to monitor daily labs and chest x-rays. Electrolyte replacement per protocol. Avoid nephrotoxins. Will give IV lasix. No further blood transfusion 5. GI/DVT prophylaxis 6. Pain control with current medication regimen 7. Insulin management per primary care service. Patient's diabetes is uncontrolled with hyperglycemia, will need tight blood sugar control to promote sternal union and prevent infection 8. Discontinue Cordis 9. Will discontinue mediastinal chest tube, continue left pleural chest tube for another 24 hours 10. Discontinue [place] catheter, may bladder scan and straight cath for >300 mL residual 11. Strict accurate intake and output. Daily weights 12. Increase activity, ambulate as tolerated. PT/OT/cardiac rehab following 13. More recommendations to follow Time with Patient: Greater than 30
--- NOTE | 2022-01-07 08:45 | XR ---
EXAMINATION TYPE: XR chest 1V portable DATE OF EXAM: 01/07/2022 COMPARISON: 01/14/2022 HISTORY: Postop FINDINGS: There are bilateral pleural effusions with cardiomegaly and bibasilar infiltrate. There is a diffuse interstitial pattern. Mediastinal drain and chest tube noted with postsurgical changes. There is a s mall approximate 5% left apical pneumothorax. Right-sided vascular sheath suggested. Right-sided vasc ular sheath suggested. Diffuse osteopenia with arthropathy of the shoulders. IMPRESSION: 1. Bilateral infiltrate and pleural effusion correlate for CHF versus diffuse pneumonia. 2. Stable 5% left apical pneumothorax.
[2022-01-07] MEDS: METOPROLOL TARTRATE 12.5 MG TAB PO SCH ×2 (09:13→20:18)
--- NOTE | 2022-01-07 10:19 | PN ---
PROGRESS NOTE Mrs. Oneal is status post bypass surgery. She is doing fairly well. She received a blood transfusion. Hemodynamically stable, maintaining sinus rhythm, working on incentive spirometry, making modest progress. Vitals are stable. In sinus rhythm. JVD 1 cm. No carotid bruit. S1-S2 heard normally. Short systolic murmur noted, left sternal border. Lungs reveal fair air entry. Abdomen is soft. Rest of physical examination is unchanged. Plan is to continue incentive spirometry and pulmonary toilet and continue all her other medications. Hemoglobin appears to be stable at 10.8 today. MMODL / IJN: [id number] /
--- NOTE | 2022-01-07 10:35 | P.CONS ---
History of Present Illness - Chief Complaint Cardiac debility - History of Present Illness I had the opportunity to see patient for inpatient rehab consultation with regard to cardiac debility. She was admitted to [facility] January 04 with triple-vessel cardiac disease for elective CABG three-vessel, Dr. Villalpando. Seen medically by Dr. Mackey. Seen for pulmonary and ICU care by Dr. Schmitz. Seen by cardiology for cardiac disease. Chest x-rays followed for patchy atelectasis. Has seen PT reports two-person moderate assistance bed mobility standing and transfers and 2 person minimal assist for gait 10 feet without device. Fatigues. OT prescribed. Previous functional history as elicited from patient: 81-year-old right-handed female who is lives in one floor home with , son, sister. They share the cooking and laundry. All are retired. Patient drove up until about a month ago. Otherwise independent with standing shower and gait without device. PCP Dr. Wang. Review of Systems Review of systems: ENT: Denies sneezes or discharge. Eyes: Denies discharge or photophobia. Cardiac: Denies chest pain or palpitation. Pulmonary: Denies cough or shortness of breath. Breast: Denies discharge or lumps. Gastrointestinal: Denies nausea, emesis, constipation, diarrhea. Genitourinary: Denies discharge or frequency. Musculoskeletal: Denies muscle or bone aches. Neurologic: Fatigued. Endocrine: Denies shakes or sweats. Oncology: Denies cancers. Dermatologic: Denies rash, itching, pruritus. ALLERGY/immunology: Denies sneezes, rashes. Past Medical History Past Medical History: Chest Pain / Angina, Diabetes Mellitus, Hyperlipidemia, Hypertension Additional Past Medical History / Comment(s): UTI-ECOLI History of Any Multi-Drug Resistant Organisms: None Reported Past Surgical History: Cholecystectomy, Heart Catheterization, Hernia Repair, Hysterectomy, Orthopedic Surgery Additional Past Surgical History / Comment(s): R shoulder surgery. R broken wrist.trigger release rt middle finger. pt not sure if they took appendix when they did hysterectomy Past Anesthesia/Blood Transfusion Reactions: No Reported Reaction Additional Past Anesthesia/Blood Transfusion Reaction / Comm: blood transfusion- no reaction Additional Psychological History / Comment(s): pt is independant, lives with spouse, pt's sister and a grand daughter- has 1 step to house, has 3 pet dogs. recieves meals on wheels, has shower chair and bsc. - Past Family History Father Family Medical History: Congestive Heart Failure (CHF) Mother Family Medical History: Pneumonia Additional Family Medical History / Comment(s): fom pne Medications and Allergies Home Medications Medication Instructions Recorded Confirmed Type Clopidogrel [Plavix] 75 mg PO QAM 02/13/16 12/27/21 History Losartan [Cozaar] 50 mg PO HS 02/13/16 01/04/22 History Insulin Glargine,Hum.rec.anlog 10 unit SQ HS 02/13/19 01/04/22 History [Toujeo Solostar] Alendronate Sodium [Fosamax] 70 mg PO WE 07/16/20 01/04/22 History Omeprazole 20 mg PO DAILY PRN 07/16/20 01/04/22 History Isosorbide Mononitrate ER [Imdur] 60 mg PO DAILY 30 Days #30 07/18/20 01/04/22 Rx tab.er.24h Meclizine [Antivert] 25 mg PO TID PRN 10/09/21 01/04/22 History Nitroglycerin Sl Tabs [Nitrostat] 0.4 mg SUBLINGUAL Q5M PRN 10/09/21 01/04/22 History Pioglitazone [Actos] 30 mg PO DAILY 10/09/21 01/04/22 History amLODIPine [Norvasc] 5 mg PO DAILY 10/09/21 01/04/22 History ALPRAZolam [Xanax] 0.25 mg PO BID PRN 12/07/21 01/04/22 History Dapagliflozin Propanediol [Farxiga] 10 mg PO DAILY 12/07/21 01/04/22 History metFORMIN HCL [Glucophage] 1,000 mg PO DAILY 12/07/21 01/04/22 History Atorvastatin [Lipitor] 80 mg PO HS 12/27/21 01/04/22 History Ciprofloxacin HCl [Cipro] 500 mg PO Q12HR 12/27/21 01/04/22 History Ergocalciferol [Vitamin D2 (1250 50,000 unit PO WE 12/27/21 01/04/22 History Mcg = 39276 Iu)] Multivitamins, Thera [Multivitamin 1 tab PO DAILY 12/27/21 01/04/22 History (formulary)] Mupirocin [Mupirocin 2%] 1 applic NASAL BID #1 tub 12/27/21 12/27/21 Rx Allergies Allergy/AdvReac Type Severity Reaction Status Date / Time aspirin Allergy Rash/Hives Verified 01/04/22 05:53 codeine Allergy Rash/Hives Verified 01/04/22 05:53 Influenza Virus Vaccines Allergy Rash/Hives Verified 01/04/22 05:53 Iodinated Contrast Media Allergy Rash/Hives/Increased Verified 01/04/22 05:53 [Iodinated Contrast Media - HR IV Dye] iodine Allergy Rash/Hives Verified 01/04/22 05:53 NSAIDS (Non-Steroidal Allergy Anaphylaxis Verified 01/04/22 05:53 Anti-Inflamma Physical Exam Vitals: Vital Signs Temp Pulse Pulse Resp BP BP Pulse Ox 01/07/22 07:00 82 14 119/54 94 L 01/07/22 06:00 85 13 110/49 98 01/07/22 05:00 87 15 110/49 97 01/07/22 04:00 82 13 118/41 98 01/07/22 03:00 85 11 L 93/45 94 L 01/07/22 02:00 79 13 105/48 98 01/07/22 01:00 85 25 H 106/50 91 L 01/07/22 00:00 86 14 111/43 98 01/06/22 23:00 87 15 119/45 92 L 01/06/22 22:00 93 15 125/48 96 01/06/22 21:03 96 01/06/22 21:00 95 22 119/44 100 01/06/22 20:49 94 01/06/22 20:00 89 16 123/43 93 L 01/06/22 19:00 89 16 112/47 100 01/06/22 18:00 88 16 115/46 95 01/06/22 17:00 93 25 H 108/41 93 L 01/06/22 16:16 90 01/06/22 16:05 90 01/06/22 16:00 98.4 F 89 25 H 116/54 97 01/06/22 15:00 94 20 112/48 97 01/06/22 14:00 87 16 89/40 96 01/06/22 13:00 92 16 104/42 93 L 02/20/22 12:39 90 01/06/22 12:29 90 01/06/22 12:00 99 18 115/50 94 L 01/06/22 11:35 98.4 F 89 18 124/46 94 L 01/06/22 11:00 95 16 103/48 96 Intake and Output 01/06/22 01/07/22 01/07/22 22:59 06:59 14:59 Intake Total 427 234 23 Output Total 515 720 70 Balance -88 -486 -47 Intake: IV 187 184 23 Lactated Ringers 1,000 ml 160 160 20 @ 20 mls/hr IV .Q24H [facility] Rx#:[id number] Pressure Bag Sodium 27 24 3 Chloride 0.9% Oral 240 50 Output: Chest Tube Drainage 160 200 20 Chest Tube Left Pleural/ 160 200 20 Mediastinal Urine 355 520 50 Other: Voiding Method Indwelling Catheter Weight 60.1 kg Skin: Atrophic, intact. General: Medium build and fatigued/sleepy appearance. Head: Normocephalic, atraumatic. Eyes: Symmetric. Pupils equal round. Ears: Symmetric. Hearing within normal limits. Mouth: Clear. Neck: Supple. Carotid without bruit. Cardiac: Regular rate and rhythm. Anterior surgical dressing. Harness. Lungs: Clear anteriorly and posteriorly. Abdomen: Soft active nontender. Extremities: Normal tone. Neurological: Mental status: Alert, cooperative, pleasant. Cranial nerves: Symmetric facial tone and trapezius. Motor: Active movement all 4 limbs and at best antigravity. Limited by general fatigue. Sensation: Intact throughout. DTRs: Symmetric and equal throughout. Mobility: Requires physical assist for any mobility. Results CBC & Chem 7: 01/07/22 05:31 01/07/22 05:31 Labs: Abnormal Lab Results - Last 24 Hours (Table) 12/27/21 01/06/22 01/06/22 Range/Units 09:19 11:46 16:38 RBC (3.80-5.40) m/uL Hgb (11.4-16.0) gm/dL Hct (34.0-46.0) % RDW (11.5-15.5) % Plt Count (150-450) k/uL Sodium (137-145) mmol/L Carbon Dioxide (22-30) mmol/L BUN (7-17) mg/dL Creatinine (0.52-1.04) mg/dL Glucose (74-99) mg/dL POC Glucose (mg/dL) 210 H 181 H (75-99) mg/dL AST (14-36) U/L Total Protein (6.3-8.2) g/dL Albumin (3.5-5.0) g/dL Crossmatch See Detail 01/06/22 01/07/22 01/07/22 Range/Units 21:36 05:31 05:31 RBC 3.53 L (3.80-5.40) m/uL Hgb 10.8 L D (11.4-16.0) gm/dL Hct 33.5 L (34.0-46.0) % RDW 16.0 H (11.5-15.5) % Plt Count 106 L (150-450) k/uL Sodium 131 L (137-145) mmol/L Carbon Dioxide 21 L (22-30) mmol/L BUN 33 H (7-17) mg/dL Creatinine 1.63 H (0.52-1.04) mg/dL Glucose 140 H (74-99) mg/dL POC Glucose (mg/dL) 170 H (75-99) mg/dL AST 42 H (14-36) U/L Total Protein 5.1 L (6.3-8.2) g/dL Albumin 2.7 L (3.5-5.0) g/dL Crossmatch 01/07/22 Range/Units 06:58 RBC (3.80-5.40) m/uL Hgb (11.4-16.0) gm/dL Hct (34.0-46.0) % RDW (11.5-15.5) % Plt Count (150-450) k/uL Sodium (137-145) mmol/L Carbon Dioxide (22-30) mmol/L BUN (7-17) mg/dL Creatinine (0.52-1.04) mg/dL Glucose (74-99) mg/dL POC Glucose (mg/dL) 182 H (75-99) mg/dL AST (14-36) U/L Total Protein (6.3-8.2) g/dL Albumin (3.5-5.0) g/dL Crossmatch Assessment and Plan (1) CAD (coronary artery disease) Current Visit: Yes Status: Acute Code(s): I25.10 - ATHSCL HEART DISEASE OF [place] CORONARY ARTERY W/O ANG PCTRS SNOMED Code(s): 22401504 (2) Status post aorto-coronary artery bypass graft Current Visit: Yes Status: Acute Code(s): Z95.1 - PRESENCE OF AORTOCORONARY BYPASS GRAFT SNOMED Code(s): 404049761 (3) Hyperglycemia Current Visit: No Status: Acute Code(s): R73.9 - HYPERGLYCEMIA, UNSPECIFIED SNOMED Code(s): 49557571 Plan: Comments and plan: At this time PT ongoing and OT prescribed. Await OT note. Patient currently in ICU and is still recuperating from cardiac surgery. Thus not ready for inpatient rehab at this time but I will continue to follow closely with yourself for possible need and benefit of inpatient rehab.
[2022-01-07 11:20] LABS: Glucose,Whole Blood 183 mg/dL (75-99)
[2022-01-07] MEDS: MAGNESIUM HYDROXIDE 2,400 MG/10 ML CUP PO PRN (11:30)
--- NOTE | 2022-01-07 13:13 | P.PN ---
Subjective Progress Note Date: 01/07/22 Principal diagnosis: Status post CABG postoperative day #4 POD #3 off-pump coronary artery bypass graft 3 with left internal mammary artery to the left anterior descending artery, T graft left radial artery to the obtuse marginal artery, reverse saphenous vein graft to the posterior descending coronary artery with patch angioplasty of posterior descending coronary artery, occlusion of the left atrial appendage with a 35 mm AtriCure clip, endovascular vein harvest of the greater saphenous vein from the left thigh, endovascular left radial artery harvest, intraoperative transesophageal echocardiogram performed by anesthesia. Reevaluated today on 01/06/2022, patient is on few liters nasal cannula, she is doing extremely well, denies any shortness of breath, chest x-ray showed minimal basilar atelectasis especially at the left base, possibly a small tiny pleural effusion, patient is not in any distress. She is hemodynamically stable. Not requiring any pressors. Objective - Vital Signs Vital signs: Vital Signs Temp 98.5 F 01/07/22 12:00 Pulse 71 01/07/22 12:00 Resp 15 01/07/22 12:00 BP 106/43 01/07/22 12:00 Pulse Ox 93 L 01/07/22 12:00 Intake & Output 01/06/22 01/07/22 01/07/22 18:59 06:59 18:59 Intake Total 1263 326 263 Output Total 1450 1035 235 Balance -187 -709 28 Weight 60.1 kg Intake: IV 303 276 23 Lactated Ringers 1,000 ml 240 240 20 @ 20 mls/hr IV .Q24H [facility] Rx#:[id number] Pressure Bag Sodium 63 36 3 Chloride 0.9% Oral 600 50 240 Blood Product 310 Rc As-1 Unit 310 [id number] Other 50 Rc As-1 Unit 50 [id number] Output: Chest Tube Drainage 900 290 85 Chest Tube Left Pleural/ 900 290 85 Mediastinal Urine 550 745 150 Other: Voiding Method Indwelling Catheter ABP, PAP, CO, CI - Last Documented Arterial Blood Pressure 62/60 Pulmonary Artery Pressure 19/9 Cardiac Output 3.9 Cardiac Index 2.6 - Exam Physical Exam: Revealed 81-year-old female in no distress. On 2 L nasal cannula. Achieving 500 mL with her incentive spirometer. Head: Atraumatic, normocephalic. HEENT:[Neck is supple.] [No neck masses.] [No thyromegaly.] [No JVD.] Right IJ Cordis is noted. Chest: [Clear throughout, no crackles, no rhonchi, no wheezes.] Left sided chest tube and mediastinal tube noted. Cardiac Exam: [Normal S1 and S2, no S3 gallop, no murmur.] Abdomen: [Soft, nontender, no megaly, no rebound, no guarding, normal bowel sounds.] Extremities: [No clubbing, no edema, no cyanosis.] Neurological Exam: [No focal neurologic deficit.] Alert oriented 3. Psychiatric: Normal mood affect and normal mental status examination. Skin: No rashes - Labs CBC & Chem 7: 01/07/22 05:31 01/07/22 05:31 Labs: Abnormal Lab Results - Last 24 Hours (Table) 01/06/22 01/06/22 01/07/22 Range/Units 16:38 21:36 05:31 RBC 3.53 L (3.80-5.40) m/uL Hgb 10.8 L D (11.4-16.0) gm/dL Hct 33.5 L (34.0-46.0) % RDW 16.0 H (11.5-15.5) % Plt Count 106 L (150-450) k/uL Sodium (137-145) mmol/L Carbon Dioxide (22-30) mmol/L BUN (7-17) mg/dL Creatinine (0.52-1.04) mg/dL Glucose (74-99) mg/dL POC Glucose (mg/dL) 181 H 170 H (75-99) mg/dL AST (14-36) U/L Total Protein (6.3-8.2) g/dL Albumin (3.5-5.0) g/dL 01/07/22 01/07/22 01/07/22 Range/Units 05:31 06:58 11:19 RBC (3.80-5.40) m/uL Hgb (11.4-16.0) gm/dL Hct (34.0-46.0) % RDW (11.5-15.5) % Plt Count (150-450) k/uL Sodium 131 L (137-145) mmol/L Carbon Dioxide 21 L (22-30) mmol/L BUN 33 H (7-17) mg/dL Creatinine 1.63 H (0.52-1.04) mg/dL Glucose 140 H (74-99) mg/dL POC Glucose (mg/dL) 182 H 183 H (75-99) mg/dL AST 42 H (14-36) U/L Total Protein 5.1 L (6.3-8.2) g/dL Albumin 2.7 L (3.5-5.0) g/dL Assessment and Plan Assessment: Impression: Status post CABG, status post three-vessel off-pump CABG. Postoperative day #4. Benign essential hypertension Dyslipidemia Chronic renal insufficiency Postoperative blood loss anemia, expected. Postoperative atelectasis, expected Recommendation: Continue Plavix statin beta blockers Continue oxygen and titrate accordingly continue incentive spirometry. Continue GI and DVT prophylaxis. Ambulation and possible rehab placement. Discontinue unnecessary catheters and 2. Increase activity as tolerated. Pain control. We will continue to follow. Time with Patient: Less than 30
--- NOTE | 2022-01-07 15:01 | PN ---
PROGRESS NOTE DATE OF SERVICE: 01/07/2022 This 81-year-old woman who was admitted after CAD, CABG is improving significantly. No chest pain. No palpitations. No fever. PHYSICAL EXAMINATION: Alert and oriented x3. Pulse 71, blood pressure 106/43, respiration 15. CHEST: A few scattered rhonchi. ABDOMEN: Soft. NERVOUS SYSTEM: No focal deficit. LABS: Reviewed. Hemoglobin 10.3. ASSESSMENT: 1. Coronary artery disease, status post coronary artery bypass grafting. 2. Hypertension. 3. Hyperlipidemia. 4. Diabetes mellitus, type 2. RECOMMENDATIONS AND DISCUSSION: I recommend to continue current medications, continue with the monitoring, symptomatic treatment. Incentive spirometry. Blood sugars are in the high 100s. Will continue to monitor. Further recommendations to follow. MMODL / IJN: [id number] /
[2022-01-07 16:12] LABS: Glucose,Whole Blood 197 mg/dL (75-99)
[2022-01-07] MEDS: amLODIPine 2.5 MG TAB PO SCH (16:59)
[2022-01-07 20:14] LABS: Glucose,Whole Blood 227 mg/dL (75-99)
[2022-01-07] MEDS: SENNOSIDES-DOCUSATE SODIUM 1 EACH TAB PO SCH (20:19)
[2022-01-07] MEDS: ATORVASTATIN 80 MG TAB PO SCH (20:19)
[2022-01-08] MEDS: ACETAMINOPHEN TAB 325 MG TAB PO PRN ×5 (02:00→23:32)
[2022-01-08 06:35] LABS: Glucose,Whole Blood 216 mg/dL (75-99)
[2022-01-08 06:39] LABS: Anisocytosis Slight; Basophils % (A) 0 %; Eosinophils # (A) 0.1 k/uL (0-0.7); Eosinophils % (A) 2 %; HCT 30.9 % (34.0-46.0); Lymphocytes % (A) 16 %; MCHC 32.5 g/dL (31.0-37.0); MCV 92.2 fL (80.0-100.0); Monocytes # (A) 0.2 k/uL (0-1.0); Monocytes % (A) 4 %; Neutrophils # (A) 4.6 k/uL (1.3-7.7); Neutrophils % (A) 77 %; Platelet Count 120 k/uL (150-450); RBC 3.35 m/uL (3.80-5.40); RDW 16.3 % (11.5-15.5); WBC 6.1 k/uL (3.8-10.6)
[2022-01-08] MEDS: INSULIN DETEMIR (LEVEMIR) 100 UNIT/ML SYR SQ SCH (06:40)
[2022-01-08] MEDS: INSULIN ASPART (NovoLOG) 100 UNIT/ML VIAL SQ SCH ×4 (06:41→20:12)
[2022-01-08 06:53] LABS: Albumin 2.6 g/dL (3.5-5.0); Calcium 8.5 mg/dL (8.4-10.2); Potassium 4.7 mmol/L (3.5-5.1); Total Bilirubin 1.1 mg/dL (0.2-1.3)
--- NOTE | 2022-01-08 08:27 | XR ---
EXAMINATION TYPE: XR chest 1V portable DATE OF EXAM: 01/08/2022 COMPARISON: Chest x-ray 01/07/2022 HISTORY: Chest tube TECHNIQUE: Single frontal view of the chest is obtained. FINDINGS: There are overlying artifacts. Left-sided chest tube remains in place. Mediastinal drain h as been removed. Left atrial appendage clip placement is again seen. Minimal left apical pneumothora x is present. Cardiac mediastinal silhouette shows a similar appearance, bandlike area of increased a ttenuation persists in the left midlung. Interstitium is increased, right costophrenic angle is blunt ed, the right hemidiaphragm is obscured. IMPRESSION: Interval median sternal drain removal. Findings otherwise are similar, there may be comp onent of interstitial edema, right pleural effusion and associated atelectasis, correlate to exclude pneumonia. Small left apical pneumothorax.
[2022-01-08] MEDS: PANTOPRAZOLE 40 MG TABLET PO SCH (08:38)
[2022-01-08] MEDS: MULTIVITAMINS, THERA 1 EACH TAB PO SCH (08:38)
[2022-01-08] MEDS: METOPROLOL TARTRATE 12.5 MG TAB PO SCH ×2 (08:38→20:13)
[2022-01-08] MEDS: FERROUS SULFATE 325 MG TAB PO SCH ×2 (08:38→17:03)
[2022-01-08] MEDS: MIDODRINE 5 MG TAB PO SCH ×3 (08:38→17:09)
[2022-01-08] MEDS: ASCORBIC ACID 500 MG TAB PO SCH ×2 (08:38→17:03)
[2022-01-08] MEDS: CLOPIDOGREL 75 MG TAB PO SCH (08:39)
[2022-01-08] MEDS: MAGNESIUM HYDROXIDE 2,400 MG/10 ML CUP PO PRN (08:39)
[2022-01-08] MEDS: HEPARIN SODIUM,PORCINE/PF 5,000 UNIT/0.5 ML SYRINGE SQ SCH ×3 (08:39→23:32)
--- NOTE | 2022-01-08 08:47 | P.PN ---
Subjective Progress Note Date: 01/08/22 Principal diagnosis: Coronary artery disease. Previous medical history of hypertension, hyperlipidemia, diabetes, chronic renal insufficiency, previous tobacco dependence, left internal carotid artery stenosis. Patient is vaccinated and boosted against covid POD #4 off-pump coronary artery bypass graft 3 with left internal mammary artery to the left anterior descending artery, T graft left radial artery to the obtuse marginal artery, reverse saphenous vein graft to the posterior descending coronary artery with patch angioplasty of posterior descending coronary artery, occlusion of the left atrial appendage with a 35 mm AtriCure clip, endovascular vein harvest of the greater saphenous vein from the left thigh, endovascular left radial artery harvest, intraoperative transesophageal echocardiogram performed by anesthesia. Postoperative acute blood loss anemia and thrombocytopenia, expected given hemodilution and preoperative anemia The patient was seen and examined this morning sitting up in a recliner in the intensive care unit in no acute distress eating breakfast. She states postoperative pain is controlled on current medication regimen, denies shortness of breath. Currently in sinus rhythm and hemodynamically stable on no inotropes or pressors. Did receive Lopressor yesterday. Left pleural chest tube remains. Ambulated around the hallway yesterday 3 times with assist. No other new concerns. Objective - Vital Signs Vital signs: Vital Signs Temp 98.2 F 01/08/22 04:00 Pulse 92 01/08/22 07:00 Resp 20 01/08/22 07:00 BP 115/58 01/08/22 07:00 Pulse Ox 98 01/08/22 07:00 Intake & Output 01/07/22 01/08/22 01/08/22 18:59 06:59 18:59 Intake Total 563 500 Output Total 285 1685 Balance 278 -1185 Weight 59.3 kg Intake: IV 23 Lactated Ringers 1,000 ml 20 @ 20 mls/hr IV .Q24H [facility] Rx#:[id number] Pressure Bag Sodium 3 Chloride 0.9% Oral 540 500 Output: Chest Tube Drainage 135 335 Chest Tube Left Pleural/ 135 335 Mediastinal Urine 150 1350 Other: Voiding Method Bedpan ABP, PAP, CO, CI - Last Documented Arterial Blood Pressure 62/60 Pulmonary Artery Pressure 19/9 Cardiac Output 3.9 Cardiac Index 2.6 - Exam CONSTITUTIONAL: Appears comfortable, cooperative, no acute distress RESPIRATORY: Lungs sounds diminished bilaterally. Respirations even, nonlabored. Currently on 3 L nasal cannula with oxygen saturation 98%. Able to achieve 750 mL on incentive spirometry. Strong cough. CARDIOVASCULAR: S1, S2 present. Regular rate and rhythm, sinus rhythm on telemetry. Sternum stable. Palpable peripheral pulses bilaterally. Trace generalized edema present. No calf pain or tenderness noted. Heart hugger in place with patient demonstrating appropriate use. Antiembolism stockings, SCDs present. GASTROINTESTINAL: Abdomen soft, nontender, nondistended. Active bowel sounds present 4 quadrants. Tolerating diet. Positive flatus GENITOURINARY: Cabrera discontinued yesterday, patient did void, 1500 mL last 24 hours INTEGUMENTARY: Skin is warm and dry with evidence of good perfusion. Anterior chest incision well approximated and covered with dry intact dressing. Left lower extremity EVH site well approximated without redness or drainage. Left radial artery harvest site well approximated without redness or drainage NEUROLOGIC: Cranial nerves II through XII intact MUSKULOSKELETAL: Able to move all extremities, strength equal bilaterally, unsteady with ambulation PSYCHIATRIC: Alert and oriented to person place and time, appropriate affect, intact judgment and insight INVASIVE LINES AND TUBES: Left pleural chest tube present and connected to wall suction, no air leaks present, 200mL serous drainage overnight, 500 mL serous output in the last 24 hours. - Allied health notes Allied health notes reviewed: nursing - Labs CBC & Chem 7: 01/08/22 05:48 01/08/22 05:48 Labs: Abnormal Lab Results - Last 24 Hours (Table) 01/07/22 01/07/22 01/07/22 Range/Units 11:19 16:10 20:12 RBC (3.80-5.40) m/uL Hgb (11.4-16.0) gm/dL Hct (34.0-46.0) % RDW (11.5-15.5) % Plt Count (150-450) k/uL Sodium (137-145) mmol/L BUN (7-17) mg/dL Creatinine (0.52-1.04) mg/dL Glucose (74-99) mg/dL POC Glucose (mg/dL) 183 H 197 H 227 H (75-99) mg/dL AST (14-36) U/L Total Protein (6.3-8.2) g/dL Albumin (3.5-5.0) g/dL 01/08/22 01/08/22 01/08/22 Range/Units 05:48 05:48 06:33 RBC 3.35 L (3.80-5.40) m/uL Hgb 10.0 L (11.4-16.0) gm/dL Hct 30.9 L (34.0-46.0) % RDW 16.3 H (11.5-15.5) % Plt Count 120 L (150-450) k/uL Sodium 131 L (137-145) mmol/L BUN 35 H (7-17) mg/dL Creatinine 1.47 H (0.52-1.04) mg/dL Glucose 168 H (74-99) mg/dL POC Glucose (mg/dL) 216 H (75-99) mg/dL AST 42 H (14-36) U/L Total Protein 5.0 L (6.3-8.2) g/dL Albumin 2.6 L (3.5-5.0) g/dL - Imaging and Cardiology Chest x-ray: report reviewed, image reviewed Assessment and Plan Assessment: 1. Coronary artery disease, status post three-vessel off-pump CABG 2. History of hypertension, currently borderline hypotensive not on pressors 3. Hyperlipidemia, untreated, cholesterol 242, LDL 133 4. Diabetes, preoperative hemoglobin A1c 7.9% 5. Chronic renal insufficiency 6. Previous tobacco dependence, preoperative FEV1 120% of predicted 7. Left internal carotid artery stenosis 50-79% 8. Vaccinated and boosted against covid 9. Postoperative acute blood loss anemia and thrombocytopenia Plan: 1. Continue Plavix, statin, beta farnaz therapy. Will increase beta farnaz as tolerated. Aspirin is CONTRAINDICATED due to ALLERGY. Continue midodrine 2. Continue low-dose calcium channel farnaz for radial artery spasm prophylaxis. 3. Wean O2 as tolerated. Encourage incentive spirometry use 10 times every hour while awake. Bronchodilators per pulmonology 4. Will continue to monitor daily labs and chest x-rays. Electrolyte replacement per protocol. Avoid nephrotoxins. Will give IV lasix. No further blood transfusion 5. GI/DVT prophylaxis 6. Pain control with current medication regimen 7. Insulin management per primary care service. Patient's diabetes is uncontrolled with hyperglycemia, will need tight blood sugar control to promote sternal union and prevent infection 8. Will discontinue left pleural chest tube 9. Strict accurate intake and output. Daily weights 10. Increase activity, ambulate as tolerated. PT/OT/cardiac rehab following 11. Will place transfer orders for 3 S. cardiac stepdown unit. May transfer when bed available 12. Discharge planning in progress. Anticipate discharge to home with home care versus IPR in the next 24-48 hours 13. More recommendations to follow Time with Patient: Greater than 30
[2022-01-08] MEDS ORDERED: FUROSEMIDE 10 MG/ML 2 ML VIAL IV ONE (09:27)
[2022-01-08] MEDS: IPRATROPIUM-ALBUTEROL 3 ML NEB INHALATION SCH ×4 (11:15→20:55)
[2022-01-08 11:46] LABS: Glucose,Whole Blood 198 mg/dL (75-99)
[2022-01-08] MEDS ORDERED: PANTOPRAZOLE 40 MG TABLET PO PRN (12:06)
[2022-01-08] MEDS ORDERED: NITROGLYCERIN SL TABS 0.4 MG TAB SUBLINGUAL PRN (12:06)
[2022-01-08] MEDS ORDERED: MECLIZINE 25 MG TAB PO PRN ×2 (12:06→13:22)
[2022-01-08] MEDS: amLODIPine 2.5 MG TAB PO SCH (12:32)
[2022-01-08] MEDS: metFORMIN 500 MG TAB PO SCH (12:33)
[2022-01-08] MEDS: PIOGLITAZONE 30 MG TAB PO SCH (12:33)
--- NOTE | 2022-01-08 12:39 | PN ---
PROGRESS NOTE DATE OF SERVICE: 01/08/2022 This 81-year-old woman who was admitted after CAD, CABG also had uncontrolled blood sugars. No chest pain. No palpitations. No fever. PHYSICAL EXAMINATION: Alert and oriented x3. Pulse is 92, blood pressure 115/58, respirations 17. CHEST: Clear to auscultation except a few rhonchi. ABDOMEN: Soft, nontender. CARDIOVASCULAR: S1, S2 normal. LABS: Accu-Cheks 168, 216, 198. Creatinine 1.47. ASSESSMENT: 1. Coronary artery disease, status post coronary artery bypass grafting. 2. Hypertension. 3. Diabetes mellitus. 4. Hyperlipidemia. RECOMMENDATIONS AND DISCUSSION: I recommend to continue current medications, continue with the monitoring, symptomatic treatment. Resume the home dose of medications. Further recommendations to follow. MMODL / IJN: [id number] /
[2022-01-08] MEDS: NON FORMULARY DRUG (Dapagliflozin Propanediol [Farxiga] 10 MG Tablet) PO SCH (12:47)
--- NOTE | 2022-01-08 13:00 | P.PN ---
Subjective Progress Note Date: 01/08/22 Principal diagnosis: Coronary artery disease On 01/08/2022 patient seen in follow-up in the intensive care unit, today is postoperative day #4, off-pump coronary artery bypass grafting surgery with the ALEGRE to the LAD, she is resting in the recliner, breathing comfortably, she is currently on 3 L of oxygen her pulse ox is 98%, she is afebrile. Her chest x- ray today showing a component of interstitial edema, right pleural effusion and associated atelectasis. Small left apical pneumothorax. No acute events overnight. Patient still has left pleural mediastinal chest tube in place, patient has a total of 470 mL chest tube output in the last 24 hours. She received a dose of IV Lasix today per CT surgery. She is in negative fluid balance. Generally she is weak, she is being considered for inpatient rehab, she was evaluated by Dr. Rome, was planning on reevaluating her for appropriateness for IPR placement. Objective - Vital Signs Vital signs: Vital Signs Temp 98.2 F 01/08/22 04:00 Pulse 90 01/08/22 11:27 Resp 20 01/08/22 07:00 BP 115/58 01/08/22 07:00 Pulse Ox 98 01/08/22 07:00 Intake & Output 01/07/22 01/08/22 01/08/22 18:59 06:59 18:59 Intake Total 563 500 Output Total 285 1685 Balance 278 -1185 Weight 59.3 kg Intake: IV 23 Lactated Ringers 1,000 ml 20 @ 20 mls/hr IV .Q24H [facility] Rx#:[id number] Pressure Bag Sodium 3 Chloride 0.9% Oral 540 500 Output: Chest Tube Drainage 135 335 Chest Tube Left Pleural/ 135 335 Mediastinal Urine 150 1350 Other: Voiding Method Bedpan ABP, PAP, CO, CI - Last Documented Arterial Blood Pressure 62/60 Pulmonary Artery Pressure 19/9 Cardiac Output 3.9 Cardiac Index 2.6 - Exam GENERAL EXAM: Alert, very pleasant, 81-year-old white female, on 3 L of oxygen pulse ox of 98%, sitting in the recliner comfortable in no apparent distress. HEAD: Normocephalic/atraumatic. EYES: Normal reaction of pupils, equal size. Conjunctiva pink, sclera white. NOSE: Clear with pink turbinates. THROAT: No erythema or exudates. NECK: No masses, no JVD, no thyroid enlargement, no adenopathy. CHEST: No chest wall deformity. Symmetrical expansion. Midsternal incision is clean dry and intact, left pleural mediastinal chest tube in place connected to Pleur-evac, with thin serosanguineous drainage LUNGS: Equal air entry with no crackles, wheeze, rhonchi or dullness. CVS: Regular rate and rhythm, normal S1 and S2, no gallops, no murmurs, no rubs ABDOMEN: Soft, nontender. No hepatosplenomegaly, normal bowel sounds, no guarding or rigidity. EXTREMITIES: No clubbing, no edema, no cyanosis, 2+ pulses and upper and lower extremities. MUSCULOSKELETAL: Muscle strength and tone normal. SPINE: No scoliosis or deformity SKIN: No rashes CENTRAL NERVOUS SYSTEM: Alert and oriented -3. No focal deficits, tone is normal in all 4 extremities. PSYCHIATRIC: Alert and oriented -3. Appropriate affect. Intact judgment and insight. - Labs CBC & Chem 7: 01/08/22 05:48 01/08/22 05:48 Labs: Abnormal Lab Results - Last 24 Hours (Table) 01/07/22 01/07/22 01/08/22 Range/Units 16:10 20:12 05:48 RBC 3.35 L (3.80-5.40) m/uL Hgb 10.0 L (11.4-16.0) gm/dL Hct 30.9 L (34.0-46.0) % RDW 16.3 H (11.5-15.5) % Plt Count 120 L (150-450) k/uL Sodium (137-145) mmol/L BUN (7-17) mg/dL Creatinine (0.52-1.04) mg/dL Glucose (74-99) mg/dL POC Glucose (mg/dL) 197 H 227 H (75-99) mg/dL AST (14-36) U/L Total Protein (6.3-8.2) g/dL Albumin (3.5-5.0) g/dL 01/08/22 01/08/22 01/08/22 Range/Units 05:48 06:33 11:45 RBC (3.80-5.40) m/uL Hgb (11.4-16.0) gm/dL Hct (34.0-46.0) % RDW (11.5-15.5) % Plt Count (150-450) k/uL Sodium 131 L (137-145) mmol/L BUN 35 H (7-17) mg/dL Creatinine 1.47 H (0.52-1.04) mg/dL Glucose 168 H (74-99) mg/dL POC Glucose (mg/dL) 216 H 198 H (75-99) mg/dL AST 42 H (14-36) U/L Total Protein 5.0 L (6.3-8.2) g/dL Albumin 2.6 L (3.5-5.0) g/dL Assessment and Plan Plan: Assessment: #1. Coronary artery disease, status post three-vessel off-pump coronary artery bypass grafting, postoperative day #5 #2. Routine postoperative ventilator management successfully weaned and extubated, tolerating extubation quite well so far #3. Dyslipidemia #4. Chronic renal insufficiency #5. Postoperative blood loss anemia #6. Postoperative atelectasis, expected Plan: Today's chest x-ray has been reviewed showing changes of interstitial edema Diuretics per CT surgery and patient has received a dose of Lasix today Continue encouraging deep breathing and coughing incentive spirometer use Encourage ambulation GI/DVT prophylaxis Continue Plavix, continue statins and beta blockers per CT surgery Vital signs are stable Patient is being evaluated for possibility of inpatient rehab placement or subacute rehab placement after discharge I have personally seen and examined the patient, performed the documentation and the assessment and plan as written. Number of minutes spent on the visit: [10] Time with Patient: Less than 30
--- NOTE | 2022-01-08 15:05 | CDI ---
Documentation Clarification Form Date: 01/08/2022 02:52:22 PM From: Edith Gomez CCS, CCDS Admit Date: 01/04/2022 05:33:00 AM Patient Name: Anali Oneal Visit Number: [id number] Discharge Date: ATTENTION: The Clinical Documentation Specialists (CDI) and [facility] Coding Staff appreciate your assistance in clarifying documentation. Please respond to the clarification below the line at the bottom and electronically sign. The CDI & [facility] Coding staff will review the response and follow-up if needed. Please note: Queries are made part of the Legal Health Record. If you have any questions, please contact the author of this message via ITS. Dr. Leobardo Villalpando: Chronic renal insufficiency is documented throughout the chart beginning with the 01/05 Cardiothoracic Surgeon's Progress Note without further specificity. Additional clarification regarding the stage of CKD is requested. History/Risk Factors per the Cardiothoracic Surgery H/P and the Medical Management H/Ps: Triple Vessel CAD, Hypertension, Hyperlipidemia, DM, Nonsmoker. Clinical Indicators: Presented 01/04 for Elective CABG due to triple vessel CAD. As of 01/08: remains in ICU, being evaluated for IP Rehab. Current BUN/Creatinine/GFR as of 01/08/22: 35/1.47/34, 39. 01/04 BUN: 19, Creatinine: 0.91, GFR: 60 Patients Historical GFR: 03/27/2017 GFR >60 Treatment: POD 1 01/05: Plavix 75 mg Qam, Statin, po Lopresssor 12.5 mg BID, IV Nitro dc'd, Calcium channel farnaz, Transitioned to oral Cardizem 30 mg q8H, Wean O2 as marylu, Incentive Spirometry, INH per Pulmonary: Duoneb QID, Daily labs, CXRs, Electrolyte replacement per protocol, Transfused 1 unit PRBCs, Pain control: po Slick q4H/prn, Tylenol 650 mg q4H/prn, Insulin sliding scale per medical management. Nephrology is not consulted. Please clarify the stage of the CKD, if known: [ ] CKD Stage 2 (GFR 60-89) [ ] CKD Stage 3 (GFR 30-59) [ ] CKD Stage 3a (GFR 45-59) [ x] CKD Stage 3b (GFR 30-44) [ ] Other, please specify: [ ] Unable to determine (Template Last revised: December 2020) MTDD
[2022-01-08 16:53] LABS: Glucose,Whole Blood 223 mg/dL (75-99)
[2022-01-08 19:57] LABS: Glucose,Whole Blood 169 mg/dL (75-99)
[2022-01-08] MEDS: SENNOSIDES-DOCUSATE SODIUM 1 EACH TAB PO SCH (20:13)
[2022-01-08] MEDS: ATORVASTATIN 80 MG TAB PO SCH (20:13)
[2022-01-09 02:52] LABS: Glucose,Whole Blood 133 mg/dL (75-99)
[2022-01-09 06:05] LABS: Glucose,Whole Blood 147 mg/dL (75-99)
--- NOTE | 2022-01-09 06:46 | P.PN ---
Progress Note - Text Denied by insurance for IPR.
[2022-01-09] MEDS: FERROUS SULFATE 325 MG TAB PO SCH (06:59)
[2022-01-09] MEDS: PANTOPRAZOLE 40 MG TABLET PO SCH (06:59)
[2022-01-09] MEDS: ASCORBIC ACID 500 MG TAB PO SCH (06:59)
[2022-01-09] MEDS: MIDODRINE 5 MG TAB PO SCH ×2 (06:59→12:13)
[2022-01-09] MEDS: INSULIN ASPART (NovoLOG) 100 UNIT/ML VIAL SQ SCH ×2 (06:59→12:13)
[2022-01-09 08:08] LABS: HCT 33.1 % (34.0-46.0); HGB 10.8 gm/dL (11.4-16.0); MCH 30.3 pg (25.0-35.0); MCHC 32.5 g/dL (31.0-37.0); MCV 93.1 fL (80.0-100.0); Mean Platelet Volume 7.7; Platelet Count 156 k/uL (150-450); RBC 3.55 m/uL (3.80-5.40); RDW 15.7 % (11.5-15.5); WBC 5.9 k/uL (3.8-10.6)
--- NOTE | 2022-01-09 08:08 | P.PN ---
Subjective Progress Note Date: 01/09/22 Principal diagnosis: Coronary artery disease. Previous medical history of hypertension, hyperlipidemia, diabetes, chronic renal insufficiency, previous tobacco dependence, left internal carotid artery stenosis. Patient is vaccinated and boosted against covid POD #5 off-pump coronary artery bypass graft 3 with left internal mammary artery to the left anterior descending artery, T graft left radial artery to the obtuse marginal artery, reverse saphenous vein graft to the posterior descending coronary artery with patch angioplasty of posterior descending coronary artery, occlusion of the left atrial appendage with a 35 mm AtriCure clip, endovascular vein harvest of the greater saphenous vein from the left thigh, endovascular left radial artery harvest, intraoperative transesophageal echocardiogram performed by anesthesia. Postoperative acute blood loss anemia and thrombocytopenia, expected given hemodilution and preoperative anemia The patient was seen and examined this morning sitting up in a recliner on the cardiac stepdown unit in no acute distress eating breakfast. She states postoperative pain is controlled on current medication regimen, denies shortness of breath. Currently in sinus rhythm and hemodynamically stable. Has ambulated around the hallway with assist. IPR was denied by insurance, patient has been ambulating well enough to go home with home care. No other new concerns. Objective - Vital Signs Vital signs: Vital Signs Temp 98.2 F 01/09/22 03:35 Pulse 88 01/09/22 03:35 Resp 18 01/09/22 03:35 BP 108/58 01/09/22 06:57 Pulse Ox 91 L 01/09/22 03:35 Intake & Output 01/08/22 01/09/22 01/09/22 18:59 06:59 18:59 Intake Total 1000 100 200 Output Total 160 250 250 Balance 840 -150 -50 Weight 59.3 kg Intake: Oral 1000 100 200 Output: Chest Tube Drainage 60 Chest Tube Left Pleural/ 60 Mediastinal Urine 100 250 250 Other: Voiding Method Toilet Toilet Bedside Commode Bedside Commode # Voids 1 # Bowel Movements 1 ABP, PAP, CO, CI - Last Documented Arterial Blood Pressure 62/60 Pulmonary Artery Pressure 19/9 Cardiac Output 3.9 Cardiac Index 2.6 - Exam CONSTITUTIONAL: Appears comfortable, cooperative, no acute distress RESPIRATORY: Lungs sounds diminished bilaterally. Respirations even, non labored. Currently on room air with oxygen saturation 91%. Able to achieve 500-750 mL on incentive spirometry. Strong cough. CARDIOVASCULAR: S1, S2 present. Regular rate and rhythm, sinus rhythm on telemetry. Sternum stable. Palpable peripheral pulses bilaterally. Trace generalized edema present. No calf pain or tenderness noted. Heart hugger in place with patient demonstrating appropriate use. Antiembolism stockings, SCDs present. GASTROINTESTINAL: Abdomen soft, nontender, nondistended. Active bowel sounds present 4 quadrants. Tolerating diet. Positive bowel movement GENITOURINARY: Continues to void INTEGUMENTARY: Skin is warm and dry with evidence of good perfusion. Anterior chest incision well approximated and covered with dry intact dressing. Left lower extremity EVH site well approximated without redness or drainage. Left radial artery harvest site well approximated without redness or drainage NEUROLOGIC: Cranial nerves II through XII intact MUSKULOSKELETAL: Able to move all extremities, strength equal bilaterally, unsteady with ambulation PSYCHIATRIC: Alert and oriented to person place and time, appropriate affect, intact judgment and insight - Allied health notes Allied health notes reviewed: nursing - Labs CBC & Chem 7: 01/09/22 07:39 01/08/22 05:48 Labs: Abnormal Lab Results - Last 24 Hours (Table) 01/08/22 01/08/22 01/08/22 Range/Units 11:45 16:52 19:55 POC Glucose (mg/dL) 198 H 223 H 169 H (75-99) mg/dL 01/09/22 01/09/22 Range/Units 02:50 06:05 POC Glucose (mg/dL) 133 H 147 H (75-99) mg/dL - Imaging and Cardiology Chest x-ray: image reviewed Assessment and Plan Assessment: 1. Coronary artery disease, status post three-vessel off-pump CABG 2. History of hypertension, currently borderline hypotensive not on pressors 3. Hyperlipidemia, untreated, cholesterol 242, LDL 133 4. Diabetes, preoperative hemoglobin A1c 7.9% 5. Chronic renal insufficiency, stage 3 based on GFR 27-47 6. Previous tobacco dependence, preoperative FEV1 120% of predicted 7. Left internal carotid artery stenosis 50-79% 8. Vaccinated and boosted against covid 9. Postoperative acute blood loss anemia and thrombocytopenia Plan: 1. Continue Plavix, statin, beta farnaz therapy. Will increase beta farnaz as tolerated. Aspirin is CONTRAINDICATED due to ALLERGY. Continue midodrine 2. Continue low-dose calcium channel farnaz for radial artery spasm prophylaxis. 3. Encourage incentive spirometry use 10 times every hour while awake. Bronchodilators per pulmonology 4. Will continue to monitor daily labs and chest x-rays. Electrolyte replacement per protocol. Avoid nephrotoxins. Will give IV lasix. No further blood transfusion 5. GI/DVT prophylaxis 6. Pain control with current medication regimen 7. Insulin management per primary care service. Patient's diabetes is uncontrolled with hyperglycemia, will need tight blood sugar control to promote sternal union and prevent infection 8. Strict accurate intake and output. Daily weights 9. Increase activity, ambulate as tolerated. PT/OT/cardiac rehab following 10. Discharge planning in progress. Anticipate discharge to home with home care this afternoon 11. More recommendations to follow Time with Patient: Greater than 30
[2022-01-09 08:31] VITALS: RESP 16
[2022-01-09] MEDS: IPRATROPIUM-ALBUTEROL 3 ML NEB INHALATION SCH ×2 (08:45→11:51)
[2022-01-09] MEDS ORDERED: ERGOCALCIFEROL 1,250 MCG (50,000 IU) CAPSULE PO SCH (09:00)
[2022-01-09 09:02] LABS: Calcium 8.9 mg/dL (8.4-10.2); Potassium 4.9 mmol/L (3.5-5.1)
--- NOTE | 2022-01-09 09:10 | XR ---
EXAMINATION TYPE: Two view chest xray . DATE OF EXAM: 01/09/2022 COMPARISON: 01/08/2022 TECHNIQUE: PA and lateral views submitted. HISTORY: Chest tube FINDINGS: Left-sided chest tube has rapid been removed. There is a 5% left apical pneumothorax. Bilateral areas of infiltrate and interstitial pattern with small effusion are stable could represent mild CHF. Arth ropathy of the shoulders. Heart size stable. Postsurgical changes. IMPRESSION: 1. Chest tube removal with 5% left apical pneumothorax. 2. Bilateral infiltrate and pleural effusion stable correlate for mild CHF otherwise consider pneumon ia..
[2022-01-09] MEDS ORDERED: METOPROLOL TARTRATE 25 MG TAB PO SCH (09:30)
[2022-01-09] MEDS: HEPARIN SODIUM,PORCINE/PF 5,000 UNIT/0.5 ML SYRINGE SQ SCH (09:45)
[2022-01-09] MEDS: metFORMIN 500 MG TAB PO SCH (09:45)
[2022-01-09] MEDS: ACETAMINOPHEN TAB 325 MG TAB PO PRN ×2 (09:45→16:02)
[2022-01-09] MEDS: CLOPIDOGREL 75 MG TAB PO SCH (09:45)
[2022-01-09] MEDS: MULTIVITAMINS, THERA 1 EACH TAB PO SCH (09:46)
[2022-01-09] MEDS: PIOGLITAZONE 30 MG TAB PO SCH (09:46)
[2022-01-09] MEDS: NON FORMULARY DRUG (Dapagliflozin Propanediol [Farxiga] 10 MG Tablet) PO SCH (09:49)
[2022-01-09] MEDS: INSULIN DETEMIR (LEVEMIR) 100 UNIT/ML SYR SQ SCH (09:49)
[2022-01-09] MEDS: METOPROLOL TARTRATE 12.5 MG TAB PO SCH (09:53)
--- NOTE | 2022-01-09 09:57 | P.PN ---
Subjective Progress Note Date: 01/09/22 Principal diagnosis: Coronary artery disease On 01/08/2022 patient seen in follow-up in the intensive care unit, today is postoperative day #4, off-pump coronary artery bypass grafting surgery with the ALEGRE to the LAD, she is resting in the recliner, breathing comfortably, she is currently on 3 L of oxygen her pulse ox is 98%, she is afebrile. Her chest x- ray today showing a component of interstitial edema, right pleural effusion and associated atelectasis. Small left apical pneumothorax. No acute events overnight. Patient still has left pleural mediastinal chest tube in place, patient has a total of 470 mL chest tube output in the last 24 hours. She received a dose of IV Lasix today per CT surgery. She is in negative fluid balance. Generally she is weak, she is being considered for inpatient rehab, she was evaluated by Dr. Rome, was planning on reevaluating her for appropriateness for IPR placement. On 01/09/2022 patient seen in follow-up on selective care unit, today is postoperative day #5, status post off-pump coronary artery bypass grafting surgery with a ALEGRE to the LAD. Patient is doing well, she is currently on room air pulse ox is 95%, she is achieving about 500-750 on her incentive spirometer, occasional cough, at 10 she is able to clear small amount of thick sputum with some old blood. No chest discomfort, Mr. incisions clean dry and intact, chest tube sites are clean dry and intact, left leg greater saphenous vein grafting site is clean dry and intact, covered with dressings. Lung sounds are diminished. No rhonchi or crackles, she is in sinus mechanism. Hemodynamically she has been stable. Chest x-ray today showing 5% left apical pneumothorax, bilateral infiltrates and pleural effusion stable in appearance. Objective - Vital Signs Vital signs: Vital Signs Temp 98.0 F 01/09/22 08:00 Pulse 95 01/09/22 08:00 Resp 16 01/09/22 08:00 BP 114/72 01/09/22 08:00 Pulse Ox 95 01/09/22 08:00 Intake & Output 01/08/22 01/09/22 01/09/22 18:59 06:59 18:59 Intake Total 1000 100 325 Output Total 160 250 250 Balance 840 -150 75 Weight 59.3 kg Intake: Oral 1000 100 325 Output: Chest Tube Drainage 60 Chest Tube Left Pleural/ 60 Mediastinal Urine 100 250 250 Other: Voiding Method Toilet Toilet Toilet Bedside Commode Bedside Commode Bedside Commode # Voids 1 # Bowel Movements 1 ABP, PAP, CO, CI - Last Documented Arterial Blood Pressure 62/60 Pulmonary Artery Pressure 19/9 Cardiac Output 3.9 Cardiac Index 2.6 - Exam GENERAL EXAM: Alert, very pleasant, 81-year-old white female, room air pulse ox is 96% sitting in the recliner comfortable in no apparent distress. HEAD: Normocephalic/atraumatic. EYES: Normal reaction of pupils, equal size. Conjunctiva pink, sclera white. NOSE: Clear with pink turbinates. THROAT: No erythema or exudates. NECK: No masses, no JVD, no thyroid enlargement, no adenopathy. CHEST: No chest wall deformity. Symmetrical expansion. Midsternal incision is clean dry and intact, interval removal of the left mediastinal and left pleural chest tube LUNGS: Equal air entry with no crackles, wheeze, rhonchi or dullness. CVS: Regular rate and rhythm, normal S1 and S2, no gallops, no murmurs, no rubs ABDOMEN: Soft, nontender. No hepatosplenomegaly, normal bowel sounds, no guarding or rigidity. EXTREMITIES: No clubbing, no edema, no cyanosis, 2+ pulses and upper and lower extremities. MUSCULOSKELETAL: Muscle strength and tone normal. SPINE: No scoliosis or deformity SKIN: No rashes, left leg interrupted incision is covered with a dressing and is clean dry and intact CENTRAL NERVOUS SYSTEM: Alert and oriented -3. No focal deficits, tone is normal in all 4 extremities. PSYCHIATRIC: Alert and oriented -3. Appropriate affect. Intact judgment and insight. - Labs CBC & Chem 7: 01/09/22 07:39 01/09/22 07:39 Labs: Abnormal Lab Results - Last 24 Hours (Table) 01/08/22 01/08/22 01/08/22 Range/Units 11:45 16:52 19:55 RBC (3.80-5.40) m/uL Hgb (11.4-16.0) gm/dL Hct (34.0-46.0) % RDW (11.5-15.5) % Sodium (137-145) mmol/L BUN (7-17) mg/dL Creatinine (0.52-1.04) mg/dL Glucose (74-99) mg/dL POC Glucose (mg/dL) 198 H 223 H 169 H (75-99) mg/dL 01/09/22 01/09/22 01/09/22 Range/Units 02:50 06:05 07:39 RBC 3.55 L (3.80-5.40) m/uL Hgb 10.8 L (11.4-16.0) gm/dL Hct 33.1 L (34.0-46.0) % RDW 15.7 H (11.5-15.5) % Sodium (137-145) mmol/L BUN (7-17) mg/dL Creatinine (0.52-1.04) mg/dL Glucose (74-99) mg/dL POC Glucose (mg/dL) 133 H 147 H (75-99) mg/dL 01/09/22 Range/Units 07:39 RBC (3.80-5.40) m/uL Hgb (11.4-16.0) gm/dL Hct (34.0-46.0) % RDW (11.5-15.5) % Sodium 133 L (137-145) mmol/L BUN 38 H (7-17) mg/dL Creatinine 1.34 H (0.52-1.04) mg/dL Glucose 140 H (74-99) mg/dL POC Glucose (mg/dL) (75-99) mg/dL Assessment and Plan Plan: Assessment: #1. Coronary artery disease, status post three-vessel off-pump coronary artery bypass grafting, postoperative day #6 #2. Routine postoperative ventilator management successfully weaned and extubated, tolerating extubation quite well so far #3. Dyslipidemia #4. Chronic renal insufficiency #5. Postoperative blood loss anemia #6. Postoperative atelectasis, expected #7. Small left apical pneumothorax at 5%, being monitored Plan: Today's chest x-ray has been reviewed showing interstitial infiltrates, and small left apical pneumothorax Continue encouraging deep breathing and coughing incentive spirometer use Breathing comfortably, working on incentive spirometer GI/DVT prophylaxis Continue Plavix, continue statins and beta blockers per CT surgery Vital signs are stable IP are was denied by insurance, patient is being considered for discharge home at this time I have personally seen and examined the patient, performed the documentation and the assessment and plan as written. Number of minutes spent on the visit: [10] Time with Patient: Less than 30
[2022-01-09 11:53] VITALS: BP 101/56; PULSE 82; TEMP 97.8
[2022-01-09] MEDS ORDERED: NON FORMULARY DRUG (Alendronate Sodium [Fosamax] 70 MG Tablet) PO SCH (12:12)
[2022-01-09] MEDS: amLODIPine 2.5 MG TAB PO SCH (12:13)
[2022-01-09 12:21] LABS: Glucose,Whole Blood 169 mg/dL (75-99)
[2022-01-09] MEDS ORDERED: INSULIN ASPART (NovoLOG) 100 UNIT/ML VIAL SQ SCH (12:30)
--- NOTE | 2022-01-09 12:38 | P.PN ---
Subjective Progress Note Date: 01/09/22 HISTORY OF PRESENT ILLNESS: Patient examined this morning at the bedside. Patient denies chest pain or pressure. She denies shortness of breath. Telemetry reveals sinus mechanism. Patient has been ambulating in the hallway. Vital signs are stable. PHYSICAL EXAM: VITAL SIGNS: Reviewed. GENERAL: Well-developed in no acute distress. NECK: Supple. No JVD or thyromegaly LUNGS: Respirations even and unlabored. Lungs essentially clear to auscultation bilaterally. HEART: Regular rate and rhythm. S1 and S2 heard. EXTREMITIES: Normal range of motion. No clubbing or cyanosis. Peripheral pulses intact. No lower extremity edema ASSESSMENT: Coronary artery disease, status post CABG 3 Hypertension Hyperlipidemia Diabetes Chronic kidney disease Left internal carotid artery stenosis Former nicotine dependence PLAN: Continue current cardiac medications Patient is stable for discharge home today from a cardiac perspective Further recommendations pending patient course Nurse practitioner note has been reviewed by physician. Signing provider agrees with the documented findings, assessment, and plan of care. Objective - Vital Signs Vital signs: Vital Signs Temp 97.8 F 01/09/22 11:52 Pulse 82 01/09/22 11:52 Resp 16 01/09/22 11:52 BP 101/56 01/09/22 11:52 Pulse Ox 95 01/09/22 11:52 Intake & Output 01/08/22 01/09/22 01/09/22 18:59 06:59 18:59 Intake Total 1000 100 325 Output Total 160 250 250 Balance 840 -150 75 Weight 59.3 kg Intake: Oral 1000 100 325 Output: Chest Tube Drainage 60 Chest Tube Left Pleural/ 60 Mediastinal Urine 100 250 250 Other: Voiding Method Toilet Toilet Toilet Bedside Commode Bedside Commode Bedside Commode # Voids 1 2 # Bowel Movements 1 ABP, PAP, CO, CI - Last Documented Arterial Blood Pressure 62/60 Pulmonary Artery Pressure 19/9 Cardiac Output 3.9 Cardiac Index 2.6 - Labs CBC & Chem 7: 01/09/22 07:39 01/09/22 07:39 Labs: Abnormal Lab Results - Last 24 Hours (Table) 01/08/22 01/08/22 01/09/22 Range/Units 16:52 19:55 02:50 RBC (3.80-5.40) m/uL Hgb (11.4-16.0) gm/dL Hct (34.0-46.0) % RDW (11.5-15.5) % Sodium (137-145) mmol/L BUN (7-17) mg/dL Creatinine (0.52-1.04) mg/dL Glucose (74-99) mg/dL POC Glucose (mg/dL) 223 H 169 H 133 H (75-99) mg/dL 01/09/22 01/09/22 01/09/22 Range/Units 06:05 07:39 07:39 RBC 3.55 L (3.80-5.40) m/uL Hgb 10.8 L (11.4-16.0) gm/dL Hct 33.1 L (34.0-46.0) % RDW 15.7 H (11.5-15.5) % Sodium 133 L (137-145) mmol/L BUN 38 H (7-17) mg/dL Creatinine 1.34 H (0.52-1.04) mg/dL Glucose 140 H (74-99) mg/dL POC Glucose (mg/dL) 147 H (75-99) mg/dL 01/09/22 Range/Units 12:07 RBC (3.80-5.40) m/uL Hgb (11.4-16.0) gm/dL Hct (34.0-46.0) % RDW (11.5-15.5) % Sodium (137-145) mmol/L BUN (7-17) mg/dL Creatinine (0.52-1.04) mg/dL Glucose (74-99) mg/dL POC Glucose (mg/dL) 169 H (75-99) mg/dL
--- NOTE | 2022-01-09 15:04 | P.PN ---
Subjective Progress Note Date: 01/09/22 Patient is evaluated today in the chair POD #5 CABG x3 vessel. No acute events overnight, currently no complaints of any chest pain chest pressure or palpitations. She is ambulating in the hallway without difficulty, using incentive spirometer. Plan is for home with home care later on this afternoon, she lives with her and son and daughter who will be available to help once discharged. Sodium is improved 133, BUN 30, creatinine 1.34, blood sugars in the 140s. Actos, metformin, farxiga on hold, she is on home dose of levemir and on s/s. Blood sugars at home were controlled in the low 100's. She can resume farxiga and increase tuojeo to 15 units daily, monitor blood sugars, and resume metformin once she has rechecked her labs and follows up with PCP. Blood pressure 101/56, on room air. ROS Constitutional: Denied any fatigue denied any fever. Cardio vascular: denied any chest pain, palpitations Gastrointestinal denied any nausea vomiting Pulmonary: Denied any shortness of breath cough Neurologic denied any new focal deficits All inpatient medications were reviewed and appropriate changes in these medications as dictated in the interval history and assessment and plan. PHYSICAL EXAMINATION: GENERAL: The patient is alert and oriented x3, not in any acute distress. Well developed, well nourished. HEENT: Pupils are round and equally reacting to light. EOMI. No scleral icterus. No conjunctival pallor. Normocephalic, atraumatic. No pharyngeal erythema. No thyromegaly. CARDIOVASCULAR: S1 and S2 present. No murmurs, rubs, or gallops. PULMONARY: Chest is clear to auscultation, no wheezing or crackles. ABDOMEN: Soft, nontender, nondistended, normoactive bowel sounds. No palpable organomegaly. MUSCULOSKELETAL: No joint swelling or deformity. EXTREMITIES: No cyanosis, clubbing, or pedal edema. NEUROLOGICAL: Gross neurological examination did not reveal any focal deficits. SKIN: No rashes. Post Surgical Assessment and Plan Assessment Coronary artery disease status post coronary artery bypass grafting postoperative day #5 Acute kidney injury Hypertension Diabetes mellitus with hyperglycemia, oral diabetic medications have been on hold Hyperlipidemia GI prophylaxis DVT prophylaxis FULL CODE Plan Monitor blood sugars Resume farxiga, increase tuojeo to 15 units on discharge Hold metformin and repeat labs outpatient Discotinue actos Encourage oral intake Encourage ambulation and IS. Thank you kindly for this consultation. Objective - Vital Signs Vital signs: Vital Signs Temp 98.0 F 01/09/22 08:00 Pulse 96 01/09/22 08:55 Resp 16 01/09/22 08:55 BP 114/72 01/09/22 08:00 Pulse Ox 95 01/09/22 08:45 Intake & Output 01/08/22 01/09/22 01/09/22 18:59 06:59 18:59 Intake Total 1000 100 325 Output Total 160 250 250 Balance 840 -150 75 Weight 59.3 kg Intake: Oral 1000 100 325 Output: Chest Tube Drainage 60 Chest Tube Left Pleural/ 60 Mediastinal Urine 100 250 250 Other: Voiding Method Toilet Toilet Toilet Bedside Commode Bedside Commode Bedside Commode # Voids 1 2 # Bowel Movements 1 ABP, PAP, CO, CI - Last Documented Arterial Blood Pressure 62/60 Pulmonary Artery Pressure 19/9 Cardiac Output 3.9 Cardiac Index 2.6 - Labs CBC & Chem 7: 01/09/22 07:39 01/09/22 07:39 Labs: Abnormal Lab Results - Last 24 Hours (Table) 01/08/22 01/08/22 01/08/22 Range/Units 11:45 16:52 19:55 RBC (3.80-5.40) m/uL Hgb (11.4-16.0) gm/dL Hct (34.0-46.0) % RDW (11.5-15.5) % Sodium (137-145) mmol/L BUN (7-17) mg/dL Creatinine (0.52-1.04) mg/dL Glucose (74-99) mg/dL POC Glucose (mg/dL) 198 H 223 H 169 H (75-99) mg/dL 01/09/22 01/09/22 01/09/22 Range/Units 02:50 06:05 07:39 RBC 3.55 L (3.80-5.40) m/uL Hgb 10.8 L (11.4-16.0) gm/dL Hct 33.1 L (34.0-46.0) % RDW 15.7 H (11.5-15.5) % Sodium (137-145) mmol/L BUN (7-17) mg/dL Creatinine (0.52-1.04) mg/dL Glucose (74-99) mg/dL POC Glucose (mg/dL) 133 H 147 H (75-99) mg/dL 01/09/22 Range/Units 07:39 RBC (3.80-5.40) m/uL Hgb (11.4-16.0) gm/dL Hct (34.0-46.0) % RDW (11.5-15.5) % Sodium 133 L (137-145) mmol/L BUN 38 H (7-17) mg/dL Creatinine 1.34 H (0.52-1.04) mg/dL Glucose 140 H (74-99) mg/dL POC Glucose (mg/dL) (75-99) mg/dL
--- NOTE | 2022-01-09 15:47 | P.DS ---
Providers Date of admission: 01/04/22 05:33 Expected date of discharge: 01/09/22 Attending physician: Leobardo Villalpando Consults: 01/04/22 12:55 Consult Physician Routine Consulting Provider: Cole Pastrana Consult Reason/Comments: Mate Relief Consult: post cardiac surgery Do you want consulting provider notified?: Yes Consult Physician Routine Consulting Provider: Irma Tarango Consult Reason/Comments: Numerical Control Machine Operator Consult: post cardiac surgery Do you want consulting provider notified?: Yes Consult Physician Routine Consulting Provider: Geovanny Spangler Consult Reason/Comments: med mgmt; Kathleen patient Do you want consulting provider notified?: Yes 01/07/22 07:40 Consult Physician Routine Consulting Provider: Gavin Whitehead Consult Reason/Comments: inpatient rehab at [facility] Do you want consulting provider notified?: Yes Primary care physician: Dolores Wang [facility] Course: FINAL DIAGNOSIS: 1. Coronary artery disease 2. History of hypertension 3. Hyperlipidemia, untreated, cholesterol 242, LDL 133 4. Diabetes, preoperative hemoglobin A1c 7.9% 5. Chronic renal insufficiency, stage III 6. Previous tobacco dependence, preoperative FEV1 120% of predicted 7. Left internal carotid artery stenosis 50-79% 8. Vaccinated and boosted against Covid 9. Postoperative acute blood loss anemia and thrombocytopenia, expected PRINCIPAL PROCEDURE: 1. Off-pump coronary artery bypass graft 3 with left internal mammary artery to the left anterior descending artery, T graft left radial artery to the obtuse marginal artery, reverse saphenous vein graft to the posterior descending coronary artery with patch angioplasty of the PDA 2. Occlusion of the left atrial appendage with a 35 mm AtriCure clip 3. Endovascular vein harvest of the left greater saphenous vein 4. Endovascular left radial artery harvest 5. Intraoperative transesophageal echocardiogram performed by anesthesia HISTORY OF PRESENT ILLNESS: This is a 81-year-old female who follows on an outpatient basis with Dr. Wang for primary care and Dr. Reyes for cardiology. She had been experiencing progressive anginal symptomatology, including anginal symptoms with minimal exertion and occasionally at rest. The symptoms had progressed over the last 2-3 year period. She underwent cardiac catheterization by Dr. Reyes which demonstrated severe triple-vessel coronary artery disease with distal left main stenosis. The patient was referred to Dr. Villalpando from cardiothoracic surgery. She was recommended to undergo coronary artery bypass surgery. The usual perioperative course was discussed in detail with the patient and her family, all risks and benefits were explained, all questions were answered, and consent was obtained to proceed with surgery. The patient was scheduled for elective surgery at the earliest possible date. HOSPITAL COURSE: The patient was brought to the hospital on 01/04/22, taken to the preoperative area, prepared in the usual fashion, and subsequently taken to the operating room where Dr. Villalpando performed 3 vessel off-pump CABG. Upon completion of surgery the patient was transferred to the cardiovascular intensive care unit where she was recovered and monitored hemodynamically. She was extubated, all lines, tubes, and drips were discontinued when appropriate, and she was transferred to 3 S. cardiac stepdown unit for further monitoring and rehabilitation. Her oxygen was titrated down, she continued to work with physical and occupational therapy, she was tolerating oral diet, her pain was controlled, and she was ready to be discharged to home with [facility] on postoperative day #5. She received written and verbal instruction regarding her medications, activity restrictions, signs and symptoms requiring physician no tification, and follow-up appointments. Patient Condition at Discharge: Stable Plan - Discharge Summary Discharge Rx Participant: Yes New Discharge Prescriptions: New Furosemide [Lasix] 20 mg PO DAILY #5 tab Metoprolol Tartrate [Lopressor] 25 mg PO BID #60 tab Midodrine [ProAmatine] 5 mg PO AC-TID #90 tab Acetaminophen Tab [Tylenol] 650 mg PO Q4HR PRN tab PRN Reason: Fever And/ Or Pain Pantoprazole [Protonix] 40 mg PO AC-BRKFST #30 tab Sennosides-Docusate Sodium [Senokot-S] 2 each PO HS PRN tab PRN Reason: Constipation Continue Clopidogrel [Plavix] 75 mg PO QAM Alendronate Sodium [Fosamax] 70 mg PO WE Meclizine [Antivert] 25 mg PO TID PRN PRN Reason: Vertigo Dapagliflozin Propanediol [Farxiga] 10 mg PO DAILY Multivitamins, Thera [Multivitamin (formulary)] 1 tab PO DAILY Atorvastatin [Lipitor] 80 mg PO HS Ergocalciferol [Vitamin D2 (1250 Mcg = 87629 Iu)] 50,000 unit PO WE Changed amLODIPine [Norvasc] 2.5 mg PO DAILY #0 Insulin Glargine,Hum.rec.anlog [Toujeo Solostar] 15 unit SQ HS #0 Discontinued Losartan [Cozaar] 50 mg PO HS Omeprazole 20 mg PO DAILY PRN PRN Reason: Heartburn Isosorbide Mononitrate ER [Imdur] 60 mg PO DAILY 30 Days #30 tab.er.24h Nitroglycerin Sl Tabs [Nitrostat] 0.4 mg SUBLINGUAL Q5M PRN PRN Reason: Chest Pain ALPRAZolam [Xanax] 0.25 mg PO BID PRN PRN Reason: Anxiety Ciprofloxacin HCl [Cipro] 500 mg PO Q12HR Mupirocin [Mupirocin 2%] 1 applic NASAL BID #1 tub Pioglitazone [Actos] 30 mg PO DAILY metFORMIN HCL [Glucophage] 1,000 mg PO DAILY Discharge Medication List Clopidogrel [Plavix] 75 mg PO QAM 02/13/16 [History] Alendronate Sodium [Fosamax] 70 mg PO WE 07/16/20 [History] Meclizine [Antivert] 25 mg PO TID PRN 10/09/21 [History] Dapagliflozin Propanediol [Farxiga] 10 mg PO DAILY 12/07/21 [History] Atorvastatin [Lipitor] 80 mg PO HS 12/27/21 [History] Ergocalciferol [Vitamin D2 (1250 Mcg = 04301 Iu)] 50,000 unit PO WE 12/27/21 [History] Multivitamins, Thera [Multivitamin (formulary)] 1 tab PO DAILY 12/27/21 [History] Acetaminophen Tab [Tylenol] 650 mg PO Q4HR PRN tab 01/09/22 [Rx] Furosemide [Lasix] 20 mg PO DAILY #5 tab 01/09/22 [Rx] Insulin Glargine,Hum.rec.anlog [Tocarmen Solluiz] 15 unit SQ HS #0 01/09/22 [Rx] Metoprolol Tartrate [Lopressor] 25 mg PO BID #60 tab 01/09/22 [Rx] Midodrine [ProAmatine] 5 mg PO AC-TID #90 tab 01/09/22 [Rx] Pantoprazole [Protonix] 40 mg PO AC-BRKFST #30 tab 01/09/22 [Rx] Sennosides-Docusate Sodium [Senokot-S] 2 each PO HS PRN tab 01/09/22 [Rx] amLODIPine [Norvasc] 2.5 mg PO DAILY #0 01/09/22 [Rx] Follow up Appointment(s)/Referral(s): Davida Thomas NPC [Nurse Practitioner] - 01/16/22 12:30 pm (You will be seen in the surgeon's office behind the hospital in [facility], [address] Phone number is ) Raman Reyes MD [STAFF PHYSICIAN] - 01/28/22 2:45 pm [facility],Cardiac [NON-STAFF] - 4 Weeks (You will be called in 4-6 weeks for evaluation for cardiac rehab) Alma Paul NPC [Nurse Practitioner] - 02/01/22 2:30 pm Leobardo Villalpando MD [STAFF PHYSICIAN] - 01/31/22 1:15 pm Dolores Wang MD [Primary Care Provider] - 01/28/22 9:40 am [facility], [NON-STAFF] - 1-2 Days (Should come out the day after discharge, then 2-3 times per week for 4 weeks) Ambulatory/Diagnostic Orders: Complete Blood Count w/diff [LAB.AMB] Time Frame: 3 Days, Location: None Selected Comprehensive Metabolic Panel [LAB.AMB] Time Frame: 3 Days, Location: None Selected Activity/Diet/Wound Care/Special Instructions: DISCHARGE INSTRUCTIONS: 1. No driving for 4 weeks, or until physician gives their ok. 2. The patient should sleep in their own bed, no medical bed needed. 3. Stairs are not an issue. If the bedroom is upstairs, it is advised that the patient go up at night and down in the morning for the first week. Go slowly, using handrail and take 1 step at a time. 4. FARIHA hose are to be worn for 30 days or until physician discontinues. 5. Heart hugger is to be worn 100% of the time until physician discontinues.(except when showering) 6. No lifting, pushing, or pulling more than 10 pounds for 12 weeks. The physician will advise of any restriction changes. 7. The patient is expected to continue the prescribed walking program. 8. Continue pain control per as needed orders. 9. Continue with incentive spirometry and splinting/heart hugger until otherwise directed by the physician. 10. Must shower daily using liquid antibacterial soap and a separate white washcloth for each individual incision. 11. Routine sternal incision care. No powders, lotions, ointments on incisions. No dressings are necessary on incisions unless they are draining. Dermabond tape is to remain on sternal incision until surgeon follow-up. 12. Please call surgeon/WORKFORCE PLANNING ANALYST for temp greater than 101 F or purulent drainage from incisions. 13. You should weight yourself every morning, record and bring with you to your follow up appointments 14. All prescriptions given by surgeon for 30 days. Refills need to be filled through ball rolling machine operator/primary care physician. 15. A Red armband has been placed on the patient. It should be worn for 30 days post surgery and will be removed by the cardiac surgeons. If an ER visit is necessary, please make sure the number on the Red armband is called. 16. You have been referred to and are expected to begin Cardiac Rehab in approximately 4-6 weeks. HOME HEALTH SERVICES TO PROVIDE: RN SKILLED HOME CARE SERVICES FOR POST-OP SURGICAL PATIENTS WITH THE FOLLOWING: Coronary Artery Bypass Surgery (CABG), Mitral Valve Replacement/Repair ( MVR), Aortic Valve Replacement/Repair (AVR) RN TO CONTINUE EDUCATION FROM ``ROAD TO A HEALTH HEART PATIENT EDUCATION MANUAL (GIVEN TO PATIENT IN THE HOSPITAL) MEDICATION RECONCILIATION WITH EDUCATION NEEDED ON FIRST HOME VISIT EMPHASIZE IMPORTANCE OF WEARING BREAST SUPPORT/HEART HUGGER ENCOURAGE USE OF INCENTIVE SPIROMETER 10 X EVERY HOUR WHILE AWAKE ENCOURAGE UTILIZATION OF LOWER EXTREMITY COMPRESSION STOCKINGS/FARIHA HOSE and ELEVATE LEGS ABOVE LEVEL OF HEART WHILE AT REST. ENCOURAGE AMBULATION 3-5x/day INCREASING TOLERATES, WHILE AVOIDING EXTREMES IN TEMPERATURE FREQUENCY: RN TO OPEN THE PATIENT WITHIN 24 HOURS OF DISCHARGE FROM THE HOSPITAL WITH TELEHEALTH INSTALLED AT [facility] [place] TO VISIT 2-3 X A WEEK FOR 4 WEEKS ESTABLISHED BY PATIENT NEEDS. LABORATORY: CBC, CMP TO BE DRAWN ON THE THIRD DAY HOME, (RAN STAT) FAX RESULTS TO [phone]. TELEHEALTH PARAMETERS: WEIGHT: NOTIFY MD OF WEIGHT GAIN OF 2 LBS IN 24 HOURS OR 5 LBS IN ONE WEEK HR: NOTIFY MD OF HR <55 BPM OR HR>100 BPM BP: NOTIFY MD IF BP <90/55 OR BP>140/100 O2 SAT: NOTIFY MD IF PO2<93% ON ROOM AIR SEND TELEHEALTH REPORT TO BAKERY DEMONSTRATOR AND CARDIOVASCULAR SURGEON THE FIRST WEEK OF CARE AND THEN BI-WEEKLY. PLEASE ADDITIONALLY COMMUNICATE ANY ABNORMALS AND NEW FINDINGS TO THE SURGEONS OFFICE. Hold Metformin until recheck BUN/Creatinine and follow up with PCP Discharge Disposition: HOME WITH HOME HEALTH SERVICES
== END 2022-01-09 16:11 | disposition home health service (06) | DRG 236 ==
LOC: 2ORMAIN 01-04 05:33 → 2SICU 01-04 12:26 → 3SCARD 01-08 17:48
PROVIDERS: ADMIT Thoracic Surgery (Cardiothoracic Vascular Surgery); ATTEND Thoracic Surgery (Cardiothoracic Vascular Surgery)
PROC: 06BQ4ZZ Excision of Left Saphenous Vein, Percutaneous Endoscopic Approach (ICD-10-PCS; principal; 2022-01-04 08:00)
PROC: B24BZZ4 Ultrasonography of Heart with Aorta, Transesophageal (ICD-10-PCS; principal; 2022-01-04 08:00)
PROC: 03BC4ZZ Excision of Left Radial Artery, Percutaneous Endoscopic Approach (ICD-10-PCS; principal; 2022-01-04 08:00)
PROC: 021009W Bypass Coronary Artery, One Artery from Aorta with Autologous Venous Tissue, Open Approach (ICD-10-PCS; principal; 2022-01-04 08:00)
PROC: 02100Z3 Bypass Coronary Artery, One Artery from Coronary Artery, Open Approach (ICD-10-PCS; principal; 2022-01-04 08:00)
PROC: 02L70CK Occlusion of Left Atrial Appendage with Extraluminal Device, Open Approach (ICD-10-PCS; principal; 2022-01-04 08:00)
PROC: 02U Heart and Great Vessels, Supplement (ICD-10-PCS; principal; 2022-01-04 08:00)
PROC: 02100Z9 Bypass Coronary Artery, One Artery from Left Internal Mammary, Open Approach (ICD-10-PCS; principal; 2022-01-04 08:00)
PROC: 30243N1 Transfusion of Nonautologous Red Blood Cells into Central Vein, Percutaneous Approach (ICD-10-PCS; 2022-01-05)
DX: I25.119 Atherosclerotic heart disease of native coronary artery with unspecified angina pectoris (principal); J98.11 Atelectasis; D62 Acute posthemorrhagic anemia; N17.9 Acute kidney failure, unspecified; D69.6 Thrombocytopenia, unspecified; E11.22 Type 2 diabetes mellitus with diabetic chronic kidney disease; E11.65 Type 2 diabetes mellitus with hyperglycemia; N18.32 Chronic kidney disease, stage 3b; Z79.4 Long term (current) use of insulin; Z20.822 Contact with and (suspected) exposure to COVID-19; I12.9 Hypertensive chronic kidney disease with stage 1 through stage 4 chronic kidney disease, or unspecified chronic kidney disease; E78.5 Hyperlipidemia, unspecified; E78.00 Pure hypercholesterolemia, unspecified; I65.22 Occlusion and stenosis of left carotid artery; F41.9 Anxiety disorder, unspecified; Z79.83 Long term (current) use of bisphosphonates; Z79.02 Long term (current) use of antithrombotics/antiplatelets; Z79.84 Long term (current) use of oral hypoglycemic drugs; Z79.899 Other long term (current) drug therapy; Z87.891 Personal history of nicotine dependence; Z87.440 Personal history of urinary (tract) infections; Z90.49 Acquired absence of other specified parts of digestive tract; Z87.19 Personal history of other diseases of the digestive system; Z90.710 Acquired absence of both cervix and uterus; Z87.39 Personal history of other diseases of the musculoskeletal system and connective tissue; Z98.890 Other specified postprocedural states; Z87.81 Personal history of (healed) traumatic fracture; Z71.3 Dietary counseling and surveillance; Z88.5 Allergy status to narcotic agent; Z88.7 Allergy status to serum and vaccine; Z88.8 Allergy status to other drugs, medicaments and biological substances; Z88.6 Allergy status to analgesic agent; Z91.041 Radiographic dye allergy status; Z82.49 Family history of ischemic heart disease and other diseases of the circulatory system; Z83.6 Family history of other diseases of the respiratory system; I95.9 Hypotension, unspecified
CPT/HCPCS: 71045; 71046; 80048; 80053; 82330; 82805; 83735; 85025; 85027; 85520; 85610; 85730; 86850; 86891; 86900; 86901; 86920; 87635; 94002; 94640; 94760

== ENCOUNTER 2022-01-22 14:00 | Inpatient (IN) | payer MEDICARE ==
--- NOTE | 2022-01-22 14:32 | ED ---
General Adult HPI - General Stated complaint: LEYLA Time Seen by Provider: 01/22/22 14:00 Source: patient, RN notes reviewed, old records reviewed - History of Present Illness Initial comments: This is a 81-year-old female who presents emergency Department with a recent past medical history of open heart surgery with triple bypass on January 04. Patient states since that time she is slowly getting more more short of breath and today she was extremely short of breath. The paramedics state when they arrived she was oxygenating at 90% and a couple liters of oxygen brought her oxygen saturation up into the mid 90s. Patient denies any new chest pain. She said her chest is sore from the surgery but she has no new chest pain. Patient denies any fever chills or cough. Patient denies abdominal pain. Patient denies any nausea vomiting. Patient denies headache patient denies numbness weakness. - Related Data Home Medications Medication Instructions Recorded Confirmed Clopidogrel [Plavix] 75 mg PO DAILY 02/13/16 01/22/22 Multivitamins, Thera [Multivitamin 1 tab PO DAILY 12/27/21 01/22/22 (formulary)] Dapagliflozin Propanediol [Farxiga] 5 mg PO DAILY 01/22/22 01/22/22 Nitroglycerin Sl Tabs [Nitrostat] 0.4 mg SUBLINGUAL Q5M PRN 01/22/22 01/22/22 Omeprazole 20 mg PO DAILY 01/22/22 01/22/22 Pioglitazone [Actos] 30 mg PO DAILY 01/22/22 01/22/22 Sennosides-Docusate Sodium 2 tab PO HS PRN 01/22/22 01/22/22 [Senokot-S] metFORMIN HCL ER [Glucophage XR] 500 mg PO DAILY 01/22/22 01/22/22 Previous Rx's Medication Instructions Recorded Acetaminophen Tab [Tylenol] 650 mg PO Q4HR PRN tab 01/09/22 Insulin Glargine,Hum.rec.anlog 15 unit SQ HS #0 01/09/22 [Tougenny Kellyostbob] Metoprolol Tartrate [Lopressor] 25 mg PO BID #60 tab 01/09/22 Pantoprazole [Protonix] 40 mg PO AC-BRKFST #30 tab 01/09/22 amLODIPine [Norvasc] 2.5 mg PO DAILY #0 01/09/22 Furosemide [Lasix] 20 mg PO DAILY #7 tab 01/21/22 Allergies Allergy/AdvReac Type Severity Reaction Status Date / Time aspirin Allergy Rash/Hives Verified 01/22/22 16:07 codeine Allergy Rash/Hives Verified 01/22/22 16:07 Influenza Virus Vaccines Allergy Rash/Hives Verified 01/22/22 16:07 Iodinated Contrast Media Allergy Rash/Hives/Increased Verified 01/22/22 16:07 [Iodinated Contrast Media - HR IV Dye] iodine Allergy Rash/Hives Verified 01/22/22 16:07 NSAIDS (Non-Steroidal Allergy Anaphylaxis Verified 01/22/22 16:07 Anti-Inflamma Review of Systems ROS Statement: Those systems with pertinent positive or pertinent negative responses have been documented in the HPI. ROS Other: All systems not noted in ROS Statement are negative. Past Medical History Past Medical History: Chest Pain / Angina, Diabetes Mellitus, Hyperlipidemia, Hypertension Additional Past Medical History / Comment(s): UTI-ECOLI History of Any Multi-Drug Resistant Organisms: None Reported Past Surgical History: Cholecystectomy, Heart Catheterization, Hernia Repair, Hysterectomy, Orthopedic Surgery Additional Past Surgical History / Comment(s): R shoulder surgery. R broken wrist.trigger release rt middle finger. pt not sure if they took appendix when they did hysterectomy Past Anesthesia/Blood Transfusion Reactions: No Reported Reaction Additional Past Anesthesia/Blood Transfusion Reaction / Comment(s): blood transfusion-no reaction Additional Psychological History / Comment(s): pt is independant, lives with spouse, pt's sister and a grand daughter- has 1 step to house, has 3 pet dogs. recieves meals on wheels, has shower chair and bsc. - Past Family History Father Family Medical History: Congestive Heart Failure (CHF) Mother Family Medical History: Pneumonia Additional Family Medical History / Comment(s): fom pne General Exam - General Exam Comments Initial Comments: GENERAL: Patient is well-developed and well-nourished. Patient is nontoxic and well- hydrated and is in mild distress. ENT: Neck is soft and supple. No significant lymphadenopathy is noted. Oropharynx is clear. Moist mucous membranes. Neck has full range of motion without eliciting any pain. EYES: The sclera were anicteric and conjunctiva were pink and moist. Extraocular movements were intact and pupils were equal round and reactive to light. Eyelids were unremarkable. PULMONARY: Unlabored respirations. Patient had diminished breath sounds in the bases bila terally CARDIOVASCULAR: There is a regular rate and rhythm without any murmurs gallops or rubs. ABDOMEN: Soft and nontender with normal bowel sounds. SKIN: Skin is clear with no lesions or rashes and otherwise unremarkable. NEUROLOGIC: Patient is alert and oriented x3. Cranial nerves II through XII are grossly intact. Motor and sensory are also intact. Normal speech, volume and content. Symmetrical smile. MUSCULOSKELETAL: Normal extremities with adequate strength and full range of motion. LYMPHATICS: No significant lymphadenopathy is noted PSYCHIATRIC: Normal psychiatric evaluation. Course Vital Signs 01/22/22 01/22/22 01/22/22 14:24 14:28 14:30 Temperature 98.9 F Pulse Rate 105 H 105 H 104 H Respiratory 22 18 Rate Blood Pressure 170/81 170/81 170/81 O2 Sat by Pulse 91 L 92 L 96 Oximetry 01/22/22 01/22/22 01/22/22 14:44 15:30 16:00 Temperature Pulse Rate 101 H 103 H Respiratory 18 20 Rate Blood Pressure 169/66 153/57 O2 Sat by Pulse 98 98 98 Oximetry Medical Decision Making - Medical Decision Making EKG shows sinus rhythm at a 9 bpm UT interval is 140 QRS is 81 Q-T intervals 324 QTC is 380. Patient's EKG shows no ST segment elevation. Patient does have T- wave inversions in V5 V6 1 and aVL. Cardiovascular surgeon was contacted he came down so the patient wanted the patient minute for 23 observation so he can remove some fluid from the pleural effusions off of her lungs. Chest x-ray showed bilateral worsening pleural effusions. I spoke with physicians agreed to admit the patient admitted the patient I wrote admitting orders. - Lab Data Result diagrams: 01/22/22 14:44 01/22/22 14:44 Lab Results 01/22/22 01/22/22 01/22/22 Range/Units 14:44 14:44 14:44 WBC 8.3 (3.8-10.6) k/uL RBC 3.95 (3.80-5.40) m/uL Hgb 12.0 (11.4-16.0) gm/dL Hct 37.6 (34.0-46.0) % MCV 95.2 (80.0-100.0) fL MCH 30.5 (25.0-35.0) pg MCHC 32.0 (31.0-37.0) g/dL RDW 15.8 H (11.5-15.5) % Plt Count 424 D (150-450) k/uL MPV 6.9 Neutrophils % 68 % Lymphocytes % 20 % Monocytes % 5 % Eosinophils % 4 % Basophils % 0 % Neutrophils # 5.7 (1.3-7.7) k/uL Lymphocytes # 1.7 (1.0-4.8) k/uL Monocytes # 0.4 (0-1.0) k/uL Eosinophils # 0.3 (0-0.7) k/uL Basophils # 0.0 (0-0.2) k/uL Hypochromasia Slight PT 10.2 (9.0-12.0) sec INR 0.9 (<1.2) APTT 23.2 (22.0-30.0) sec Sodium 134 L (137-145) mmol/L Potassium 4.5 (3.5-5.1) mmol/L Chloride 102 (98-107) mmol/L Carbon Dioxide 21 L (22-30) mmol/L Anion Gap 11 mmol/L BUN 23 H (7-17) mg/dL Creatinine 0.87 (0.52-1.04) mg/dL Est GFR (CKD-EPI)AfAm 73 (>60 ml/min/1.73 sqM) Est GFR (CKD-EPI)NonAf 64 (>60 ml/min/1.73 sqM) Glucose 147 H (74-99) mg/dL Plasma Lactic Acid Scotty (0.7-2.0) mmol/L Calcium 9.3 (8.4-10.2) mg/dL Magnesium 1.9 (1.6-2.3) mg/dL Total Bilirubin 0.8 (0.2-1.3) mg/dL AST 57 H (14-36) U/L ALT 25 (4-34) U/L Alkaline Phosphatase 299 H (38-126) U/L Troponin I (0.000-0.034) ng/mL NT-Pro-B Natriuret Pep pg/mL Total Protein 6.9 (6.3-8.2) g/dL Albumin 3.4 L (3.5-5.0) g/dL 01/22/22 01/22/22 01/22/22 Range/Units 14:44 14:44 14:44 WBC (3.8-10.6) k/uL RBC (3.80-5.40) m/uL Hgb (11.4-16.0) gm/dL Hct (34.0-46.0) % MCV (80.0-100.0) fL MCH (25.0-35.0) pg MCHC (31.0-37.0) g/dL RDW (11.5-15.5) % Plt Count (150-450) k/uL MPV Neutrophils % % Lymphocytes % % Monocytes % % Eosinophils % % Basophils % % Neutrophils # (1.3-7.7) k/uL Lymphocytes # (1.0-4.8) k/uL Monocytes # (0-1.0) k/uL Eosinophils # (0-0.7) k/uL Basophils # (0-0.2) k/uL Hypochromasia PT (9.0-12.0) sec INR (<1.2) APTT (22.0-30.0) sec Sodium (137-145) mmol/L Potassium (3.5-5.1) mmol/L Chloride (98-107) mmol/L Carbon Dioxide (22-30) mmol/L Anion Gap mmol/L BUN (7-17) mg/dL Creatinine (0.52-1.04) mg/dL Est GFR (CKD-EPI)AfAm (>60 ml/min/1.73 sqM) Est GFR (CKD-EPI)NonAf (>60 ml/min/1.73 sqM) Glucose (74-99) mg/dL Plasma Lactic Acid Scotty 1.2 (0.7-2.0) mmol/L Calcium (8.4-10.2) mg/dL Magnesium (1.6-2.3) mg/dL Total Bilirubin (0.2-1.3) mg/dL AST (14-36) U/L ALT (4-34) U/L Alkaline Phosphatase (38-126) U/L Troponin I 0.052 H* (0.000-0.034) ng/mL NT-Pro-B Natriuret Pep 2570 pg/mL Total Protein (6.3-8.2) g/dL Albumin (3.5-5.0) g/dL Disposition Clinical Impression: Pleural effusion, Status post cardiac surgery Disposition: ADMITTED IP TO THIS HOSP Referrals: Dolores Wang MD [Primary Care Provider] - 1-2 days Time of Disposition: 16:28
--- NOTE | 2022-01-22 15:04 | XR ---
EXAMINATION TYPE: XR chest 2V DATE OF EXAM: 01/22/2022 COMPARISON: Chest x-ray 01/09/2022 HISTORY: Difficulty breathing TECHNIQUE: Frontal and lateral views of the chest are obtained. FINDINGS: Bibasilar increased attenuation has developed in the interval, the hemidiaphragms are obsc ured, heart is obscured. Patient shows left atrial appendage clip placement, aorta is dense. No evide nt pneumothorax. There are overlying artifacts. Some perihilar vascular indistinctness suspected. IMPRESSION: Correlate for congestive heart failure, there are basilar effusions and associated atele ctasis versus edema, pneumonia not excluded
[2022-01-22 15:28] LABS: Basophils % (A) 0 %; Eosinophils # (A) 0.3 k/uL (0-0.7); Eosinophils % (A) 4 %; HCT 37.6 % (34.0-46.0); Hypochromasia Slight; Lymphocytes # (A) 1.7 k/uL (1.0-4.8); Lymphocytes % (A) 20 %; MCH 30.5 pg (25.0-35.0); MCV 95.2 fL (80.0-100.0); Mean Platelet Volume 6.9; Monocytes # (A) 0.4 k/uL (0-1.0); Monocytes % (A) 5 %; Neutrophils # (A) 5.7 k/uL (1.3-7.7); Neutrophils % (A) 68 %; RBC 3.95 m/uL (3.80-5.40); RDW 15.8 % (11.5-15.5); WBC 8.3 k/uL (3.8-10.6)
[2022-01-22 15:31] LABS: INR 0.9 (<1.2); Partial Thromboplastin Time 23.2 sec (22.0-30.0); Prothrombin Time 10.2 sec (9.0-12.0)
[2022-01-22 15:32] LABS: Albumin 3.4 g/dL (3.5-5.0); Calcium 9.3 mg/dL (8.4-10.2); Magnesium 1.9 mg/dL (1.6-2.3); Potassium 4.5 mmol/L (3.5-5.1); Total Bilirubin 0.8 mg/dL (0.2-1.3); Total Protein 6.9 g/dL (6.3-8.2)
[2022-01-22 15:33] LABS: Platelet Count 424 k/uL (150-450)
[2022-01-22] MEDS ORDERED: NALOXONE 0.4 MG/ML 1 ML VIAL IV PRN (17:45)
[2022-01-22] MEDS ORDERED: ONDANSETRON 4 MG/2 ML VIAL IVP PRN (17:45)
[2022-01-22] MEDS ORDERED: MAGNESIUM HYDROXIDE 2,400 MG/10 ML CUP PO PRN (17:45)
[2022-01-22] MEDS ORDERED: bisacodyL 5 MG TABLET.DR PO PRN (17:45)
[2022-01-22] MEDS ORDERED: SENNOSIDES-DOCUSATE SODIUM 1 EACH TAB PO PRN (17:56)
[2022-01-22] MEDS ORDERED: NON FORMULARY DRUG (Omeprazole [Omeprazole] 20 MG Capsule.Dr) PO PRN (17:56)
[2022-01-22] MEDS ORDERED: NITROGLYCERIN SL TABS 0.4 MG TAB SUBLINGUAL PRN (17:56)
[2022-01-22] MEDS ORDERED: PANTOPRAZOLE 40 MG TABLET PO PRN (17:56)
--- NOTE | 2022-01-22 18:25 | P.HPIM ---
History of Present Illness H&P Date: 01/22/22 Chief Complaint: Shortness of breath This is a 81-year-old female who presents emergency Department with a recent past medical history of open heart surgery with triple bypass on January 04. The patient presented to the emergency room by paramedics from her primary care physician office due to shortness of breath she stated that she has been short of breath for the past 2 days it has been getting worse she couldn't sleep last night also she is complaining of worsening edema in the lower extremities. She was recently started on oral Lasix. Patient when she was discharged she was hypotensive requiring midodrine and losartan was discontinued on discharge. She was found to be hypertensive in the emergency room. Patient denies any chest pain. Patient denies any nausea vomiting or abdominal pain patient denies any fever or chills. Review of Systems All 14 review of systems evaluated and all negative except for above. Past Medical History Past Medical History: Chest Pain / Angina, Diabetes Mellitus, Hyperlipidemia, Hypertension Additional Past Medical History / Comment(s): UTI-ECOLI History of Any Multi-Drug Resistant Organisms: None Reported Past Surgical History: Cholecystectomy, Heart Catheterization, Hernia Repair, Hysterectomy, Orthopedic Surgery Additional Past Surgical History / Comment(s): R shoulder surgery. R broken wrist.trigger release rt middle finger. pt not sure if they took appendix when they did hysterectomy Past Anesthesia/Blood Transfusion Reactions: No Reported Reaction Additional Past Anesthesia/Blood Transfusion Reaction / Comment(s): blood transfusion-no reaction Additional Psychological History / Comment(s): pt is independant, lives with spouse, pt's sister and a grand daughter- has 1 step to house, has 3 pet dogs. recieves meals on wheels, has shower chair and bsc. - Past Family History Father Family Medical History: Congestive Heart Failure (CHF) Mother Family Medical History: Pneumonia Additional Family Medical History / Comment(s): fom pne Medications and Allergies Home Medications Medication Instructions Recorded Confirmed Type Clopidogrel [Plavix] 75 mg PO DAILY 02/13/16 01/22/22 History Multivitamins, Thera [Multivitamin 1 tab PO DAILY 12/27/21 01/22/22 History (formulary)] Acetaminophen Tab [Tylenol] 650 mg PO Q4HR PRN tab 01/09/22 01/22/22 Rx Metoprolol Tartrate [Lopressor] 25 mg PO BID #60 tab 01/09/22 01/22/22 Rx amLODIPine [Norvasc] 2.5 mg PO DAILY #0 01/09/22 01/22/22 Rx Furosemide [Lasix] 20 mg PO DAILY #7 tab 01/21/22 01/22/22 Rx Dapagliflozin Propanediol [Farxiga] 5 mg PO DAILY 01/22/22 01/22/22 History Insulin Glargine,Hum.rec.anlog 10 - 12 unit SQ HS 01/22/22 01/22/22 History [[place] Solostar] Nitroglycerin Sl Tabs [Nitrostat] 0.4 mg SUBLINGUAL Q5M PRN 01/22/22 01/22/22 History Omeprazole 20 mg PO DAILY PRN 01/22/22 01/22/22 History Pantoprazole [Protonix] 40 mg PO AC-BRKFST PRN 01/22/22 01/22/22 History Pioglitazone [Actos] 30 mg PO DAILY 01/22/22 01/22/22 History Sennosides-Docusate Sodium 2 tab PO HS PRN 01/22/22 01/22/22 History [Senokot-S] metFORMIN HCL ER [Glucophage XR] 500 mg PO DAILY 01/22/22 01/22/22 History Allergies Allergy/AdvReac Type Severity Reaction Status Date / Time aspirin Allergy Rash/Hives Verified 01/22/22 16:07 codeine Allergy Rash/Hives Verified 01/22/22 16:07 Influenza Virus Vaccines Allergy Rash/Hives Verified 01/22/22 16:07 Iodinated Contrast Media Allergy Rash/Hives/Increased Verified 01/22/22 16:07 [Iodinated Contrast Media - HR IV Dye] iodine Allergy Rash/Hives Verified 01/22/22 16:07 NSAIDS (Non-Steroidal Allergy Anaphylaxis Verified 01/22/22 16:07 Anti-Inflamma Physical Exam Vitals: Vital Signs Temp Pulse Resp BP Pulse Ox 01/22/22 16:00 103 H 20 153/57 98 01/22/22 15:30 101 H 18 169/66 98 01/22/22 14:44 98 01/22/22 14:30 104 H 170/81 96 01/22/22 14:28 105 H 18 170/81 92 L 01/22/22 14:24 98.9 F 105 H 22 170/81 91 L Intake and Output 01/22/22 01/22/22 01/22/22 06:59 14:59 22:59 Other: Weight 54.431 kg General: non toxic, no distress, appears at stated age Derm: warm, dry Head: atraumatic, normocephalic, symmetric Eyes: EOMI, no lid lag, anicteric sclera Mouth: no lip lesion, mucus membranes moist Cardiovascular: S1S2 reg, no murmur, positive posterior tibial pulse bilateral, Lungs: Diminished air entry bilaterally with bibasilar crackles Abdominal: soft, nontender to palpation, no guarding, no appreciable organomegaly Ext: no gross muscle atrophy, bilateral 2+ edema, no contractures Neuro: CN II-XI grossly intact, no focal neuro deficits Psych: Alert, oriented, appropriate affect Results CBC & Chem 7: 01/22/22 14:44 01/22/22 14:44 Labs: Abnormal Lab Results - Last 24 Hours (Table) 01/22/22 01/22/22 01/22/22 Range/Units 14:44 14:44 14:44 RDW 15.8 H (11.5-15.5) % Sodium 134 L (137-145) mmol/L Carbon Dioxide 21 L (22-30) mmol/L BUN 23 H (7-17) mg/dL Glucose 147 H (74-99) mg/dL AST 57 H (14-36) U/L Alkaline Phosphatase 299 H (38-126) U/L Troponin I 0.052 H* (0.000-0.034) ng/mL Albumin 3.4 L (3.5-5.0) g/dL Assessment and Plan Assessment: Assessment and plan: #Acute hypoxic respiratory failure secondary to CHF exacerbation #left pleural effusion -Recent CABG surgery January 04 -Lasix 40 mg IV push twice daily -Increase Lopressor to 50 mg twice a day -Start losartan 50 mg daily -2-D echo -Cardiology and cardiac thoracic surgery consultation #Coronary disease status post CABG January 04 #Uncontrolled hypertension -Add losartan 50 mg daily -Increase Lopressor to 50 mg twice a day -Resume Norvasc #Chronic kidney disease stage II to III -Avoid Nephrotoxic agents #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
[2022-01-22 21:23] LABS: Glucose,Whole Blood 206 mg/dL (75-99)
[2022-01-22] MEDS: LOSARTAN 50 MG TAB PO SCH (21:34)
[2022-01-22] MEDS: FUROSEMIDE 10 MG/ML 4 ML VIAL IV SCH (21:34)
[2022-01-22] MEDS: INSULIN DETEMIR (LEVEMIR) 100 UNIT/ML SYR SQ SCH (21:35)
[2022-01-22] MEDS: INSULIN ASPART (NovoLOG) 100 UNIT/ML VIAL SQ SCH (21:35)
[2022-01-22] MEDS: METOPROLOL TARTRATE 50 MG TAB PO SCH (21:36)
[2022-01-22] MEDS: ACETAMINOPHEN TAB 325 MG TAB PO PRN (23:32)
[2022-01-23] MEDS: INSULIN ASPART (NovoLOG) 100 UNIT/ML VIAL SQ SCH ×4 (07:01→21:27)
[2022-01-23 07:03] LABS: Glucose,Whole Blood 74 mg/dL (75-99)
[2022-01-23 07:37] LABS: Basophils % (A) 0 %; Eosinophils # (A) 0.4 k/uL (0-0.7); Eosinophils % (A) 6 %; HCT 34.1 % (34.0-46.0); HGB 10.7 gm/dL (11.4-16.0); Hypochromasia Slight; Lymphocytes # (A) 1.6 k/uL (1.0-4.8); Lymphocytes % (A) 23 %; MCH 29.9 pg (25.0-35.0); MCHC 31.5 g/dL (31.0-37.0); MCV 95.1 fL (80.0-100.0); Mean Platelet Volume 6.9; Monocytes # (A) 0.4 k/uL (0-1.0); Monocytes % (A) 6 %; Neutrophils # (A) 4.5 k/uL (1.3-7.7); Neutrophils % (A) 63 %; Platelet Count 348 k/uL (150-450); RBC 3.58 m/uL (3.80-5.40); WBC 7.1 k/uL (3.8-10.6)
[2022-01-23 07:55] LABS: Albumin 2.7 g/dL (3.5-5.0); Calcium 8.9 mg/dL (8.4-10.2); Magnesium 1.9 mg/dL (1.6-2.3); Potassium 4.5 mmol/L (3.5-5.1); Total Bilirubin 0.8 mg/dL (0.2-1.3); Total Protein 5.9 g/dL (6.3-8.2)
[2022-01-23 08:10] LABS: Glucose,Whole Blood 140 mg/dL (75-99)
--- NOTE | 2022-01-23 08:35 | US ---
EXAMINATION TYPE: US chest DATE OF EXAM: 01/23/2022 COMPARISON: NONE CLINICAL HISTORY: bilateral lungs for possible thoracentesis. SOB TECHNIQUE: Targeted ultrasound of the posterior lower bilateral hemithoraces EXAM MEASUREMENTS: Right Pleural Effusion pocket size: 12.0 cm Right skin surface to fluid distance: 1.7 cm Left Pleural Effusion pocket size: 11.0 cm Left skin surface to fluid distance: 2.3 cm Right side marked for possible thoracentesis outside the dept. Left side marked for possible thoracentesis outside the dept. Pulmonologists are able to review the images in the patient?s EMR. Bilateral fluid seen. IMPRESSIONS: Bilateral pleural effusion.
--- NOTE | 2022-01-23 08:58 | PCN ---
PROCEDURE NOTE PROCEDURE: Right-sided thoracentesis. PREOPERATIVE DIAGNOSIS: Right pleural effusion. POSTOPERATIVE DIAGNOSIS: Right pleural effusion. OPERATORS: 1. Dr. Pastrana. 2. Dr. Paul. 3. Dr. Castañeda. PROCEDURE DESCRIPTION: There was informed consent and universal timeout, verifying correct patient, procedure, site, positioning , and implant (s) or special equipment if applicable. The patient's procedure was done in the emergency room, room 26. Ultrasound guidance was used to archie the posterior chest and appropriate fluid pocket was identified and marked. Patient was positioned, prepped and draped in usual sterile fashion. Lidocaine was used to anesthetize the area. A thoracentesis catheter was introduced into the pleural space and 2 liters of bloody fluid was removed from the right pleural space. Blood loss was none. A chest x-ray was ordered to rule out pneumothorax. Total Fluid Removed: 2 liters Color of Fluid: Bloody fluid. Fluid was not sent for appropriate laboratory tests. Patient tolerated the procedure well without difficulty and there were no immediate complications. MMODL / IJN: [id number] /
[2022-01-23] MEDS ORDERED: ENOXAPARIN 40 MG/0.4 ML SYRINGE SQ SCH (09:00)
--- NOTE | 2022-01-23 09:00 | XR ---
EXAMINATION TYPE: XR chest 1V portable DATE OF EXAM: 01/23/2022 COMPARISON: X-ray dated 01/22/2022 HISTORY: Right-sided thoracentesis TECHNIQUE: Single frontal view of the chest is obtained. FINDINGS: Interval right-sided thoracentesis with suspected minimal residual right-sided pleural effusion loretta red to moderate to large right-sided pleural effusion previously. Persistent large left-sided pleural effusion with adjacent pulmonary atelectasis. No new area of consolidation identified. Slightly congested pulmonary vasculature which may suggest m ild pulmonary edema. Cardiac size cannot be properly assessed. No evidence of pneumothorax. Rosamariaeni aBrandon IMPRESSION: Interval right-sided thoracentesis as described above.
--- NOTE | 2022-01-23 09:52 | P.CNPUL ---
History of Present Illness Consult date: 01/23/22 Requesting physician: Adrian Zarate Reason for consult: dyspnea, hypoxemia, pleural effusion, abnormal CXR/CT Chief complaint: Shortness of breath. History of present illness: Pulmonary consult dated 01/23/2022. 81-year-old female status post off-pump three-vessel bypass surgery, done on January 04, by Dr. Villalpando. The patient comes into the emergency room, on January 22, complaining of shortness of breath. She was noted on chest x-ray to have large bilateral pleural effusions. Ultrasound of the chest was performed, which confirmed bilateral pleural effusions. Today, she had a right-sided thoracentesis, and 2 L of bloody fluid was removed from the right pleural space. The plan is to do the left side tomorrow. The patient could be considered for possible discharge, and brought back in outpatient for the left-sided thoracentesis. Alternatively, the patient could be maintained in the hospital, and at the procedure done tomorrow. We'll leave that up to the primary service. The fluid that was removed, was flat for analysis. The patient has a history of chest pain, CAD, diabetes, hyperlipidemia, and hypertension. She also has a history of Escherichia coli urinary tract infection. White count 7.1, hemoglobin 10.7, hematocrit 34.1, and platelet count 348,000 sodium 134, potassium 4.5, chlorides 105, CO2 25, BUN 25, and creatinine 1.09. Albumin was 2.7. Ultrasound of the chest revealed a 12 cm pocket on the right, and 11 cm pocket on the left. The postthoracentesis x-ray showed no pneumothorax, and significant improvement in the right-sided pleural effusion. Review of Systems REVIEW OF SYSTEMS: CONSTITUTIONAL: [Negative.] NEUROLOGIC: [ Negative.] HEENT: [ Negative.] CARDIAC: [Negative.] PULMONARY: Shortness of breath. GI: [Negative.] : [Negative.] RHEUMATOLOGIC: [ Negative.] IMMUNOLOGIC: [ Negative.] ENDOCRINE: [Negative. ] DERMATOLOGIC: [Negative.] Past Medical History Past Medical History: Chest Pain / Angina, Diabetes Mellitus, Hyperlipidemia, Hypertension Additional Past Medical History / Comment(s): UTI-ECOLI History of Any Multi-Drug Resistant Organisms: None Reported Past Surgical History: Cholecystectomy, Heart Catheterization, Hernia Repair, Hysterectomy, Orthopedic Surgery Additional Past Surgical History / Comment(s): R shoulder surgery, R broken wris t, trigger release rt middle finger, CABG (Dec 2021) Past Anesthesia/Blood Transfusion Reactions: No Reported Reaction Additional Past Anesthesia/Blood Transfusion Reaction / Comment(s): blood transfusion-no reaction Past Psychological History: Depression Smoking Status: Never smoker Past Alcohol Use History: None Reported Past Drug Use History: None Reported - Past Family History Father Family Medical History: Congestive Heart Failure (CHF) Mother Family Medical History: Pneumonia Additional Family Medical History / Comment(s): fom pne Medications and Allergies Home Medications Medication Instructions Recorded Confirmed Type Clopidogrel [Plavix] 75 mg PO DAILY 02/13/16 01/22/22 History Multivitamins, Thera [Multivitamin 1 tab PO DAILY 12/27/21 01/22/22 History (formulary)] Acetaminophen Tab [Tylenol] 650 mg PO Q4HR PRN tab 01/09/22 01/22/22 Rx Metoprolol Tartrate [Lopressor] 25 mg PO BID #60 tab 01/09/22 01/22/22 Rx amLODIPine [Norvasc] 2.5 mg PO DAILY #0 01/09/22 01/22/22 Rx Furosemide [Lasix] 20 mg PO DAILY #7 tab 01/21/22 01/22/22 Rx Dapagliflozin Propanediol [Farxiga] 5 mg PO DAILY 01/22/22 01/22/22 History Insulin Glargine,Hum.rec.anlog 10 - 12 unit SQ HS 01/22/22 01/22/22 History [[place] Solostbob] Nitroglycerin Sl Tabs [Nitrostat] 0.4 mg SUBLINGUAL Q5M PRN 01/22/22 01/22/22 History Omeprazole 20 mg PO DAILY PRN 01/22/22 01/22/22 History Pantoprazole [Protonix] 40 mg PO AC-BRKFST PRN 01/22/22 01/22/22 History Pioglitazone [Actos] 30 mg PO DAILY 01/22/22 01/22/22 History Sennosides-Docusate Sodium 2 tab PO HS PRN 01/22/22 01/22/22 History [Senokot-S] metFORMIN HCL ER [Glucophage XR] 500 mg PO DAILY 01/22/22 01/22/22 History Allergies Allergy/AdvReac Type Severity Reaction Status Date / Time aspirin Allergy Rash/Hives Verified 01/22/22 16:07 codeine Allergy Rash/Hives Verified 01/22/22 16:07 Influenza Virus Vaccines Allergy Rash/Hives Verified 01/22/22 16:07 Iodinated Contrast Media Allergy Rash/Hives/Increased Verified 01/22/22 16:07 [Iodinated Contrast Media - HR IV Dye] iodine Allergy Rash/Hives Verified 01/22/22 16:07 NSAIDS (Non-Steroidal Allergy Anaphylaxis Verified 01/22/22 16:07 Anti-Inflamma Physical Exam Osteopathic Statement: *. No significant issues noted on an osteopathic st ructural exam other than those noted in the History and Physical/Consult. Vitals: Vital Signs Temp Pulse Pulse Resp BP BP Pulse Ox 01/23/22 07:54 97.8 F 89 18 136/65 96 01/23/22 02:00 98.4 F 64 18 105/47 98 01/22/22 20:00 98.6 F 106 H 18 146/61 97 01/22/22 16:00 103 H 20 153/57 98 01/22/22 15:30 101 H 18 169/66 98 01/22/22 14:44 98 01/22/22 14:30 104 H 170/81 96 01/22/22 14:28 105 H 18 170/81 92 L 01/22/22 14:24 98.9 F 105 H 22 170/81 91 L Intake and Output 01/22/22 01/23/22 01/23/22 22:59 06:59 14:59 Intake Total 10 10 Balance 10 10 Intake: IV 10 10 Invasive Line 1 10 10 Other: Voiding Method Bedside Commode Bedside Commode # Voids 1 1 # Bowel Movements 1 Weight 54.431 kg No acute distress, oriented 3. Currently on 3 L nasal cannula. The patient is very frail appearing. HEENT examination is grossly unremarkable. Neck supple. Full range of motion. No adenopathy thyromegaly or neck vein distention. Cardiovascular examination reveals regular rhythm rate. S1-S2 normal. No S3 or S4. No discernible murmur noted. Heart rate 89 bpm. Lungs reveal diminished bilateral breath sounds, particularly at the bases. Dullness at the bases. No wheezes, no rhonchi. Abdomen soft bowel sounds are heard. No masses or tenderness. Extremities are intact. No cyanosis clubbing or edema. Skin is without rash or lesion. Neurologic examination is brief but nonfocal. Results - Laboratory Findings CBC and BMP: 01/23/22 07:01 01/23/22 07:01 PT/INR, D-dimer PT 10.2 sec (9.0-12.0) 01/22/22 14:44 INR 0.9 (<1.2) 01/22/22 14:44 Abnormal lab findings: Abnormal Labs 01/22/22 01/22/22 01/22/22 14:44 14:44 14:44 RBC Hgb RDW 15.8 H Sodium 134 L Carbon Dioxide 21 L BUN 23 H Creatinine Glucose 147 H POC Glucose (mg/dL) AST 57 H Alkaline Phosphatase 299 H Troponin I 0.052 H* Total Protein Albumin 3.4 L 01/22/22 01/23/22 01/23/22 21:20 07:01 07:01 RBC 3.58 L Hgb 10.7 L RDW 16.0 H Sodium 134 L Carbon Dioxide BUN 25 H Creatinine 1.09 H Glucose 73 L POC Glucose (mg/dL) 206 H AST 48 H Alkaline Phosphatase 230 H Troponin I Total Protein 5.9 L Albumin 2.7 L 01/23/22 01/23/22 07:01 07:53 RBC Hgb RDW Sodium Carbon Dioxide BUN Creatinine Glucose POC Glucose (mg/dL) 74 L 140 H AST Alkaline Phosphatase Troponin I Total Protein Albumin - Diagnostic Findings Chest x-ray: image reviewed Assessment and Plan Assessment: Shortness of breath, secondary to bilateral pleural effusions, status post right-sided thoracentesis on January 23, with 2 L removed. Status post three-vessel off-pump CABG, 01/04/2022. History of hypertension. History of hyperlipidemia. History of diabetes mellitus. Prior history of E. coli urinary tract infection. Plan: Plan dated 01/23/2022. The patient was seen in consultation down in the emergency room, room 26. The right-sided thoracentesis was performed in the emergency room. 2 L of bloody fluid was removed. The fluid will be sent for analysis. The patient had a post thoracentesis chest x-ray, which showed significant improvement in the right- sided pleural effusion. The patient still has a left-sided pleural effusion. The patient could be considered for possible discharge, and brought back as an outpatient, for left-sided thoracentesis tomorrow, or, alternatively, could be admitted to the hospital, and have the left-sided thoracentesis performed tomorrow. Currently, the patient's in no distress. She is somewhat frail. Not receiving any IV fluids. He'll Time with Patient: Greater than 30
[2022-01-23] MEDS: PIOGLITAZONE 30 MG TAB PO SCH (10:38)
[2022-01-23] MEDS: CLOPIDOGREL 75 MG TAB PO SCH (10:38)
[2022-01-23] MEDS: ATORVASTATIN 80 MG TAB PO SCH (10:38)
[2022-01-23] MEDS: LOSARTAN 50 MG TAB PO SCH (10:38)
[2022-01-23] MEDS: amLODIPine 2.5 MG TAB PO SCH (10:39)
[2022-01-23] MEDS: MULTIVITAMINS, THERA 1 EACH TAB PO SCH (10:39)
[2022-01-23] MEDS: METOPROLOL TARTRATE 50 MG TAB PO SCH (10:39)
[2022-01-23] MEDS: FUROSEMIDE 10 MG/ML 4 ML VIAL IV SCH ×2 (10:40→21:53)
--- NOTE | 2022-01-23 10:57 | P.GSCN ---
<Davida Thomas - Last Filed: 01/23/22 10:49> History of Present Illness Consult date: 01/23/22 Reason for Consult: Pleural effusions Requesting physician: Adrian Zarate History of present illness: This is a 81-year-old female who follows on an outpatient basis with Dr. Wang for primary care and Dr. Reyes for cardiology. She has a previous medical history of coronary artery disease status post three-vessel off-pump CABG 01/04/2022, hypertension, hyperlipidemia, diabetes, chronic renal insufficiency, previous tobacco dependence, left internal carotid artery stenosis. She was discharged from [facility] 01/09/2022. She was recovering at home without incident until the last several days where she was becoming increasingly short of breath. She was seen by her primary care physician yesterday and was sent to the emergency room for shortness of breath. On chest x-ray she was noted to have bilateral pleural effusions. BNP was 2570. The rest of her lab work was unremarkable considering she recently had open-heart surgery. She was admitted for observation with consultation placed to cardiology as well as cardiothoracic surgery. Review of Systems Review of systems was completed and was negative except as noted - Respiratory Reports as per HPI, Reports dyspnea Past Medical History Past Medical History: Coronary Artery Disease (CAD), Chest Pain / Angina, Diabetes Mellitus, Hyperlipidemia, Hypertension Additional Past Medical History / Comment(s): UTI-ECOLI History of Any Multi-Drug Resistant Organisms: None Reported Past Surgical History: Cholecystectomy, Heart Catheterization, Hernia Repair, Hysterectomy, Orthopedic Surgery Additional Past Surgical History / Comment(s): R shoulder surgery, R broken wrist, trigger release rt middle finger, CABG (Dec 2021) Past Anesthesia/Blood Transfusion Reactions: No Reported Reaction Additional Past Anesthesia/Blood Transfusion Reaction / Comm: blood transfusion- no reaction Past Psychological History: Depression Smoking Status: Never smoker Past Alcohol Use History: None Reported Past Drug Use History: None Reported - Past Family History Father Family Medical History: Congestive Heart Failure (CHF) Mother Family Medical History: Pneumonia Additional Family Medical History / Comment(s): fom pne Medications and Allergies Home Medications Medication Instructions Recorded Confirmed Type Clopidogrel [Plavix] 75 mg PO DAILY 02/13/16 01/22/22 History Multivitamins, Thera [Multivitamin 1 tab PO DAILY 12/27/21 01/22/22 History (formulary)] Acetaminophen Tab [Tylenol] 650 mg PO Q4HR PRN tab 01/09/22 01/22/22 Rx Metoprolol Tartrate [Lopressor] 25 mg PO BID #60 tab 01/09/22 01/22/22 Rx amLODIPine [Norvasc] 2.5 mg PO DAILY #0 01/09/22 01/22/22 Rx Furosemide [Lasix] 20 mg PO DAILY #7 tab 01/21/22 01/22/22 Rx Dapagliflozin Propanediol [Farxiga] 5 mg PO DAILY 01/22/22 01/22/22 History Insulin Glargine,Hum.rec.anlog 10 - 12 unit SQ HS 01/22/22 01/22/22 History [Toujeo Solostar] Nitroglycerin Sl Tabs [Nitrostat] 0.4 mg SUBLINGUAL Q5M PRN 01/22/22 01/22/22 History Omeprazole 20 mg PO DAILY PRN 01/22/22 01/22/22 History Pantoprazole [Protonix] 40 mg PO AC-[id number] PRN 01/22/22 01/22/22 History Pioglitazone [Actos] 30 mg PO DAILY 01/22/22 01/22/22 History Sennosides-Docusate Sodium 2 tab PO HS PRN 01/22/22 01/22/22 History [Senokot-S] metFORMIN HCL ER [Glucophage XR] 500 mg PO DAILY 01/22/22 01/22/22 History Allergies Allergy/AdvReac Type Severity Reaction Status Date / Time aspirin Allergy Rash/Hives Verified 01/22/22 16:07 codeine Allergy Rash/Hives Verified 01/22/22 16:07 Influenza Virus Vaccines Allergy Rash/Hives Verified 01/22/22 16:07 Iodinated Contrast Media Allergy Rash/Hives/Increased Verified 01/22/22 16:07 [Iodinated Contrast Media - HR IV Dye] iodine Allergy Rash/Hives Verified 01/22/22 16:07 NSAIDS (Non-Steroidal Allergy Anaphylaxis Verified 01/22/22 16:07 Anti-Inflamma Surgical - Exam Vital Signs Temp Pulse Resp BP Pulse Ox 98.9 F 105 H 22 170/81 91 L 01/22/22 14:24 01/22/22 14:24 01/22/22 14:24 01/22/22 14:24 01/22/22 14:24 CONSTITUTIONAL: Awake and alert, appears comfortable, cooperative, well- developed, well-nourished, no pain, no acute distress EYES: Pupils equal, round, reactive to light, normal ocular movement ENT: Moist mucous membranes without oral lesions present NECK: No masses, no bruits, trachea midline RESPIRATORY: Lungs sounds diminished to auscultation bilaterally. Respirations even, nonlabored. Currently on 2 L nasal cannula with oxygen saturation 96%. Strong cough. CARDIOVASCULAR: S1, S2 present. Regular rate and rhythm, sinus rhythm on telemetry. Sternum stable. Palpable peripheral pulses bilaterally. Trace bilateral lower extremity edema present. GASTROINTESTINAL: Abdomen soft, nontender, nondistended without masses or organomegaly noted. There is no rebound or guarding present. Active bowel sounds present 4 quadrants. GENITOURINARY: Deferred INTEGUMENTARY: Skin is warm and dry with evidence of good perfusion. NEUROLOGIC: Cranial nerves II through XII intact, normal coordination, no obvious motor or sensory deficits, speech is normal MUSKULOSKELETAL: Able to move all extremities, strength equal bilaterally, normal posture PSYCHIATRIC: Alert and oriented to person place and time, appropriate affect, intact judgment and insight Results - Labs 01/23/22 07:01 01/23/22 07:01 Abnormal Lab Results - Last 24 Hours (Table) 01/22/22 01/22/22 01/22/22 Range/Units 14:44 14:44 14:44 RBC (3.80-5.40) m/uL Hgb (11.4-16.0) gm/dL RDW 15.8 H (11.5-15.5) % Sodium 134 L (137-145) mmol/L Carbon Dioxide 21 L (22-30) mmol/L BUN 23 H (7-17) mg/dL Creatinine (0.52-1.04) mg/dL Glucose 147 H (74-99) mg/dL POC Glucose (mg/dL) (75-99) mg/dL AST 57 H (14-36) U/L Alkaline Phosphatase 299 H (38-126) U/L Troponin I 0.052 H* (0.000-0.034) ng/mL Total Protein (6.3-8.2) g/dL Albumin 3.4 L (3.5-5.0) g/dL 01/22/22 01/23/22 01/23/22 Range/Units 21:20 07:01 07:01 RBC 3.58 L (3.80-5.40) m/uL Hgb 10.7 L (11.4-16.0) gm/dL RDW 16.0 H (11.5-15.5) % Sodium 134 L (137-145) mmol/L Carbon Dioxide (22-30) mmol/L BUN 25 H (7-17) mg/dL Creatinine 1.09 H (0.52-1.04) mg/dL Glucose 73 L (74-99) mg/dL POC Glucose (mg/dL) 206 H (75-99) mg/dL AST 48 H (14-36) U/L Alkaline Phosphatase 230 H (38-126) U/L Troponin I (0.000-0.034) ng/mL Total Protein 5.9 L (6.3-8.2) g/dL Albumin 2.7 L (3.5-5.0) g/dL 01/23/22 01/23/22 Range/Units 07:01 07:53 RBC (3.80-5.40) m/uL Hgb (11.4-16.0) gm/dL RDW (11.5-15.5) % Sodium (137-145) mmol/L Carbon Dioxide (22-30) mmol/L BUN (7-17) mg/dL Creatinine (0.52-1.04) mg/dL Glucose (74-99) mg/dL POC Glucose (mg/dL) 74 L 140 H (75-99) mg/dL AST (14-36) U/L Alkaline Phosphatase (38-126) U/L Troponin I (0.000-0.034) ng/mL Total Protein (6.3-8.2) g/dL Albumin (3.5-5.0) g/dL Diabetes panel 01/22/22 01/23/22 Range/Units 14:44 07:01 Sodium 134 L 134 L (137-145) mmol/L Potassium 4.5 4.5 (3.5-5.1) mmol/L Chloride 102 105 (98-107) mmol/L Carbon Dioxide 21 L 25 (22-30) mmol/L BUN 23 H 25 H (7-17) mg/dL Creatinine 0.87 1.09 H (0.52-1.04) mg/dL Glucose 147 H 73 L (74-99) mg/dL Calcium 9.3 8.9 (8.4-10.2) mg/dL AST 57 H 48 H (14-36) U/L ALT 25 21 (4-34) U/L Alkaline Phosphatase 299 H 230 H (38-126) U/L Total Protein 6.9 5.9 L (6.3-8.2) g/dL Albumin 3.4 L 2.7 L (3.5-5.0) g/dL Calcium panel 01/22/22 01/23/22 Range/Units 14:44 07:01 Calcium 9.3 8.9 (8.4-10.2) mg/dL Albumin 3.4 L 2.7 L (3.5-5.0) g/dL Pituitary panel 01/22/22 01/23/22 Range/Units 14:44 07:01 Sodium 134 L 134 L (137-145) mmol/L Potassium 4.5 4.5 (3.5-5.1) mmol/L Chloride 102 105 (98-107) mmol/L Carbon Dioxide 21 L 25 (22-30) mmol/L BUN 23 H 25 H (7-17) mg/dL Creatinine 0.87 1.09 H (0.52-1.04) mg/dL Glucose 147 H 73 L (74-99) mg/dL Calcium 9.3 8.9 (8.4-10.2) mg/dL Adrenal panel 01/22/22 01/23/22 Range/Units 14:44 07:01 Sodium 134 L 134 L (137-145) mmol/L Potassium 4.5 4.5 (3.5-5.1) mmol/L Chloride 102 105 (98-107) mmol/L Carbon Dioxide 21 L 25 (22-30) mmol/L BUN 23 H 25 H (7-17) mg/dL Creatinine 0.87 1.09 H (0.52-1.04) mg/dL Glucose 147 H 73 L (74-99) mg/dL Calcium 9.3 8.9 (8.4-10.2) mg/dL Total Bilirubin 0.8 0.8 (0.2-1.3) mg/dL AST 57 H 48 H (14-36) U/L ALT 25 21 (4-34) U/L Alkaline Phosphatase 299 H 230 H (38-126) U/L Total Protein 6.9 5.9 L (6.3-8.2) g/dL Albumin 3.4 L 2.7 L (3.5-5.0) g/dL - Imaging Chest x-ray: report reviewed, image reviewed Assessment and Plan Assessment: 1. Bilateral pleural effusions 2. Shortness of breath secondary to above 3. History of coronary artery disease status post three-vessel off-pump CABG 01/04/2022 4. Hypertension 5. Hyperlipidemia 6. Diabetes 7. Chronic renal insufficiency 8. Previous tobacco dependence 9. Left internal carotid artery stenosis Plan: The patient was seen and examined yesterday afternoon in the emergency room with family present. Chart/diagnostics reviewed with Dr. Villalpando. The patient was found to have bilateral pleural effusions, she reported relief of shortness of breath with addition of oxygen through nasal cannula. We did place a consult for pulmonology, Dr. Pastrana was able to drain 2 L of bloody fluid from her right chest with plans for left-sided thoracentesis tomorrow. From cardiothoracic surgery standpoint patient can be discharged home today to come back in tomorrow as an outpatient for left thoracentesis, however patient wishes to stay overnight, have thoracentesis done tomorrow and be discharged tomorrow after noon. Midodrine was discontinued last week as patient's blood pressure had started to rebound and in fact was becoming more hypertensive, previous blood pressure medication reinitiated for better blood pressure control. Patient does have follow-up appointments that are scheduled with Dr. Reyes next week as well as Dr. Villalpando and Dr. Paul. Will place discharge instructions on discharge plan. Thank you for this consult, we will continue to follow for the short time the patient will be in the hospital, and we'll see her discharge in the office. I have personally seen and examined the patient, performed the documentation and the assessment and plan as written. Number of minutes spent on the visit: 30. Time with Patient: Greater than 30 <Leobardo Villalpando - Last Filed: 01/23/22 13:40> Surgical - Exam Vital Signs Temp Pulse Resp BP Pulse Ox 98.9 F 105 H 22 170/81 91 L 01/22/22 14:24 01/22/22 14:24 01/22/22 14:24 01/22/22 14:24 01/22/22 14:24 Results - Labs 01/23/22 07:01 01/23/22 07:01 Abnormal Lab Results - Last 24 Hours (Table) 01/22/22 01/22/22 01/22/22 Range/Units 14:44 14:44 14:44 RBC (3.80-5.40) m/uL Hgb (11.4-16.0) gm/dL RDW 15.8 H (11.5-15.5) % Sodium 134 L (137-145) mmol/L Carbon Dioxide 21 L (22-30) mmol/L BUN 23 H (7-17) mg/dL Creatinine (0.52-1.04) mg/dL Glucose 147 H (74-99) mg/dL POC Glucose (mg/dL) (75-99) mg/dL AST 57 H (14-36) U/L Alkaline Phosphatase 299 H (38-126) U/L Troponin I 0.052 H* (0.000-0.034) ng/mL Total Protein (6.3-8.2) g/dL Albumin 3.4 L (3.5-5.0) g/dL 01/22/22 01/23/22 01/23/22 Range/Units 21:20 07:01 07:01 RBC 3.58 L (3.80-5.40) m/uL Hgb 10.7 L (11.4-16.0) gm/dL RDW 16.0 H (11.5-15.5) % Sodium 134 L (137-145) mmol/L Carbon Dioxide (22-30) mmol/L BUN 25 H (7-17) mg/dL Creatinine 1.09 H (0.52-1.04) mg/dL Glucose 73 L (74-99) mg/dL POC Glucose (mg/dL) 206 H (75-99) mg/dL AST 48 H (14-36) U/L Alkaline Phosphatase 230 H (38-126) U/L Troponin I (0.000-0.034) ng/mL Total Protein 5.9 L (6.3-8.2) g/dL Albumin 2.7 L (3.5-5.0) g/dL 01/23/22 01/23/22 01/23/22 Range/Units 07:01 07:53 11:58 RBC (3.80-5.40) m/uL Hgb (11.4-16.0) gm/dL RDW (11.5-15.5) % Sodium (137-145) mmol/L Carbon Dioxide (22-30) mmol/L BUN (7-17) mg/dL Creatinine (0.52-1.04) mg/dL Glucose (74-99) mg/dL POC Glucose (mg/dL) 74 L 140 H 139 H (75-99) mg/dL AST (14-36) U/L Alkaline Phosphatase (38-126) U/L Troponin I (0.000-0.034) ng/mL Total Protein (6.3-8.2) g/dL Albumin (3.5-5.0) g/dL Diabetes panel 01/22/22 01/23/22 Range/Units 14:44 07:01 Sodium 134 L 134 L (137-145) mmol/L Potassium 4.5 4.5 (3.5-5.1) mmol/L Chloride 102 105 (98-107) mmol/L Carbon Dioxide 21 L 25 (22-30) mmol/L BUN 23 H 25 H (7-17) mg/dL Creatinine 0.87 1.09 H (0.52-1.04) mg/dL Glucose 147 H 73 L (74-99) mg/dL Calcium 9.3 8.9 (8.4-10.2) mg/dL AST 57 H 48 H (14-36) U/L ALT 25 21 (4-34) U/L Alkaline Phosphatase 299 H 230 H (38-126) U/L Total Protein 6.9 5.9 L (6.3-8.2) g/dL Albumin 3.4 L 2.7 L (3.5-5.0) g/dL Calcium panel 01/22/22 01/23/22 Range/Units 14:44 07:01 Calcium 9.3 8.9 (8.4-10.2) mg/dL Albumin 3.4 L 2.7 L (3.5-5.0) g/dL Pituitary panel 01/22/22 01/23/22 Range/Units 14:44 07:01 Sodium 134 L 134 L (137-145) mmol/L Potassium 4.5 4.5 (3.5-5.1) mmol/L Chloride 102 105 (98-107) mmol/L Carbon Dioxide 21 L 25 (22-30) mmol/L BUN 23 H 25 H (7-17) mg/dL Creatinine 0.87 1.09 H (0.52-1.04) mg/dL Glucose 147 H 73 L (74-99) mg/dL Calcium 9.3 8.9 (8.4-10.2) mg/dL Adrenal panel 01/22/22 01/23/22 Range/Units 14:44 07:01 Sodium 134 L 134 L (137-145) mmol/L Potassium 4.5 4.5 (3.5-5.1) mmol/L Chloride 102 105 (98-107) mmol/L Carbon Dioxide 21 L 25 (22-30) mmol/L BUN 23 H 25 H (7-17) mg/dL Creatinine 0.87 1.09 H (0.52-1.04) mg/dL Glucose 147 H 73 L (74-99) mg/dL Calcium 9.3 8.9 (8.4-10.2) mg/dL Total Bilirubin 0.8 0.8 (0.2-1.3) mg/dL AST 57 H 48 H (14-36) U/L ALT 25 21 (4-34) U/L Alkaline Phosphatase 299 H 230 H (38-126) U/L Total Protein 6.9 5.9 L (6.3-8.2) g/dL Albumin 3.4 L 2.7 L (3.5-5.0) g/dL Assessment and Plan Assessment: Patioent well known to our service s/p recent CABG. Patient examined byu me and radiologic studies reviewed. Post op pleural effusions noted secondary acute on chronic systolic and chronic diastolic CHF. Also h/o CRI. Needs diuresis and bilateral thoracentesis. Adjust medications .
--- NOTE | 2022-01-23 11:00 | ECHOF ---
Referral Reason:chf MEASUREMENTS -------- HEIGHT: 152.4 cm WEIGHT: 54.4 kg BP: 105/47 RVIDd: 3.2 cm (< 3.3) IVSd: 1.2 cm (0.6 - 1.1) LVIDd: 3.0 cm (3.9 - 5.3) LVPWd: 1.5 cm (0.6 - 1.1) IVSs: 1.7 cm LVIDs: 1.7 cm LVPWs: 1.8 cm LAESV Index (A-L): 31.95 ml/m Ao Diam: 3.1 cm (2.0 - 3.7) AV Cusp: 1.5 cm (1.5 - 2.6) LA Diam: 3.7 cm (2.7 - 3.8) MV EXCURSION: 14.324 mm (> 18.000) MV EF SLOPE: 55 mm/s (70 - 150) EPSS: 0.3 cm MV E Diomedes: 0.89 m/s MV DecT: 186 ms MV A Diomedes: 0.94 m/s MV E/A Ratio: 0.95 AV maxP.56 mmHg AV meanP.55 mmHg RAP: 5.00 mmHg RVSP: 22.55 mmHg FINDINGS -------- Sinus rhythm. This was a technically adequate study. S/P CABG The left ventricular size is normal. There is mild concentric left ventricular hypertrophy. Overa ll left ventricular systolic function is low-normal with, an EF between 50 - 55 %. Septal wall torsten on is delayed and consistent with prior cardiac surgery. The right ventricle is normal in size. LA is midly dilated 29-33ml/m2. The right atrial size is normal. Interatrial and interventricular septum intact. There is no evidence of aortic regurgitation. There is mild aortic stenosis present. The maximum velocity across the aortic valve is 2.26m/s. Peak/mean gradient across the Aortic Valve is 20.56mmH g / 11.55mmHg. Mild mitral annular calcification present. Mild mitral regurgitation is present. Mild tricuspid regurgitation present. There is no evidence of pulmonary hypertension. The right v entricular systolic pressure, as measured by Doppler, is 22.55mmHg. There is no pulmonic regurgitation present. The aortic root size is normal. IVC Not well visulized. Echo free space may represent effusion or a pericardial fat pad. Pleural effusion noted CONCLUSIONS -------- 1. The left ventricular size is normal. 2. There is mild concentric left ventricular hypertrophy. 3. Overall left ventricular systolic function is low-normal with, an EF between 50 - 55 %. 4. LA is midly dilated 29-33ml/m2. 5. There is mild aortic stenosis present. 6. The maximum velocity across the aortic valve is 2.26m/s. 7. Peak/mean gradient across the Aortic Valve is 20.56mmHg / 11.55mmHg. 8. Mild mitral annular calcification present. 9. Mild mitral regurgitation is present. 10. Mild tricuspid regurgitation present. 11. Echo free space may represent effusion or a pericardial fat pad. 12. Pleural effusion noted CUTTER HEAD SHARPENER: Aurea Camara RDCS
--- NOTE | 2022-01-23 11:36 | CONS ---
CONSULTATION CHIEF COMPLAINT: Shortness of breath. This is a 81-year-old lady with a history of coronary artery disease, status post CABG on January 04, who presented to the emergency room complaining of shortness of breath. Chest x-ray showed large bilateral pleural effusion and she had a right-sided thoracentesis. Patient is to have a left-sided thoracentesis later today. Patient's predominant symptom is in the form of shortness of breath. She states that she is feeling somewhat better since having the thoracentesis. At the time of my evaluation, she appears comfortable at rest, hemodynamically stable and in no apparent distress. Her troponin is 0.052 and is of unclear clinical significance. BNP is elevated at 2570. Patient has known normal LV systolic function prior to surgery. The recurrent pleural effusion may be due to acute exacerbation of chronic diastolic heart failure or could be due to recent bypass surgery: PAST MEDICAL HISTORY: Significant for insulin-requiring diabetes, hypertension, dyslipidemia, coronary artery disease, status post CABG. MEDICATIONS: Medications at home included insulin, Glucophage, Actos, Lopressor 25 b.i.d., Lasix 20 daily, Plavix, Norvasc, Protonix and Senokot. ALLERGIES: ASPIRIN, CODEINE, IV DYE AND NSAIDS. FAMILY HISTORY: Negative for premature coronary artery disease. SOCIAL HISTORY: Negative for current smoking, EtOH abuse or drug abuse. REVIEW OF SYSTEMS: HEENT is unremarkable. CARDIAC: As described above. RESPIRATORY: As described above. GI: Negative. GENITOURINARY: Negative. ALLERGY/IMMUNOLOGY: Negative. SKIN: Negative. MUSCULOSKELETAL: Significant for arthritis. PSYCHOSOCIAL: Negative. DERMATOLOGY: Negative. CONSTITUTIONAL: Negative. ONCOLOGICAL: Negative. SENIOR INTEGRATION DEVELOPER: Negative. Rest of the system review is not relevant. PHYSICAL EXAMINATION: Patient is comfortable at rest. Vital signs are stable. Chest exam reveals diminished air entry at both bases. Heart exam reveals first and second heart sounds, an ejection systolic murmur in the aortic area. Abdomen is soft. Examination of extremities did not reveal any edema. Peripheral pulses are felt. LABS: Labs show a hemoglobin of 10.7, platelet count is 348, potassium is 4.5, creatinine is 1. Troponin is in the deras zone at 0.05. EKG shows sinus rhythm with nonspecific ST-T wave changes. ASSESSMENT: 1. Pleural effusion; could represent acute-onset diastolic heart failure. 2. Coronary artery disease, status post coronary artery bypass grafting. 3. Hypertension. 4. Insulin-dependent diabetes. PLAN: I will obtain a 2D echo to evaluate her LV function. Reviewed her angiographic data, recent echocardiograms and respiratory evaluation. Patient already had thoracentesis on one side and she is to have thoracentesis on the left side later today and is currently on IV Lasix. I anticipate her being discharged home over the next 24 hours. MMODL / IJN: [id number] /
[2022-01-23 11:59] LABS: Glucose,Whole Blood 139 mg/dL (75-99)
--- NOTE | 2022-01-23 13:40 | P.PN ---
Subjective Progress Note Date: 01/23/22 Patient was seen and examined at bedside. She is feeling better today after her right-sided thoracentesis. Patient had ultrasound-guided thoracentesis with removal of 2 L. Pulmonary plan for left-sided thoracentesis tomorrow. Discussed with cardiothoracic surgery Objective - Vital Signs Vital signs: Vital Signs Temp 97.8 F 01/23/22 07:54 Pulse 66 01/23/22 13:12 Resp 16 01/23/22 13:12 BP 94/64 01/23/22 13:12 Pulse Ox 96 01/23/22 13:12 Intake & Output 01/22/22 01/23/22 01/23/22 18:59 06:59 18:59 Intake Total 20 Balance 20 Weight 54.431 kg 54.431 kg Intake: IV 20 Invasive Line 1 20 Other: Voiding Method Bedside Commode # Voids 1 # Bowel Movements 1 - Exam General: non toxic, no distress, appears at stated age Derm: warm, dry Head: atraumatic, normocephalic, symmetric Eyes: EOMI, no lid lag, anicteric sclera Mouth: no lip lesion, mucus membranes moist Cardiovascular: S1S2 reg, no murmur, positive posterior tibial pulse bilateral, Lungs: CTA bilateral, no rhonchi, no rales , no accessory muscle use Abdominal: soft, nontender to palpation, no guarding, no appreciable organomegaly Ext: no gross muscle atrophy, no edema, no contractures Neuro: CN II-XI grossly intact, no focal neuro deficits Psych: Alert, oriented, appropriate affect - Labs CBC & Chem 7: 01/23/22 07:01 01/23/22 07:01 Labs: Abnormal Lab Results - Last 24 Hours (Table) 01/22/22 01/22/22 01/22/22 Range/Units 14:44 14:44 14:44 RBC (3.80-5.40) m/uL Hgb (11.4-16.0) gm/dL RDW 15.8 H (11.5-15.5) % Sodium 134 L (137-145) mmol/L Carbon Dioxide 21 L (22-30) mmol/L BUN 23 H (7-17) mg/dL Creatinine (0.52-1.04) mg/dL Glucose 147 H (74-99) mg/dL POC Glucose (mg/dL) (75-99) mg/dL AST 57 H (14-36) U/L Alkaline Phosphatase 299 H (38-126) U/L Troponin I 0.052 H* (0.000-0.034) ng/mL Total Protein (6.3-8.2) g/dL Albumin 3.4 L (3.5-5.0) g/dL 01/22/22 01/23/22 01/23/22 Range/Units 21:20 07:01 07:01 RBC 3.58 L (3.80-5.40) m/uL Hgb 10.7 L (11.4-16.0) gm/dL RDW 16.0 H (11.5-15.5) % Sodium 134 L (137-145) mmol/L Carbon Dioxide (22-30) mmol/L BUN 25 H (7-17) mg/dL Creatinine 1.09 H (0.52-1.04) mg/dL Glucose 73 L (74-99) mg/dL POC Glucose (mg/dL) 206 H (75-99) mg/dL AST 48 H (14-36) U/L Alkaline Phosphatase 230 H (38-126) U/L Troponin I (0.000-0.034) ng/mL Total Protein 5.9 L (6.3-8.2) g/dL Albumin 2.7 L (3.5-5.0) g/dL 01/23/22 01/23/22 01/23/22 Range/Units 07:01 07:53 11:58 RBC (3.80-5.40) m/uL Hgb (11.4-16.0) gm/dL RDW (11.5-15.5) % Sodium (137-145) mmol/L Carbon Dioxide (22-30) mmol/L BUN (7-17) mg/dL Creatinine (0.52-1.04) mg/dL Glucose (74-99) mg/dL POC Glucose (mg/dL) 74 L 140 H 139 H (75-99) mg/dL AST (14-36) U/L Alkaline Phosphatase (38-126) U/L Troponin I (0.000-0.034) ng/mL Total Protein (6.3-8.2) g/dL Albumin (3.5-5.0) g/dL Assessment and Plan Assessment: Assessment and plan: #Acute hypoxic respiratory failure secondary to CHF exacerbation and bilateral pleural effusion -Recent CABG surgery January 04 -Lasix 40 mg IV push twice daily -Status post right ultrasound-guided thoracentesis with removal of 2 L. Plan for left ultrasound-guided thoracentesis tomorrow -Increase Lopressor to 50 mg twice a day -Resume losartan 50 mg daily -2-D echo EF 50-55% left atrium is mildly dilated. Left ventricular size is normal. Mild concentric left ventricular hypertrophy. Mild aortic stenosis. Mild mitral regurgitation. 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
[2022-01-23 18:28] LABS: Glucose,Whole Blood 158 mg/dL (75-99)
[2022-01-23 18:43] LABS: Glucose, BF Source Pleural Fluid; Glucose, Body Fluid 110 mg/dL; LDH, Body Fluid Source Pleural Fluid; T. Protein, Body Fluid Source Pleural Fluid; Total Protein, Body Fluid 4510 mg/dL
[2022-01-23] MEDS ORDERED: SODIUM CHLORIDE 0.9% 500 ML 500 ML IV ONE (19:48)
[2022-01-23 20:59] LABS: Glucose,Whole Blood 278 mg/dL (75-99)
[2022-01-23] MEDS: INSULIN DETEMIR (LEVEMIR) 100 UNIT/ML SYR SQ SCH (21:27)
[2022-01-23 22:48] LABS: Appearance,BF Cloudy
[2022-01-24] MEDS: METOPROLOL TARTRATE 50 MG TAB PO SCH ×2 (01:45→11:55)
[2022-01-24] MEDS: ACETAMINOPHEN TAB 325 MG TAB PO PRN (05:16)
[2022-01-24 07:29] LABS: Glucose,Whole Blood 91 mg/dL (75-99)
[2022-01-24 07:30] LABS: HCT 33.2 % (34.0-46.0); HGB 10.4 gm/dL (11.4-16.0); Hypochromasia Slight; MCH 29.5 pg (25.0-35.0); MCHC 31.2 g/dL (31.0-37.0); MCV 94.5 fL (80.0-100.0); Platelet Count 286 k/uL (150-450); RBC 3.51 m/uL (3.80-5.40); RDW 15.8 % (11.5-15.5); WBC 6.6 k/uL (3.8-10.6)
[2022-01-24 07:37] LABS: African American GFR (CKD) 28 (>60 ml/min/1.73 sqM); Anion Gap 4 mmol/L; Blood Urea Nitrogen 35 mg/dL (7-17); Calcium 8.5 mg/dL (8.4-10.2); Carbon Dioxide 22 mmol/L (22-30); Chloride 107 mmol/L (98-107); Glucose 96 mg/dL (74-99); Non-African American GFR(CKD) 25 (>60 ml/min/1.73 sqM); Potassium 4.3 mmol/L (3.5-5.1); Sodium 133 mmol/L (137-145)
--- NOTE | 2022-01-24 08:00 | P.PN ---
Subjective Progress Note Date: 01/24/22 Principal diagnosis: Bilateral pleural effusions. Past medical history significant for coronary artery disease status post three-vessel off-pump CABG 01/04/2022, hypertension, hyperlipidemia, diabetes mellitus, chronic renal insufficiency, previous tobacco dependence, left internal carotid artery stenosis. Status post day #1 right-sided thoracentesis, with 2 L of bloody fluid drained from the right pleural space by Dr. Pastrana. The patient was seen in follow-up today 01/24/2022 at her bedside on the cardiac stepdown unit. Currently she is lying in bed, is awake, alert and oriented 3. She is in no acute apparent distress. Denies any complaints of pain or shortness of breath this time. She reports her breathing is much improved since having the fluid draining from her right side of her chest. Reports she slept well throughout the night. Currently she is on 2 L nasal cannula with oxygen saturation is 98%, achieving 750 mL on her incentive spirometry with encour agement. Remote telemetry is showing normal sinus rhythm heart rate 73 bpm. The patient did have some episodes of hypotension last night, this morning her blood pressure is 97/56 with a map of 69. She underwent a right thoracentesis yesterday with 2 L of bloody fluid drained from her pleural space performed by Dr. Pastrana. No new concerns. Objective - Vital Signs Vital signs: Vital Signs Temp 99.0 F 01/24/22 01:26 Pulse 87 01/24/22 05:22 Resp 16 01/24/22 01:48 BP 97/56 01/24/22 05:22 Pulse Ox 98 01/24/22 01:26 Intake & Output 01/23/22 01/24/22 01/24/22 18:59 06:59 18:59 Intake Total 90 500 Balance 90 500 Weight 53.206 kg Intake: Intake, IV Titration 500 Amount Sodium Chloride 0.9% 500 500 ml 500 ml @ 999 mls/hr IV .Q31M ONE Rx#:[id number] Oral 90 0 Other: Voiding Method Bedside Commode # Voids 1 - Exam CONSTITUTIONAL: Awake and alert, appears comfortable, cooperative, well- developed, well-nourished, no pain, no acute distress EYES: Pupils equal, round, reactive to light, normal ocular movement ENT: Moist mucous membranes without oral lesions present NECK: No masses, no bruits, trachea midline RESPIRATORY: Lungs sounds diminished to auscultation to her left chest, essentially clear to her right lobes. Respirations even, nonlabored. Currently on 2 L nasal cannula with oxygen saturation 98%. Strong cough. Achieving 750 mL on her incentive spirometry. CARDIOVASCULAR: S1, S2 present. Regular rate and rhythm, sinus rhythm on telemetry heart rate 73 bpm. Sternum stable. Palpable peripheral pulses bilaterally. Trace bilateral lower extremity edema present. Heart hugger is in place and she is demonstrating appropriate use. GASTROINTESTINAL: Abdomen soft, nontender, nondistended without masses or organomegaly noted. There is no rebound or guarding present. Active bowel sounds present 4 quadrants. GENITOURINARY: Continues to void. INTEGUMENTARY: Skin is warm and dry with evidence of good perfusion. NEUROLOGIC: Cranial nerves II through XII intact, normal coordination, no obvious motor or sensory deficits, speech is normal MUSKULOSKELETAL: Able to move all extremities, strength equal bilaterally, normal posture PSYCHIATRIC: Alert and oriented to person place and time, appropriate affect, intact judgment and insight. - Allied health notes Allied health notes reviewed: nursing - Labs CBC & Chem 7: 01/23/22 07:01 01/23/22 07:01 Labs: Abnormal Lab Results - Last 24 Hours (Table) 01/23/22 01/23/22 01/23/22 Range/Units 07:01 07:01 07:53 RBC 3.58 L (3.80-5.40) m/uL Hgb 10.7 L (11.4-16.0) gm/dL RDW 16.0 H (11.5-15.5) % Sodium 134 L (137-145) mmol/L BUN 25 H (7-17) mg/dL Creatinine 1.09 H (0.52-1.04) mg/dL Glucose 73 L (74-99) mg/dL POC Glucose (mg/dL) 140 H (75-99) mg/dL AST 48 H (14-36) U/L Alkaline Phosphatase 230 H (38-126) U/L Total Protein 5.9 L (6.3-8.2) g/dL Albumin 2.7 L (3.5-5.0) g/dL 01/23/22 01/23/22 01/23/22 Range/Units 11:58 18:25 20:57 RBC (3.80-5.40) m/uL Hgb (11.4-16.0) gm/dL RDW (11.5-15.5) % Sodium (137-145) mmol/L BUN (7-17) mg/dL Creatinine (0.52-1.04) mg/dL Glucose (74-99) mg/dL POC Glucose (mg/dL) 139 H 158 H 278 H (75-99) mg/dL AST (14-36) U/L Alkaline Phosphatase (38-126) U/L Total Protein (6.3-8.2) g/dL Albumin (3.5-5.0) g/dL Microbiology - Last 24 Hours (Table) 01/23/22 08:30 Body Fluid Culture - Preliminary Pleural Fluid 01/22/22 14:25 Blood Culture - Preliminary Blood No Growth after 24 hours 01/22/22 14:40 Blood Culture - Preliminary Blood No Growth after 24 hours Assessment and Plan Assessment: 1. Bilateral pleural effusions, status post right thoracentesis 12/26/2021 2. Shortness of breath secondary to above 3. History of coronary artery disease status post three-vessel off-pump CABG 01/04/2022 4. Hypertension 5. Hyperlipidemia 6. Diabetes 7. Chronic renal insufficiency 8. Previous tobacco dependence 9. Left internal carotid artery stenosis Plan: 1. Wean oxygen as tolerated, bronchodilators management per pulmonary medicine. 2. Discontinue Lasix and Cozaar due to her periods of hypotension. Continue amlodipine for radial artery spasm prophylaxis. 3. Patient is scheduled for a left-sided thoracentesis today per pulmonary medicine. 4. GI and DVT prophylaxis. 5. Encourage use of her incentive spirometry 10 times every hour while awake. 6. Continue to follow postoperative cardiac surgery discharge instructions. 7. Discharge planning is in place. 8. More recommendations to follow based on patient's clinical course. Time with Patient: Greater than 30
[2022-01-24] MEDS ORDERED: SODIUM CHLORIDE 0.9% 1,000 ML IV SCH (08:15)
[2022-01-24] MEDS: INSULIN ASPART (NovoLOG) 100 UNIT/ML VIAL SQ SCH ×4 (08:17→20:44)
[2022-01-24] MEDS: CLOPIDOGREL 75 MG TAB PO SCH (09:12)
[2022-01-24] MEDS: ATORVASTATIN 80 MG TAB PO SCH (09:12)
[2022-01-24] MEDS: MULTIVITAMINS, THERA 1 EACH TAB PO SCH (09:12)
[2022-01-24] MEDS: PIOGLITAZONE 30 MG TAB PO SCH (09:13)
[2022-01-24] MEDS: ENOXAPARIN 30 MG/0.3 ML SYRINGE SQ SCH (09:37)
--- NOTE | 2022-01-24 10:21 | P.PN ---
Subjective Progress Note Date: 01/24/22 HISTORY OF PRESENT ILLNESS: This is a 81 year old female who is admitted to the hospital secondary to SOB. Patient had a recent CABG last month. She was found to have bilateral pleural effusions. She underwent right sided thoracentesis yesterday by pulmonary with removal of 2 L of bloody fluid. Patient reports improvement in her breathing today. She denies chest pain or pressure. PHYSICAL EXAM: VITAL SIGNS: Reviewed. GENERAL: Well-developed in no acute distress. NECK: Supple. No JVD or thyromegaly LUNGS: Respirations even and unlabored. Lungs diminished to auscultation bilaterally. HEART: Regular rate and rhythm. S1 and S2 heard. EXTREMITIES: Normal range of motion. No clubbing or cyanosis. Peripheral pulses intact. No lower extremity edema ASSESSMENT: Bilateral pleural effusions, status post right thoracentesis Shortness of breath Coronary artery disease with recent CABG 3 vessels, December 2021 Hypertension Hyperlipidemia Diabetes PLAN: Continue current cardiac medications Patient to undergo left thoracentesis per pulmonary medicine Further recommendations pending patient course Nurse practitioner note has been reviewed by physician. Signing provider agrees with the documented findings, assessment, and plan of care. Objective - Vital Signs Vital signs: Vital Signs Temp 98.0 F 01/24/22 07:00 Pulse 71 01/24/22 07:00 Resp 19 01/24/22 07:00 BP 108/62 01/24/22 07:00 Pulse Ox 98 01/24/22 07:00 Intake & Output 01/23/22 01/24/22 01/24/22 18:59 06:59 18:59 Intake Total 90 500 Balance 90 500 Weight 53.206 kg Intake: Intake, IV Titration 500 Amount Sodium Chloride 0.9% 500 500 ml 500 ml @ 999 mls/hr IV .Q31M ONE Rx#:[id number] Oral 90 0 Other: Voiding Method Bedside Commode # Voids 1 - Labs CBC & Chem 7: 01/24/22 07:02 01/24/22 07:02 Labs: Abnormal Lab Results - Last 24 Hours (Table) 01/23/22 01/23/22 01/23/22 Range/Units 11:58 18:25 20:57 RBC (3.80-5.40) m/uL Hgb (11.4-16.0) gm/dL Hct (34.0-46.0) % RDW (11.5-15.5) % Sodium (137-145) mmol/L BUN (7-17) mg/dL Creatinine (0.52-1.04) mg/dL POC Glucose (mg/dL) 139 H 158 H 278 H (75-99) mg/dL 01/24/22 01/24/22 Range/Units 07:02 07:02 RBC 3.51 L (3.80-5.40) m/uL Hgb 10.4 L (11.4-16.0) gm/dL Hct 33.2 L (34.0-46.0) % RDW 15.8 H (11.5-15.5) % Sodium 133 L (137-145) mmol/L BUN 35 H (7-17) mg/dL Creatinine 1.91 H (0.52-1.04) mg/dL POC Glucose (mg/dL) (75-99) mg/dL Microbiology - Last 24 Hours (Table) 01/23/22 08:30 Gram Stain - Preliminary Pleural Fluid Body Fluid Culture - Preliminary 01/22/22 14:25 Blood Culture - Preliminary Blood No Growth after 24 hours 01/22/22 14:40 Blood Culture - Preliminary Blood No Growth after 24 hours
[2022-01-24 11:38] LABS: Glucose,Whole Blood 102 mg/dL (75-99)
--- NOTE | 2022-01-24 11:43 | XR ---
EXAMINATION TYPE: XR chest 1V portable DATE OF EXAM: 01/24/2022 COMPARISON: Chest x-ray 01/23/2022 HISTORY: Post left-sided thoracentesis TECHNIQUE: Single frontal view of the chest is obtained. FINDINGS: There is interval improvement in aeration at the left lung base. No evident pneumothorax. Residual patchy basilar density, prominence interstitium noted. Patient is post left atrial appendage clip placement. IMPRESSION: No evident complication status post left thoracentesis.
[2022-01-24] MEDS: amLODIPine 2.5 MG TAB PO SCH (11:55)
--- NOTE | 2022-01-24 11:59 | P.PN ---
Subjective Progress Note Date: 01/24/22 Principal diagnosis: Bilateral pleural effusion 81-year-old female status post off-pump three-vessel bypass surgery, done on January 04, by Dr. Villalpando. The patient comes into the emergency room, on January 22, complaining of shortness of breath. She was noted on chest x-ray to have large bilateral pleural effusions. Ultrasound of the chest was performed, which confirmed bilateral pleural effusions. Today, she had a right-sided thoracentesis, and 2 L of bloody fluid was removed from the right pleural space. The plan is to do the left side tomorrow. The patient could be considered for possible discharge, and brought back in outpatient for the left-sided thoracentesis. Alternatively, the patient could be maintained in the hospital, and at the procedure done tomorrow. We'll leave that up to the primary service. The fluid that was removed, was flat for analysis. The patient has a history of chest pain, CAD, diabetes, hyperlipidemia, and hypertension. She also has a history of Escherichia coli urinary tract infection. White count 7.1, hemoglobin 10.7, hematocrit 34.1, and platelet count 348,000 sodium 134, potassium 4.5, chlorides 105, CO2 25, BUN 25, and creatinine 1.09. Albumin was 2.7. Ultrasound of the chest revealed a 12 cm pocket on the right, and 11 cm pocket on the left. The postthoracentesis x-ray showed no pneumothorax, and significant improvement in the right-sided pleural effusion. The patient is seen today 01/24/2022 in follow-up on the regular medical floor. She is awake and alert in no acute distress. She did undergo a right-sided thoracentesis yesterday was bloody fluid returned. Cultures and cytology are pending. Left-sided pleural effusion was noted. A left-sided thoracentesis was performed today by Dr. Pastrana with just under 1 L of bloody fluid removed. Follow-up chest x-ray reveals improvement in the aeration of the left lung. No evidence of pneumothorax. She is maintaining good O2 saturations in the upper 90s on 3 L/m per nasal cannula. Afebrile. Hemodynamically stable. White count 6.6. Hemoglobin 10.4. Platelets 286. Sodium 133. Potassium 4.3. BUN 35. Creatinine 1.91. Glucose 96. Objective - Vital Signs Vital signs: Vital Signs Temp 98.0 F 01/24/22 07:00 Pulse 71 01/24/22 07:00 Resp 19 01/24/22 07:00 BP 104/58 01/24/22 11:07 Pulse Ox 93 L 01/24/22 11:07 Intake & Output 01/23/22 01/24/22 01/24/22 18:59 06:59 18:59 Intake Total 90 500 Balance 90 500 Weight 53.206 kg Intake: Intake, IV Titration 500 Amount Sodium Chloride 0.9% 500 500 ml 500 ml @ 999 mls/hr IV .Q31M ONE Rx#:[id number] Oral 90 0 Other: Voiding Method Bedside Commode # Voids 1 - Exam GENERAL EXAM: Alert, pleasant 81-year-old female patient, on 3 L nasal cannula, comfortable in no apparent distress. HEAD: Normocephalic. EYES: Normal reaction of pupils, equal size. NOSE: Clear with pink turbinates. THROAT: No erythema or exudates. NECK: No masses, no JVD. CHEST: No chest wall deformity. Heart hugger in place. LUNGS: Equal air entry with faint crackles in the posterior bases. Diminished.. CVS: S1 and S2 normal with no audible murmur, regular rhythm. ABDOMEN: No hepatosplenomegaly, normal bowel sounds, no guarding or rigidity. SPINE: No scoliosis or deformity SKIN: No rashes CENTRAL NERVOUS SYSTEM: No focal deficits, tone is normal in all 4 extremities. EXTREMITIES: There is no peripheral edema. No clubbing, no cyanosis. Peripheral pulses are intact. - Labs CBC & Chem 7: 01/24/22 07:02 01/24/22 07:02 Labs: Abnormal Lab Results - Last 24 Hours (Table) 01/23/22 01/23/22 01/23/22 Range/Units 11:58 18:25 20:57 RBC (3.80-5.40) m/uL Hgb (11.4-16.0) gm/dL Hct (34.0-46.0) % RDW (11.5-15.5) % Sodium (137-145) mmol/L BUN (7-17) mg/dL Creatinine (0.52-1.04) mg/dL POC Glucose (mg/dL) 139 H 158 H 278 H (75-99) mg/dL 01/24/22 01/24/22 01/24/22 Range/Units 07:02 07:02 11:36 RBC 3.51 L (3.80-5.40) m/uL Hgb 10.4 L (11.4-16.0) gm/dL Hct 33.2 L (34.0-46.0) % RDW 15.8 H (11.5-15.5) % Sodium 133 L (137-145) mmol/L BUN 35 H (7-17) mg/dL Creatinine 1.91 H (0.52-1.04) mg/dL POC Glucose (mg/dL) 102 H (75-99) mg/dL Microbiology - Last 24 Hours (Table) 01/23/22 08:30 Gram Stain - Preliminary Pleural Fluid Body Fluid Culture - Preliminary 01/22/22 14:25 Blood Culture - Preliminary Blood No Growth after 24 hours 01/22/22 14:40 Blood Culture - Preliminary Blood No Growth after 24 hours Assessment and Plan Assessment: Shortness of breath, secondary to bilateral pleural effusions, status post right-sided thoracentesis on January 23, with 2 L removed. Left-sided thoracentesis performed 01/24/2022 with 1 L removed Status post three-vessel off-pump CABG, 01/04/2022. History of hypertension. History of hyperlipidemia. History of diabetes mellitus. Prior history of E. coli urinary tract infection. Plan: The patient was seen and evaluated Left-sided thoracentesis performed today 1 L of bloody fluid returned X-ray shows improved aeration, no pneumothorax She is cleared for discharge from the pulmonary standpoint Follow-up in the office in 1-2 weeks' I have personally seen and examined the patient, performed the documentation and the assessment and plan as written. Number of minutes spent on the visit: 10.
--- NOTE | 2022-01-24 13:12 | PCN ---
PROCEDURE NOTE PULMONARY/CRITICAL CARE PROCEDURE NOTE: PROCEDURE: Left-sided thoracentesis. PREOP DIAGNOSIS: Left pleural effusion. POSTOP DIAGNOSIS: Left pleural effusion. PRESIDENT & FOUNDER: Dr. Pastrana and Dr. Paul. Indication: Pleural effusion. A time-out was completed verifying correct patient, procedure, site, positioning , and implant (s) or special equipment if applicable. Ultrasound guidance was used and appropriate fluid pocket was identified and marked. Patient was positioned, prepped and draped in usual sterile fashion. Lidocaine was used to anesthetize the area. A Thoracentesis catheter was introduced into the pleural space and fluid was removed. Blood loss was none. A chest x-ray was ordered to evaluate for pneumothorax. Total Fluid Removed: 1 L Color of Fluid: Bloody Fluid was not sent for appropriate laboratory tests. Patient tolerated the procedure well and there were no complications. The posterior left chest was marked by ultrasound. About 1 L of fluid was removed from the left pleural space. It was bloody like it was yesterday. The fluid will not be sent for analysis. The patient tolerated the procedure well. A chest x-ray was ordered to rule out pneumothorax. From our perspective, the patient could be discharged home. There was universal timeout and there was informed consent. MMODL / IJN: [id number] /
--- NOTE | 2022-01-24 16:10 | P.PN ---
Subjective Progress Note Date: 01/24/22 Patient was seen and examined at bedside. Patient blood pressure dropped overnight also kidney function got worse antihypertensive medication and diuretics were held. She had her left-sided ultrasound-guided thoracentesis with removal 950 mL. Objective - Vital Signs Vital signs: Vital Signs Temp 98.4 F 01/24/22 14:12 Pulse 98 01/24/22 14:12 Resp 20 01/24/22 14:12 BP 97/60 01/24/22 14:12 Pulse Ox 100 01/24/22 14:12 Intake & Output 01/23/22 01/24/22 01/24/22 18:59 06:59 18:59 Intake Total 90 500 Balance 90 500 Weight 53.206 kg Intake: Intake, IV Titration 500 Amount Sodium Chloride 0.9% 500 500 ml 500 ml @ 999 mls/hr IV .Q31M ONE Rx#:[id number] Oral 90 0 Other: Voiding Method Bedside Commode # Voids 1 1 # Bowel Movements 1 - Exam General: non toxic, no distress, appears at stated age Derm: warm, dry Head: atraumatic, normocephalic, symmetric Eyes: EOMI, no lid lag, anicteric sclera Mouth: no lip lesion, mucus membranes moist Cardiovascular: S1S2 reg, no murmur, positive posterior tibial pulse bilateral, Lungs: CTA bilateral, no rhonchi, no rales , no accessory muscle use Abdominal: soft, nontender to palpation, no guarding, no appreciable organomegaly Ext: no gross muscle atrophy, no edema, no contractures Neuro: CN II-XI grossly intact, no focal neuro deficits Psych: Alert, oriented, appropriate affect - Labs CBC & Chem 7: 01/24/22 07:02 01/24/22 07:02 Labs: Abnormal Lab Results - Last 24 Hours (Table) 01/23/22 01/23/22 01/24/22 Range/Units 18:25 20:57 07:02 RBC 3.51 L (3.80-5.40) m/uL Hgb 10.4 L (11.4-16.0) gm/dL Hct 33.2 L (34.0-46.0) % RDW 15.8 H (11.5-15.5) % Sodium (137-145) mmol/L BUN (7-17) mg/dL Creatinine (0.52-1.04) mg/dL POC Glucose (mg/dL) 158 H 278 H (75-99) mg/dL 01/24/22 01/24/22 Range/Units 07:02 11:36 RBC (3.80-5.40) m/uL Hgb (11.4-16.0) gm/dL Hct (34.0-46.0) % RDW (11.5-15.5) % Sodium 133 L (137-145) mmol/L BUN 35 H (7-17) mg/dL Creatinine 1.91 H (0.52-1.04) mg/dL POC Glucose (mg/dL) 102 H (75-99) mg/dL Microbiology - Last 24 Hours (Table) 01/23/22 08:30 Gram Stain - Preliminary Pleural Fluid Body Fluid Culture - Preliminary 01/22/22 14:25 Blood Culture - Preliminary Blood No Growth after 24 hours 01/22/22 14:40 Blood Culture - Preliminary Blood No Growth after 24 hours Assessment and Plan Assessment: Assessment and plan: #Acute hypoxic respiratory failure secondary to CHF exacerbation and bilateral pleural effusion -Recent CABG surgery January 04. -Lasix was held due to hypotension and worsening kidney function -Status post right ultrasound-guided thoracentesis with removal of 2 L. status post left-sided ultrasound-guided thoracentesis with removal of 50 mL -Lopressor was decreased to 25 twice a day -Losartan discontinued due to acute kidney injury -2-D echo EF 50-55% left atrium is mildly dilated. Left ventricular size is normal. Mild concentric left ventricular hypertrophy. Mild aortic stenosis. Mild mitral regurgitation. 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
[2022-01-24 17:14] LABS: Glucose,Whole Blood 95 mg/dL (75-99)
[2022-01-24 20:10] LABS: Glucose,Whole Blood 259 mg/dL (75-99)
[2022-01-24] MEDS: INSULIN DETEMIR (LEVEMIR) 100 UNIT/ML SYR SQ SCH (20:44)
[2022-01-25] MEDS: METOPROLOL TARTRATE 25 MG TAB PO SCH ×2 (03:03→09:05)
[2022-01-25] MEDS: ACETAMINOPHEN TAB 325 MG TAB PO PRN ×2 (06:04→12:36)
[2022-01-25 07:13] LABS: Glucose,Whole Blood 76 mg/dL (75-99)
[2022-01-25] MEDS: INSULIN ASPART (NovoLOG) 100 UNIT/ML VIAL SQ SCH ×2 (08:25→12:37)
--- NOTE | 2022-01-25 08:26 | XR ---
EXAMINATION TYPE: XR chest 2V DATE OF EXAM: 01/25/2022 COMPARISON: Chest x-ray 01/24/2022 HISTORY: Status post thoracentesis, pleural effusion TECHNIQUE: Frontal and lateral views of the chest are obtained. FINDINGS: Findings are similar to prior exam. IMPRESSION: No evident complication status post thoracentesis. Small basilar effusions and associate d atelectasis suspected, there are interstitial changes within the lungs. Postop change noted.
[2022-01-25] MEDS: ENOXAPARIN 30 MG/0.3 ML SYRINGE SQ SCH (09:05)
[2022-01-25] MEDS: CLOPIDOGREL 75 MG TAB PO SCH (09:05)
[2022-01-25] MEDS: ATORVASTATIN 80 MG TAB PO SCH (09:05)
[2022-01-25] MEDS: MULTIVITAMINS, THERA 1 EACH TAB PO SCH (09:05)
--- NOTE | 2022-01-25 11:15 | P.PN ---
Subjective Progress Note Date: 01/25/22 HISTORY OF PRESENT ILLNESS: This is a 81 year old female who is admitted to the hospital secondary to SOB. Patient had a recent CABG last month. She was found to have bilateral pleural effusions. She underwent right sided thoracentesis yesterday by pulmonary with removal of 2 L of bloody fluid. Patient reports improvement in her breathing today. She denies chest pain or pressure. 01/25/2022 Patient examined this morning at the bedside. Patient underwent left-sided thoracentesis yesterday with removal of 1 L of fluid. Patient denies chest pain or pressure. She reports continued improvement in her breathing. Vital signs are stable. PHYSICAL EXAM: VITAL SIGNS: Reviewed. GENERAL: Well-developed in no acute distress. NECK: Supple. No JVD or thyromegaly LUNGS: Respirations even and unlabored. Lungs diminished to auscultation bilaterally. HEART: Regular rate and rhythm. S1 and S2 heard. EXTREMITIES: Normal range of motion. No clubbing or cyanosis. Peripheral pulses intact. No lower extremity edema ASSESSMENT: Bilateral pleural effusions, status post bilateral thoracentesis Shortness of breath Coronary artery disease with recent CABG 3 vessels, December 2021 Hypertension Hyperlipidemia Diabetes PLAN: Continue current cardiac medications Patient is currently stable from a cardiac standpoint We will sign off. Please reconsult if needed. Nurse practitioner note has been reviewed by physician. Signing provider agrees with the documented findings, assessment, and plan of care. Objective - Vital Signs Vital signs: Vital Signs Temp 98.6 F 01/25/22 07:00 Pulse 89 01/25/22 07:00 Resp 16 01/25/22 07:00 BP 112/67 01/25/22 07:00 Pulse Ox 96 01/25/22 07:00 Intake & Output 01/24/22 01/25/22 01/25/22 18:59 06:59 18:59 Weight 51.9 kg Other: Voiding Method Bedside Commode # Voids 1 2 # Bowel Movements 1 - Labs CBC & Chem 7: 01/24/22 07:02 01/24/22 07:02 Labs: Abnormal Lab Results - Last 24 Hours (Table) 01/24/22 01/24/22 Range/Units 11:36 20:09 POC Glucose (mg/dL) 102 H 259 H (75-99) mg/dL Microbiology - Last 24 Hours (Table) 01/22/22 14:40 Blood Culture - Preliminary Blood No Growth after 48 hours 01/22/22 14:25 Blood Culture - Preliminary Blood No Growth after 48 hours 01/23/22 08:30 Gram Stain - Preliminary Pleural Fluid Body Fluid Culture - Preliminary
[2022-01-25 11:29] LABS: Glucose,Whole Blood 233 mg/dL (75-99)
[2022-01-25] MEDS ORDERED: amLODIPine 2.5 MG TAB PO SCH (12:00)
[2022-01-25 12:06] LABS: African American GFR (CKD) 45.2 (60.0-200.0); Anion Gap 11.8 mmol/L (10.00-18.00); BUN/Creat Ratio 24.46 Ratio (12.00-20.00); Blood Urea Nitrogen 31.8 mg/dL (9.0-27.0); Carbon Dioxide 22.2 mmol/L (20.0-27.5); Potassium 5.4 mmol/L (3.5-5.5)
--- NOTE | 2022-01-25 12:10 | P.PN ---
<Alma Paul - Last Filed: 01/25/22 12:03> Subjective Progress Note Date: 01/25/22 Principal diagnosis: Bilateral pleural effusion 81-year-old female status post off-pump three-vessel bypass surgery, done on January 04, by Dr. Vlilalpando. The patient comes into the emergency room, on January 22, complaining of shortness of breath. She was noted on chest x-ray to have large bilateral pleural effusions. Ultrasound of the chest was performed, which confirmed bilateral pleural effusions. Today, she had a right-sided thoracentesis, and 2 L of bloody fluid was removed from the right pleural space. The plan is to do the left side tomorrow. The patient could be considered for possible discharge, and brought back in outpatient for the left-sided thoracentesis. Alternatively, the patient could be maintained in the hospital, and at the procedure done tomorrow. We'll leave that up to the primary service. The fluid that was removed, was flat for analysis. The patient has a history of chest pain, CAD, diabetes, hyperlipidemia, and hypertension. She also has a history of Escherichia coli urinary tract infection. White count 7.1, hemoglobin 10.7, hematocrit 34.1, and platelet count 348,000 sodium 134, potassium 4.5, chlorides 105, CO2 25, BUN 25, and creatinine 1.09. Albumin was 2.7. Ultrasound of the chest revealed a 12 cm pocket on the right, and 11 cm pocket on the left. The postthoracentesis x-ray showed no pneumothorax, and significant improvement in the right-sided pleural effusion. The patient is seen today 01/24/2022 in follow-up on the regular medical floor. She is awake and alert in no acute distress. She did undergo a right-sided thoracentesis yesterday was bloody fluid returned. Cultures and cytology are pending. Left-sided pleural effusion was noted. A left-sided thoracentesis was performed today by Dr. Pastrana with just under 1 L of bloody fluid removed. Follow-up chest x-ray reveals improvement in the aeration of the left lung. No evidence of pneumothorax. She is maintaining good O2 saturations in the upper 90s on 3 L/m per nasal cannula. Afebrile. Hemodynamically stable. White count 6.6. Hemoglobin 10.4. Platelets 286. Sodium 133. Potassium 4.3. BUN 35. Creatinine 1.91. Glucose 96. The patient is seen today 01/25/2022 in follow-up on the regular medical floor. He is currently resting flat in bed. On room air with O2 saturations in the mid 90s. She's been afebrile. Hemodynamically stable. She denies any worsening shortness of breath, cough or congestion. She did undergo bilateral thoracentesis this admission. His chest x-ray reveals no evidence of complications. No pneumothorax. There is small basilar effusions remaining. Some atelectasis. Working with the incentive spirometer. The cultures revealed no growth. Pleural fluid cultures pending. Fluid analysis revealed total protein 4.5. LDH 203. Cytology revealed no evidence of malignancy. Objective - Vital Signs Vital signs: Vital Signs Temp 98.6 F 01/25/22 07:00 Pulse 89 01/25/22 07:00 Resp 16 01/25/22 07:00 BP 112/67 01/25/22 07:00 Pulse Ox 96 01/25/22 07:00 Intake & Output 01/24/22 01/25/22 01/25/22 18:59 06:59 18:59 Weight 51.9 kg Other: Voiding Method Bedside Commode # Voids 1 2 # Bowel Movements 1 - Exam GENERAL EXAM: Alert, pleasant 81-year-old female patient, on room air, com fortable in no apparent distress. HEAD: Normocephalic. EYES: Normal reaction of pupils, equal size. NOSE: Clear with pink turbinates. THROAT: No erythema or exudates. NECK: No masses, no JVD. CHEST: No chest wall deformity. Heart hugger in place. LUNGS: Equal air entry with faint crackles in the posterior bases. Diminished. CVS: S1 and S2 normal with no audible murmur, regular rhythm. ABDOMEN: No hepatosplenomegaly, normal bowel sounds, no guarding or rigidity. SPINE: No scoliosis or deformity SKIN: No rashes CENTRAL NERVOUS SYSTEM: No focal deficits, tone is normal in all 4 extremities. EXTREMITIES: There is no peripheral edema. No clubbing, no cyanosis. Peripheral pulses are intact. - Labs CBC & Chem 7: 01/24/22 07:02 01/24/22 07:02 Labs: Abnormal Lab Results - Last 24 Hours (Table) 01/24/22 01/25/22 Range/Units 20:09 11:27 POC Glucose (mg/dL) 259 H 233 H (75-99) mg/dL Microbiology - Last 24 Hours (Table) 01/23/22 08:30 Gram Stain - Preliminary Pleural Fluid Body Fluid Culture - Preliminary 01/22/22 14:40 Blood Culture - Preliminary Blood No Growth after 48 hours 01/22/22 14:25 Blood Culture - Preliminary Blood No Growth after 48 hours Assessment and Plan Assessment: 1 Acute hypoxemic respiratory failure secondary to bilateral pleural effusions, status post right-sided thoracentesis on 01/23/2022 with 2 L removed. 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 3 History of hypertension. 4 History of hyperlipidemia. 5 History of diabetes mellitus. 6 Prior history of E. coli urinary tract infection. Plan: The patient was seen and evaluated X-ray shows improved aeration, no pneumothorax Stable and on room air She is cleared for discharge from the pulmonary standpoint Follow-up in the office in 1-2 weeks' I have personally seen and examined the patient, performed the documentation and the assessment and plan as written. Number of minutes spent on the visit: 10. <Cole Pastrana - Last Filed: 01/25/22 12:11> Objective - Vital Signs Vital signs: Vital Signs Temp 98.6 F 01/25/22 07:00 Pulse 89 01/25/22 07:00 Resp 16 01/25/22 07:00 BP 112/67 01/25/22 07:00 Pulse Ox 96 01/25/22 07:00 Intake & Output 01/24/22 01/25/22 01/25/22 18:59 06:59 18:59 Weight 51.9 kg Other: Voiding Method Bedside Commode # Voids 1 2 # Bowel Movements 1 - Labs CBC & Chem 7: 01/24/22 07:02 01/25/22 07:00 Labs: Abnormal Lab Results - Last 24 Hours (Table) 01/24/22 01/25/22 01/25/22 Range/Units 20:09 07:00 11:27 BUN 31.8 H (9.0-27.0) mg/dL Est GFR (CKD-EPI)AfAm 45.2 L (60.0-200.0) Est GFR (CKD-EPI)NonAf 39.0 L (60.0-200.0) BUN/Creatinine Ratio 24.46 H (12.00-20.00) Ratio POC Glucose (mg/dL) 259 H 233 H (75-99) mg/dL Microbiology - Last 24 Hours (Table) 01/23/22 08:30 Gram Stain - Preliminary Pleural Fluid Body Fluid Culture - Preliminary 01/22/22 14:40 Blood Culture - Preliminary Blood No Growth after 48 hours 01/22/22 14:25 Blood Culture - Preliminary Blood No Growth after 48 hours
--- NOTE | 2022-01-25 12:13 | P.PN ---
Subjective Progress Note Date: 01/25/22 Principal diagnosis: Bilateral pleural effusions. Previous medical history of coronary artery disease status post three-vessel off-pump CABG 01/04/2022, hypertension, hyperlipidemia, diabetes mellitus, chronic renal insufficiency, previous tobacco dependence, left internal carotid artery stenosis. POD #2 right-sided thoracentesis with removal of 2 L of fluid by Dr. Pastrana POD #1 left sided thoracentesis with removal of 1 L bloody fluid by Dr. Pastrana The patient was seen and examined this morning laying in bed on the cardiac observation unit. She is in no acute distress. States she feels much better and is able to take deeper breaths. Denies any pain, no new concerns. Anticipate discharge today. Spoke with patient's daughter Davida yesterday, answered all questions. Objective - Vital Signs Vital signs: Vital Signs Temp 98.6 F 01/25/22 07:00 Pulse 89 01/25/22 07:00 Resp 16 01/25/22 07:00 BP 112/67 01/25/22 07:00 Pulse Ox 96 01/25/22 07:00 Intake & Output 01/24/22 01/25/22 01/25/22 18:59 06:59 18:59 Weight 51.9 kg Other: Voiding Method Bedside Commode # Voids 1 2 # Bowel Movements 1 - Exam CONSTITUTIONAL: Appears comfortable, cooperative, no acute distress RESPIRATORY: Lungs sounds diminished bilaterally. Respirations even, nonlabored. Currently on room air with oxygen saturation 96%. Able to achieve 750 mL on incentive spirometry. Strong cough. CARDIOVASCULAR: S1, S2 present. Regular rate and rhythm, sinus rhythm on telemetry. Sternum stable. Palpable peripheral pulses bilaterally. Trace generalized edema present. No calf pain or tenderness noted. Heart hugger in place with patient demonstrating appropriate use. GASTROINTESTINAL: Abdomen soft, nontender, nondistended. Active bowel sounds present 4 quadrants. Tolerating diet. GENITOURINARY: Continues to void INTEGUMENTARY: Skin is warm and dry with evidence of good perfusion. Anterior chest incision well approximated NEUROLOGIC: Cranial nerves II through XII intact MUSKULOSKELETAL: Able to move all extremities, strength equal bilaterally, gait normal PSYCHIATRIC: Alert and oriented to person place and time, appropriate affect, intact judgment and insight - Allied health notes Allied health notes reviewed: nursing - Labs CBC & Chem 7: 01/24/22 07:02 01/25/22 07:00 Labs: Abnormal Lab Results - Last 24 Hours (Table) 01/24/22 01/25/22 01/25/22 Range/Units 20:09 07:00 11:27 BUN 31.8 H (9.0-27.0) mg/dL Est GFR (CKD-EPI)AfAm 45.2 L (60.0-200.0) Est GFR (CKD-EPI)NonAf 39.0 L (60.0-200.0) BUN/Creatinine Ratio 24.46 H (12.00-20.00) Ratio POC Glucose (mg/dL) 259 H 233 H (75-99) mg/dL Microbiology - Last 24 Hours (Table) 01/23/22 08:30 Gram Stain - Preliminary Pleural Fluid Body Fluid Culture - Preliminary 01/22/22 14:40 Blood Culture - Preliminary Blood No Growth after 48 hours 01/22/22 14:25 Blood Culture - Preliminary Blood No Growth after 48 hours - Imaging and Cardiology Chest x-ray: image reviewed Assessment and Plan Assessment: 1. Bilateral pleural effusions, status post bilateral thoracentesis 2. Shortness of breath secondary to above 3. History of coronary artery disease status post three-vessel off-pump CABG 01/04/2022 4. Hypertension 5. Hyperlipidemia 6. Diabetes 7. Chronic renal insufficiency 8. Previous tobacco dependence 9. Left internal carotid artery stenosis Plan: 1. Patient should be discharged to home from cardiothoracic surgery standpoint. Follow-up appointments are in place for pulmonology, cardiology, cardiothoracic surgery 2. Discontinue Lasix and Cozaar due to her periods of hypotension. Continue low dose amlodipine for radial artery spasm prophylaxis. 3. Encourage use of her incentive spirometry 10 times every hour while awake. 4. Continue to follow postoperative cardiac surgery discharge instructions. 5. Case discussed this morning between Dr. Zarate and Dr. Noyola Time with Patient: Greater than 30
--- NOTE | 2022-01-25 12:39 | P.DS ---
Providers Date of admission: 01/24/22 13:21 Expected date of discharge: 01/25/22 Attending physician: Adrian Zarate MD Consults: 01/22/22 17:51 Consult Physician Routine Consulting Provider: Mark Noyola Consult Reason/Comments: left pleural effusion Do you want consulting provider notified?: Yes 01/23/22 07:09 Consult Physician Routine Consulting Provider: Cole Pastrana Consult Reason/Comments: possible thoracentesis Do you want consulting provider notified?: Yes Primary care physician: Dolores Wang [facility] Course: H&P Date: 01/22/22 Chief Complaint: Shortness of breath This is a 81-year-old female who presents emergency Department with a recent past medical history of open heart surgery with triple bypass on January 04. The patient presented to the emergency room by paramedics from her primary care physician office due to shortness of breath she stated that she has been short of breath for the past 2 days it has been getting worse she couldn't sleep last night also she is complaining of worsening edema in the lower extremities. She was recently started on oral Lasix. Patient when she was discharged she was hypotensive requiring midodrine and losartan was discontinued on discharge. She was found to be hypertensive in the emergency room. Patient denies any chest pain. Patient denies any nausea vomiting or abdominal pain patient denies any fever or chills. Hospital course in detail the problem list: #Acute hypoxic respiratory failure secondary to CHF exacerbation and bilateral pleural effusion -Resolved patient on room air -Recent CABG surgery January 04. -Lasix was held due to hypotension and worsening kidney function -Status post right ultrasound-guided thoracentesis with removal of 2 L. status post left-sided ultrasound-guided thoracentesis with removal of 50 mL -Lopressor was decreased to 25 twice a day -Losartan discontinued due to acute kidney injury -2-D echo EF 50-55% left atrium is mildly dilated. Left ventricular size is normal. Mild concentric left ventricular hypertrophy. Mild aortic stenosis. Mild mitral regurgitation. 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 -Last A1c was 7.9 -Hold metformin -Levemir and other hypoglycemic agents #Dyslipidemia -Last LDL 133 -she was discharged on Lipitor 80 mg last month resume Time spent in discharge process 35 minutes Physical examination on discharge: General: non toxic, no distress, appears at stated age Derm: warm, dry Head: atraumatic, normocephalic, symmetric Eyes: EOMI, no lid lag, anicteric sclera Mouth: no lip lesion, mucus membranes moist Cardiovascular: S1S2 reg, no murmur, positive posterior tibial pulse bilateral, Lungs: CTA bilateral, no rhonchi, no rales , no accessory muscle use Abdominal: soft, nontender to palpation, no guarding, no appreciable organomegaly Ext: no gross muscle atrophy, no edema, no contractures Neuro: CN II-XI grossly intact, no focal neuro deficits Psych: Alert, oriented, appropriate affect Patient Condition at Discharge: Stable Plan - Discharge Summary Discharge Rx Participant: No New Discharge Prescriptions: New amLODIPine [Norvasc] 2.5 mg PO DAILY@1200 tab Atorvastatin [Lipitor] 80 mg PO DAILY 30 Days #30 tab Continue Clopidogrel [Plavix] 75 mg PO DAILY Metoprolol Tartrate [Lopressor] 25 mg PO BID #60 tab Acetaminophen Tab [Tylenol] 650 mg PO Q4HR PRN tab PRN Reason: Fever And/ Or Pain Sennosides-Docusate Sodium [Senokot-S] 2 tab PO HS PRN PRN Reason: Constipation Multivitamins, Thera [Multivitamin (formulary)] 1 tab PO DAILY Furosemide [Lasix] 20 mg PO DAILY #7 tab Dapagliflozin Propanediol [Farxiga] 5 mg PO DAILY Nitroglycerin Sl Tabs [Nitrostat] 0.4 mg SUBLINGUAL Q5M PRN PRN Reason: Chest Pain metFORMIN HCL ER [Glucophage XR] 500 mg PO DAILY Insulin Glargine,Hum.rec.anlog [Tocarmen Solostbob] 10 - 12 unit SQ HS Pantoprazole [Protonix] 40 mg PO AC-BRKFST PRN PRN Reason: ACID REFLUX Discontinued Pioglitazone [Actos] 30 mg PO DAILY amLODIPine [Norvasc] 2.5 mg PO DAILY #0 Omeprazole 20 mg PO DAILY PRN PRN Reason: ACID REFLUX Discharge Medication List Clopidogrel [Plavix] 75 mg PO DAILY 02/13/16 [History] Multivitamins, Thera [Multivitamin (formulary)] 1 tab PO DAILY 12/27/21 [History] Acetaminophen Tab [Tylenol] 650 mg PO Q4HR PRN tab 01/09/22 [Rx] Metoprolol Tartrate [Lopressor] 25 mg PO BID #60 tab 01/09/22 [Rx] Furosemide [Lasix] 20 mg PO DAILY #7 tab 01/21/22 [Rx] Dapagliflozin Propanediol [Farxiga] 5 mg PO DAILY 01/22/22 [History] Insulin Glargine,Hum.rec.anlog [Tocarmen Solluiz] 10 - 12 unit SQ HS 01/22/22 [History] Nitroglycerin Sl Tabs [Nitrostat] 0.4 mg SUBLINGUAL Q5M PRN 01/22/22 [History] Pantoprazole [Protonix] 40 mg PO AC-BRKFST PRN 01/22/22 [History] Sennosides-Docusate Sodium [Senokot-S] 2 tab PO HS PRN 01/22/22 [History] metFORMIN HCL ER [Glucophage XR] 500 mg PO DAILY 01/22/22 [History] Atorvastatin [Lipitor] 80 mg PO DAILY 30 Days #30 tab 01/25/22 [Rx] amLODIPine [Norvasc] 2.5 mg PO DAILY@1200 tab 01/25/22 [Rx] Follow up Appointment(s)/Referral(s): Raman Reyes MD [STAFF PHYSICIAN] - 01/28/22 2:45 pm [facility],Cardiac [NON-STAFF] - 4 Weeks (You will be called in 4-6 weeks for evaluation for cardiac rehab) Alma Paul NPC [Nurse Practitioner] - 02/01/22 2:30 pm Leobardo Villalpando MD [STAFF PHYSICIAN] - 02/11/22 1:30 pm Dolores Wang MD [Primary Care Provider] - 1-2 days [facility] Visiting Nurse, [NON-STAFF] - 1-2 Days Activity/Diet/Wound Care/Special Instructions: DISCHARGE INSTRUCTIONS: 1. No driving for 4 weeks, or until physician gives their ok. 2. The patient should sleep in their own bed, no medical bed needed. 3. Stairs are not an issue. If the bedroom is upstairs, it is advised that the patient go up at night and down in the morning for the first week. Go slowly, using handrail and take 1 step at a time. 4. FARIHA hose are to be worn for 30 days or until physician discontinues. 5. Heart hugger is to be worn 100% of the time until physician discontinues.(except when showering) 6. No lifting, pushing, or pulling more than 10 pounds for 12 weeks. The physician will advise of any restriction changes. 7. The patient is expected to continue the prescribed walking program. 8. Continue pain control per as needed orders. 9. Continue with incentive spirometry and splinting/heart hugger until otherwise directed by the physician. 10. Must shower daily using liquid antibacterial soap and a separate white washcloth for each individual incision. 11. Routine sternal incision care. No powders, lotions, ointments on incisions. No dressings are necessary on incisions unless they are draining. Dermabond tape is to remain on sternal incision until surgeon follow-up. 12. Please call surgeon/AVIONICS MANAGER for temp greater than 101 F or purulent drainage from incisions. 13. You should weight yourself every morning, record and bring with you to your follow up appointments 14. All prescriptions given by surgeon for 30 days. Refills need to be filled through roof promenade tile setter/primary care physician. 15. A Red armband has been placed on the patient. It should be worn for 30 days post surgery and will be removed by the cardiac surgeons. If an ER visit is necessary, please make sure the number on the Red armband is called. 16. You have been referred to and are expected to begin Cardiac Rehab in approximately 4-6 weeks. HOME HEALTH SERVICES TO PROVIDE: RN SKILLED HOME CARE SERVICES FOR POST-OP SURGICAL PATIENTS WITH THE FOLLOWING: Coronary Artery Bypass Surgery (CABG), Mitral Valve Replacement/Repair ( MVR), Aortic Valve Replacement/Repair (AVR) RN TO CONTINUE EDUCATION FROM ``ROAD TO A HEALTH HEART PATIENT EDUCATION MANUAL (GIVEN TO PATIENT IN THE HOSPITAL) MEDICATION RECONCILIATION WITH EDUCATION NEEDED ON FIRST HOME VISIT EMPHASIZE IMPORTANCE OF WEARING BREAST SUPPORT/HEART HUGGER ENCOURAGE USE OF INCENTIVE SPIROMETER 10 X EVERY HOUR WHILE AWAKE ENCOURAGE UTILIZATION OF LOWER EXTREMITY COMPRESSION STOCKINGS/FARIHA HOSE and ELEVATE LEGS ABOVE LEVEL OF HEART WHILE AT REST. ENCOURAGE AMBULATION 3-5x/day INCREASING TOLERATES, WHILE AVOIDING EXTREMES IN TEMPERATURE FREQUENCY: RN TO OPEN THE PATIENT WITHIN 24 HOURS OF DISCHARGE FROM THE HOSPITAL WITH TELEHEALTH INSTALLED AT [facility], RN TO VISIT 2-3 X A WEEK FOR 4 WEEKS ESTABLISHED BY PATIENT NEEDS. LABORATORY: CBC, CMP TO BE DRAWN ON THE THIRD DAY HOME, (RAN STAT) FAX RESULTS TO [phone]. TELEHEALTH PARAMETERS: WEIGHT: NOTIFY MD OF WEIGHT GAIN OF 2 LBS IN 24 HOURS OR 5 LBS IN ONE WEEK HR: NOTIFY MD OF HR <55 BPM OR HR>100 BPM BP: NOTIFY MD IF BP <90/55 OR BP>140/100 O2 SAT: NOTIFY MD IF PO2<93% ON ROOM AIR SEND TELEHEALTH REPORT TO HUMAN RESOURCES COORDINATOR AND CARDIOVASCULAR SURGEON THE FIRST WEEK OF CARE AND THEN BI-WEEKLY. PLEASE ADDITIONALLY COMMUNICATE ANY ABNORMALS AND NEW FINDINGS TO THE SURGEONS OFFICE. Discharge Disposition: HOME WITH HOME HEALTH SERVICES
[2022-01-25 14:19] VITALS: BP 101/59; PULSE 85; RESP 18; TEMP 97.5
== END 2022-01-25 14:47 | disposition home health service (06) | DRG 291 ==
LOC: EC 14:00 → 6NMEDSUR 17:18 → 3SCARD 18:15 → 6NMEDSUR 01-23 16:32 → OBSVTOIN 01-24 13:21
PROVIDERS: ADMIT Hospitalist; ATTEND Hospitalist
PROC: 0W993ZZ Drainage of Right Pleural Cavity, Percutaneous Approach (ICD-10-PCS; principal; 2022-01-23)
PROC: 0W9B3ZZ Drainage of Left Pleural Cavity, Percutaneous Approach (ICD-10-PCS; 2022-01-24)
DX: I13.0 Hypertensive heart and chronic kidney disease with heart failure and stage 1 through stage 4 chronic kidney disease, or unspecified chronic kidney disease (principal); J96.01 Acute respiratory failure with hypoxia; I50.43 Acute on chronic combined systolic (congestive) and diastolic (congestive) heart failure; J91.8 Pleural effusion in other conditions classified elsewhere; N17.9 Acute kidney failure, unspecified; J98.11 Atelectasis; I95.9 Hypotension, unspecified; Z95.1 Presence of aortocoronary bypass graft; E11.22 Type 2 diabetes mellitus with diabetic chronic kidney disease; Z79.4 Long term (current) use of insulin; I65.22 Occlusion and stenosis of left carotid artery; N18.2 Chronic kidney disease, stage 2 (mild); I25.10 Atherosclerotic heart disease of native coronary artery without angina pectoris; E78.5 Hyperlipidemia, unspecified; I08.3 Combined rheumatic disorders of mitral, aortic and tricuspid valves; T50.2X5A Adverse effect of carbonic-anhydrase inhibitors, benzothiadiazides and other diuretics, initial encounter; Z79.02 Long term (current) use of antithrombotics/antiplatelets; Z79.84 Long term (current) use of oral hypoglycemic drugs; Z79.899 Other long term (current) drug therapy; Z87.440 Personal history of urinary (tract) infections; Z90.49 Acquired absence of other specified parts of digestive tract; Z87.19 Personal history of other diseases of the digestive system; Z90.710 Acquired absence of both cervix and uterus; Z87.42 Personal history of other diseases of the female genital tract; Z87.81 Personal history of (healed) traumatic fracture; Z87.39 Personal history of other diseases of the musculoskeletal system and connective tissue; Z86.19 Personal history of other infectious and parasitic diseases; Z98.890 Other specified postprocedural states; Z87.891 Personal history of nicotine dependence; Z86.59 Personal history of other mental and behavioral disorders; Z88.5 Allergy status to narcotic agent; Z88.7 Allergy status to serum and vaccine; Z88.8 Allergy status to other drugs, medicaments and biological substances; Z88.6 Allergy status to analgesic agent; Z91.041 Radiographic dye allergy status; Z82.49 Family history of ischemic heart disease and other diseases of the circulatory system; Z83.6 Family history of other diseases of the respiratory system
CPT/HCPCS: 36415; 71045; 71046; 76604; 80048; 80053; 82945; 83605; 83615; 83735; 83880; 84157; 84484; 85025; 85027; 85610; 85730; 87040; 87070; 87205; 88108; 88305; 89050; 93005; 93306; 96372; 96374; 96375; 99285

== ENCOUNTER → 2022-02-07 | Day surgery (SDC) | payer MEDICARE ==
[~2022-02-07] MED LIST: ATROPINE SULFATE 0.4 MG/ML 1 ML VIAL IM STA; SODIUM CHLORIDE 0.9% 500 ML 500 ML in EMPTY BAG 1 BAG IV PRN
[2022-02-07 11:52] VITALS: BP 144/74; PULSE 108; RESP 18; TEMP 98.1
--- NOTE | 2022-02-07 12:57 | XR ---
EXAMINATION TYPE: XR chest 1V portable DATE OF EXAM: 02/07/2022 COMPARISON: 01/25/2022 HISTORY: Postthoracentesis TECHNIQUE: Single frontal view of the chest is obtained. FINDINGS: Small bilateral pleural effusions. There is pleural-based thickening along the lateral mar gin of the right upper lobe. No sizable pneumothorax. Postoperative change overlying the heart. Diffu se osteopenia with arthropathy of the shoulders and atherosclerotic change aorta. IMPRESSION: 1. No evidence of pneumothorax
--- NOTE | 2022-02-07 14:57 | PCN ---
PROCEDURE NOTE PROCEDURE: Right-sided thoracentesis. PREOPERATIVE DIAGNOSIS: Right pleural effusion. POSTOPERATIVE DIAGNOSIS: Right pleural effusion. PROCEDURE DESCRIPTION: A time-out was completed verifying correct patient, procedure, site, positioning , and implant (s) or special equipment if applicable. Ultrasound guidance was used to archie the posterior chest and appropriate fluid pocket was identified and marked. Patient was positioned, prepped and draped in usual sterile fashion. Lidocaine was used to anesthetize the area. A thoracentesis catheter was introduced into the pleural space and 1400 mL of bloody fluid was removed from the right pleural space. Blood loss was none. A chest x-ray was ordered to evaluate for pneumothorax. Total Fluid Removed: 1400 mL Color of Fluid: Bloody Fluid was not sent for appropriate laboratory tests. Patient tolerated the procedure well and there were no complications. If the chest x- ray is okay, the patient can be discharged. There was no immediate complication. I will let Thoracic Surgery know about the thoracentesis. MMODL / IJN: [id number] /
== END ==
LOC: PROCWHC3 11:17
PROVIDERS: ATTEND Internal Medicine Critical Care Medicine
DX: J90 Pleural effusion, not elsewhere classified (principal)
CPT/HCPCS: 71045; 96372; 32554; J0461

== ENCOUNTER 2022-05-06 09:25 | Emergency (ER) | payer MEDICARE ==
[2022-05-06 09:31] VITALS: BP 159/75; PULSE 85; RESP 18; TEMP 97.9
[2022-05-06] MEDS ORDERED: SODIUM CHLORIDE 0.9% 500 ML 500 ML IV STA (09:55)
[2022-05-06 10:13] LABS: Appearance,Urine Clear (Clear); Bilirubin,Urine Negative (Negative); Blood,Urine Negative (Negative); Budding Yeast,Urine Rare /hpf; Color,Urine Light Yellow; Glucose,Urine (UA) 3+ (Negative); Ketones,Urine Negative (Negative); Leukocyte Esterase,Urine Small (Negative); Nitrite,Urine Negative (Negative); Protein,Urine 1+ (Negative); RBC,Urine <1 /hpf (0-5); Specific Gravity,Urine 1.007 (1.001-1.035); Urobilinogen,Urine <2.0 mg/dL (<2.0); WBC,Urine 13 /hpf (0-5)
[2022-05-06 10:51] LABS: Basophils % (A) 0 %; Eosinophils # (A) 0.2 k/uL (0-0.7); Eosinophils % (A) 3 %; HCT 35.6 % (34.0-46.0); HGB 11.5 gm/dL (11.4-16.0); Lymphocytes # (A) 1.4 k/uL (1.0-4.8); Lymphocytes % (A) 29 %; MCHC 32.3 g/dL (31.0-37.0); MCV 92.9 fL (80.0-100.0); Mean Platelet Volume 7.1; Monocytes # (A) 0.3 k/uL (0-1.0); Monocytes % (A) 5 %; Neutrophils % (A) 61 %; Platelet Count 170 k/uL (150-450); RBC 3.83 m/uL (3.80-5.40); RDW 12.9 % (11.5-15.5); WBC 4.9 k/uL (3.8-10.6)
[2022-05-06 11:00] LABS: Potassium 4.7 mmol/L (3.5-5.1); Total Bilirubin 0.6 mg/dL (0.2-1.3); Total Protein 7.6 g/dL (6.3-8.2)
--- NOTE | 2022-05-06 11:10 | CT ---
EXAMINATION TYPE: CT abdomen pelvis wo con DATE OF EXAM: 05/06/2022 COMPARISON: Chest x-ray 02/07/2022, CT 03/26/2017, ultrasound 02/04/2022 HISTORY: Abdominal pain CT DLP: 367.8 mGycm Automated exposure control for dose reduction was used. TECHNIQUE: Helical acquisition of images from the lung bases through the pelvis. FINDINGS: Lack of intravenous contrast could compromise sensitivity. LUNG BASES: Recurrent right pleural effusion is enlarged, there is associated atelectasis. Dense abraham nary artery calcifications are present. No pericardial effusion.. AORTA: No significant abnormality is appreciataed. LIVER/GB: Liver is somewhat nodular contour similar to prior exam. Patient shows surgically absent ga llbladder. PANCREAS: No significant abnormality is seen. SPLEEN: No significant pain is seen. ADRENALS: No significant abnormality is seen. KIDNEYS: There is calcification seen in the renal pelvis bilaterally, nonobstructive calculi present at the upper pole of the left kidney similar to prior exam. REPRODUCTIVE ORGANS: Not seen URINARY BLADDER: Distended BOWEL: No significant abnormality is seen. FREE AIR: No Free Air is visible. ASCITES: Small amount of free fluid present within the pelvis. PELVIC ADENOPATHY: None visualized. RETROPERITONEAL ADENOPATHY: No Retroperitoneal Adenopathy visible. OSSEOUS STRUCTURES: Patient shows nonunion, correlate for median sternotomy IMPRESSION: LARGE RECURRENT RIGHT PLEURAL EFFUSION. CORRELATE FOR CIRRHOSIS. CORONARY ARTERY DISEASE, ADDITIONAL FINDINGS ABOVE.
--- NOTE | 2022-05-06 12:05 | ED ---
Abdominal Pain HPI - General Chief Complaint: Abdominal Pain Stated Complaint: rt sided abd pain Time Seen by Provider: 05/06/22 09:34 Source: patient, RN notes reviewed Mode of arrival: ambulatory Limitations: no limitations - History of Present Illness Initial Comments: This a 81-year-old female presents emergency Department with chief complaint of right-sided abdominal discomfort. Patient states has been present for 3 weeks. Patient did see PCP torsion most likely pulled a muscle. She states that radiates around to her side. She states that hurts to the touch superficial and feels deep. Patient denies any trauma. Patient denies any fevers chills diarrhea constipation nausea vomiting. Patient does admit that she had open- heart surgery in December. Patient offers no other complaints. - Related Data Home Medications Medication Instructions Recorded Confirmed Clopidogrel [Plavix] 75 mg PO DAILY 02/13/16 02/07/22 Multivitamins, Thera [Multivitamin 1 tab PO DAILY 12/27/21 02/07/22 (formulary)] Dapagliflozin Propanediol [Farxiga] 5 mg PO DAILY 01/22/22 02/07/22 Insulin Glargine,Hum.rec.anlog 10 - 12 unit SQ HS 01/22/22 02/07/22 [Toujeo Solostar] Nitroglycerin Sl Tabs [Nitrostat] 0.4 mg SUBLINGUAL Q5M PRN 01/22/22 02/07/22 Pantoprazole [Protonix] 40 mg PO AC-BRKFST PRN 01/22/22 02/07/22 Sennosides-Docusate Sodium 2 tab PO HS PRN 01/22/22 02/07/22 [Senokot-S] metFORMIN HCL ER [Glucophage XR] 500 mg PO DAILY 01/22/22 02/07/22 Previous Rx's Medication Instructions Recorded Acetaminophen Tab [Tylenol] 650 mg PO Q4HR PRN tab 01/09/22 Metoprolol Tartrate [Lopressor] 25 mg PO BID #60 tab 01/09/22 Furosemide [Lasix] 20 mg PO DAILY #7 tab 01/21/22 Atorvastatin [Lipitor] 80 mg PO DAILY 30 Days #30 tab 01/25/22 amLODIPine [Norvasc] 2.5 mg PO DAILY@1200 tab 01/25/22 Nitrofurantoin Monohyd/M-Cryst 100 mg PO Q12HR #14 cap 05/06/22 [Macrobid] Allergies Allergy/AdvReac Type Severity Reaction Status Date / Time aspirin Allergy Rash/Hives Verified 05/06/22 09:31 codeine Allergy Rash/Hives Verified 05/06/22 09:31 Influenza Virus Vaccines Allergy Rash/Hives Verified 05/06/22 09:31 Iodinated Contrast Media Allergy Rash/Hives/Increased Verified 05/06/22 09:31 [Iodinated Contrast Media - HR IV Dye] iodine Allergy Rash/Hives Verified 05/06/22 09:31 NSAIDS (Non-Steroidal Allergy Anaphylaxis Verified 05/06/22 09:31 Anti-Inflamma Review of Systems ROS Statement: Those systems with pertinent positive or pertinent negative responses have been documented in the HPI. ROS Other: All systems not noted in ROS Statement are negative. Past Medical History Past Medical History: Coronary Artery Disease (CAD), Chest Pain / Angina, Diabetes Mellitus, Hyperlipidemia, Hypertension Additional Past Medical History / Comment(s): UTI-ECOLI History of Any Multi-Drug Resistant Organisms: None Reported Past Surgical History: Cholecystectomy, Heart Catheterization, Hernia Repair, Hysterectomy, Orthopedic Surgery Additional Past Surgical History / Comment(s): R shoulder surgery, R broken wrist, trigger release rt middle finger, CABG (Dec 2021) Past Anesthesia/Blood Transfusion Reactions: No Reported Reaction Additional Past Anesthesia/Blood Transfusion Reaction / Comment(s): blood transfusion-no reaction Past Psychological History: Depression Smoking Status: Never smoker Past Alcohol Use History: None Reported Past Drug Use History: None Reported - Past Family History Father Family Medical History: Congestive Heart Failure (CHF) Mother Family Medical History: Pneumonia Additional Family Medical History / Comment(s): fom pne General Exam Limitations: no limitations General appearance: alert, in no apparent distress Head exam: Present: atraumatic, normocephalic, normal inspection Eye exam: Present: normal appearance, PERRL, EOMI. Absent: scleral icterus, conjunctival injection, periorbital swelling ENT exam: Present: normal exam, normal oropharynx, mucous membranes moist Neck exam: Present: normal inspection, full ROM. Absent: tenderness, meningismus, lymphadenopathy Respiratory exam: Present: normal lung sounds bilaterally. Absent: respiratory distress, wheezes, rales, rhonchi, stridor Cardiovascular Exam: Present: regular rate, normal rhythm, normal heart sounds. Absent: systolic murmur, diastolic murmur, rubs, gallop, clicks GI/Abdominal exam: Present: soft, tenderness (Mild right), normal bowel sounds. Absent: distended, guarding, rebound, rigid Back exam: Absent: CVA tenderness (R), CVA tenderness (L) Neurological exam: Present: alert Skin exam: Present: warm, dry, intact, normal color. Absent: rash Course Vital Signs 05/06/22 09:27 Temperature 97.9 F Pulse Rate 85 Respiratory 18 Rate Blood Pressure 159/75 O2 Sat by Pulse 97 Oximetry Medical Decision Making - Medical Decision Making 81-year-old female presents emergency from recent abdominal pain. CT shows evidence of large left region on the right and which x-ray confirms this. Patient did have recent 1 and which patient hydrated by Dr. Pastrana. Patient does have evidence of urinary tract infection and she has noticed some urinary frequency. There is no other acute findings on CT. Patient discharged to follow-up with Dr. Pastrana, antibiotics for urinary tract infection. - Lab Data Result diagrams: 05/06/22 10:33 05/06/22 10:33 Lab Results 05/06/22 05/06/22 05/06/22 Range/Units 09:57 10:33 10:33 WBC 4.9 (3.8-10.6) k/uL RBC 3.83 (3.80-5.40) m/uL Hgb 11.5 (11.4-16.0) gm/dL Hct 35.6 (34.0-46.0) % MCV 92.9 (80.0-100.0) fL MCH 30.0 (25.0-35.0) pg MCHC 32.3 (31.0-37.0) g/dL RDW 12.9 (11.5-15.5) % Plt Count 170 (150-450) k/uL MPV 7.1 Neutrophils % 61 % Lymphocytes % 29 % Monocytes % 5 % Eosinophils % 3 % Basophils % 0 % Neutrophils # 3.0 (1.3-7.7) k/uL Lymphocytes # 1.4 (1.0-4.8) k/uL Monocytes # 0.3 (0-1.0) k/uL Eosinophils # 0.2 (0-0.7) k/uL Basophils # 0.0 (0-0.2) k/uL Sodium 139 (137-145) mmol/L Potassium 4.7 (3.5-5.1) mmol/L Chloride 106 (98-107) mmol/L Carbon Dioxide 27 (22-30) mmol/L Anion Gap 6 mmol/L BUN 22 H (7-17) mg/dL Creatinine 0.93 (0.52-1.04) mg/dL Est GFR (CKD-EPI)AfAm 68 (>60 ml/min/1.73 sqM) Est GFR (CKD-EPI)NonAf 59 (>60 ml/min/1.73 sqM) Glucose 130 H (74-99) mg/dL Plasma Lactic Acid Scotty (0.7-2.0) mmol/L Calcium 9.0 (8.4-10.2) mg/dL Total Bilirubin 0.6 (0.2-1.3) mg/dL AST 59 H (14-36) U/L ALT 29 (4-34) U/L Alkaline Phosphatase 143 H (38-126) U/L Total Protein 7.6 (6.3-8.2) g/dL Albumin 4.0 (3.5-5.0) g/dL Amylase 75 (30-110) U/L Lipase 168 (23-300) U/L Urine Color Light Yellow Urine Appearance Clear (Clear) Urine pH 7.0 (5.0-8.0) Ur Specific [place] 1.007 (1.001-1.035) Urine Protein 1+ H (Negative) Urine Glucose (UA) 3+ H (Negative) Urine Ketones Negative (Negative) Urine Blood Negative (Negative) Urine Nitrite Negative (Negative) Urine Bilirubin Negative (Negative) Urine Urobilinogen <2.0 (<2.0) mg/dL Ur Leukocyte Esterase Small H (Negative) Urine RBC <1 (0-5) /hpf Urine WBC 13 H (0-5) /hpf Urine Yeast (Budding) Rare H (None) /hpf 05/06/22 Range/Units 10:33 WBC (3.8-10.6) k/uL RBC (3.80-5.40) m/uL Hgb (11.4-16.0) gm/dL Hct (34.0-46.0) % MCV (80.0-100.0) fL MCH (25.0-35.0) pg MCHC (31.0-37.0) g/dL RDW (11.5-15.5) % Plt Count (150-450) k/uL MPV Neutrophils % % Lymphocytes % % Monocytes % % Eosinophils % % Basophils % % Neutrophils # (1.3-7.7) k/uL Lymphocytes # (1.0-4.8) k/uL Monocytes # (0-1.0) k/uL Eosinophils # (0-0.7) k/uL Basophils # (0-0.2) k/uL Sodium (137-145) mmol/L Potassium (3.5-5.1) mmol/L Chloride (98-107) mmol/L Carbon Dioxide (22-30) mmol/L Anion Gap mmol/L BUN (7-17) mg/dL Creatinine (0.52-1.04) mg/dL Est GFR (CKD-EPI)AfAm (>60 ml/min/1.73 sqM) Est GFR (CKD-EPI)NonAf (>60 ml/min/1.73 sqM) Glucose (74-99) mg/dL Plasma Lactic Acid Scotty 1.0 (0.7-2.0) mmol/L Calcium (8.4-10.2) mg/dL Total Bilirubin (0.2-1.3) mg/dL AST (14-36) U/L ALT (4-34) U/L Alkaline Phosphatase (38-126) U/L Total Protein (6.3-8.2) g/dL Albumin (3.5-5.0) g/dL Amylase (30-110) U/L Lipase (23-300) U/L Urine Color Urine Appearance (Clear) Urine pH (5.0-8.0) Ur Specific [place] (1.001-1.035) Urine Protein (Negative) Urine Glucose (UA) (Negative) Urine Ketones (Negative) Urine Blood (Negative) Urine Nitrite (Negative) Urine Bilirubin (Negative) Urine Urobilinogen (<2.0) mg/dL Ur Leukocyte Esterase (Negative) Urine RBC (0-5) /hpf Urine WBC (0-5) /hpf Urine Yeast (Budding) (None) /hpf Disposition Clinical Impression: Abdominal pain, Recurrent right pleural effusion, UTI (urinary tract infection) Disposition: HOME SELF-CARE Condition: Stable Instructions (If sedation given, give patient instructions): Abdominal Pain (ED) Additional Instructions: Please follow up with Dr. Pastrana for thoracentesis.Please return to the Emergency Department if symptoms worsen or any other concerns. Prescriptions: Nitrofurantoin Monohyd/M-Cryst [Macrobid] 100 mg PO Q12HR #14 cap Is patient prescribed a controlled substance at d/c from ED?: No Referrals: Dolores Wang MD [Primary Care Provider] - 1-2 days Time of Disposition: 12:27
--- NOTE | 2022-05-06 12:07 | XR ---
EXAMINATION TYPE: XR chest 1V DATE OF EXAM: 05/06/2022 COMPARISON: Chest x-ray dated 02/07/2022 HISTORY: Pleural effusion TECHNIQUE: Single frontal view of the chest is obtained. FINDINGS: Large right pleural effusion and associated atelectasis is noted. Cardiac mediastinal silh ouette is likely stable, patient is status post left atrial appendage clip placement. No evident pneu mothorax. Bones are stable. Surgical clips again noted in the right upper quadrant. IMPRESSION: Large right pleural effusion and associated atelectasis, correlate to exclude pneumonia.
== END 2022-05-06 12:36 | disposition home or self-care (01) ==
LOC: EC 09:25
DX: J90 Pleural effusion, not elsewhere classified (principal); N39.0 Urinary tract infection, site not specified; E11.9 Type 2 diabetes mellitus without complications; E78.5 Hyperlipidemia, unspecified; I10 Essential (primary) hypertension; Z88.6 Allergy status to analgesic agent; Z88.5 Allergy status to narcotic agent; Z88.7 Allergy status to serum and vaccine; Z88.8 Allergy status to other drugs, medicaments and biological substances
CPT/HCPCS: 36415; 71045; 74176; 80053; 81001; 82150; 83605; 83690; 85025; 87086

== ENCOUNTER → 2022-05-22 | Outpatient (CLI) | payer MEDICARE ==
--- NOTE | 2022-05-22 15:18 | US ---
EXAMINATION TYPE: US chest DATE OF EXAM: 05/22/2022 COMPARISON: Chest x-ray and CT abdomen May 06, 2022 CLINICAL HISTORY: J90 Pleural effusion. RIGHT PLEURAL EFFUSION TECHNIQUE: Targeted ultrasound of the posterior lower right hemithorax EXAM MEASUREMENTS: Right Pleural Effusion pocket size: 10.8cm Right skin surface to fluid distance: 2.4cm Right side marked for possible thoracentesis outside the dept. Pulmonologists are able to review the images in the patient?s EMR. Moderate to large size right pleural effusion is redemonstrated on images obtained. IMPRESSIONS: As above.
== END | disposition home or self-care (01) ==
LOC: RADUSWWP 13:47
PROVIDERS: ATTEND Internal Medicine Critical Care Medicine
DX: J90 Pleural effusion, not elsewhere classified (principal)
CPT/HCPCS: 76604

== ENCOUNTER 2022-05-24 12:00 | Day surgery (SDC) | payer MEDICARE ==
[~2022-05-24 12:00] MED LIST changes: -ATROPINE SULFATE 0.4 MG/ML 1 ML VIAL IM STA
[2022-05-24] MEDS ORDERED: ATROPINE SULFATE 0.4 MG/ML 20 ML VIAL IM STA (12:17)
[2022-05-24] MEDS ORDERED: ATROPINE SULFATE 0.4 MG/ML 1 ML VIAL IM STA (12:21)
[2022-05-24 12:25] VITALS: RESP 18; TEMP 98.5
[2022-05-24 12:41] VITALS: BP 148/73; PULSE 101
--- NOTE | 2022-05-24 12:43 | XR ---
EXAMINATION TYPE: XR chest 1V portable DATE OF EXAM: 05/24/2022 Comparison: 05/06/2022 Clinical History: 81-year-old female post right thoracentesis- pleural effusion Findings: Heart upper limits of normal in size. Post-CABG changes are present in the mediastinum. Decreased, no w trace right pleural effusion remains. No appreciable pneumothorax. Some residual fluid thickens the minor fissure. Underpenetrated exam resulting in hazy densities. Impression: Decreased, now trace right pleural effusion with some adjacent atelectasis/consolidation. No apprecia ble pneumothorax.
--- NOTE | 2022-05-24 15:48 | PCN ---
PROCEDURE NOTE RADIAL DRILL PRESS OPERATOR: Dr. Pastrana. PREOPERATIVE DIAGNOSIS: Right pleural effusion, shortness of breath. POSTOP DIAGNOSIS: Right pleural effusion, shortness of breath. Indication Pleural effusion. A time-out was completed verifying correct patient, procedure, site, positioning , and implant (s) or special equipment if applicable. Ultrasound guidance was used and appropriate fluid pocket was identified and marked. Patient was positioned, prepped and draped in usual sterile fashion. Lidocaine was used to anesthetize the area. A Thoracentesis catheter was introduced into the pleural space and fluid was removed. Blood loss was none. A chest x-ray was ordered to evaluate for pneumothorax. Total Fluid Removed: 1550 mL Color of Fluid: Brown Fluid was sent for appropriate laboratory tests. Patient tolerated the procedure well and there were no complications. The right posterior chest was marked by ultrasound. The procedure took place on the 3rd floor of [facility]. The patient did receive 0.8 mg of atropine prior to the procedure to prevent vasovagal episode. 1550 mL of brown fluid was removed from the right pleural space. The patient tolerated the procedure well. The patient's chest x- ray did not reveal any pneumothorax. The fluid was sent for analysis including chemistry, cytology, and microbiology. The patient will be discharged. There was no immediate complication. There was informed consent and universal timeout. MMODL / IJN: [id number] /
[2022-05-25 02:52] LABS: Appearance,BF Cloudy
[2022-05-25 03:15] LABS: Glucose, BF Source Pleural Fluid; Glucose, Body Fluid 214 mg/dL; LDH, Body Fluid Source Pleural Fluid; T. Protein, Body Fluid Source Pleural Fluid; Total Protein, Body Fluid 5520 mg/dL
== END 2022-05-24 13:34 | disposition home or self-care (01) ==
LOC: PROCWHC3 12:00
PROVIDERS: ATTEND Internal Medicine Critical Care Medicine
DX: J90 Pleural effusion, not elsewhere classified (principal); R06.02 Shortness of breath; Z88.6 Allergy status to analgesic agent; Z88.5 Allergy status to narcotic agent; Z91.041 Radiographic dye allergy status; Z79.899 Other long term (current) drug therapy; Z79.01 Long term (current) use of anticoagulants; Z95.1 Presence of aortocoronary bypass graft; I12.9 Hypertensive chronic kidney disease with stage 1 through stage 4 chronic kidney disease, or unspecified chronic kidney disease; E11.22 Type 2 diabetes mellitus with diabetic chronic kidney disease; N18.9 Chronic kidney disease, unspecified; E11.69 Type 2 diabetes mellitus with other specified complication; E78.5 Hyperlipidemia, unspecified; I25.10 Atherosclerotic heart disease of native coronary artery without angina pectoris; Z88.7 Allergy status to serum and vaccine; Z79.4 Long term (current) use of insulin; Z82.49 Family history of ischemic heart disease and other diseases of the circulatory system; Z83.6 Family history of other diseases of the respiratory system
CPT/HCPCS: 88108; 88305; 89050; 87070; 87205; 87075; 87116; 87206; 82945; 83615; 84157; 71045; 96372; 32554; J0461

== ENCOUNTER → 2022-06-19 | Outpatient (CLI) | payer MEDICARE ==
[2022-06-19 15:06] LABS: African American GFR (CKD) 61.6 (60.0-200.0); Albumin 3.8 g/dL (3.8-4.9); Anion Gap 10.8 mmol/L (10.00-18.00); BUN/Creat Ratio 18.6 Ratio (12.00-20.00); Blood Urea Nitrogen 18.6 mg/dL (9.0-27.0); Calcium 9.5 mg/dL (8.7-10.3); Carbon Dioxide 27.2 mmol/L (20.0-27.5); Globulin 3.8 g/dL (1.6-3.3); Non-African American GFR(CKD) 53.2 (60.0-200.0); Potassium 4.7 mmol/L (3.5-5.5); Total Bilirubin 0.5 mg/dL (0.30-1.20); Total Protein 7.6 g/dL (6.2-8.2)
== END | disposition home or self-care (01) ==
LOC: LABWHC1 09:06
PROVIDERS: ATTEND Internal Medicine Interventional Cardiology
DX: J90 Pleural effusion, not elsewhere classified (principal)
CPT/HCPCS: 36415; 80053; 83880

== ENCOUNTER → 2022-12-06 | Outpatient (CLI) | payer MEDICARE ==
[2022-12-06 15:41] LABS: ALT 29 U/L (8-44); AST 37 U/L (13-35); African American GFR (CKD) 61.6 (60.0-200.0); Albumin 4.2 g/dL (3.8-4.9); Albumin/Globulin Ratio 1.27 (1.60-3.17); Alkaline Phosphatase 130 U/L (41-126); Blood Urea Nitrogen 19.4 mg/dL (9.0-27.0); Calcium 9.4 mg/dL (8.7-10.3); Carbon Dioxide 27.9 mmol/L (20.0-27.5); Chloride 102 mmol/L (96-109); Chol/HDL Ratio 2.63 Ratio; Globulin 3.3 g/dL (1.6-3.3); Glucose 141 mg/dL (70-110); LDL Cholesterol,Calculated 85.7 mg/dL (0.0-131.0); Non-African American GFR(CKD) 53.2 (60.0-200.0); Potassium 4.5 mmol/L (3.5-5.5); Sodium 141 mmol/L (135-145); Total Protein 7.5 g/dL (6.2-8.2)
== END | disposition home or self-care (01) ==
LOC: LABWHC1 09:33
PROVIDERS: ATTEND Nurse Practitioner Adult Health
DX: I10 Essential (primary) hypertension (principal); E78.2 Mixed hyperlipidemia
CPT/HCPCS: 36415; 80053; 80061

== ENCOUNTER 2023-05-12 15:07 | Emergency (ER) | payer MEDICARE ==
--- NOTE | 2023-05-12 16:05 | ED ---
General Adult HPI - General Chief complaint: Head Injury Stated complaint: Fall-head injury-blood thinners Time Seen by Provider: 05/12/23 15:20 Source: patient, RN notes reviewed, old records reviewed Mode of arrival: ambulatory Limitations: no limitations - History of Present Illness Initial comments: This is an 10-year-old female presents emergency department after falling and hitting her head. Patient states she slipped at home fell backwards and hit the back of her head on the left parietal region. Patient states she did not loose consciousness. Patient denies any headache. Patient denies any numbness weakness. Patient states she has some left-sided posterior neck pain. There is no central neck pain. Patient denies any other injury at this time. She denies any chest pain or back pain. Patient denies any abdominal pain. Patient denies any extremity pain. Patient is on Plavix - Related Data Home Medications Medication Instructions Recorded Confirmed Clopidogrel [Plavix] 75 mg PO DAILY 02/13/16 05/24/22 Multivitamins, Thera [Multivitamin 1 tab PO DAILY 12/27/21 05/24/22 (formulary)] Dapagliflozin Propanediol [Farxiga] 5 mg PO DAILY 01/22/22 05/24/22 Insulin Glargine,Hum.rec.anlog 10 - 12 unit SQ HS 01/22/22 05/24/22 [Dayron Sullivan] Nitroglycerin Sl Tabs [Nitrostat] 0.4 mg SUBLINGUAL Q5M PRN 01/22/22 05/24/22 Pantoprazole [Protonix] 40 mg PO AC-BRKFST PRN 01/22/22 05/24/22 Sennosides-Docusate Sodium 2 tab PO HS PRN 01/22/22 05/24/22 [Senokot-S] metFORMIN HCL ER [Glucophage XR] 500 mg PO DAILY 01/22/22 05/24/22 Previous Rx's Medication Instructions Recorded Acetaminophen Tab [Tylenol] 650 mg PO Q4HR PRN tab 01/09/22 Metoprolol Tartrate [Lopressor] 25 mg PO BID #60 tab 01/09/22 Furosemide [Lasix] 20 mg PO DAILY #7 tab 01/21/22 Atorvastatin [Lipitor] 80 mg PO DAILY 30 Days #30 tab 01/25/22 amLODIPine [Norvasc] 2.5 mg PO DAILY@1200 tab 01/25/22 Nitrofurantoin Monohyd/M-Cryst 100 mg PO Q12HR #14 cap 05/06/22 [Macrobid] Allergies Allergy/AdvReac Type Severity Reaction Status Date / Time aspirin Allergy Rash/Hives Verified 05/12/23 15:17 codeine Allergy Rash/Hives Verified 05/12/23 15:17 Influenza Virus Vaccines Allergy Rash/Hives Verified 05/12/23 15:17 Iodinated Contrast Media Allergy Rash/Hives/Increased Verified 05/12/23 15:17 [Iodinated Contrast Media - HR IV Dye] iodine Allergy Rash/Hives Verified 05/12/23 15:17 NSAIDS (Non-Steroidal Allergy Anaphylaxis Verified 05/12/23 15:17 Anti-Inflamma Review of Systems ROS Statement: Those systems with pertinent positive or pertinent negative responses have been documented in the HPI. ROS Other: All systems not noted in ROS Statement are negative. Past Medical History Past Medical History: Coronary Artery Disease (CAD), Chest Pain / Angina, Diabetes Mellitus, Hyperlipidemia, Hypertension Additional Past Medical History / Comment(s): UTI-ECOLI. RIGHT PLEURAL EFFUSIONS. History of Any Multi-Drug Resistant Organisms: None Reported Past Surgical History: Cholecystectomy, Heart Catheterization, Hernia Repair, Hysterectomy, Orthopedic Surgery Additional Past Surgical History / Comment(s): R shoulder surgery, R broken wrist, trigger release rt middle finger, CABG (Dec 2021). RIGHT THORACENTESIS. Past Anesthesia/Blood Transfusion Reactions: No Reported Reaction Additional Past Anesthesia/Blood Transfusion Reaction / Comment(s): blood transfusion-no reaction Past Psychological History: Depression Smoking Status: Never smoker Past Alcohol Use History: None Reported Past Drug Use History: None Reported - Past Family History Father Family Medical History: Congestive Heart Failure (CHF) Mother Family Medical History: Pneumonia Additional Family Medical History / Comment(s): fom pne General Exam - General Exam Comments Initial Comments: GENERAL: Patient is well-developed and well-nourished. Patient is nontoxic and well-h ydrated and is in mild distress. ENT: Neck is soft and supple. No significant lymphadenopathy is noted. Oropharynx is clear. Moist mucous membranes. Neck has full range of motion without eliciting any pain. Patient does have some tenderness in the trapezius muscle on the left no central spinous process tenderness. Patient has a large hematoma measuring about 3 cm in diameter in the left occipital parietal region EYES: The sclera were anicteric and conjunctiva were pink and moist. Extraocular movements were intact and pupils were equal round and reactive to light. Eyelids were unremarkable. PULMONARY: Unlabored respirations. Good breath sounds bilaterally. No audible rales rhonchi or wheezing was noted. CARDIOVASCULAR: There is a regular rate and rhythm without any murmurs gallops or rubs. ABDOMEN: Soft and nontender with normal bowel sounds. SKIN: Skin is clear with no lesions or rashes and otherwise unremarkable. NEUROLOGIC: Patient is alert and oriented x3. Cranial nerves II through XII are grossly intact. Motor and sensory are also intact. Normal speech, volume and content. Symmetrical smile. MUSCULOSKELETAL: Normal extremities with adequate strength and full range of motion. LYMPHATICS: No significant lymphadenopathy is noted PSYCHIATRIC: Normal psychiatric evaluation. Limitations: no limitations Course Vital Signs 05/12/23 15:14 Temperature 98.2 F Pulse Rate 86 Respiratory 20 Rate Blood Pressure 191/82 O2 Sat by Pulse 99 Oximetry Medical Decision Making - Medical Decision Making Was pt. sent in by a medical professional or institution (, PA, COMMERCIAL HVAC SERVICE TECHNICIAN, urgent care, hospital, or prison...) When possible be specific @ -No Did you speak to anyone other than the patient for history (EMS, parent, family, police, friend...)? What history was obtained from this source @ -No Did you review nursing and triage notes (agree or disagree)? Why? @ -I reviewed and agree with nursing and triage notes Were old charts reviewed (outside hosp., previous admission, EMS record, old EKG, old radiological studies, urgent care reports/EKG's, prison records)? Report findings @ -No old charts were reviewed Differential Diagnosis (chest pain, altered mental status, abdominal pain women, abdominal pain men, vaginal bleeding, weakness, fever, dyspnea, syncope, headache, dizziness, GI bleed, back pain, seizure, CVA, palpatations, mental health, musculoskeletal)? @ -Scalp hematoma, skull fracture, subarachnoid hemorrhage, intraparenchymal hemorrhage, subdural, epidural, cervical spine injury, this is not all inclusive list EKG interpreted by me (3pts min.). @ -As above X-rays interpreted by me (1pt min.). @ -None done CT interpreted by me (1pt min.). @ -CT of the brain shows no acute normalities. CT of the C-spine shows no acute abnormality. U/S interpreted by me (1pt. min.). @ -None done What testing was considered but not performed or refused? (CT, X-rays, U/S, labs)? Why? @ -None What meds were considered but not given or refused? Why? @ -None Did you discuss the management of the patient with other professionals (professionals i.e. , PA, COMMERCIAL HVAC SERVICE TECHNICIAN, lab, RT, psych nurse, social work coordinator, ecommerce project manager, teacher, facility security officer, case liner)? Give summary @ -No Was smoking cessation discussed for >3mins.? @ -No Was critical care preformed (if so, how long)? @ -No Were there social determinants of health that impacted care today? How? (Homelessness, low income, unemployed, alcoholism, drug addiction, transportation, low edu. Level, literacy, decrease access to med. care, usp, rehab)? @ -No Was there de-escalation of care discussed even if they declined (Discuss DNR or withdrawal of care, Hospice)? DNR status @ -No What co-morbidities impacted this encounter? (DM, HTN, Smoking, COPD, CAD, Cancer, CVA, ARF, Chemo, Hep., AIDS, mental health diagnosis, sleep apnea, morbid obesity)? @ -None Was patient admitted / discharged? Hospital course, mention meds given and route, prescriptions, significant lab abnormalities, going to OR and other pertinent info. @ -Patient's CT of the C-spine and CT of the brain were both normal. Patient had no spinous process tenderness. Patient did have full range motion of the neck per patient's pain was in the left trapezius muscle area. Patient was comfortable going home as was the daughter to take her home. Undiagnosed new problem with uncertain prognosis? @ -No Drug Therapy requiring intensive monitoring for toxicity (Heparin, Nitro, Insulin, Cardizem)? @ -No Were any procedures done? @ -No Diagnosis/symptom? @ -Closed head injury Acute, or Chronic, or Acute on Chronic? @ -Acute Uncomplicated (without systemic symptoms) or Complicated (systemic symptoms)? @ -Complicated Side effects of treatment? @ -No Exacerbation, Progression, or Severe Exacerbation? @ -No Poses a threat to life or bodily function? How? (Chest pain, [place], ID, pneumonia, PE, COPD, DKA, ARF, appy, cholecystitis, CVA, Diverticulitis, Homicidal, Suicidal, threat to staff... and all critical care pts) @ -No Diagnosis/symptom? @ -Scalp hematoma Acute, or Chronic, or Acute on Chronic? @ -Acute Uncomplicated (without systemic symptoms) or Complicated (systemic symptoms)? @ -Uncomplicated Side effects of treatment? @ -none Exacerbation, Progression, or Severe Exacerbation] @ -no Poses a threat to life or bodily function? @ -no Disposition Clinical Impression: Closed head injury, Hematoma of scalp Disposition: HOME SELF-CARE Instructions (If sedation given, give patient instructions): Concussion (ED) Is patient prescribed a controlled substance at d/c from ED?: No Referrals: Dolores Wang MD [Primary Care Provider] - 1-2 days Time of Disposition: 17:44
--- NOTE | 2023-05-12 16:18 | CT ---
EXAMINATION TYPE: CT brain ioana wo con DATE OF EXAM: 05/12/2023 COMPARISON: 07/16/2020 HISTORY: fall hit head, hematoma on left shell maker lockstitch head CT DLP: 1224.9 mGycm, Automated exposure control for dose reduction was used. CONTRAST: None CT of the brain is performed utilizing 3 mm thick sections through the posterior fossa and 3 mm thick sections through the remaining calvarium. Study is performed within 24 hours of arrival to the hospital. No abnormal hyperdensity is present to suggest an acute intracranial hemorrhage. No mass lesion is evident. No acute infarcts are evident. There is periventricular white matter hypodensity, likely the basis o f chronic white matter ischemic changes. Ventricles and sulci are prominent for the patient age. Superficial soft tissue swelling is over the left parietal occipital region Paranasal sinuses and mastoid air cells within the [id number] are clear. IMPRESSIONS: 1. Atrophy with chronic appearing periventricular white matter ischemic changes. Exam appears stable from comparison. Follow-up MRI can be performed as clinically indicated. CT cervical spine. COMPARISON: None CT of the cervical spine is performed in the axial plane at 2 mm thick sections. Reconstructed image s in the coronal, and sagittal plane are reviewed on the computer. No acute fractures are evident. Vertebral body alignment is normal. Disc space narrowing is present C5-6. Some mild posterior endplate spurring is present at this level. There is mild left foraminal stenosis due to uncovertebral joint hypertrophy left C5-6 Vertebral body heights are preserved. No spinal canal stenosis is evident. IMPRESSIONS: 1. Mild degenerative disc changes and uncovertebral joint hypertrophy at C5-6
[2023-05-12 17:50] VITALS: BP 180/80; PULSE 80; RESP 16; TEMP 98.4
== END 2023-05-12 18:00 | disposition home or self-care (01) ==
LOC: EC 15:07
DX: S00.03XA Contusion of scalp, initial encounter (principal); E11.9 Type 2 diabetes mellitus without complications; I10 Essential (primary) hypertension; I25.10 Atherosclerotic heart disease of native coronary artery without angina pectoris; Z79.4 Long term (current) use of insulin; Z79.84 Long term (current) use of oral hypoglycemic drugs; Z79.899 Other long term (current) drug therapy; Z79.02 Long term (current) use of antithrombotics/antiplatelets; Z88.5 Allergy status to narcotic agent; Z88.6 Allergy status to analgesic agent; Z88.7 Allergy status to serum and vaccine; Z88.8 Allergy status to other drugs, medicaments and biological substances; Z91.041 Radiographic dye allergy status; Z95.1 Presence of aortocoronary bypass graft; W01.0XXA Fall on same level from slipping, tripping and stumbling without subsequent striking against object, initial encounter; Y92.009 Unspecified place in unspecified non-institutional (private) residence as the place of occurrence of the external cause
CPT/HCPCS: 70450; 72125; 99284

== ENCOUNTER → 2024-02-26 | Outpatient (CLI) | payer MEDICARE ==
--- NOTE | 2024-03-02 13:51 | MM ---
Reason for Exam: Screening (asymptomatic). Last mammogram was performed 4 year(s) and 11 month(s) ago. Patient History: Menarche at age 14. First Full-Term at age 18. Left ovary removed at age 39. Right ovary removed at age 39. Hysterectomy at age 39. Postmenopausal. Risk Values: Nataly 5 year model risk: 1.2%. NCI Lifetime model risk: 1.7%. Prior Study Comparison: 11/02/2014 Bilateral Screening Mammogram, [facility]. 02/02/2016 Bilateral Screening Mammogram, [facility]. 03/22/2019 Bilateral Screening Mammogram, [facility]. Tissue Density: There are scattered areas of fibroglandular density. Findings: Analyzed By CAD. Right breast: There is no suspicious group of microcalcifications or new suspicious mass. Left breast: Focal asymmetry retroareolar region of the left breast MLO view. Overall Assessment: Incomplete: need additional imaging evaluation, BI-RAD 0 Management: Screening Mammogram of the left breast. [facility] will attempt to contact patient to return for supplemental views and ultrasound if indicated. Patient should continue monthly self-breast exams. A clinical breast exam by your physician is recommended on an annual basis. This exam should not preclude additional follow-up of suspicious palpable abnormalities. Note on Nataly scores and lifetime risk: 1. A Nataly score greater than 3% is considered moderate risk. If this is the case, consider specialist referral to assess eligibility for a risk reducing agent. 2. If overall lifetime risk for the development of breast cancer is 20% or higher, the patient may qualify for future screening with alternating mammogram and breast MRI. Electronically signed and approved by: Cole Crisostomo DO
== END | disposition home or self-care (01) ==
LOC: RADMAMWWP 16:03
PROVIDERS: ATTEND Internal Medicine
DX: Z12.31 Encounter for screening mammogram for malignant neoplasm of breast (principal); Z78.0 Asymptomatic menopausal state
CPT/HCPCS: 77063; 77067

== ENCOUNTER → 2024-03-12 | Outpatient (CLI) | payer MEDICARE ==
--- NOTE | 2024-03-12 13:35 | MM ---
Reason for Exam: Additional evaluation requested from abnormal screening. Last screening mammogram was performed less than 1 month ago. Patient History: Menarche at age 14. First Full-Term at age 18. Left ovary removed at age 39. Right ovary removed at age 39. Hysterectomy at age 39. Postmenopausal. Risk Values: Nataly 5 year model risk: 1.2%. NCI Lifetime model risk: 1.7%. Prior Study Comparison: 02/02/2016 Bilateral Screening Mammogram, [facility]. 03/22/2019 Bilateral Screening Mammogram, [facility]. 02/26/2024 Bilateral MG 3D screening mammo w/cad, [facility]. Tissue Density: Left: The breasts are heterogeneously dense, which may obscure small masses. Findings: Analyzed By CAD. No distinct mass or distortion. Mildly prominent retroareolar ducts noted the left breast. Overall Assessment: Probably benign, BI-RAD 3 Management: Diagnostic Mammogram of the left breast in 6 months. . Results were given to the patient verbally at the time of exam. Patient should continue monthly self-breast exams. A clinical breast exam by your physician is recommended on an annual basis. This exam should not preclude additional follow-up of suspicious palpable abnormalities. Note on Nataly scores and lifetime risk: 1. A Nataly score greater than 3% is considered moderate risk. If this is the case, consider specialist referral to assess eligibility for a risk reducing agent. 2. If overall lifetime risk for the development of breast cancer is 20% or higher, the patient may qualify for future screening with alternating mammogram and breast MRI. Electronically signed and approved by: Amari Mccabe M.D. Radiologis
== END | disposition home or self-care (01) ==
LOC: RADMAMWWP 12:51
PROVIDERS: ATTEND Internal Medicine
DX: R92.332 Mammographic heterogeneous density, left breast (principal); Z78.0 Asymptomatic menopausal state
CPT/HCPCS: 77061; 77065

== ENCOUNTER 2024-03-30 18:35 | Emergency (ER) | payer MEDICARE, OTHER ==
--- NOTE | 2024-03-30 19:28 | ED ---
Arrhythmia/Palpitations HPI - General Chief Complaint: Arrhythmia/Palpitations Stated Complaint: Dizziness, High Sugar Time Seen by Provider: 03/30/24 19:19 Source: patient, RN notes reviewed Mode of arrival: ambulatory Limitations: no limitations - History of Present Illness Initial Comments: 83-year-old female with a past medical history significant for [id number] diabetes presenting to the ED with a chief complaint of elevated blood sugar. Patient states last night onset of generalized weakness and chills. Unsure if she had a fever at this time. Also onset of sore throat. States this morning noticed her sugar was elevated high 300s and when she retook it noticed it was in the lower 300s prompting presentation to the ED for further evaluation. Denies chest pain, shortness of breath, palpitations, abdominal pain, changes in bowel or bladder habits. No other complaints at this time. - Related Data Home Medications Medication Instructions Recorded Confirmed Clopidogrel [Plavix] 75 mg PO DAILY 02/13/16 05/24/22 Multivitamins, Thera [Multivitamin 1 tab PO DAILY 12/27/21 05/24/22 (formulary)] Dapagliflozin Propanediol [Farxiga] 5 mg PO DAILY 01/22/22 05/24/22 Insulin Glargine,Hum.rec.anlog 10 - 12 unit SQ HS 01/22/22 05/24/22 [Dayron Kellyostbob] Nitroglycerin Sl Tabs [Nitrostat] 0.4 mg SUBLINGUAL Q5M PRN 01/22/22 05/24/22 Pantoprazole [Protonix] 40 mg PO AC-BRKFST PRN 01/22/22 05/24/22 Sennosides-Docusate Sodium 2 tab PO HS PRN 01/22/22 05/24/22 [Senokot-S] metFORMIN HCL ER [Glucophage XR] 500 mg PO DAILY 01/22/22 05/24/22 Previous Rx's Medication Instructions Recorded Acetaminophen Tab [Tylenol] 650 mg PO Q4HR PRN tab 01/09/22 Metoprolol Tartrate [Lopressor] 25 mg PO BID #60 tab 01/09/22 Furosemide [Lasix] 20 mg PO DAILY #7 tab 01/21/22 Atorvastatin [Lipitor] 80 mg PO DAILY 30 Days #30 tab 01/25/22 amLODIPine [Norvasc] 2.5 mg PO DAILY@1200 tab 01/25/22 Nitrofurantoin Monohyd/M-Cryst 100 mg PO Q12HR #14 cap 05/06/22 [Macrobid] Cephalexin [Keflex] 500 mg PO Q6HR 7 Days #28 cap 03/30/24 Allergies Allergy/AdvReac Type Severity Reaction Status Date / Time aspirin Allergy Rash/Hives Verified 05/12/23 15:17 codeine Allergy Rash/Hives Verified 05/12/23 15:17 Influenza Virus Vaccines Allergy Rash/Hives Verified 05/12/23 15:17 Iodinated Contrast Media Allergy Rash/Hives/Increased Verified 05/12/23 15:17 [Iodinated Contrast Media - HR IV Dye] iodine Allergy Rash/Hives Verified 05/12/23 15:17 NSAIDS (Non-Steroidal Allergy Anaphylaxis Verified 05/12/23 15:17 Anti-Inflamma Review of Systems ROS Statement: Those systems with pertinent positive or pertinent negative responses have been documented in the HPI. ROS Other: All systems not noted in ROS Statement are negative. Past Medical History Past Medical History: Coronary Artery Disease (CAD), Chest Pain / Angina, Diabetes Mellitus, Hyperlipidemia, Hypertension Additional Past Medical History / Comment(s): UTI-ECOLI. RIGHT PLEURAL EFFUSIONS . History of Any Multi-Drug Resistant Organisms: None Reported Past Surgical History: Cholecystectomy, Heart Catheterization, Hernia Repair, Hysterectomy, Orthopedic Surgery Additional Past Surgical History / Comment(s): R shoulder surgery, R broken wrist, trigger release rt middle finger, CABG (Dec 2021). RIGHT THORACENTESIS. Past Anesthesia/Blood Transfusion Reactions: No Reported Reaction Additional Past Anesthesia/Blood Transfusion Reaction / Comment(s): blood trans fusion-no reaction Past Psychological History: Depression Smoking Status: Never smoker Past Alcohol Use History: None Reported Past Drug Use History: None Reported - Past Family History Father Family Medical History: Congestive Heart Failure (CHF) Mother Family Medical History: Pneumonia Additional Family Medical History / Comment(s): fom pne General Exam Limitations: no limitations General appearance: alert, in no apparent distress Eye exam: Present: normal appearance ENT exam: Present: normal oropharynx, mucous membranes moist Neck exam: Present: normal inspection Respiratory exam: Present: normal lung sounds bilaterally Cardiovascular Exam: Present: regular rate, systolic murmur GI/Abdominal exam: Present: soft, normal bowel sounds. Absent: distended, te nderness, guarding, rebound, rigid Neurological exam: Present: alert, oriented X3, other (Strength and sensation bilateral lower extremities equal and intact. DP/PT pulses palpable.) Skin exam: Present: warm, dry Course Vital Signs 03/30/24 03/30/24 18:39 21:25 Temperature 98.8 F Pulse Rate 96 84 Respiratory 20 18 Rate Blood Pressure 160/73 158/58 O2 Sat by Pulse 98 97 Oximetry Medical Decision Making - Medical Decision Making Was pt. sent in by a medical professional or institution (, PA, SPECIAL EDUCATION TEACHER, urgent care, hospital, or care home...) When possible be specific @ -No Did you speak to anyone other than the patient for history (EMS, parent, family, police, friend...)? What history was obtained from this source @ -No Did you review nursing and triage notes (agree or disagree)? Why? @ -I reviewed and agree with nursing and triage notes Were old charts reviewed (outside hosp., previous admission, EMS record, old EKG, old radiological studies, urgent care reports/EKG's, care home records)? Report findings @ -No old charts were reviewed Differential Diagnosis (chest pain, altered mental status, abdominal pain women, abdominal pain men, vaginal bleeding, weakness, fever, dyspnea, syncope, headache, dizziness, GI bleed, back pain, seizure, CVA, palpatations, mental health, musculoskeletal)? @ -Differential Fever: Pneumonia, viral URI, endocarditis, myocarditis, pericarditis, otitis, s inusitis, peritonsillar Abscess, retropharyngeal Abscess, epiglottitis, peritonitis, appendicitis, Idania cystitis, diverticulitis, hepatitis, colitis, UTI, PID, TOA, pyelonephritis, prostatitis, epididymitis, meningitis, encephalitis, pulmonary embolism, CVA, thyroid storm, pancreatitis, adrenal cri sis, cavernous sinus thrombosis, this is not meant to be an all-inclusive list. EKG interpreted by me (3pts min.). @ -EKG interpreted me showing a sinus rhythm at [address] or T wave changes. AR 184, QRS 88, QT/QTc 376/420. X-rays interpreted by me (1pt min.). @ -Chest x-ray interpreted by me which revealed no evidence of acute finding. CT interpreted by me (1pt min.). @ -None done U/S interpreted by me (1pt. min.). @ -None done What testing was considered but not performed or refused? (CT, X-rays, U/S, labs)? Why? @ -None What meds were considered but not given or refused? Why? @ -None Did you discuss the management of the patient with other professionals (professionals i.e. DrBrandon, PA, SPECIAL EDUCATION TEACHER, lab, RT, psych nurse, licensed clinical social worker, deicer inspector pneumatic, teacher, forest officer, casework specialist)? Give summary @ -No Was smoking cessation discussed for >3mins.? @ -No Was critical care preformed (if so, how long)? @ -No Were there social determinants of health that impacted care today? How? (Homelessness, low income, unemployed, alcoholism, drug addiction, transportation, low edu. Level, literacy, decrease access to med. care, half-way, rehab)? @ -No Was there de-escalation of care discussed even if they declined (Discuss DNR or withdrawal of care, Hospice)? DNR status @ -No What co-morbidities impacted this encounter? (DM, HTN, Smoking, COPD, CAD, Cancer, CVA, ARF, Chemo, Hep., AIDS, mental health diagnosis, sleep apnea, morbid obesity)? @ -None Was patient admitted / discharged? Hospital course, mention meds given and route, prescriptions, significant lab abnormalities, going to OR and other pertinent info. @ -Discharge 83-year-old female presented to the ED with complaints of generalized weakness onset last night with associated chills and also sore throat. Denied chest pain, shortness of breath, palpitations. Laboratory studies reviewed. CBC largely unremarkable. Chemistry panel does show elevated BUN and creatinine at 35 and 1.7 respectively. Initial sugar as well up to 96. However after insulin and fluids down to 164. UA does show minimal evidence of infection with trace leukocyte Estrace, 3 white blood cells, moderate bacteria. Serology panel including influenza, COVID, RSV, strep unremarkable. Patient discharged home in stable condition with prescription for Keflex for possible urinary tract infection. In regards to sore throat, chills, generalized weakness likely se condary to viral URI. Patient reports follow-up with her PCP on Thursday. Discussed return precautions with patient who verbalized agreement. Undiagnosed new problem with uncertain prognosis? @ -No Drug Therapy requiring intensive monitoring for toxicity (Heparin, Nitro, Insulin, Cardizem)? @ -No Were any procedures done? @ -No Diagnosis/symptom? @ -Hyperglycemia, urinary tract infection, viral URI Acute, or Chronic, or Acute on Chronic? @ -Acute Uncomplicated (without systemic symptoms) or Complicated (systemic symptoms)? @ -Uncomplicated Side effects of treatment? @ -No Exacerbation, Progression, or Severe Exacerbation? @ -No Poses a threat to life or bodily function? How? (Chest pain, USA, NC, pneumonia, PE, COPD, DKA, ARF, appy, cholecystitis, CVA, Diverticulitis, Homicidal, Suicidal, threat to staff... and all critical care pts) @ -No - Lab Data Result diagrams: 03/30/24 19:52 03/30/24 19:52 Lab Results 03/30/24 03/30/24 03/30/24 Range/Units 19:52 19:52 19:52 WBC 4.6 (3.8-10.6) k/uL RBC 3.35 L (3.80-5.40) m/uL Hgb 9.8 L (11.4-16.0) gm/dL Hct 32.0 L (34.0-46.0) % MCV 95.4 (80.0-100.0) fL MCH 29.3 (25.0-35.0) pg MCHC 30.7 L (31.0-37.0) g/dL RDW 13.9 (11.5-15.5) % Plt Count 123 L (150-450) k/uL MPV 8.4 Neutrophils % 60 % Lymphocytes % 30 % Monocytes % 6 % Eosinophils % 3 % Basophils % 0 % Neutrophils # 2.8 (1.3-7.7) k/uL Lymphocytes # 1.4 (1.0-4.8) k/uL Monocytes # 0.3 (0-1.0) k/uL Eosinophils # 0.1 (0-0.7) k/uL Basophils # 0.0 (0-0.2) k/uL Sodium 139 (137-145) mmol/L Potassium 4.2 (3.5-5.1) mmol/L Chloride 105 (98-107) mmol/L Carbon Dioxide 24 (22-30) mmol/L Anion Gap 10 mmol/L BUN 35 H (7-17) mg/dL Creatinine 1.17 H (0.52-1.04) mg/dL Est GFR (CKD-EPI)AfAm 51 (>60 ml/min/1.73 sqM) Est GFR (CKD-EPI)NonAf 44 (>60 ml/min/1.73 sqM) Glucose 296 H (74-99) mg/dL POC Glucose (mg/dL) (70-110) mg/dL POC Glu Guitar Instructor ID Calcium 8.9 (8.4-10.2) mg/dL Total Bilirubin 0.6 (0.2-1.3) mg/dL AST 63 H (14-36) U/L ALT 46 H (4-34) U/L Alkaline Phosphatase 101 (38-126) U/L Total Protein 7.3 (6.3-8.2) g/dL Albumin 3.8 (3.5-5.0) g/dL Urine Color Urine Appearance (Clear) Urine pH (5.0-8.0) Ur Specific Wilber (1.001-1.035) Urine Protein (Negative) Urine Glucose (UA) (Negative) Urine Ketones (Negative) Urine Blood (Negative) Urine Nitrite (Negative) Urine Bilirubin (Negative) Urine Urobilinogen (<2.0) mg/dL Ur Leukocyte Esterase (Negative) Urine RBC (0-5) /hpf Urine WBC (0-5) /hpf Urine Bacteria (None) /hpf Urine Mucus (None) /hpf Influenza Type A (PCR) Not Detected (Not Detectd) Influenza Type B (PCR) Not Detected (Not Detectd) RSV (PCR) Not Detected (Not Detectd) SARS-CoV-2 (PCR) Not Detected (Not Detectd) Group A Strep (PCR) (Not Detectd) 03/30/24 03/30/24 03/30/24 Range/Units 19:52 20:27 21:51 WBC (3.8-10.6) k/uL RBC (3.80-5.40) m/uL Hgb (11.4-16.0) gm/dL Hct (34.0-46.0) % MCV (80.0-100.0) fL MCH (25.0-35.0) pg MCHC (31.0-37.0) g/dL RDW (11.5-15.5) % Plt Count (150-450) k/uL MPV Neutrophils % % Lymphocytes % % Monocytes % % Eosinophils % % Basophils % % Neutrophils # (1.3-7.7) k/uL Lymphocytes # (1.0-4.8) k/uL Monocytes # (0-1.0) k/uL Eosinophils # (0-0.7) k/uL Basophils # (0-0.2) k/uL Sodium (137-145) mmol/L Potassium (3.5-5.1) mmol/L Chloride (98-107) mmol/L Carbon Dioxide (22-30) mmol/L Anion Gap mmol/L BUN (7-17) mg/dL Creatinine (0.52-1.04) mg/dL Est GFR (CKD-EPI)AfAm (>60 ml/min/1.73 sqM) Est GFR (CKD-EPI)NonAf (>60 ml/min/1.73 sqM) Glucose (74-99) mg/dL POC Glucose (mg/dL) 164 H (70-110) mg/dL POC Glu Guitar Instructor ID Davida Lozano Calcium (8.4-10.2) mg/dL Total Bilirubin (0.2-1.3) mg/dL AST (14-36) U/L ALT (4-34) U/L Alkaline Phosphatase (38-126) U/L Total Protein (6.3-8.2) g/dL Albumin (3.5-5.0) g/dL Urine Color Light Yellow Urine Appearance Clear (Clear) Urine pH 6.0 (5.0-8.0) Ur Specific Wilber 1.019 (1.001-1.035) Urine Protein 1+ H (Negative) Urine Glucose (UA) 4+ H (Negative) Urine Ketones Negative (Negative) Urine Blood Small H (Negative) Urine Nitrite Negative (Negative) Urine Bilirubin Negative (Negative) Urine Urobilinogen <2.0 (<2.0) mg/dL Ur Leukocyte Esterase Trace H (Negative) Urine RBC 1 (0-5) /hpf Urine WBC 3 (0-5) /hpf Urine Bacteria Moderate H (None) /hpf Urine Mucus Rare H (None) /hpf Influenza Type A (PCR) (Not Detectd) Influenza Type B (PCR) (Not Detectd) RSV (PCR) (Not Detectd) SARS-CoV-2 (PCR) (Not Detectd) Group A Strep (PCR) NOT DETECTED (Not Detectd) Disposition Clinical Impression: URI (upper respiratory infection), Generalized weakness, Viral URI Disposition: HOME SELF-CARE Condition: Good Instructions (If sedation given, give patient instructions): Pharyngitis (ED), Urinary Tract Infection in Women (ED) Additional Instructions: Please return to the Emergency Department if symptoms worsen or any other conc erns. Follow-up with your primary care provider. Prescriptions: Cephalexin [Keflex] 500 mg PO Q6HR 7 Days #28 cap Is patient prescribed a controlled substance at d/c from ED?: No Referrals: Dolores Wang MD [Primary Care Provider] - 1-2 days Time of Disposition: 22:10
[2024-03-30 20:02] LABS: Basophils % (A) 0 %; Eosinophils # (A) 0.1 k/uL (0-0.7); Eosinophils % (A) 3 %; HGB 9.8 gm/dL (11.4-16.0); Lymphocytes # (A) 1.4 k/uL (1.0-4.8); Lymphocytes % (A) 30 %; MCH 29.3 pg (25.0-35.0); MCHC 30.7 g/dL (31.0-37.0); MCV 95.4 fL (80.0-100.0); Mean Platelet Volume 8.4; Monocytes # (A) 0.3 k/uL (0-1.0); Monocytes % (A) 6 %; Neutrophils # (A) 2.8 k/uL (1.3-7.7); Neutrophils % (A) 60 %; Platelet Count 123 k/uL (150-450); RBC 3.35 m/uL (3.80-5.40); RDW 13.9 % (11.5-15.5); WBC 4.6 k/uL (3.8-10.6)
[2024-03-30 20:16] LABS: ALT 46 U/L (4-34); AST 63 U/L (14-36); African American GFR (CKD) 51 (>60 ml/min/1.73 sqM); Albumin 3.8 g/dL (3.5-5.0); Alkaline Phosphatase 101 U/L (38-126); Anion Gap 10 mmol/L; Blood Urea Nitrogen 35 mg/dL (7-17); Calcium 8.9 mg/dL (8.4-10.2); Carbon Dioxide 24 mmol/L (22-30); Chloride 105 mmol/L (98-107); Glucose 296 mg/dL (74-99); Non-African American GFR(CKD) 44 (>60 ml/min/1.73 sqM); Potassium 4.2 mmol/L (3.5-5.1); Sodium 139 mmol/L (137-145); Total Bilirubin 0.6 mg/dL (0.2-1.3); Total Protein 7.3 g/dL (6.3-8.2)
--- NOTE | 2024-03-30 20:17 | XR ---
EXAMINATION TYPE: XR chest 2V DATE OF EXAM: 03/30/2024 8:09 PM CLINICAL INDICATION:Female, 83 years old with history of r/o pna; PHH COMPARISON: Chest radiographs from 06/24/2022 TECHNIQUE: XR chest 2V Frontal and lateral views of the chest. FINDINGS: Lungs/Pleura: Mild to moderate right pleural effusion is identified. No evidence of pneumothorax Pulmonary vascularity: Unremarkable. Heart/mediastinum: Cardiomediastinal silhouette is unremarkable. Left atrial appendage occlusion dev ice is present. Postsurgical clips are noted overlying the left mediastinum. Musculoskeletal: No acute osseous pathology. IMPRESSION: Small to moderate right-sided pleural effusion and associated atelectasis.
[2024-03-30] MEDS: SODIUM CHLORIDE 0.9% 500 ML 500 ML IV STA (20:27)
[2024-03-30 20:44] LABS: Appearance,Urine Clear (Clear); Bacteria,Urine Moderate /hpf; Bilirubin,Urine Negative (Negative); Blood,Urine Small (Negative); Color,Urine Light Yellow; Glucose,Urine (UA) 4+ (Negative); Ketones,Urine Negative (Negative); Leukocyte Esterase,Urine Trace (Negative); Mucus,Urine Rare /hpf; Nitrite,Urine Negative (Negative); Protein,Urine 1+ (Negative); RBC,Urine 1 /hpf (0-5); Specific Gravity,Urine 1.019 (1.001-1.035); Urobilinogen,Urine <2.0 mg/dL (<2.0); WBC,Urine 3 /hpf (0-5)
[2024-03-30] MEDS: INSULIN REGULAR 100 UNIT/ML VIAL (IV) IV ONE (21:11)
[2024-03-30 21:53] LABS: Glucose,Whole Blood 164 mg/dL (70-110)
[2024-03-30 21:57] VITALS: RESP 18
[2024-03-30 22:45] VITALS: BP 145/63; PULSE 77; TEMP 98.9
== END 2024-03-30 22:23 | disposition home or self-care (01) ==
LOC: EC 18:35
DX: J06.9 Acute upper respiratory infection, unspecified (principal); R53.1 Weakness; J90 Pleural effusion, not elsewhere classified; I25.2 Old myocardial infarction; Z88.5 Allergy status to narcotic agent; Z88.6 Allergy status to analgesic agent; Z91.041 Radiographic dye allergy status; Z88.7 Allergy status to serum and vaccine
CPT/HCPCS: 36415; 71046; 80053; 81001; 85025; 87636; 87651; 93005; 96360; 99285

== ENCOUNTER 2024-10-26 14:18 | Emergency (ER) | payer MEDICARE ==
--- NOTE | 2024-10-26 14:45 | CT ---
EXAMINATION TYPE: CT brain cspine wo con CT DLP: 1161.5 mGycm, Automated exposure control for dose reduction was used. DATE OF EXAM: 10/26/2024 2:35 PM COMPARISON: CT brain C-spine 05/12/2023. CLINICAL INDICATION:Female, 84 years old with history of Trauma; fall on blood thinners. CODE COAG. TECHNIQUE: Brain: Multiple axial CT images of the brain were obtained without IV contrast. Cspine: Axial CT images from the skull base to the inferior aspect of T2 we obtained without intraven ous contrast. Coronal and sagittal reformatted images were also reviewed. FINDINGS: Brain: Extra-axial spaces: No abnormal extra-axial fluid collections. Ventricular system: Within normal limits Cerebral parenchyma: No acute intraparenchymal hemorrhage or mass effect. The deras-white junction is well differentiated. Scattered hypoattenuating areas are seen within the periventricular white matte r. Cerebellum: Unremarkable. Mass effect: No evidence of midline shift. Intracranial vasculature: Atherosclerotic calcifications of the intracranial vessels. Soft tissues: Occipital scalp soft tissue contusion. Calvarium/osseous structures: No depressed skull fracture. Paranasal sinuses and mastoid air cells: Clear. Visualized orbits: Orbital contents are intact. Cervical spine: Fracture: None. Osseous structures: Multilevel degenerative disc disease changes with endplate spurring and disc oste ophyte complex's. Vertebral alignment: Within normal limits. Spinal canal/Neural Foramina: Disc osteophyte complexes at C4-C5 and C5-C6 with at least mild spinal canal stenosis. No evidence for significant neural foraminal stenosis. Neck soft tissues: Prevertebral soft tissues are within normal limits. Other: The airway is patent. Partial visualization of at least moderate size right pleural effusion. Bilateral carotid bulb calcifications. IMPRESSION: 1. No acute intracranial process. 2. Acute occipital scalp soft tissue contusion. 3. Nonspecific white matter changes, likely secondary to chronic small vessel ischemic disease. 4. No evidence of cervical spine fracture. 5. Mild multilevel degenerative disc disease. 6. Partial visualization of at least moderate size right pleural effusion. [facility], , 10/26/2024 2:43 PM
--- NOTE | 2024-10-26 14:53 | CT ---
EXAMINATION TYPE: CT chest wo con CT DLP: 311.7 mGycm, Automated exposure control for dose reduction was used. DATE OF EXAM: 10/26/2024 2:38 PM COMPARISON: Multiple chest radiographs with most recent of 03/30/2024 CLINICAL INDICATION:Female, 84 years old with history of CHEST PAIN; PHH, lung/chest pain after fall TECHNIQUE: Multiple axial images were obtained through the chest without IV contrast. Lack of IV or o ral contrast limits evaluation of solid and hollow organ viscera. . Coronal and sagittal reformats re viewed. FINDINGS: LUNGS/ PLEURA: Moderate size right pleural effusion with associated atelectasis. Measures simple flui d attenuation. No pneumothorax. Minimal left basilar subsegmental atelectasis. AIRWAY: Patent and unremarkable.. HEART: Size within normal limits.Post-CABG changes. No pericardial effusion. MEDIASTINUM: No gross evidence of adenopathy. VASCULATURE: No aortic aneurysm. Atherosclerotic calcification of aorta and its branches. MUSCULOSKELETAL: Anterior wedge compression deformity of the T5 vertebral body with sclerosis identif ied. There is approximately 10% height loss with no retropulsion. No definitive paraspinal edema.. No acute displaced rib fractures. Postsurgical changes from prior median sternotomy. Right AC joint art hropathy. Minimal multilevel degenerative disc disease. SOFT TISSUES/LYMPH NODES: Unremarkable. LOWER NECK: No significant findings. UPPER ABDOMEN: Cirrhotic morphology to the liver with surface nodularity and widened fissures. Gallbl adder is surgically absent. Bilateral renal vascular calcifications. IMPRESSION: 1. Age-indeterminate anterior wedge compression deformity of the T5 vertebral body with approximately 10% height loss and no retropulsion. Correlate with point tenderness. 2. Moderate size right pleural effusion with associated atelectasis. No pneumothorax. 3. Post-CABG changes. 4. Hepatic cirrhosis. [facility], , 10/26/2024 2:51 PM
--- NOTE | 2024-10-26 17:27 | ED ---
General Adult HPI - General Chief complaint: Fall Stated complaint: Fall-head injury Time Seen by Provider: 10/26/24 14:20 Source: patient, EMS, RN notes reviewed, old records reviewed Mode of arrival: EMS - History of Present Illness Initial comments: This is an 84-year-old female who presents to the emergency department with a past medical history significant for vertigo. Patient states she was bending over today even though she has been told not to and she got a little dizzy when she stands that she fell backwards and hit her head and hit the middle of her back. Patient states she has a mild headache but she complains of mid back pain between her shoulder blades. Patient has any chest pain difficulty breathing shortness of breath. Patient has any recent fever chills or cough. Patient denies any abdominal pain patient has nausea vomiting diarrhea. Patient denies any other pain from trauma. - Related Data Home Medications Medication Instructions Recorded Confirmed Clopidogrel [Plavix] 75 mg PO DAILY 02/13/16 05/24/22 Multivitamins, Thera [Multivitamin 1 tab PO DAILY 12/27/21 05/24/22 (formulary)] Dapagliflozin Propanediol [Farxiga] 5 mg PO DAILY 01/22/22 05/24/22 Insulin Glargine,Hum.rec.anlog 10 - 12 unit SQ HS 01/22/22 05/24/22 [Dayron Sullivan] Nitroglycerin Sl Tabs [Nitrostat] 0.4 mg SUBLINGUAL Q5M PRN 01/22/22 05/24/22 Pantoprazole [Protonix] 40 mg PO AC-BRKFST PRN 01/22/22 05/24/22 Sennosides-Docusate Sodium 2 tab PO HS PRN 01/22/22 05/24/22 [Senokot-S] metFORMIN HCL ER [Glucophage XR] 500 mg PO DAILY 01/22/22 05/24/22 Previous Rx's Medication Instructions Recorded Acetaminophen Tab [Tylenol] 650 mg PO Q4HR PRN tab 01/09/22 Metoprolol Tartrate [Lopressor] 25 mg PO BID #60 tab 01/09/22 Furosemide [Lasix] 20 mg PO DAILY #7 tab 01/21/22 Atorvastatin [Lipitor] 80 mg PO DAILY 30 Days #30 tab 01/25/22 amLODIPine [Norvasc] 2.5 mg PO DAILY@1200 tab 01/25/22 Nitrofurantoin Monohyd/M-Cryst 100 mg PO Q12HR #14 cap 05/06/22 [Macrobid] Cephalexin [Keflex] 500 mg PO Q6HR 7 Days #28 cap 03/30/24 Allergies Allergy/AdvReac Type Severity Reaction Status Date / Time aspirin Allergy Rash/Hives Verified 05/12/23 15:17 codeine Allergy Rash/Hives Verified 05/12/23 15:17 Influenza Virus Vaccines Allergy Rash/Hives Verified 05/12/23 15:17 Iodinated Contrast Media Allergy Rash/Hives/Increased Verified 05/12/23 15:17 [Iodinated Contrast Media - HR IV Dye] iodine Allergy Rash/Hives Verified 05/12/23 15:17 NSAIDS (Non-Steroidal Allergy Anaphylaxis Verified 05/12/23 15:17 Anti-Inflamma Review of Systems ROS Statement: Those systems with pertinent positive or pertinent negative responses have been documented in the HPI. ROS Other: All systems not noted in ROS Statement are negative. Past Medical History Past Medical History: Coronary Artery Disease (CAD), Chest Pain / Angina, Diabetes Mellitus, Hyperlipidemia, Hypertension Additional Past Medical History / Comment(s): UTI-ECOLI. RIGHT PLEURAL EFFUSIONS. 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 RIGHT THORACENTESIS. Past Anesthesia/Blood Transfusion Reactions: No Reported Reaction Additional Past Anesthesia/Blood Transfusion Reaction / Comment(s): blood transfusion-no reaction Past Psychological History: Depression Smoking Status: Never smoker Past Alcohol Use History: None Reported Past Drug Use History: None Reported - Past Family History Father Family Medical History: Congestive Heart Failure (CHF) Mother Family Medical History: Pneumonia Additional Family Medical History / Comment(s): fom pne General Exam - General Exam Comments Initial Comments: GENERAL: Patient is well-developed and well-nourished. Patient is nontoxic and well- hydrated and is in mild distress. ENT: Neck is soft and supple. No significant lymphadenopathy is noted. Oropharynx is clear. Moist mucous membranes. Neck has full range of motion without eliciting any pain. EYES: The sclera were anicteric and conjunctiva were pink and moist. Extraocular movements were intact and pupils were equal round and reactive to light. Eyelids were unremarkable. PULMONARY: Unlabored respirations. Good breath sounds bilaterally. No audible rales rhonchi or wheezing was noted. CARDIOVASCULAR: There is a regular rate and rhythm without any murmurs gallops or rubs. ABDOMEN: Soft and nontender with normal bowel sounds. SKIN: Skin is clear with no lesions or rashes and otherwise unremarkable. NEUROLOGIC: Patient is alert and oriented x 3. Cranial nerves II through XII are grossly intact. Motor and sensory are also intact. Normal speech, volume and content. Symmetrical smile. MUSCULOSKELETAL: Normal extremities with adequate strength and full range of motion. Patient has some tenderness between the shoulder blades on the spinous process. LYMPHATICS: No significant lymphadenopathy is noted PSYCHIATRIC: Normal psychiatric evaluation. Course Vital Signs 10/26/24 14:19 Temperature 99.0 F Pulse Rate 103 H Respiratory 18 Rate Blood Pressure 177/80 O2 Sat by Pulse 99 Oximetry Medical Decision Making - Medical Decision Making Was pt. sent in by a medical professional or institution (, PA, FOREST RESOURCE SPECIALIST, urgent care, hospital, or detention...) When possible be specific @ -No Did you speak to anyone other than the patient for history (EMS, parent, family, police, friend...)? What history was obtained from this source @ -No Did you review nursing and triage notes (agree or disagree)? Why? @ -I reviewed and agree with nursing and triage notes Were old charts reviewed (outside hosp., previous admission, EMS record, old EKG, old radiological studies, urgent care reports/EKG's, detention records)? Report findings @ -No old charts were reviewed Differential Diagnosis? @ -Differential Musculoskeletal Muscular strain, contusion, ligament sprain, fracture, arthritis, septic arthritis, bursitis, cellulitis, muscle spasm, nerve compression, DVT, arterial occlusion, herpes zoster, electrolyte abnormality, tumor.... This is not meant to be in all inclusive list EKG interpreted by me (3pts min.). @ -As above X-rays interpreted by me (1pt min.). @ -None done CT interpreted by me (1pt min.). @ -CT of the head and neck showed no acute abnormality CT of the chest shows a T5 compression fracture with no retropulsion U/S interpreted by me (1pt. min.). @ -None done What testing was considered but not performed or refused? (CT, X-rays, U/S, labs)? Why? @ -None What meds were considered but not given or refused? Why? @ -None Did you discuss the management of the patient with other professionals (professionals i.e. DrBrandon, PA, FOREST RESOURCE SPECIALIST, lab, RT, psych nurse, psychologist social, hydrometeorologist, teacher, security public safety officer, correctional case records supervisor)? Give summary @ -No Was smoking cessation discussed for >3mins.? @ -No Was critical care preformed (if so, how long)? @ -No Were there social determinants of health that impacted care today? How? (Homelessness, low income, unemployed, alcoholism, drug addiction, transportation, low edu. Level, literacy, decrease access to med. care, [facility], rehab)? @ -No Was there de-escalation of care discussed even if they declined (Discuss DNR or withdrawal of care, Hospice)? DNR status @ -No What co-morbidities impacted this encounter? (DM, HTN, Smoking, COPD, CAD, Cancer, CVA, ARF, Chemo, Hep., AIDS, mental health diagnosis, sleep apnea, morbid obesity)? @ -None Was patient admitted / discharged? Hospital course, mention meds given and route, prescriptions, significant lab abnormalities, going to OR and other pertinent info. @ -Patient received fentanyl prior to arrival by EMS and received 25 mcg fentanyl in the emergency department. She will be discharged home to follow-up as needed Undiagnosed new problem with uncertain prognosis? @ -No Drug Therapy requiring intensive monitoring for toxicity (Heparin, Nitro, Insulin, Cardizem)? @ -No Were any procedures done? @ -No Diagnosis/symptom? @ -Vertebral compression fracture Acute, or Chronic, or Acute on Chronic? @ -Acute Uncomplicated (without systemic symptoms) or Complicated (systemic symptoms)? @ -Uncomplicated Side effects of treatment? @ -No Exacerbation, Progression, or Severe Exacerbation? @ -No Poses a threat to life or bodily function? How? (Chest pain, [place], SD, pneumonia, PE, COPD, DKA, ARF, appy, cholecystitis, CVA, Diverticulitis, Homicidal, Suicidal, threat to staff... and all critical care pts) @ -No Disposition Clinical Impression: Compression fracture Disposition: HOME SELF-CARE Condition: Good Instructions (If sedation given, give patient instructions): Fall Prevention for Older Adults (ED) Additional Instructions: Patient is to take Motrin and Tylenol for pain Is patient prescribed a controlled substance at d/c from ED?: No Referrals: Dolores Wang MD [Primary Care Provider] - 1-2 days Time of Disposition: 17:31
[2024-10-26 17:37] VITALS: TEMP 98
[2024-10-26] MEDS: fentaNYL (PF) 50 MCG/ML 2 ML AMP IVP STA (17:39)
[2024-10-26 18:04] VITALS: BP 170/82; PULSE 91; RESP 18
== END 2024-10-26 18:03 | disposition home or self-care (01) ==
LOC: EC 14:18
DX: S22.009A Unspecified fracture of unspecified thoracic vertebra, initial encounter for closed fracture (principal); Z88.6 Allergy status to analgesic agent; Z88.7 Allergy status to serum and vaccine; Z88.8 Allergy status to other drugs, medicaments and biological substances; Z91.041 Radiographic dye allergy status; Z95.1 Presence of aortocoronary bypass graft; W01.198A Fall on same level from slipping, tripping and stumbling with subsequent striking against other object, initial encounter
CPT/HCPCS: 72125; 70450; 71250; 99284; 96374; J3010

== ENCOUNTER → 2025-01-26 | Outpatient (CLI) | payer MEDICARE, OTHER ==
--- NOTE | 2025-01-26 09:57 | US ---
EXAMINATION TYPE: US liver DATE OF EXAM: 01/26/2025 COMPARISON: CT abdomen and pelvis May 06, 2022 CLINICAL INDICATION: Female, 84 years old with history of K74.60 CIRRHOSIS OF THE LIVER; Cirrhosis TECHNIQUE: Grayscale and color Doppler imaging of the right upper quadrant was performed. FINDINGS: EXAM MEASUREMENTS: Liver Length: 13.1 cm Gallbladder Wall: Surgically absent CBD: 0.8 cm Right Kidney: 8.7x3.6x4.8 cm WALLPAPERER HELPER NOTES: Pancreas: Tail obscured by overlying bowel gas Liver: nodular contour, heterogenous echotexture Gallbladder: Surgically absent Evidence for sonographic Rowe's sign: No CBD: post zeenat status Right Kidney: perinephric fluid, 0.5cm small shadowing focus right pleural effusion exam limited by bowel gas and habitus. Suboptimal study. Visualized liver heterogeneously hyperechoic. This limits evaluation for focal mass es. IMPRESSION: Suboptimal study. Heterogeneous hyperechoic appearance of liver consistent with known hep atocellular disease. Small right pleural effusion is present currently. No significant ascites identi fied. [facility], , 01/26/2025 9:54 AM
[2025-01-26 15:10] LABS: HGB 9.6 g/dL (12.0-15.0); MCH 27.7 pg (27.0-32.0); MCV 92.5 FL (80.0-97.0); Mean Platelet Volume 9.9 FL (9.5-12.2); NRBC Per 100 WBC 0 X 10*3/uL (0.00-0.01); Platelet Count 147 X 10*3/uL (140-440); RBC 3.46 X 10*6/uL (4.10-5.20); RDW 14.6 % (11.5-14.5); WBC 5.01 X 10*3/uL (4.50-10.00)
[2025-01-26 15:25] LABS: ALT 16 U/L (8-44); AST 31 U/L (13-35); Albumin 3.7 g/dL (3.8-4.9); Albumin/Globulin Ratio 1.12 Ratio (1.60-3.17); Alkaline Phosphatase 112 U/L (41-126); BUN/Creat Ratio 15.82 Ratio (12.00-20.00); Blood Urea Nitrogen 17.4 mg/dL (9.0-27.0); Calcium 9.2 mg/dL (8.7-10.3); Carbon Dioxide 26.6 mmol/L (21.6-31.8); Chloride 107 mmol/L (96-109); Globulin 3.3 g/dL (1.6-3.3); Glucose 105 mg/dL (70-110); Potassium 4.5 mmol/L (3.5-5.5); Sodium 142 mmol/L (135-145); Total Bilirubin 0.3 mg/dL (0.3-1.2)
== END | disposition home or self-care (01) ==
LOC: RADUSWWP 09:01
PROVIDERS: ATTEND Internal Medicine Gastroenterology
DX: K74.60 Unspecified cirrhosis of liver (principal); J90 Pleural effusion, not elsewhere classified
CPT/HCPCS: 76705; 80053; 82105; 85027

== ENCOUNTER 2025-06-01 08:54 | Day surgery (SDC) | payer OTHER ==
[2025-06-01] MEDS: IV FLUID CONTINUATION 1,000 ML IV ONE ×2 (09:23→10:15)
[2025-06-01] MEDS: LACTATED RINGERS 1,000 ML IV SCH (09:30)
[2025-06-01 09:40] VITALS: TEMP 97
[2025-06-01 09:41] LABS: Glucose,Whole Blood 203 mg/dL (70-110)
[2025-06-01] MEDS ORDERED: LIDOCAINE 2% (PF) 20 MG/ML 5 ML VIAL ONE (10:16)
[2025-06-01] MEDS ORDERED: PROPOFOL 10 MG/ML 20 ML VIAL IV ONE (10:16)
--- NOTE | 2025-06-01 10:26 | P.PCN ---
Date of Procedure: 06/01/25 Procedure(s) Performed: BRIEF HISTORY: Patient is a 84-year-old, pleasant, white female scheduled anoscopy as a part of screening for esophageal varices. She was diagnosed with fatty liver disease with liver cirrhosis recently.. PROCEDURE PERFORMED: Esophagogastroduodenoscopy. PREOPERATIVE DIAGNOSIS: Screening for esophageal varices/history of liver cirrhosis. IV sedation per anesthesia. PROCEDURE: After informed consent was obtained, the patient was brought into the endoscopy unit. IV sedation was administered by Anesthesia under continuous monitoring. Initially the Olympus GIF-140 video endoscope was inserted into the mouth. Esophagus intubated without any difficulty. It was gradually advanced into the stomach and duodenum and carefully examined. The bulb and the second part of the duodenum appeared normal. The scope at this time was withdrawn to the stomach, adequately insufflated with air, and upon careful examination, mucosa of the antrum, body, and mild diffuse gastritis. Because of the cardia and the fundus appeared normal. No gastric varices identified. The scope was then withdrawn into the esophagus. The GE junction was located at 39 cm from the incisors. The esophagus appeared normal. There is a moderate size distal esophageal varices identified with no red melecio giang. A few erosions in the distal esophagus consistent with LA grade B reflux esophagitis. Rest of the esophagus appeared normal and the patient tolerated the procedure well. IMPRESSION: 1. Moderate-sized distal esophageal varices with no red melecio giang 2. Linear regions of the esophagus consistent with LA grade B reflux esophagitis 3. Mild diffuse gastric. RECOMMENDATIONS: The findings of this examination were discussed with the patient as well as her family. She was advised to follow-up in the office in 2 to 3 weeks and we will start her on nonselective beta-blockers for primary pr evention of esophageal variceal bleeding..
[2025-06-01 10:49] VITALS: BP 148/62; PULSE 83; RESP 16
== END 2025-06-01 11:18 | disposition home or self-care (01) ==
LOC: ORWHC2ENDO 08:54
PROVIDERS: ATTEND Internal Medicine Gastroenterology
DX: I85.10 Secondary esophageal varices without bleeding (principal); K21.00 Gastro-esophageal reflux disease with esophagitis, without bleeding
CPT/HCPCS: 43235; J2704; J2003